=== PATIENT | female | born 1950 | race Caucasian/White ===

== ENCOUNTER → 2017-03-29 07:50 | Outpatient (CLI) | payer OTHER, SELFPAY ==
--- NOTE | 2017-03-29 07:53 | HPBI_ITS ---
MAMMOGRAPHY - BILATERAL SCREENING REASON FOR EXAM: Female, 66 years old. Routine annual screening examination. PERTINENT HISTORY: Non-contributory. TECHNIQUE: Digital bilateral breast aiden (3D mammographic acquisition) in the CC and MLO projections. 2-D mediolateral oblique (MLO) and craniocaudad (CC) views of both breasts were obtained. CAD: Full Field Digital Mammography with Computer Added Detection was performed. COMPARISON: Comparison is made with prior outside examination dated June 18, 2016. FINDINGS: Breast Composition: The breasts are almost entirely fatty. There are no dominant masses or suspicious calcifications. A battery pack from a pacemaker is seen in the left axillary region. No other significant abnormalities are identified. There has been no significant change since the prior study. HPBI/SCREENING MAMM (CAD), BILAT IMPRESSION: Stable bilateral screening mammogram. Yearly follow-up mammogram recommended. (A) ASSESSMENT CATEGORY: BIRADS Category 2: Benign. A letter regarding these results will be sent to the patient by the facility within 30 days. Approximately 10% of breast cancers are not detected by mammography. A normal mammogram should not delay biopsy of a clinically suspicious abnormality. [id number] Electronically Signed: Jose David Thomas MD at 10:02 EST Tel [phone], Service support ,
== END ==
PROVIDERS: Family Provider Family Medicine; PCP Family Medicine; Visit Provider Obstetrics & Gynecology
DX: Z12.31 Encounter for screening mammogram for malignant neoplasm of breast (principal)
CPT/HCPCS: 77063; 77067

== ENCOUNTER → 2017-04-01 07:38 | Outpatient (CLI) | payer OTHER, SELFPAY ==
[2017-04-01 10:05] LABS: Hematocrit 41.8 % (37-47); Hemoglobin 14.7 g/dl (12.0-15.0); Mean Corp Hgb Conc 35.2 g/gl (32-36); Mean Corpuscular Hgb 31.1 pg (27.0-32.0); Mean Corpuscular Volume 88.6 fL (81-99); Mean Platelet Vol. 9.8 fl (6.2-12.0); Platelet Count 231 K/mm3 (150-450); RBC Distribution Width CV 12.6 % (11.6-14.6); RBC Distribution Width SD 39.9 fl (35.1-43.9); Red Blood Count 4.72 M/mm3 (4.2-5.4); White Blood Count 4.8 K/mm3 (4.4-11.0)
[2017-04-01 10:10] LABS: Scan Indicated on CBC? Y/N NO
[2017-04-01 10:29] LABS: Vitamin D,25 Hydroxy 25.6 ng/mL (19.95-100.01)
[2017-04-01 10:46] LABS: ALB/GLOB Ratio 0.9 RATIO (0.9-2.4); AST(SGOT) 37 U/L (15-37); Alanine Aminotransfer ALT/SGPT 36 U/L (13-56); Albumin, Serum 3.4 g/dL (3.2-5.0); Alkaline Phosphatase 107 U/L (45-117); Anion Gap 7 (5-15); BUN 23 mg/dL (7-18); BUN/Creat Ratio 24.8 RATIO (10-20); Calcium,Total 8.9 mg/dL (8.5-10.1); Chloride 103 mmol/L (98-107); Cholesterol 145 mg/dL (200); Creatinine, Serum 0.93 mg/dL (0.55-1.02); EST Glomerular Filtration Rate 65 mL/min (>60); Est Glom Filt Rate - Afr Amer 78 mL/min (>60); Globulin 3.7 g/dL (2.2-4.2); Glucose 86 mg/dL (74-106); High Density Lipoprotein 66 mg/dL; Potassium 3.8 mmol/L (3.5-5.1); Protein, Total 7.1 g/dL (6.4-8.2); Sodium Level 140 mmol/L (136-145); T4 Free Direct 1.45 ng/dL (0.76-1.46); Thyroid Stim Hormone (TSH) 1.47 uIU/mL (0.358-3.74); Triglycerides 65 mg/dL; Very Low Density Lipoprotein 13 mg/dL (5-40)
== END ==
PROVIDERS: Family Provider Family Medicine; PCP Family Medicine; Visit Provider Internal Medicine Cardiovascular Disease
DX: Z00.00 Encounter for general adult medical examination without abnormal findings (principal); I10 Essential (primary) hypertension; E03.9 Hypothyroidism, unspecified; I44.1 Atrioventricular block, second degree; I44.4 Left anterior fascicular block; I45.10 Unspecified right bundle-branch block; I49.3 Ventricular premature depolarization; R55 Syncope and collapse
CPT/HCPCS: 36415; 80053; 80061; 82306; 84439; 84443; 85027

== ENCOUNTER → 2017-04-03 15:34 | Outpatient (CLI) | payer OTHER, SELFPAY ==
[2017-04-09 15:55] LABS: HPV APTIMA, High Risk Negative (Negative)
== END ==
PROVIDERS: Family Provider Family Medicine; PCP Family Medicine; Visit Provider Obstetrics & Gynecology
DX: Z12.4 Encounter for screening for malignant neoplasm of cervix (principal)
CPT/HCPCS: 88175; G0145

== ENCOUNTER → 2017-05-02 08:00 | Outpatient (CLI) | payer OTHER, SELFPAY ==
[2017-05-02 08:05] LABS: Mucous, Urine 0 SEEN /hpf (<or=2+); Red Blood Cells-Urine 0 SEEN /hpf (0-5)
[2017-05-02 09:40] LABS: Color, Urine Yellow (Yellow); Glucose, Dipstick Normal (Normal); Ketone-Dipstick Negative (Negative); Leukocyte Esterase-Dipstick 500 /ul (Negative); Nitrite-Dipstick Negative (Negative); Occult Blood-Urine Negative /ul (Negative); Protein-Dipstick Negative (Negative); Specific Gravity, Urine 1.005 (1.002-1.030); Urine Bilirubin Dipstick Negative (Negative); Urine Clarity Sl. Cloudy (Clear); Urine Urobilinogen Normal (Normal)
[2017-05-02 09:51] LABS: Bacteria RARE /hpf (None Seen); Squamous Epithelial Cells - UA 0-5 SEEN /hpf (5-10); White Blood Cells 0-5 SEEN /hpf (0-5)
== END ==
PROVIDERS: Family Provider Family Medicine; PCP Family Medicine; Visit Provider Family Medicine
DX: N39.0 Urinary tract infection, site not specified (principal)
CPT/HCPCS: 81001; 87086; 87088

== ENCOUNTER → 2018-04-03 07:36 | Outpatient (CLI) | payer MEDICARE, OTHER, SELFPAY ==
[2018-04-03 10:25] LABS: Hematocrit 43.7 % (37-47); Hemoglobin 15.1 g/dl (12.0-15.0); Mean Corp Hgb Conc 34.6 g/gl (32-36); Mean Corpuscular Hgb 30.8 pg (27.0-32.0); Mean Corpuscular Volume 89.2 fL (81-99); Mean Platelet Vol. 9.8 fl (6.2-12.0); Platelet Count 250 K/mm3 (150-450); RBC Distribution Width CV 12.5 % (11.6-14.6); RBC Distribution Width SD 40.5 fl (35.1-43.9); White Blood Count 5.4 K/mm3 (4.4-11.0)
[2018-04-03 10:26] LABS: Scan Indicated on CBC? Y/N NO
[2018-04-03 10:48] LABS: ALB/GLOB Ratio 0.9 RATIO (0.9-2.4); AST(SGOT) 28 U/L (15-37); Alanine Aminotransfer ALT/SGPT 32 U/L (13-56); Albumin, Serum 3.6 g/dL (3.2-5.0); Alkaline Phosphatase 132 U/L (45-117); Anion Gap 8 (5-15); BUN 25 mg/dL (7-18); Chloride 104 mmol/L (98-107); Cholesterol 158 mg/dL (200); EST Glomerular Filtration Rate 59 mL/min (>60); Est Glom Filt Rate - Afr Amer 71 mL/min (>60); Globulin 3.8 g/dL (2.2-4.2); Glucose 85 mg/dL (74-106); High Density Lipoprotein 61 mg/dL; Potassium 4.1 mmol/L (3.5-5.1); Protein, Total 7.4 g/dL (6.4-8.2); Sodium Level 142 mmol/L (136-145); T4 Free Direct 1.37 ng/dL (0.76-1.46); Thyroid Stim Hormone (TSH) 0.94 uIU/mL (0.358-3.74); Triglycerides 90 mg/dL; Very Low Density Lipoprotein 18 mg/dL (5-40)
== END ==
PROVIDERS: Family Provider Family Medicine; PCP Family Medicine; Referring Provider Family Medicine; Visit Provider Family Medicine
DX: I10 Essential (primary) hypertension (principal); E03.9 Hypothyroidism, unspecified; E55.9 Vitamin D deficiency, unspecified
CPT/HCPCS: 36415; 80053; 80061; 84439; 84443; 85027

== ENCOUNTER → 2018-06-18 09:50 | Outpatient (CLI) | payer MEDICARE, OTHER, SELFPAY ==
[2018-06-18 09:17] VITALS: BMI 29.9
--- NOTE | 2018-06-18 09:54 | BI_ITS ---
MAMMOGRAPHY - BILATERAL SCREENING REASON FOR EXAM: Female, 68 years old. Routine annual screening examination. PERTINENT HISTORY: Non-contributory. Remote left excisional breast biopsy. TECHNIQUE: Digital bilateral breast aiden (3D mammographic acquisition) in the CC and MLO projections. 2-D mediolateral oblique (MLO) and craniocaudad (CC) views of both breasts were obtained. CAD: Full Field Digital Mammography with Computer Added Detection was performed. COMPARISON: None. FINDINGS: Breast Composition: The breasts are almost entirely fatty. There are no dominant masses or suspicious calcifications. Once again, a battery pack from a pacemaker is seen in the left axillary region. No other significant abnormalities are identified. There has been no significant change since the prior study. BI/SCREENING MAMM (CAD), BILAT IMPRESSION: Stable bilateral screening mammogram. Yearly follow-up mammogram recommended. (A) ASSESSMENT CATEGORY: BIRADS Category 1: Negative. A letter regarding these results will be sent to the patient by the facility within 30 days. Approximately 10% of breast cancers are not detected by mammography. A normal mammogram should not delay biopsy of a clinically suspicious abnormality. [id number] Electronically Signed: Jose David Thomas, at 13:36 EDT , Service support ,
--- NOTE | 2018-06-18 09:59 | BD_ITS ---
STUDY: DUAL ENERGY X-RAY ABSORPTIOMETRY / DXA REASON FOR EXAM: Female, 68 years old. Early menopause. Loss of height. TECHNIQUE: Bone Mineral Density (BMD) measurements of lumbar spine and bilateral hips were obtained. COMPARISON: None. FINDINGS: Lumbar Spine (L1-L4): g/cm2 (1.312) / T-score (1.2) / Z-score (2.8) Findings are suggestive of normal bone density with a low fracture risk. Left Femur Total: g/cm2 (1.049) / T-score (0.3) / Z-score (1.6) Left Femoral Neck: g/cm2 (1.081) / T-score (0.3) / Z-score (1.8) Right Femur Total: g/cm2 (1.061) / T-score (0.4) / Z-score (1.7) Right Femoral Neck: g/cm2 (1.037) / T-score (0.0) / Z-score (1.5) BD/Dexa Bone Density Study IMPRESSION: The patient is considered normal as outlined below according to World Ruiz Organization (WHO) criteria with a low fracture risk. Reference Information: The T-score is the number of standard deviations above or below the standard which is normal for young adults at their peak bone mineral density. The World Health Organization (WHO) interprets the T-scores as follows: Above -1 Normal bone density Between -1 and -2.5 Osteopenia Equal to / or below -2.5 Osteoporosis As a practical clinical guideline, osteopenia may be graded as follows: Mild -1 through -1.5 Moderate -1.6 through -2.0 Severe -2.1 through -2.4 The Z-score is the number of standard deviations above or below age-matched controls. A Z-score of less than -1.5 would be considered abnormal. References: 1. NIH Osteoporosis and Related Bone Diseases http://www.osteo.org 2. International Society for Clinical Densitometry http://www.iscd.org 3. National Osteoporosis Foundation http://www.nof.org Electronically Signed: Jose David Thomas, at 15:30 EDT , Service support ,
== END ==
PROVIDERS: Family Provider Family Medicine; PCP Family Medicine; Referring Provider Family Medicine; Visit Provider Family Medicine
DX: Z12.31 Encounter for screening mammogram for malignant neoplasm of breast (principal); Z78.0 Asymptomatic menopausal state
CPT/HCPCS: 77063; 77067; 77080

== ENCOUNTER → 2018-06-23 15:40 | Outpatient (CLI) | payer MEDICARE, OTHER, SELFPAY ==
[2018-06-18 09:17] VITALS: BMI 29.9
== END ==
PROVIDERS: Family Provider Family Medicine; PCP Family Medicine; Referring Provider Nurse Practitioner Family; Visit Provider Nurse Practitioner Family
DX: R35.0 Frequency of micturition (principal)
CPT/HCPCS: 87086; 87088; 87186

== ENCOUNTER → 2019-09-04 10:22 | Outpatient (CLI) | payer MEDICARE, OTHER, SELFPAY ==
[2019-04-16 08:46] VITALS: BMI 30.2
[2019-09-04 12:46] LABS: Vitamin D,25 Hydroxy 80.4 ng/mL
[2019-09-04 13:00] LABS: Anion Gap 4 (5-15); BUN 25 mg/dL (7-18); BUN/Creat Ratio 25.8 RATIO (10-20); Calcium,Total 9.2 mg/dL (8.5-10.1); Chloride 106 mmol/L (98-107); Cholesterol 165 mg/dL (200); Creatinine, Serum 0.97 mg/dL (0.55-1.02); EST Glomerular Filtration Rate 61 mL/min (>60); Est Glom Filt Rate - Afr Amer 74 mL/min (>60); Glucose 92 mg/dL (74-106); High Density Lipoprotein 71 mg/dL; Potassium 3.9 mmol/L (3.5-5.1); Sodium Level 141 mmol/L (136-145); T4 Free Direct 1.35 ng/dL (0.76-1.46); Thyroid Stim Hormone (TSH) 0.94 uIU/mL (0.358-3.74); Triglycerides 83 mg/dL; Very Low Density Lipoprotein 17 mg/dL (5-40)
== END ==
PROVIDERS: PCP Family Medicine; Referring Provider Family Medicine; Visit Provider Family Medicine
DX: I10 Essential (primary) hypertension (principal)
CPT/HCPCS: 36415; 80048; 80061; 82306; 84439; 84443

== ENCOUNTER → 2019-12-31 07:22 | Outpatient (CLI) | payer MEDICARE, OTHER, SELFPAY ==
[2018-06-18 09:17] VITALS: BMI 29.9
[2019-04-16 08:46] VITALS: BMI 30.2
--- NOTE | 2019-12-31 07:23 | BI_ITS ---
MAMMOGRAPHY - BILATERAL SCREENING REASON FOR EXAM: Female, 69 years old. Routine annual screening examination. PERTINENT HISTORY: Non-contributory. Remote left excisional breast biopsy. TECHNIQUE: Digital bilateral breast rafa (3D mammographic acquisition) in the CC and MLO projections. 2-D mediolateral oblique (MLO) and craniocaudad (CC) views of both breasts were obtained. CAD: Full Field Digital Mammography with Computer Added Detection was performed. COMPARISON: Comparison is made with prior study dated 06/18/2018 and 03/29/2017. FINDINGS: Breast Composition: The breasts are almost entirely fatty. There are no dominant masses or suspicious calcifications. A battery pack from a left-sided pacemaker device is seen in the left axillary region. No other significant abnormalities are identified. There has been no significant change since the prior study. BI/SCREEN MAMM (CAD) W/RAFA BILAT IMPRESSION: Stable bilateral screening mammogram. Yearly follow-up mammogram recommended. (A) ASSESSMENT CATEGORY: BIRADS Category 2: Benign. A letter regarding these results will be sent to the patient by the facility within 30 days. Approximately 10% of breast cancers are not detected by mammography. A normal mammogram should not delay biopsy of a clinically suspicious abnormality. [id number] Electronically Signed: Jose David Thomas, at 10:00 EST , Service support ,
== END ==
PROVIDERS: Family Provider Family Medicine; PCP Family Medicine; Referring Provider Obstetrics & Gynecology; Visit Provider Obstetrics & Gynecology
DX: Z12.31 Encounter for screening mammogram for malignant neoplasm of breast (principal)
CPT/HCPCS: 77063; 77067

== ENCOUNTER 2020-04-06 14:10 | Outpatient (RCR) | payer MEDICARE, OTHER, SELFPAY ==
[2019-12-31 08:13] VITALS: BMI 29.5
== END 2020-04-06 23:59 ==
LOC: IMMUN 14:10
PROVIDERS: PCP Family Medicine; Referring Provider Family Medicine; Visit Provider Family Medicine
DX: Z23 Encounter for immunization (principal)
CPT/HCPCS: 0011A; 0012A

== ENCOUNTER → 2020-09-15 08:07 | Outpatient (CLI) | payer MEDICARE, OTHER, SELFPAY ==
[2020-04-19 08:44] VITALS: BMI 28.9
[2020-09-15 10:28] LABS: Vitamin D,25 Hydroxy 67.5 ng/mL
[2020-09-15 10:39] LABS: ALB/GLOB Ratio 1.1 RATIO (0.9-2.4); AST(SGOT) 29 U/L (15-37); Alanine Aminotransfer ALT/SGPT 33 U/L (13-56); Albumin, Serum 3.7 g/dL (3.2-5.0); Alkaline Phosphatase 109 U/L (45-117); Anion Gap 7 (5-15); BUN 26 mg/dL (7-18); BUN/Creat Ratio 27.1 RATIO (10-20); Calcium,Total 9.1 mg/dL (8.5-10.1); Chloride 102 mmol/L (98-107); Cholesterol 171 mg/dL (200); Creatinine, Serum 0.96 mg/dL (0.55-1.02); EST Glomerular Filtration Rate 61 mL/min (>60); Est Glom Filt Rate - Afr Amer 74 mL/min (>60); Globulin 3.4 g/dL (2.2-4.2); Glucose 93 mg/dL (74-106); High Density Lipoprotein 66 mg/dL; Potassium 3.6 mmol/L (3.5-5.1); Protein, Total 7.1 g/dL (6.4-8.2); Sodium Level 140 mmol/L (136-145); Thyroid Stim Hormone (TSH) 1.21 uIU/mL (0.358-3.74); Triglycerides 90 mg/dL; Very Low Density Lipoprotein 18 mg/dL (5-40)
== END ==
PROVIDERS: PCP Family Medicine; Referring Provider Family Medicine; Visit Provider Family Medicine
DX: I10 Essential (primary) hypertension (principal); E55.9 Vitamin D deficiency, unspecified; E03.9 Hypothyroidism, unspecified
CPT/HCPCS: 36415; 80053; 80061; 82306; 84443

== ENCOUNTER → 2020-10-05 08:05 | Outpatient (CLI) | payer MEDICARE, OTHER, SELFPAY ==
[2020-04-19 08:44] VITALS: BMI 28.9
--- NOTE | 2020-10-05 08:11 | BD_ITS ---
STUDY: DUAL ENERGY X-RAY ABSORPTIOMETRY / DXA REASON FOR EXAM: Female, 70 years old. Postmenopausal TECHNIQUE: Bone Mineral Density (BMD) measurements of lumbar spine and bilateral hips were obtained. COMPARISON: Comparison is made with prior study dated 06/18/2018. FINDINGS: Lumbar Spine (L1-L4): g/cm2 (1.174) / T-score (1.2) / Z-score (3.1) Findings are suggestive of normal bone density with a low fracture risk. Left Femur Total: g/cm2 (0.982) / T-score (0.3) / Z-score (1.7) Left Femoral Neck: g/cm2 (0.899) / T-score (0.4) / Z-score (2.1) Right Femur Total: g/cm2 (1.016) / T-score (0.6) / Z-score (2.0) Right Femoral Neck: g/cm2 (0.868) / T-score (0.2) / Z-score (1.9) The T-Scores on the most recent prior examination were: Lumbar Spine (L1-L4): There has been worsening of bone density since the previous examination. Left Femur Total: which represents an improvement of 0.1%. Right Femur Total: which represents an improvement of 2.3%. BD/Dexa Bone Density Study IMPRESSION: The patient is considered normal as outlined below according to World Ruiz Organization (WHO) criteria with a low fracture risk. There has been improvement of bone density since the previous examination. Reference Information: The T-score is the number of standard deviations above or below the standard which is normal for young adults at their peak bone mineral density. The World Health Organization (WHO) interprets the T-scores as follows: Above -1 Normal bone density Between -1 and -2.5 Osteopenia Equal to / or below -2.5 Osteoporosis As a practical clinical guideline, osteopenia may be graded as follows: Mild -1 through -1.5 Moderate -1.6 through -2.0 Severe -2.1 through -2.4 The Z-score is the number of standard deviations above or below age-matched controls. A Z-score of less than -1.5 would be considered abnormal. References: 1. NIH Osteoporosis and Related Bone Diseases www osteo.org 2. International Society for Clinical Densitometry www iscd.org 3. National Osteoporosis Foundation www nof.org Electronically Signed: Jose David Thomas MD at 8:56 EDT , Service support ,
== END ==
PROVIDERS: PCP Family Medicine; Referring Provider Obstetrics & Gynecology; Visit Provider Obstetrics & Gynecology
DX: Z78.0 Asymptomatic menopausal state (principal)
CPT/HCPCS: 77080

== ENCOUNTER → 2020-11-14 | Outpatient (CLI) | payer MEDICARE, OTHER, SELFPAY | END | disposition home or self-care (01) | LOC: LABSPEC 12:40 | PROVIDERS: PCP Family Medicine; Referring Provider Family Medicine; Visit Provider Family Medicine | DX: R30.0 Dysuria (principal) | CPT/HCPCS: 87077; 87086; 87088; 87186 ==

== ENCOUNTER → 2021-01-02 | Outpatient (CLI) | payer MEDICARE, OTHER, SELFPAY ==
[2021-01-09 14:20] LABS: HPV Reflexed? NOT INDICATED
== END | disposition home or self-care (01) ==
LOC: LABSPEC 12:51
PROVIDERS: PCP Family Medicine; Referring Provider Nurse Practitioner Women's Health; Visit Provider Nurse Practitioner Women's Health
DX: Z12.4 Encounter for screening for malignant neoplasm of cervix (principal); R30.9 Painful micturition, unspecified
CPT/HCPCS: 87086; 87088; 87186; 88175; G0145

== ENCOUNTER → 2021-01-20 07:43 | Outpatient (CLI) | payer MEDICARE, OTHER, SELFPAY ==
[2020-04-19 08:44] VITALS: BMI 28.9
--- NOTE | 2021-01-20 07:45 | BI_ITS ---
MAMMOGRAPHY - BILATERAL SCREENING REASON FOR EXAM: Female, 70 years old. Routine annual screening examination. PERTINENT HISTORY: Non-contributory. TECHNIQUE: Digital bilateral breast rafa (3D mammographic acquisition) in the CC and MLO projections. 2-D mediolateral oblique (MLO) and craniocaudad (CC) views of both breasts were obtained. CAD: Full Field Digital Mammography with Computer Added Detection was performed. COMPARISON: Comparison is made with prior study dated 12/31/2019 and 06/18/2018. FINDINGS: Breast Composition: The breasts are almost entirely fatty. There are no dominant masses or suspicious calcifications. Once again, a battery pack from a pacemaker is seen in the left axillary region. No other significant abnormalities are identified. There has been no significant change since the prior study. BI/SCRN MAMM (CAD)W/RAFA BILAT IMPRESSION: Stable bilateral screening mammogram. Yearly follow-up mammogram recommended. (A) ASSESSMENT CATEGORY: BIRADS Category 2: Benign. A letter regarding these results will be sent to the patient by the facility within 30 days. Approximately 10% of breast cancers are not detected by mammography. A normal mammogram should not delay biopsy of a clinically suspicious abnormality. [id number] Electronically Signed: Jose David Thomas MD at 9:16 EST , Service support ,
== END ==
PROVIDERS: PCP Family Medicine; Referring Provider Nurse Practitioner Women's Health; Visit Provider Nurse Practitioner Women's Health
DX: Z12.31 Encounter for screening mammogram for malignant neoplasm of breast (principal)
CPT/HCPCS: 77063; 77067

== ENCOUNTER 2021-03-22 09:33 | Outpatient (CLI) | payer MEDICARE, OTHER, SELFPAY ==
[2021-03-22 13:59] LABS: Anion Gap 7 (5-15); BUN 24 mg/dL (7-18); Calcium,Total 8.9 mg/dL (8.5-10.1); Chloride 105 mmol/L (98-107); Cholesterol 159 mg/dL (200); Creatinine, Serum 0.92 mg/dL (0.55-1.02); EST Glomerular Filtration Rate 64 mL/min (>60); Est Glom Filt Rate - Afr Amer 78 mL/min (>60); Glucose 82 mg/dL (74-106); High Density Lipoprotein 64 mg/dL; Potassium 3.7 mmol/L (3.5-5.1); Sodium Level 142 mmol/L (136-145); Triglycerides 94 mg/dL; Very Low Density Lipoprotein 19 mg/dL (5-40)
== END 2021-03-22 23:59 | disposition home or self-care (01) ==
LOC: MFPLAB 09:38
PROVIDERS: PCP Family Medicine; Referring Provider Family Medicine; Visit Provider Family Medicine
DX: I10 Essential (primary) hypertension (principal); E55.9 Vitamin D deficiency, unspecified
CPT/HCPCS: 36415; 80048; 80061; 82306

== ENCOUNTER 2021-05-23 07:33 | Outpatient (CLI) | payer MEDICARE, OTHER, SELFPAY ==
--- NOTE | 2021-05-23 07:38 | ECHOD_ITS ---
Reason For Study: 2nd Degree AV Block Mobitz Type II Procedure This was a 2D Doppler, Color Flow transthoracic echocardiogram. Exam performed in department. Left Ventricle Normal LV size. Left ventricular systolic function is normal. The estimated ejection fraction is 55 %. Stage 1 diastolic dysfunction. No regional wall motion abnormalities noted. Right Ventricle Normal RV size. ICD or pacer leads identified within the right ventricle. Normal systolic function. Atria Normal left atrium. Normal right atrium. Mitral Valve Normal mitral valve. Mild (1+) eccentric mitral valve insufficiency. Tricuspid Valve Normal tricuspid valve. Mild tricuspid valve insufficiency. Pulmonary artery systolic pressure is 28 mmHg. Aortic Valve Normal aortic valve. Trisinus/trileaflet aortic valve. Pulmonic Valve Normal pulmonic valve. Great Vessels Normal aortic root. The pulmonary artery is normal size. Normal inferior vena cava. Pericardium/Pleural No pericardial effusion. MMode/2D Measurements & Calculations LVIDd: 5.3 cm IVSd: 0.64 cm Ao root diam: 3.1 cm LVIDs: 3.4 cm LVPWd: 0.81 cm LA dimension: 3.4 cm RVDd: 3.9 cm FS: 34.8 % LAV(MOD-bp): 46.7 ml LA A4 area: 17.4 cm2 RA A4 area: 15.7 cm2 LAV(MOD-bp) Indexed: 25.9 ml/m2 LAV(MOD-sp2): 44.9 ml LAV(MOD-sp4): 47.0 ml Time Measurements MV dec time: 0.25 sec Doppler Measurements & Calculations MV E max lyle: 46.4 cm/sec Lat Peak E' Lyle: 6.0 cm/sec Med Peak E' Lyle: 5.9 cm/sec MV A max lyle: 84.2 cm/sec E/E' lat: 7.7 E/E' med: 7.9 MV E/A: 0.55 MV V2 max: 106.0 cm/sec MV P1/2t max lyle: 71.5 cm/sec Ao V2 max: 132.0 cm/sec MV max P.5 mmHg MV P1/2t: 114.3 msec Ao max P.0 mmHg MV V2 mean: 53.9 cm/sec MV dec slope: 183.3 cm/sec2 MV mean P.4 mmHg MVA(P1/2t): 1.9 cm2 MV V2 VTI: 33.3 cm LV V1 max: 83.4 cm/sec PA V2 max: 83.8 cm/sec TR max lyle: 242.7 cm/sec LV V1 max P.8 mmHg TR max P.6 mmHg ECHO/Echo Complete Interpretation Summary Normal LV size. Left ventricular systolic function is normal. The estimated ejection fraction is 55 %. Mild (1+) eccentric mitral valve insufficiency. Mild tricuspid valve insufficiency. Stage 1 diastolic dysfunction. Ordering Physician: Jeri Rasheed Referring Physician: Deacon Smith Performed By: Elmer Johnson RCS
== END 2021-05-23 23:59 | disposition home or self-care (01) ==
LOC: CVS 07:37
PROVIDERS: PCP Family Medicine; Referring Provider Physician Assistant Medical; Visit Provider Physician Assistant Medical
DX: I44.1 Atrioventricular block, second degree (principal)
CPT/HCPCS: 93306

== ENCOUNTER → 2021-06-16 | Outpatient (CLI) | payer MEDICARE, OTHER, SELFPAY | END | disposition home or self-care (01) | PROVIDERS: PCP Family Medicine; Referring Provider Nurse Practitioner Women's Health; Visit Provider Nurse Practitioner Women's Health | DX: N39.0 Urinary tract infection, site not specified (principal) | CPT/HCPCS: 87086; 87088 ==

== ENCOUNTER → 2022-01-22 | Outpatient (CLI) | payer MEDICARE, OTHER, SELFPAY ==
--- NOTE | 2022-01-22 07:36 | BI_ITS ---
MAMMOGRAPHY - BILATERAL SCREENING REASON FOR EXAM: Female, 71 years old. Routine annual screening examination. PERTINENT HISTORY: Non-contributory. Remote left excisional breast biopsy. TECHNIQUE: Digital bilateral breast rafa (3D mammographic acquisition) in the CC and MLO projections. 2-D mediolateral oblique (MLO) and craniocaudad (CC) views of both breasts were obtained. CAD: Full Field Digital Mammography with Computer Added Detection was performed. COMPARISON: Comparison is made with prior study dated 01/20/2021 and 12/31/2019. FINDINGS: Breast Composition: The breasts are almost entirely fatty. There are no dominant masses or suspicious calcifications. A battery pack from a pacemaker is seen in the left axillary region No other significant abnormalities are identified. There has been no significant change since the prior study. BI/SCRN MAMM (CAD)W/RAFA BILAT IMPRESSION: Stable bilateral screening mammogram. Yearly follow-up mammogram recommended. (A) ASSESSMENT CATEGORY: BIRADS Category 2: Benign. A letter regarding these results will be sent to the patient by the facility within 30 days. Approximately 10% of breast cancers are not detected by mammography. A normal mammogram should not delay biopsy of a clinically suspicious abnormality. [id number] Electronically Signed: Jose David Thomas MD at 8:27 EST ,
== END | disposition home or self-care (01) ==
LOC: OPBI 07:34
PROVIDERS: PCP Family Medicine; Visit Provider Nurse Practitioner Women's Health
DX: Z12.31 Encounter for screening mammogram for malignant neoplasm of breast (principal); Z95.0 Presence of cardiac pacemaker; Z92.89 Personal history of other medical treatment
CPT/HCPCS: 77063; 77067

== ENCOUNTER → 2022-03-02 | Outpatient (CLI) | payer MEDICARE, OTHER, SELFPAY ==
[2022-03-02 10:48] LABS: Vitamin D,25 Hydroxy 65.6 ng/mL
[2022-03-02 10:53] LABS: AST(SGOT) 31 U/L (15-37); Alanine Aminotransfer ALT/SGPT 28 U/L (13-56); Albumin, Serum 3.4 g/dL (3.2-5.0); Alkaline Phosphatase 102 U/L (45-117); Anion Gap 9 (5-15); BUN 28 mg/dL (7-18); BUN/Creat Ratio 25.5 RATIO (10-20); Calcium,Total 8.9 mg/dL (8.5-10.1); Chloride 101 mmol/L (98-107); Cholesterol 149 mg/dL (200); EST Glomerular Filtration Rate 52 mL/min (>60); Est Glom Filt Rate - Afr Amer 63 mL/min (>60); Globulin 3.4 g/dL (2.2-4.2); Glucose 85 mg/dL (74-106); High Density Lipoprotein 66 mg/dL; Potassium 3.8 mmol/L (3.5-5.1); Protein, Total 6.8 g/dL (6.4-8.2); Sodium Level 139 mmol/L (136-145); Thyroid Stim Hormone (TSH) 0.27 uIU/mL (0.358-3.74); Triglycerides 66 mg/dL; Very Low Density Lipoprotein 13 mg/dL (5-40)
[2022-03-08 10:46] LABS: T4 Free Direct 1.52 ng/dL (0.76-1.46)
== END | disposition home or self-care (01) ==
PROVIDERS: PCP Family Medicine; Referring Provider Family Medicine; Visit Provider Family Medicine
DX: I10 Essential (primary) hypertension (principal); E03.9 Hypothyroidism, unspecified; E55.9 Vitamin D deficiency, unspecified; Z13.29 Encounter for screening for other suspected endocrine disorder
CPT/HCPCS: 36415; 80053; 80061; 82306; 84439; 84443

== ENCOUNTER → 2022-04-26 | Outpatient (CLI) | payer MEDICARE, OTHER, SELFPAY ==
[2022-04-26 10:22] LABS: Anion Gap 7 (5-15); BUN 27 mg/dL (7-18); BUN/Creat Ratio 25.5 RATIO (10-20); Calcium,Total 9.2 mg/dL (8.5-10.1); Chloride 105 mmol/L (98-107); Creatinine, Serum 1.06 mg/dL (0.55-1.02); EST Glomerular Filtration Rate 55 mL/min (>60); Est Glom Filt Rate - Afr Amer 66 mL/min (>60); Glucose 92 mg/dL (74-106); Sodium Level 140 mmol/L (136-145); Thyroid Stim Hormone (TSH) 1.35 uIU/mL (0.358-3.74)
== END | disposition home or self-care (01) ==
LOC: MTLAB 07:57
PROVIDERS: PCP Family Medicine; Referring Provider Family Medicine; Visit Provider Family Medicine
DX: I10 Essential (primary) hypertension (principal); E03.9 Hypothyroidism, unspecified
CPT/HCPCS: 36415; 80048; 84439; 84443

== ENCOUNTER → 2022-09-10 | Outpatient (CLI) | payer MEDICARE, OTHER, SELFPAY ==
[2022-09-10 10:39] LABS: Vitamin D,25 Hydroxy 69.9 ng/mL
[2022-09-10 10:40] LABS: AST(SGOT) 28 U/L (15-37); Alanine Aminotransfer ALT/SGPT 27 U/L (13-56); Albumin, Serum 3.5 g/dL (3.2-5.0); Alkaline Phosphatase 102 U/L (45-117); Anion Gap 3 (5-15); BUN 30 mg/dL (7-18); Calcium,Total 9.2 mg/dL (8.5-10.1); Chloride 107 mmol/L (98-107); Cholesterol 186 mg/dL (200); Creatinine, Serum 1.07 mg/dL (0.55-1.02); EST Glomerular Filtration Rate 54 mL/min (>60); Est Glom Filt Rate - Afr Amer 65 mL/min (>60); Globulin 3.6 g/dL (2.2-4.2); Glucose 92 mg/dL (74-106); High Density Lipoprotein 75 mg/dL; Potassium 4.2 mmol/L (3.5-5.1); Protein, Total 7.1 g/dL (6.4-8.2); Sodium Level 139 mmol/L (136-145); T4 Free Direct 1.31 ng/dL (0.76-1.46); Thyroid Stim Hormone (TSH) 0.71 uIU/mL (0.358-3.74); Triglycerides 103 mg/dL; Very Low Density Lipoprotein 21 mg/dL (5-40)
[2022-09-10 10:41] LABS: Vitamin B12 600 pg/mL (211-911)
== END | disposition home or self-care (01) ==
PROVIDERS: Internal Medicine Endocrinology, Diabetes & Metabolism; PCP Family Medicine; Referring Provider Family Medicine; Visit Provider Family Medicine
DX: R20.2 Paresthesia of skin (principal); I10 Essential (primary) hypertension; E55.9 Vitamin D deficiency, unspecified; E03.9 Hypothyroidism, unspecified
CPT/HCPCS: 36415; 80053; 80061; 82306; 82607; 84439; 84443

== ENCOUNTER → 2023-01-23 | Outpatient (CLI) | payer MEDICARE, OTHER, SELFPAY ==
--- NOTE | 2023-01-23 09:41 | BI_ITS ---
MAMMOGRAPHY - BILATERAL SCREENING REASON FOR EXAM: Female, 72 years old. Routine annual screening examination. PERTINENT HISTORY: Non-contributory. Remote left excisional breast biopsy. TECHNIQUE: Digital bilateral breast rafa (3D mammographic acquisition) in the CC and MLO projections. 2-D mediolateral oblique (MLO) and craniocaudad (CC) views of both breasts were obtained. CAD: Full Field Digital Mammography with Computer Added Detection was performed. COMPARISON: Comparison is made with prior study dated January 22, 2022 and January 20, 2021. FINDINGS: Breast Composition: The breasts are almost entirely fatty. There are no dominant masses or suspicious calcifications. The battery pack of the pacemaker is seen in the left axilla. No other significant abnormalities are identified. There has been no significant change since the prior study. BI/SCRN MAMM (CAD)W/RAFA BILAT IMPRESSION: Stable bilateral screening mammogram. Yearly follow-up mammogram recommended. (A) ASSESSMENT CATEGORY: BIRADS Category 2: Benign. A letter regarding these results will be sent to the patient by the facility within 30 days. Approximately 10% of breast cancers are not detected by mammography. A normal mammogram should not delay biopsy of a clinically suspicious abnormality. [id number] Electronically Signed: Jose David Thomas MD at 11:48 EST ,
== END | disposition home or self-care (01) ==
LOC: OPBI 09:39
PROVIDERS: PCP Family Medicine; Referring Provider Nurse Practitioner Women's Health; Visit Provider Nurse Practitioner Women's Health
DX: Z12.31 Encounter for screening mammogram for malignant neoplasm of breast (principal)
CPT/HCPCS: 77063; 77067

== ENCOUNTER → 2023-03-15 | Outpatient (CLI) | payer MEDICARE, OTHER, SELFPAY ==
--- NOTE | 2023-03-15 10:04 | RAD_ITS ---
STUDY: X-RAY - RIGHT FOOT CLINICAL: Female, 72 years old. Right foot injury TECHNIQUE: 3 view(s) of the foot. COMPARISON: None. FINDINGS: There is an enthesophyte involving the posterior superior calcaneus at the site of insertion of the Achilles tendon. Normal visualized subtalar, talonavicular, calcaneocuboid, tarsal and tarsometatarsal articulations. Nondisplaced oblique fracture of the mid fifth metatarsal. Well corticated bony fragment is seen at the base of the fifth metatarsal. This may represent either ununited fracture versus accessory ossicle. Normal metatarsophalangeal joint of the great toe. Normal tibial and fibular sesamoid bones. Normal interphalangeal joint of the great toe. Normal phalanges of the great toe. Normal second through fifth metatarsophalangeal joints. Normal interphalangeal joints and phalanges of the lesser toes. Soft tissue swelling. RAD/Foot min 3 Views IMPRESSION: Nondisplaced oblique fracture through the mid portion of the fifth metatarsal. Overlying soft tissue swelling. Electronically Signed: Jose David Thomas MD at 14:34 EST ,
--- OUTSIDE RECORDS SUMMARY | 2023-03-15 12:54 | XMS RPT_ITS | CCD ---
Author Name Unknown Address [id number] [place] [address] Organization [facility] Care Team Providers Care Agricultural Research Director Name Role Phone CARMELO Angelo, Victorina Sharpe Unavailable Unavailable CARMELO Angelo, Victorina Sharpe Unavailable Unavailable CARMELO Angelo, Victorina Sharpe Unavailable Unavailable CARMELO Angelo, Victorina Sharpe Unavailable Unavailable CARMELO Angelo, Victorina Sharpe Unavailable Unavailable CARMELO Angelo, Victorina Sharpe Unavailable Unavailable Robe Smith MD Primary Care Provider Robe Smith MD Primary Care Provider Robe Smith MD Primary Care Provider Robe Smith MD Primary Care Provider Robe Smith MD Primary Care Provider RUSTY SILVA Referring Unavailable ROBE SMITH Primary Care Unavailabl e RUSTY SILVA Attending Unavailable ROBE SMITH Primary Care Unavailabl e ARELY PLATA Attending Unavaila ROBE Ordaz Primary Care Unavailabl e ARELY PLATA Attending Unavaila RBOE Ordaz Primary Care Unavailabl e RUSTY SILVA Attending Unavailable ROBE SMITH Primary Care Unavailshanon e CATIA PEREZ Attending Unavailable ROBE SMITH Primary Care Unavailabl e ARELY PLATA Referring Unavaila ROBE Ordaz Primary Care Unavailabl e ARELY PLATA Attending Unavaila ROBE Ordaz Primary Care Unavailshanon e CATIA PEREZ Attending Unavailable ROBE SMITH Primary Care Unavailabl e Allergies Allergy Classification Reported Allergen(s) Allergy Type Date of Onset Reaction(s) Facility (6 sources) Sulfonamides (Antibiotic) drug allergy 7 [facility] Work Phone: (13 sources) Sulfonamides (Antibiotic); Translations: [SULFA (SULFONAMIDE ANTIBIOTICS)] Drug Allergy 5 Other: See Comments [facility] Medications Current Medications Medication Drug Class(es) Dates Sig (Normalized) Sig (Original) benoxinate hydrochloride 4 mg/ml / fluorescein sodium 2.5 mg/ml ophthalmic solution (2 sources) Diagnostic Dye Start: 04-25-2022 End: 04-25-2022 fluorescein-benoxi ashanti 0.25-0.4 % 1 Drop (FLURESS) Completed/Discontinued Medications Medication Drug Class(es) Dates Sig (Normalized) Sig (Original) aspirin 81 mg delayed release oral tablet (6 sources) Platelet Aggregation Inhibitor, Nonsteroidal Anti-inflammatory Drug Start: 02-22-2016 take 1 tablet by mouth once daily ASPIRIN EC 81 MG TBEC One tablet by mouth daily ASPIRIN [id number] Simi Truong RN calcium carbonate 1500 mg / cholecalciferol 200 unt oral tablet (12 sources) Vitamin D Start: 09-22-2014 take 1 tablet by mouth twice daily calcium carbonate 600 mg-cholecalcifero l 200 units (CALCIUM 600 + D,3,) 600 mg(1,500mg) -200 unit tab Take 1 tablet by mouth twice daily. 100 tablet 5 09/22/2014 Active Problems Active Problems Problem Classification Problem Date Documented Date Episodic/Chronic Cardiac dysrhythmias (6 sources) Ventricular premature depolarization; Translations: [Ventricular premature depolarization] Onset: 02-22-2016 02-22-2016 Chronic Cataract (7 sources) Nuclear senile cataract; Translations: [Age-related nuclear cataract, bilateral] Chronic Conduction disorders (20 sources) Presence of cardiac pacemaker; Translations: [Mobitz type II atrioventricular block] Onset: 02-01-2016 03-29-2016 Chronic Essential hypertension (12 sources) Benign essential hypertension; Translations: [Essential (primary) hypertension] Onset: 08-29-2007 12-30-2008 Chronic Retinal detachments; defects; vascular occlusion; and retinopathy (20 sources) Nonexudative age-related macular degeneration; Translations: [Nonexudative age-related macular degeneration, bilateral, advanced atrophic with subfoveal involvement] Onset: 11-10-2018 Chronic Thyroid disorders (18 sources) Hypothyroidism; Translations: [Hypothyroidism, unspecified] Onset: 02-08-2005 02-16-2016 Chronic Past or Other Problems Problem Classification Problem Date Documented Da te Episodic/Chronic Other female genital disorders (12 sources) Disorder of female genital system; Translations: [Unspecified condition associated with female genital organs and menstrual cycle] Onset: 05-31-2011 05-31-2011 Episodic Other screening for suspected conditions (not mental disorders or infectious disease) (12 sources) Abnormal findings on diagnostic imaging of heart and coronary circulation; Translations: [Electrocardiogram abnormal] Onset: 02-01-2016 02-22-2016 Episodic Residual codes; unclassified (12 sources) Abnormal cytology findings; Translations: [ASCUS favor benign] Onset: 03-24-2012 02-06-2021 Episodic Residual codes; unclassified (12 sources) Amnesia; Translations: [Other amnesia] Onset: 11-14-2018 11-14-2018 Episodic Syncope (6 sources) Syncope and collapse; Translations: [Syncope and collapse] Onset: 02-01-2016 02-01-2016 Episodic Results Test Name Value Interpretation Reference Range Facil ity Vital Signs Date Time Vital Sign Value Performing Clinician Gideon diop 04-25-2022 08:56-0400 Body temperature 97.5 [degF] Arely Murry MD Work Phone: [facility] 04-25-2022 08:56-0400 Diastolic blood pressure 81 mm[Hg] Arely Murry MD Work Phone: [facility] 04-25-2022 08:56-0400 Heart rate 69 /min Arely Murry MD Work Phone: [facility] 04-25-2022 08:56-0400 Respiratory rate 10 /min Arely Murry MD Work Phone: [facility] 04-25-2022 08:56-0400 Systolic blood pressure 140 mm[Hg] Arely Murry MD Work Phone: [facility] 01-10-2022 10:55-0500 Body temperature 97.2 [degF] Arely Murry MD Work Phone: [facility] 01-10-2022 10:55-0500 Diastolic blood pressure 85 mm[Hg] Arely Murry MD Work Phone: [facility] 01-10-2022 10:55-0500 Heart rate 62 /min Arely Murry MD Work Phone: [facility] 01-10-2022 10:55-0500 Respiratory rate 13 /min Arely Murry MD Work Phone: [facility] 01-10-2022 10:55-0500 Systolic blood pressure 159 mm[Hg] Arely Murry MD Work Phone: [facility] 07-14-2021 09:58-0400 Body temperature 97.5 [degF] Arely Murry MD Work Phone: [facility] 07-14-2021 09:58-0400 Diastolic blood pressure 104 mm[Hg] Arely Murry MD Work Phone: [facility] 07-14-2021 09:58-0400 Heart rate 89 /min Arely Murry MD Work Phone: [facility] 07-14-2021 09:58-0400 Respiratory rate 12 /min Arely Murry MD Work Phone: [facility] 07-14-2021 09:58-0400 Systolic blood pressure 123 mm[Hg] Arely Murry MD Work Phone: [facility] 05-17-2021 11:38-0400 Body temperature 97.9 [degF] Arely Murry MD Work Phone: [facility] 05-17-2021 11:38-0400 Diastolic blood pressure 78 mm[Hg] Arely Murry MD Work Phone: [facility] 05-17-2021 11:38-0400 Heart rate 67 /min Arely Murry MD Work Phone: [facility] 05-17-2021 11:38-0400 Respiratory rate 16 /min Arely Murry MD Work Phone: [facility] 05-17-2021 11:38-0400 Systolic blood pressure 132 mm[Hg] Arely Murry MD Work Phone: [facility] 03-15-2016 15:14-0500 BMI (Body Mass Index) 29.59 kg/m2 [facility] Work Phone: 03-15-2016 15:14-0500 BP Diastolic 60 mm[Hg] [facility] Work Phone: 03-15-2016 15:14-0500 BP Systolic 100 mm[Hg] [facility] Work Phone: 03-15-2016 15:14-0500 BSA (Body Surface Area) 1.82 m2 [facility] Work Phone: 03-15-2016 15:14-0500 Pulse (Heart Rate) 72 /min [facility] Work Phone: 03-15-2016 15:14-0500 Respiratory Rate 20 /min [facility] Work Phone: 03-15-2016 15:14-0500 Weight 76.98 kg CARMELO [facility] Work Phone: 02-16-2016 11:08-0500 Body Temperature 97.59 [degF] [facility] Work Phone: 02-16-2016 11:08-0500 Body Temperature 97.6 [degF] [facility] Work Phone: 02-16-2016 11:08-0500 Height 161.29 cm [facility]: 02-16-2016 11:08-0500 Pulse Oximetry 98 % [facility]: 02-16-2016 11:08-0500 Weight 74.91 kg CARMELO Port[facility] Work Phone: 02-15-2016 16:04-0500 Height 161.29 cm [facility]: Encounters Encounter Date Encounter Type Care Provider Facility Start: 03-04-2023 End: 03-04-2023 ambulatory RUSTY SILVA Facility:[facility] Start: 01-14-2023 End: 01-14-2023 ambulatory CATIA PEREZ Facility:[facility] Start: 11-14-2022 End: 11-15-2022 ambulatory ARELY PLATA Facility:[facility] Start: 11-14-2022 End: 11-14-2022 Patient encounter procedure Arely Plata MD Work Phone: Ophthalmology Procedures Date Procedure Procedure Detail Performing Clinician Start: 11-14-2022 End: 11-14-2022 Computerized ophthalmic imaging retina Manuela Marrero Research Coordinator Start: 11-14-2022 OCT ANGIOGRAPHY OU ( BOTH EYES) Arely Plata MD Work Phone: Start: 11-14-2022 Intravitreal njx pharmacologic agt tylerx Arely Plata MD Work Phone: Start: 04-25-2022 Intravitreal njx pharmacologic agt spx Arely Plata MD Work Phone: Start: 03-16-2022 Intravitreal njx pharmacologic agt spx Arely Plata MD Work Phone: Start: 01-10-2022 Intravitreal njx pharmacologic agt spx Arely Plata MD Work Phone: Start: 11-15-2021 Intravitreal njx pharmacologic agt spx Arely Plata MD Work Phone: Start: 11-15-2021 End: 11-15-2021 Computerized ophthalmic imaging retina Rusty Silva MD Work Phone: Start: 11-15-2021 OCT ANGIOGRAPHY OU ( BOTH EYES) Rusty Silva MD Work Phone: Start: 09-20-2021 Intravitreal njx pharmacologic agt spx Rusty Silva MD Work Phone: Start: 07-14-2021 Intravitreal njx pharmacologic agt spx Arely Plata MD Work Phone: Start: 05-17-2021 Intravitreal njx pharmacologic agt spx Arely Plata MD Work Phone: Start: 05-17-2021 OCT ANGIOGRAPHY OU ( BOTH EYES) Arely Plata MD Work Phone: Start: 05-17-2021 End: 05-17-2021 Computerized ophthalmic imaging retina Arely Plata MD Work Phone: Start: 11-15-2016 End: 11-15-2016 Program eval implantable in persn dual ld pacer Jeri Rasheed PA-C Work Phone: Start: 08-02-2016 End: 08-02-2016 Program eval implantable in persn dual ld pacer Billy Denton MD Start: 08-02-2016 End: 08-02-2016 Program eval implantable in persn dual ld pacer Billy Denton MD Start: 06-18-2016 Mammography Arely Murry MD Work Phone: Start: 04-26-2016 End: 04-26-2016 Program eval implantable in persn dual ld pacer Billy Denton MD Start: 04-26-2016 End: 04-26-2016 Program eval implantable in persn dual ld pacer Billy Denton MD Start: 03-29-2016 End: 03-29-2016 Nurse, Teaching, Wound Check (no charge) Billy Denton MD Start: 03-29-2016 End: 03-29-2016 Nurse, Teaching, Wound Check (no charge) Billy Denton MD Start: 03-15-2016 End: 03-15-2016 Nurse, Teaching, Wound Check (no charge) Billy Denton MD Start: 03-15-2016 End: 03-15-2016 Nurse, Teaching, Wound Check (no charge) Billy Denton MD Start: 02-22-2016 End: 02-22-2016 *SHANE Denton MD Start: 02-22-2016 End: 02-22-2016 CBC W Auto Differential panel - Blood Billy Denton MD Start: 02-22-2016 End: 02-23-2016 Chest x-ray Billy Denton MD Start: 02-22-2016 End: 02-22-2016 INR in Platelet poor plasma by Coagulation assay Billy Denton MD Start: 02-22-2016 End: 03-02-2016 Left Heart Cath Billy Denton MD Start: 02-22-2016 End: 02-22-2016 Nurse, Teaching, Wound Check (no charge) Billy Denton MD Start: 02-22-2016 End: 02-22-2016 *SHANE Denton MD Start: 02-22-2016 End: 02-22-2016 CBC W Auto Differential panel - Blood Billy Denton MD Start: 02-22-2016 End: 02-23-2016 Chest x-ray Billy Denton MD Start: 02-22-2016 End: 02-22-2016 INR in Platelet poor plasma by Coagulation assay Billy Denton MD Start: 02-22-2016 End: 03-02-2016 Left Heart Cath Billy Denton MD Start: 02-22-2016 End: 02-22-2016 Nurse, Teaching, Wound Check (no charge) Billy Denton MD Start: 02-16-2016 End: 02-17-2016 Thyrotropin [Units/volume] in Serum or Plasma Carla Bonilla CONFIDENTIAL INVESTIGATOR Work Phone: Start: 02-16-2016 End: 02-17-2016 Thyroxine (T4) free [Mass/volume] in Serum or Plasma Carla Bonilla CONFIDENTIAL INVESTIGATOR Work Phone: Start: 02-16-2016 End: 02-17-2016 Triiodothyronine (T3) Free [Mass/volume] in Serum or Plasma Carla Bonilla CONFIDENTIAL INVESTIGATOR Work Phone: Start: 02-16-2016 End: 02-17-2016 Thyrotropin [Units/volume] in Serum or Plasma Carla Bonilla CONFIDENTIAL INVESTIGATOR Work Phone: Start: 02-16-2016 End: 02-17-2016 Thyroxine (T4) free [Mass/volume] in Serum or Plasma Carla Rodríguezvijay CONFIDENTIAL INVESTIGATOR Work Phone: Start: 02-16-2016 End: 02-17-2016 Triiodothyronine (T3) Free [Mass/volume] in Serum or Plasma Carla Rodríguezvijay CONFIDENTIAL INVESTIGATOR Work Phone: Start: 02-15-2016 End: 02-15-2016 PEDIATRIC CNS Billy Denton MD Start: 02-15-2016 End: 02-22-2016 Echocardiography Billy Denton MD Start: 02-15-2016 End: 02-15-2016 Follow up Appt 3 weeks Billy Denton MD Start: 02-15-2016 End: 02-15-2016 Follow Up Appt Uma Denton MD Start: 02-15-2016 End: 02-22-2016 Nuclear stress test -exercise Billy Denton MD Start: 02-15-2016 End: 02-15-2016 PEDIATRIC CNS Billy Denton MD Start: 02-15-2016 End: 02-22-2016 Echocardiography Billy Denton MD Start: 02-15-2016 End: 02-15-2016 Follow up Appt 3 weeks Billy Denton MD Start: 02-15-2016 End: 02-15-2016 Follow Up Appt Other Billy Denton MD Start: 02-15-2016 End: 02-22-2016 Nuclear stress test -exercise Billy Denton MD Start: 01-26-2016 Adult depression scr eening assessment Arely Murry MD Work Phone: Start: 08-17-2014 Lipid 1996 panel - S robert or Plasma Arely Murry MD Work Phone: Start: 03-22-2014 Colonoscopy Arely Murry MD Work Phone: Plan of Treatment Date Care Activity Detail Author Start: 03-22-2024 Colonoscopy COLONOSCOPY [facility] Start: 03-22-2024 COLORECTAL CANCER SCREENING COLORECTAL CANCER SCREENING [facility] Start: 11-14-2022 End: 01-14-2023 CLINICAL TRIAL DRAW [facility] Work Phone: Immunizations Immunization Date Immunization Notes Care Provider Fa anurag 11-04-2015 influenza, injectabl e, quadrivalent, contains preservative Arely Murry MD Work Phone: [facility] Work Phone: 11-09-2014 influenza virus vaccine, unspecified formulation Arely Murry MD Work Phone: [facility] 06-30-2012 zoster vaccine, live Darinan dra Maria Del Rosario Murry MD Work Phone: [facility] 12-15-2010 influenza virus vaccine, unspecified formulation Arely Murry MD Work Phone: [facility] Work Phone: 12-06-2009 influenza virus vaccine, unspecified formulation Arely Murry MD Work Phone: [facility] Work Phone: 11-24-2008 influenza virus vaccine, unspecified formulation Arely Murry MD Work Phone: [facility] Work Phone: 12-08-2007 tetanus toxoid, reduced diphtheria toxoid, and acellular pertussis vaccine, adsorbed Arely Murry MD Work Phone: [facility] 12-10-2005 influenza virus vaccine, unspecified formulation Arely Murry MD Work Phone: [facility] 12-12-2004 influenza virus vaccine, unspecified formulation Arely Murry MD Work Phone: [facility] Work Phone: Payers Date Payer Category Payer Medicare MEDICARE MEDICAR E A AND B [id number] 2017-Present [phone] [address] [address] [place] [address] Medicare [id number] 2017 Medicare MEDICARE MEDICAR E A AND B [id number] 2017-Present [phone] [place] [address] Medicare [id number] 2017 Medicare [id number] 2017 Medicare [id number] 2017 Private Health Insurance [employer] A ETNA MEDICARE SUPPLEMENT [id number] 2017-Present [phone] [address] [address] [place] [address] Indemnity [id number] 2017 Private Health Insurance [employer] A ETNA MEDICARE SUPPLEMENT [id number] 2017-Present [phone] [address] [address] [place] [address] Indemnity [id number] Social History Date Type Detail Facility Tobacco smoking stat [facility] Never smoked tobacco [facility] Work Phone: Start: 05-17-2021 End: 11-15-2021 Alcohol intake Current drinker of alcohol (finding) [facility] Start: 03-17-2014 History SDOH Alcohol Comment Very Rarely [facility] Start: 1950 Sex Assigned At Female C [facility] Start: 05-07-2021 End: 01-10-2022 Exposure to SARS-CoV-2 (event) Not sure [facility] Start: 07-14-2021 End: 06-26-2022 History of Social function [facility] Start: 07-14-2021 End: 06-26-2022 Tobacco use panel [facility] National Score (1-100), lower number is lower risk 56 [facility] Start: 02-01-2021 Gender identity Identifies as female gender (finding) [facility] Clinical Notes 12-30-2008 to 03-04-2023 Manuela Marrero, Research Coordinator - 11/14/2022 3:28 PM Arely Gandhi V, MD - 11/14/2022 2:37 PM Rod Trujillo MD - 11/14/2022 11:23 AM EDTPatient Instructions Note Date & Type Note Facility 03-04-2023 Note HNO ID: [id number] Author: MANUELA MARRERO Research Coordinator Service: ? 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 All procedures completed per protocol. Next Visit is scheduled for 04/29/2023 at 9:[address] Perez Note: subject transported by [employer] and will need transportation next visit as well. Manuela Marrero- Research [facility] 03-04-2023 Note HNO ID: [id number] Author: RUSTY SILVA MD Service: ? Author Type: Physician Type: Progress Notes Filed: 03/04/2023 10:52 Note Text: Non-exudative, atrophic, Age related macular degeneration, Both eyes - RIGHT: - discussed treatment for GA and does not want to proceed at this time - Plan: observerajani/LAVERNDs - LEFT: - s/p study treatment 01/14/23 on q8week interval and feels things are stable - Plan: Phu study - treat per protocol Cataracts Both eyes - not visually significant - Observe I have confirmed and edited as necessary the relevant ophthalmic history, HPI, ROS, and the neuro exam findings as obtained by others. I have seen and examined this patient. I have discussed the case and the management of this patient's care with the Resident/Fellow, if applicable. I also have reviewed and agree with the assessment and plan as stated above and agree with all of its relevant components. [facility] 01-15-2023 Note HNO ID: [id number] Author: Manuela Marrero, Research Coordinator Service: ? Author Type: Research Type: Progress Notes Filed: 01/15/2023 12:57 PM Note Text: STUDY: [facility] IRB#: [id number] Subject #: [id number] SE: OS VISIT: Labs: none IMAGING: none Height: 5'4 Weight: 166 lbs Eye Color: Brown ConMeds: none Adverse Events: none Patient is randomized into the every other month treatment group. All procedures completed per protocol. Next Visit is scheduled for 03/04/2023 at 9:[address] Silva Note: subject transported by [employer] and may need transportation next visit as well. Manuela Marrero- Research 01/15/2023 [facility] 01-14-2023 Note HNO ID: [id number] Author: Catia Perez MD Service: ? Author Type: Physician Type: Progress Notes Filed: 01/14/2023 10:15 AM Note Text: Non-exudative, atrophic, Age related macular degeneration, Both eyes - RIGHT: - Plan: observe, amsler/AREDs - LEFT: - Plan: observe, amsler/AREDS - Phu trial - treat per protocol Cataracts Both Eyes - not visually significant - Observe I have confirmed and edited as necessary the relevant ophthalmic history, ROS, and the neuro exam findings as obtained by others. I have discussed the case and the management of this patient's care with the Resident/Fellow, if applicable. I also have reviewed and agree with the assessment and plan as stated above and agree with all of its relevant components. Catia Perez MD [facility] 11-14-2022 Note HNO ID: [id number] Author: Manuela Marrero, Research Coordinator Service: ? Author Type: Research Type: Progress Notes Filed: 11/14/2022 3:34 PM Note Text: STUDY: [facility] IRB#: [id number] Subject #: [id number] SE: OS VISIT: 24 Labs: safety,ADA IMAGING: FAF,OCT,OCT-A,FA,FP Height: 5'4 Weight: 166 lbs Eye Color: Brown ConMeds: none Adverse Events: none Patient is randomized into the every other month treatment group. All procedures completed per protocol. Next Visit is scheduled for 01/01/23 at 9:[address] Silva Note: subject transported by [employer] and may need transportation next visit as well. Manuela Marrero- Research 11/14/2022 [facility] 11-14-2022 Note HNO ID: [id number] Author: Arely Plata V, MD Service: ? Author Type: Physician Type: Progress Notes Filed: 11/14/2022 2:47 PM Note Text: Non-exudative, atrophic, Age related macular degeneration, Both eyes - RIGHT: - OCT dry with atrophy - Plan: observe, amsler/AREDs - LEFT: - OCT dry with atrophy - Plan: observe, amsler/AREDS - Phu trial - treat per protocol Dicussed about occlusive vasculitis patient expressed understanding and would like to continue in the study; 11/14/2022 Cataracts Both Eyes - not visually significant - Observe I have confirmed and edited as necessary the relevant ophthalmic history, ROS, and the neuro exam findings as obtained by others. I have seen and examined Marylou Pierce. I have discussed the case and the management of this patient's care with the Resident/Fellow, if applicable. I also have reviewed and agree with the assessment and plan as stated above and agree with all of its relevant components. Arely Plata MD [facility] 11-14-2022 History of Present illness Narrative STUDY: [facility] IRB#: [id number] Subject #: [id number] SE: OS VISIT: 24 Labs: safety,ADA IMAGING: FAF,OCT,OCT-A,FA,FP Height: 5'4 Weight: 166 lbs Eye Color: Brown ConMeds: none Adverse Events: none Patient is randomized into the every other month treatment group. All procedures completed per protocol. Next Visit is scheduled for 01/01/23 at 9:[address] Silva Note: subject transported by [employer] and may need transportation next visit as well. Manuela Marrero- Research 11/14/2022 Non-exudative, atrophic, Age related macular degeneration, Both eyes - RIGHT: - OCT dry with atrophy - Plan: observe, amsler/AREDs - LEFT: - OCT dry with atrophy - Plan: observe, amsler/AREDS - Gale trial - treat per protocol Dicussed about occlusive vasculitis patient expressed understanding and would like to continue in the study; 11/14/2022 Cataracts Both Eyes - not visually significant - Observe I have confirmed and edited as necessary the relevant ophthalmic history, ROS, and the neuro exam findings as obtained by others. I have seen and examined Marylou Pierce. I have discussed the case and the management of this patient's care with the Resident/Fellow, if applicable. I also have reviewed and agree with the assessment and plan as stated above and agree with all of its relevant components. Arely Plata MD Complete Physical Exam As reported by the subject, have there been any changes in the subject s physical exam since the previous visit? no GENERAL APPEARANCE normal HEAD, NECK and THYROID normal EYES, EARS, NOSE, THROAT, MOUTH and TONGUE normal CHEST ( excluding breasts ) normal RESPIRATORY normal CARDIOVASCULAR normal LYMPH NODES normal ABDOMEN normal SKIN, NAILS and HAIR normal MUSCULOSKELETAL normal NEUROLOGICAL normal OTHER INCLUDING EXTREMITIES normal HR: 62 RR: 12 BP: 126/81 Rod Bernal MD Medical Retina Fellow documented in this encounter [facility] 11-14-2022 Instructions Arely Plata V, MD - 11/14/2022 2:47 PM EDT Post-Injection Patient Information You had an injection into the eye today. Tearing and some redness are common after an eye injection. If the eye feels irritated, try to keep it closed; some patients find that a mild pain medicine such as acetaminophen helps. If tearing or pain persists, please call. The redness may take some days to a week to resolve. I recommend the use of Artificial Tears after today's injection. Systane Refresh Optive Blink and Soothe XP These can be found over the counter at any pharmacy. Please use as needed for irritation up to every two to four hours for two days. If you notice increasing pain, redness or blurred vision, please call the office of Dr. Plata at [phone] or for after hours (nights, weekends and holidays) call [phone]. Loss of central or peripheral vision should prompt a call to us. Please call if you have any questions or concerns. documented in this encounter [facility] 11-14-2022 Note HNO ID: [id number] Author: Rod Bernal MD Service: ? Author Type: Fellow Type: Progress Notes Filed: 11/14/2022 2:47 PM Note Text: Complete Physical Exam As reported by the subject, have there been any changes in the subject?s physical exam since the previous visit? no GENERAL APPEARANCE normal HEAD, NECK and THYROID normal EYES, EARS, NOSE, THROAT, MOUTH and TONGUE normal CHEST ( excluding breasts ) normal RESPIRATORY normal CARDIOVASCULAR normal LYMPH NODES normal ABDOMEN normal SKIN, NAILS and HAIR normal MUSCULOSKELETAL normal NEUROLOGICAL normal OTHER INCLUDING EXTREMITIES normal HR: 62 RR: 12 BP: 126/81 Rod Bernal MD Medical Retina Fellow [facility] 09-19-2022 Note HNO ID: [id number] Author: Manuela Marrero, Research Coordinator Service: ? Author Type: Research Type: Progress Notes Filed: 09/19/2022 2:15 PM Note Text: STUDY: [facility] IRB#: [id number] Subject #: [id number] SE: OS VISIT: Labs: none IMAGING: none Height: 5'4 Weight: 166 lbs Eye Color: Brown ConMeds: none Adverse Events: none Patient is randomized into the every other month treatment group. All procedures completed per protocol. Next Visit is scheduled for 11/14/22 at 9:[address] Maria Del Rosario Marrero- Research 09/19/2022 [facility] 09-17-2022 Note HNO ID: [id number] Author: Catia Perez MD Service: ? Author Type: Physician Type: Progress Notes Filed: 09/17/2022 10:27 AM Note Text: Non-exudative, atrophic, Age related macular degeneration, Both eyes - RIGHT: - OCT dry with atrophy - Plan: observe, amsler/AREDs - LEFT: - OCT dry with atrophy - Plan: observe, amsler/AREDS - Gale trial - treat per protocol Cataracts Both Eyes - not visually significant - Observe I have confirmed and edited as necessary the relevant ophthalmic history, ROS, and the neuro exam findings as obtained by others. I have discussed the case and the management of this patient's care with the Resident/Fellow, if applicable. I also have reviewed and agree with the assessment and plan as stated above and agree with all of its relevant components. Catia Perez MD [facility] 09-17-2022 History of Present illness Narrative Non-exudative, atrophic, Age related macular degeneration, Both eyes - RIGHT: - OCT dry with atrophy - Plan: observe, amsler/AREDs - LEFT: - OCT dry with atrophy - Plan: observe, amsler/AREDS - Gale trial - treat per protocol Cataracts Both Eyes - not visually significant - Observe I have confirmed and edited as necessary the relevant ophthalmic history, ROS, and the neuro exam findings as obtained by others. I have discussed the case and the management of this patient's care with the Resident/Fellow, if applicable. I also have reviewed and agree with the assessment and plan as stated above and agree with all of its relevant components. Catia Perez MD documented in this encounter [facility] 06-27-2022 Note HNO ID: [id number] Author: Manuela Marrero, Research Coordinator Service: ? Author Type: Research Type: Progress Notes Filed: 06/27/2022 11:00 AM Note Text: STUDY: [facility] IRB#: [id number] Subject #: [id number] SE: OS VISIT: Month 20 Labs: ADA IMAGING: OCT-H,OCTA,FAF(PRISCILLA) Height: 5'4 Weight: 166 lbs Eye Color: Brown ConMeds: none Adverse Events: none Labs and imaging were performed today (Unscheduled) due to missing both during subject's last visit (visit 11) Patient is randomized into the every other month treatment group. All procedures completed per protocol. Next Visit is scheduled for at 9:[address] Rusty Silva MD Manuela Marrero- Research [id number] [facility] 06-26-2022 Note HNO ID: [id number] Author: Rusty Silva MD Service: ? Author Type: Physician Type: Progress Notes Filed: 06/26/2022 1:11 PM Note Text: Non-exudative, atrophic, Age related macular degeneration, Both eyes - RIGHT: - OCT dry with atrophy - Plan: observe, amsler/AREDs - LEFT: - OCT dry with atrophy - Plan: observe, amsler/AREDS - Gale trial - treat per protocol Cataracts Both Eyes - not visually significant - Observe I have confirmed and edited as necessary the relevant ophthalmic history, ROS, and the neuro exam findings as obtained by others. I have seen and examined this patient. I have discussed the case and the management of this patient's care with the Resident/Fellow, if applicable. I also have reviewed and agree with the assessment and plan as stated above and agree with all of its relevant components. Rusty Silva MD [facility] 04-25-2022 Note HNO ID: [id number] Author: Arely Plata V, MD Service: ? Author Type: Physician Type: Progress Notes Filed: 04/25/2022 10:34 AM Note Text: Problems addressed today: Non-exudative, atrophic, Age related macular degeneration, Both eyes - RIGHT: - OCT dry with atrophy - Plan: observe, amsler/AREDs - LEFT: - OCT dry with atrophy - Plan: observe, amsler/AREDS - Gale trial - treat per protocol Cataracts Both Eyes - not visually significant - Observe I have confirmed and edited as necessary the relevant ophthalmic history, ROS, and the neuro exam findings as obtained by others. I have seen and examined Marylou Pierce. I have discussed the case and the management of this patient's care with the Resident/Fellow, if applicable. I also have reviewed and agree with the assessment and plan as stated above and agree with all of its relevant components. Arely Plata MD [facility] 04-25-2022 Note HNO ID: [id number] Author: Sigrid Dubose [facility] Service: ? Author Type: ? Type: Progress Notes Filed: 04/25/2022 10:34 AM Note Text: STUDY: [facility] IRB#: [id number] Subject #: [id number] SE: OS VISIT: Labs: none IMAGING: none Height: 5'4 Weight: 166 lbs Eye Color: Brown ConMeds: Hydrochorothiazide 12.5 mg discontinued 04/10/2022 Lisinopril 20mg began 04/10/2022 Adverse Events: none Patient is randomized into the every other month treatment group. All procedures completed per protocol. Next Visit is scheduled for 26 APR 2022 at 10:00 am with MD Sigrid Carbajal- Research 25 APR 2022 [facility] 04-25-2022 Instructions Arely Plata V, MD - 04/25/2022 10:34 AM EDT Post-Injection Patient Information You had an injection into the eye today. Tearing and some redness are common after an eye injection. If the eye feels irritated, try to keep it closed; some patients find that a mild pain medicine such as acetaminophen helps. If tearing or pain persists, please call. The redness may take some days to a week to resolve. I recommend the use of Artificial Tears after today's injection. Systane Refresh Optive Blink and Soothe XP These can be found over the counter at any pharmacy. Please use as needed for irritation up to every two to four hours for two days. If you notice increasing pain, redness or blurred vision, please call the office of Dr. Plata at [phone] or for after hours (nights, weekends and holidays) call [phone]. Loss of central or peripheral vision should prompt a call to us. Please call if you have any questions or concerns. documented in this encounter [facility] 04-25-2022 History of Present illness Narrative Problems addressed today: Non-exudative, atrophic, Age related macular degeneration, Both eyes - RIGHT: - OCT dry with atrophy - Plan: observe, amsler/AREDs - LEFT: - OCT dry with atrophy - Plan: observe, amsler/AREDS - Phu trial - treat per protocol Cataracts Both Eyes - not visually significant - Observe I have confirmed and edited as necessary the relevant ophthalmic history, ROS, and the neuro exam findings as obtained by others. I have seen and examined Marylou Pierce. I have discussed the case and the management of this patient's care with the Resident/Fellow, if applicable. I also have reviewed and agree with the assessment and plan as stated above and agree with all of its relevant components. Arely Plata MD STUDY: [facility] IRB#: [id number] Subject #: [id number] SE: OS VISIT: 18 Labs: none IMAGING: none Height: 5'4 Weight: 166 lbs Eye Color: Brown ConMeds: Hydrochorothiazide 12.5 mg discontinued 04/10/2022 Lisinopril 20mg began 04/10/2022 Adverse Events: none Patient is randomized into the every other month treatment group. All procedures completed per protocol. Next Visit is scheduled for 26 APR 2022 at 10:00 am with MD Sigrid Carbajal- Research 25 APR 2022 documented in this encounter [facility] 03-19-2022 Note HNO ID: [id number] Author: Manuela Marrero, Research Coordinator Service: ? Author Type: Research Type: Progress Notes Filed: 03/19/2022 9:54 AM Note Text: STUDY: [facility] [place] [facility] IRB#: [id number] Subject #: [id number] SE: OS VISIT: 16 Labs: none IMAGING: none Height: 5'4 Weight: 166 lbs Eye Color: Brown ConMeds: none Adverse Events: none Patient is randomized into the every other month treatment group. All procedures completed per protocol. Next Visit is scheduled for 04/25/22 at 9:00am with Dr. Plata [facility] 03-16-2022 Note HNO ID: [id number] Author: Arely Plata V, MD Service: ? Author Type: Physician Type: Progress Notes Filed: 03/16/2022 1:38 PM Note Text: Problems addressed today: Non-exudative, atrophic, Age related macular degeneration, Both eyes - RIGHT: - OCT dry with atrophy - Plan: observe, amsler/AREDs - LEFT: - OCT dry with atrophy - Plan: observe, amsler/AREDS - Phu trial - treat per protocol Cataracts Both Eyes - not visually significant - Observe I have confirmed and edited as necessary the relevant ophthalmic history, ROS, and the neuro exam findings as obtained by others. I have seen and examined Marylou José Pierce. I have discussed the case and the management of this patient's care with the Resident/Fellow, if applicable. I also have reviewed and agree with the assessment and plan as stated above and agree with all of its relevant components. Arely Plata MD [facility] 03-16-2022 Instructions Arely Plata V, MD - 03/16/2022 1:37 PM EST Post-Injection Patient Information You had an injection into the eye today. Tearing and some redness are common after an eye injection. If the eye feels irritated, try to keep it closed; some patients find that a mild pain medicine such as acetaminophen helps. If tearing or pain persists, please call. The redness may take some days to a week to resolve. I recommend the use of Artificial Tears after today's injection. Systane Refresh Optive Blink and Soothe XP These can be found over the counter at any pharmacy. Please use as needed for irritation up to every two to four hours for two days. If you notice increasing pain, redness or blurred vision, please call the office of Dr. Plata at [phone] or for after hours (nights, weekends and holidays) call [phone]. Loss of central or peripheral vision should prompt a call to us. Please call if you have any questions or concerns. documented in this encounter [facility] 03-16-2022 History of Present illness Narrative Problems addressed today: Non-exudative, atrophic, Age related macular degeneration, Both eyes - RIGHT: - OCT dry with atrophy - Plan: observe, amsler/AREDs - LEFT: - OCT dry with atrophy - Plan: observe, amsler/AREDS - Gale trial - treat per protocol Cataracts Both Eyes - not visually significant - Observe I have confirmed and edited as necessary the relevant ophthalmic history, ROS, and the neuro exam findings as obtained by others. I have seen and examined Marylou José Pierce. I have discussed the case and the management of this patient's care with the Resident/Fellow, if applicable. I also have reviewed and agree with the assessment and plan as stated above and agree with all of its relevant components. Arely Plata MD documented in this encounter [facility] 01-11-2022 History of Present illness Narrative Adverse Events/Con meds Medical History Eye #: [id number] Initials: RJS Medical History N/A Start Date End Date Cardiac Arrythmia N/A / Hypertension N/A 18-Jul-07 Internal Hemmorhoids N/A Un/Unk/Unkn Acquired Hypothyroidism N/A AMD OU //2016 Cataracts OU 28-Aug-18 Dry Eye Syndrome OU 12-Aug-19 Geographic Atrophy OU un/unk/ Surgical History Eye Date Pacemaker N/A 03/21/2016 Tubal Ligation N/A Lumpectomy (Benign) - Left N/A Dilation and Curtettage N/A Medication Route Dose Indication (Disease) Start Date End Date Ongoing Calcium PO 600 mg BID Supplement Unknown 11/08/2018 Patient re-started calcium (above) 04/12/2019 Yes Premarin Cream Topical PRN HRT 03/21/2015 Yes HCTZ PO 12.5 mg QD HTN 08/29/2007 Yes Levothyroxine PO 88 mcg QD Hypo-thyroidism Yes Multi-Vitamin PO QD Supplement 12/15/2009 Yes [place] -3 PO QD Supplement 04/12/2019 No Thera-tears OU PRN Dry Eyes 22-Sep-18 Yes Preservision AREDS PO BID AMD Yes Vitamin D 2000 unit PO Daily Supplement 01/05/2019 03/02/2019 Patient re-started Vitamin D (above) PO Daily Supplement 04/12/2019 09/08/2019 Patient re-started Vitamin D (above) PO Daily Supplement 12/12/2019 Yes COVID Vaccination (Moderna) Injection First Dose Prevention 04/06/2020 No COVID Vaccination (Moderna) Injection Second Dose Prevention 05/04/2020 No Flu Vaccination Injection One Prevention 11/11/2020 11/11/2020 No Adverse Event Date Eye Serious Start Date End Date Outcome Severity Treatment Relationship Manuela Marrero-Research 01/11/2022 documented in this encounter [facility] 01-10-2022 Instructions Arely Plata V, MD - 01/10/2022 11:17 AM EST Post-Injection Patient Information You had an injection into the eye today. Tearing and some redness are common after an eye injection. If the eye feels irritated, try to keep it closed; some patients find that a mild pain medicine such as acetaminophen helps. If tearing or pain persists, please call. The redness may take some days to a week to resolve. I recommend the use of Artificial Tears after today's injection. Systane Refresh Optive Blink and Soothe XP These can be found over the counter at any pharmacy. Please use as needed for irritation up to every two to four hours for two days. If you notice increasing pain, redness or blurred vision, please call the office of Dr. Plata at [phone] or for after hours (nights, weekends and holidays) call [phone]. Loss of central or peripheral vision should prompt a call to us. Please call if you have any questions or concerns. documented in this encounter [facility] 01-10-2022 History of Present illness Narrative Problems addressed today: Non-exudative, atrophic, Age related macular degeneration, Both eyes - RIGHT: - OCT dry with atrophy - Plan: observe, rajani/AREDs - LEFT: - OCT dry with atrophy - Plan: observe, rajani/AREDS - Gale trial - treat per protocol Cataracts Both Eyes - not visually significant - Observe I have confirmed and edited as necessary the relevant ophthalmic history, ROS, and the neuro exam findings as obtained by others. I have seen and examined Marylou José Pierce. I have discussed the case and the management of this patient's care with the Resident/Fellow, if applicable. I also have reviewed and agree with the assessment and plan as stated above and agree with all of its relevant components. Arely Plata MD documented in this encounter [facility] 11-15-2021 Instructions Arely Plata V, MD - 11/15/2021 3:24 PM EDT Post-Injection Patient Information You had an injection into the eye today. Tearing and some redness are common after an eye injection. If the eye feels irritated, try to keep it closed; some patients find that a mild pain medicine such as acetaminophen helps. If tearing or pain persists, please call. The redness may take some days to a week to resolve. I recommend the use of Artificial Tears after today's injection. Systane Refresh Optive Blink and Soothe XP These can be found over the counter at any pharmacy. Please use as needed for irritation up to every two to four hours for two days. If you notice increasing pain, redness or blurred vision, please call the office of Dr. Plata at [phone] or for after hours (nights, weekends and holidays) call [phone]. Loss of central or peripheral vision should prompt a call to us. Please call if you have any questions or concerns. documented in this encounter [facility] 11-15-2021 History of Present illness Narrative Problems addressed today: Non-exudative, atrophic, Age related macular degeneration, Both eyes - RIGHT: - OCT dry with atrophy - Plan: observe, amsler/AREDs - LEFT: - OCT dry with atrophy - Plan: observe, amsler/AREDS - Gale trial - treat per protocol Cataracts Both Eyes - not visually significant - Observe I have confirmed and edited as necessary the relevant ophthalmic history, ROS, and the neuro exam findings as obtained by others. I have seen and examined Marylou Pierce. I have discussed the case and the management of this patient's care with the Resident/Fellow, if applicable. I also have reviewed and agree with the assessment and plan as stated above and agree with all of its relevant components. Arely Plata MD documented in this encounter [facility] 09-20-2021 History of Present illness Narrative Problems addressed today: Non-exudative, atrophic, Age related macular degeneration, Both eyes - RIGHT: - OCT dry with atrophy - Plan: observe, amsler/AREDs - LEFT: - OCT dry with atrophy - Plan: observe, amsler/AREDS - Gale trial - treat per protocol Cataracts Both Eyes - not visually significant - Observe I have confirmed and edited as necessary the relevant ophthalmic history, ROS, and the neuro exam findings as obtained by others. I have seen and examined this patient. I have discussed the case and the management of this patient's care with the Resident/Fellow, if applicable. I also have reviewed and agree with the assessment and plan as stated above and agree with all of its relevant components. Rusty Silva MD documented in this encounter [facility] 07-14-2021 Instructions Arely Plata V, MD - 07/14/2021 11:40 AM EDT Post-Injection Patient Information You had an injection into the eye today. Tearing and some redness are common after an eye injection. If the eye feels irritated, try to keep it closed; some patients find that a mild pain medicine such as acetaminophen helps. If tearing or pain persists, please call. The redness may take some days to a week to resolve. I recommend the use of Artificial Tears after today's injection. Systane Refresh Optive Blink and Soothe XP These can be found over the counter at any pharmacy. Please use as needed for irritation up to every two to four hours for two days. If you notice increasing pain, redness or blurred vision, please call the office of Dr. Plata at [phone] or for after hours (nights, weekends and holidays) call [phone]. Loss of central or peripheral vision should prompt a call to us. Please call if you have any questions or concerns. documented in this encounter [facility] 07-14-2021 History of Present illness Narrative Problems addressed today: Non-exudative, atrophic, Age related macular degeneration, Both eyes - RIGHT: - OCT dry with atrophy - Plan: observe, amsler/AREDs - LEFT: - OCT dry with atrophy - Plan: observe, amsler/AREDS - Gale trial - treat per protocol Cataracts Both Eyes - not visually significant - Observe I have confirmed and edited as necessary the relevant ophthalmic history, ROS, and the neuro exam findings as obtained by others. I have seen and examined Marylou Pierce. I have discussed the case and the management of this patient's care with the Resident/Fellow, if applicable. I also have reviewed and agree with the assessment and plan as stated above and agree with all of its relevant components. Arely Plata MD documented in this encounter [facility] 05-17-2021 Instructions Arely Plata V, MD - 05/17/2021 1:17 PM EDT Post-Injection Patient Information You had an injection into the eye today. Tearing and some redness are common after an eye injection. If the eye feels irritated, try to keep it closed; some patients find that a mild pain medicine such as acetaminophen helps. If tearing or pain persists, please call. The redness may take some days to a week to resolve. I recommend the use of Artificial Tears after today's injection. Systane Refresh Optive Blink and Soothe XP These can be found over the counter at any pharmacy. Please use as needed for irritation up to every two to four hours for two days. If you notice increasing pain, redness or blurred vision, please call the office of Dr. Plata at [phone] or for after hours (nights, weekends and holidays) call [phone]. Loss of central or peripheral vision should prompt a call to us. Please call if you have any questions or concerns. documented in this encounter [facility] 05-17-2021 History of Present illness Narrative Problems addressed today: Non-exudative, atrophic, Age related macular degeneration, Both eyes - RIGHT: - OCT dry with atrophy - Plan: observe, rajani/Malina - LEFT: - OCT dry with atrophy - Plan: observerajani/AREDS - Gale trial - treat per protocol Cataracts Both Eyes - not visually significant - Observe I have confirmed and edited as necessary the relevant ophthalmic history, ROS, and the neuro exam findings as obtained by others. I have seen and examined Marylou Pierce. I have discussed the case and the management of this patient's care with the Resident/Fellow, if applicable. I also have reviewed and agree with the assessment and plan as stated above and agree with all of its relevant components. Arely Plata MD STUDY: [facility] IRB#: [id number] Subject #: [id number] SE: OS VISIT: Month 6 Labs: Anti-pegcetacoplan peptide Ab and Anti-PRG Ab assays IMAGING: SD-OCT, FAF, PRISCILLA, OCT-A Height: 5'4 Weight: 166 lbs Eye Color: Brown Patient is randomized into the every other month treatment group. All procedures completed per protocol. Next Visit is scheduled for 07/26/2021 @ 10:00 am with MD Janette Hernandezela Milad Ktamalia [facility] 05/17/2021 Medical History Eye #: [id number] Initials: RJS Medical History N/A Start Date End Date Cardiac Arrythmia N/A Hypertension N/A 18-Jul-07 Internal Hemmorhoids N/A Acquired Hypothyroidism N/A AMD OU Cataracts OU 28-Aug-18 Dry Eye Syndrome OU 22-Sep-18 Surgical History Eye Date Pacemaker N/A 03/21/2016 Tubal Ligation N/A Lumpectomy (Benign) - Left N/A Dilation and Curtettage N/A Medication Route Dose Indication (Disease) Start Date End Date Ongoing Calcium PO 600 mg BID Supplement Unknown 11/08/2018 Patient re-started calcium (above) 04/12/2019 Yes Premarin Cream Topical PRN HRT 03/21/2015 Yes HCTZ PO 12.5 mg QD HTN 08/29/2007 Yes Levothyroxine PO 88 mcg QD Hypo-thyroidism Yes Multi-Vitamin PO QD Supplement 12/15/2009 Yes [place] -3 PO QD Supplement 04/12/2019 No Thera-tears OU PRN Dry Eyes 22-Sep-18 Yes Preservision AREDS PO BID AMD Yes Vitamin D 2000 unit PO Daily Supplement 01/05/2019 03/02/2019 Patient re-started Vitamin D (above) PO Daily Supplement 04/12/2019 09/08/2019 Patient re-started Vitamin D (above) PO Daily Supplement 12/12/2019 Yes COVID Vaccination (Moderna) Injection First Dose Prevention 04/06/2020 No COVID Vaccination (Moderna) Injection Second Dose Prevention 05/04/2020 No Flu Vaccination Injection One Prevention 11/11/2020 11/11/2020 No Adverse Event Date Eye Serious Start Date End Date Outcome Severity Treatment Relationship documented in this encounter [facility] documented as of this encounter (statuses as of 05/17/2021) [facility] History of Past illness Narrative* Problem Noted Date Resolved Date Routine general medical exam ination at a health care facility 12/30/2008 05/31/2011 Overview: 12/30/2008, from Dr. Cohen Gynecological examination 12/30/20082011 Overview: [facility], [facility] documented as of this encounter (statuses as of 07/14/2021) [facility] History of Past illness Narrative* Problem Noted Date Resolved Date Routine general medical exam ination at a health care facility 12/30/2008 05/31/2011 Overview: 12/30/2008, from Dr. Cohen Gynecological examination 12/30/20082011 Overview: [facility], [facility] [place] documented as of this encounter (statuses as of 09/20/2021) [facility]11-19-2009 History of Past illness Narrative* Problem Noted Date Resolved Date Routine general medical exam ination at a health care facility 12/30/2008 05/31/2011 Overview: 12/30/2008, from Dr. Cohen Gynecological examination 12/30/20082011 Overview: [facility], [facility] [place] documented as of this encounter (statuses as of 11/15/2021) [facility]11-19-2009 History of Past illness Narrative* Problem Noted Date Resolved Date Routine general medical exam ination at a health care facility 12/30/2008 05/31/2011 Overview: 12/30/2008, from Dr. Cohen Gynecological examination 12/30/20082011 Overview: [facility], [facility] [place] documented as of this encounter (statuses as of 01/10/2022) [facility]11-19-2009 History of Past illness Narrative* Problem Noted Date Resolved Date Routine general medical exam ination at a health care facility 12/30/2008 05/31/2011 Overview: 12/30/2008, from Dr. Cohen Gynecological examination 12/30/20082011 Overview: [facility], [facility] [place] documented as of this encounter (statuses as of 01/11/2022) [facility]11-19-2009 History of Past illness Narrative* Problem Noted Date Resolved Date Routine general medical exam ination at a health care facility 12/30/2008 05/31/2011 Overview: 12/30/2008, from Dr. Cohen Gynecological examination 12/30/20082011 Overview: [facility], [facility] [place] documented as of this encounter (statuses as of 03/16/2022) [facility]-19-2009 History of Past illness Narrative* Problem Noted Date Resolved Date Routine general medical exam ination at a health care facility 12/30/2008 05/31/2011 Overview: 12/30/2008, from Dr. Cohen Gynecological examination 12/30/20082011 Overview: [facility], [facility] [place] documented as of this encounter (statuses as of 03/19/2022) [facility]-19-2009 History of Past illness Narrative* Problem Noted Date Resolved Date Routine general medical exam ination at a health care facility 12/30/2008 05/31/2011 Overview: 12/30/2008, from Dr. Cohen Gynecological examination 12/30/20082011 Overview: [facility], [facility] [place] documented as of this encounter (statuses as of 04/25/2022) [facility]11-19-2009 History of Past illness Narrative* Problem Noted Date Diagnosed Date Resolved Date Routine general medical exam ination at a health care facility 12/30/2008 05/31/2011 Overview: 12/30/2008, from Dr. Cohen Gynecological examination 12/30/2008 Overview: [facility], [facility] [place] documented as of this encounter (statuses as of 09/17/2022) [facility]-19-2009 History of Past illness Narrative* Problem Noted Date Diagnosed Date Resolved Date Routine general medical exam ination at a health care facility 12/30/2008 05/31/2011 Overview: 12/30/2008, from Dr. Cohen Gynecological examination 12/30/2008 Overview: [facility], [facility] [place] documented as of this encounter (statuses as of 11/16/2022) [facility]-19-2009 History of Past illness Narrative* Problem Noted Date Diagnosed Date Resolved Date Routine general medical exam ination at a health care facility 12/30/2008 05/31/2011 Overview: 12/30/2008, from Dr. Cohen Gynecological examination 12/30/2008 Overview: [facility], [facility] [place] documented as of this encounter (statuses as of 11/19/2022) [facility] Diagnosis Advanced nonexudative age-related macular degeneration of both eyes with subfoveal involvement- Primary documented in this encounter [facility] Diagnosis Advanced nonexudative age-related macular degeneration of both eyes with subfoveal involvement- Primary Nuclear senile cataract of both eyes documented in this encounter [facility] Diagnosis Advanced nonexudative age-related macular degeneration of both eyes with subfoveal involvement- Primary Nuclear senile cataract of both eyes [facility]* Diagnosis Advanced nonexudative age-related macular degeneration of both eyes with subfoveal involvement- Primary Nuclear senile cataract of both eyes [facility]* Diagnosis Advanced nonexudative age-related macular degeneration of both eyes with subfoveal involvement- Primary [facility] Diagnosis Advanced nonexudative age-related macular degeneration of both eyes with subfoveal involvement [facility]* Diagnosis Advanced nonexudative age-related macular degeneration of both eyes with subfoveal involvement- Primary Nuclear senile cataract of both eyes documented [facility] this encounter [facility] Diagnosis Advanced nonexudative age-related macular degeneration of both eyes with subfoveal involvement- Primary Nuclear senile cataract of both eyes [facility] Diagnosis Advanced nonexudative age-related macular degeneration of both eyes with subfoveal involvement- Primary documented in this encounter [facility] Advance Directives No Advanced Directives Records FoundDocuments on File Type Date Recorded Patient Cardiac Monitor Technician Expl anation Advance Directive(s) 10/05/2014 11:48 AM Medications Administered Section Active Administered Medications - up to 3 most recent administrations Medication Order MAR Action Action Date Dose Rate Site fluorescein-benoxinate 0.25-0.4 % 1 Drop (FLURESS) 1 Drop, BOTH EYES, DIRECTED, Starting on Sat04/25/22 at 1030, Until Sat04/25/22 at 2229, Administer for applanation tonometry. In the event of a Fluress shortage, administer 1 drop of Hali-Fluor into both eyes as directed for applanation tonometry., [facility] MED ORDERS Given 04/25/2022 10:30 AM EDT 1 Drop PHENYLephrine 2.5 % 1 Drop (AK-DILATE) 1 Drop, BOTH EYES, DIRECTED, Starting on Sat04/25/22 at 1030, Until Sat04/25/22 at 2229, Administer for dilation PROTECT FROM LIGHT, [facility] MED ORDERS Given 04/25/2022 10:30 AM EDT 1 Drop proparacaine 0.5 % 1 Drop (ALCAINE) 1 Drop, BOTH EYES, DIRECTED, Starting on Sat04/25/22 at 1030, Until Sat04/25/22 at 2229, Administer for pneumo tonometry, tonopen tonometry, or pachymetry. In the event of a proparacaine shortage, administer 1 drop of tetracaine 0.5% ophthalmic drops into both eyes as directed for pneumo tonometry, tonopen tonometry, or pachymetry, [facility] MED ORDERS Given 04/25/2022 10:30 AM EDT 1 Drop tropicamide 1 % 1 Drop (MYDRIACYL) 1 Drop, BOTH EYES, DIRECTED, Starting on Sat04/25/22 at 1030, Until Sat04/25/22 at 2229, Administer for dilation, [facility] MED ORDERS Given 04/25/2022 10:30 AM EDT 1 Drop Summary Purpose Family History No Family History Records Found Additional Source Comments Source Comments (unrecognize d section and content) In the event this informatio n is protected by the Federal Confidentiality of Alcohol and Drug Abuse Patient Records regulations: The Federal rules restrict any use of the information to criminally investigate or prosecute any alcohol or drug abuse patient.[facility] the event this information is protected by the Federal Confidentiality of Alcohol and Drug Abuse Patient Records regulations: The Federal rules restrict any use of the information to criminally investigate or prosecute any alcohol or drug abuse patient.[facility] the event this information is protected by the Federal Confidentiality of Alcohol and Drug Abuse Patient Records regulations: The Federal rules restrict any use of the information to criminally investigate or prosecute any alcohol or drug abuse patient.[facility] the event this information is protected by the Federal Confidentiality of Alcohol and Drug Abuse Patient Records regulations: The Federal rules restrict any use of the information to criminally investigate or prosecute any alcohol or drug abuse patient.[facility] the event this information is protected by the Federal Confidentiality of Alcohol and Drug Abuse Patient Records regulations: The Federal rules restrict any use of the information to criminally investigate or prosecute any alcohol or drug abuse patient.[facility] the event this information is protected by the Federal Confidentiality of Alcohol and Drug Abuse Patient Records regulations: The Federal rules restrict any use of the information to criminally investigate or prosecute any alcohol or drug abuse patient.[facility] the event this information is protected by the Federal Confidentiality of Alcohol and Drug Abuse Patient Records regulations: The Federal rules restrict any use of the information to criminally investigate or prosecute any alcohol or drug abuse patient.[facility] the event this information is protected by the Federal Confidentiality of Alcohol and Drug Abuse Patient Records regulations: The Federal rules restrict any use of the information to criminally investigate or prosecute any alcohol or drug abuse patient.[facility] the event this information is protected by the Federal Confidentiality of Alcohol and Drug Abuse Patient Records regulations: The Federal rules restrict any use of the information to criminally investigate or prosecute any alcohol or drug abuse patient.[facility] the event this information is protected by the Federal Confidentiality of Alcohol and Drug Abuse Patient Records regulations: The Federal rules restrict any use of the information to criminally investigate or prosecute any alcohol or drug abuse patient.[facility] the event this information is protected by the Federal Confidentiality of Alcohol and Drug Abuse Patient Records regulations: The Federal rules restrict any use of the information to criminally investigate or prosecute any alcohol or drug abuse patient.[facility] the event this information is protected by the Federal Confidentiality of Alcohol and Drug Abuse Patient Records regulations: The Federal rules restrict any use of the information to criminally investigate or prosecute any alcohol or drug abuse patient.[facility] Reason for Visit (unrecogniz ed section and content) Reason Comments Research GALE study week ade h 8 Reason Comments Research F/U Patient returns for GALE Month 10 Reason Comments Research F/U Gale month 12, month 8 Reason Comments Research F/U Reason Comments Follow Up For study Reason Comments Research Gale study- Month 18 , visit 11 Care Teams (unrecognized sec tion and content) Agricultural Research Director Relationship Specialty Start Date End Date Robe Smith MD [address] [place] [id number] PCP - General Family Practice 05/07/18 Agricultural Research Director Relationship Specialty Start Date End Date Robe Smith MD [address] [place] [address] PCP - General Family Practice 05/07/18 Agricultural Research Director Relationship Specialty Start Date End Date Robe Smith MD [address] [place] [address] PCP - General Family Medicine 05/07/18 Agricultural Research Director Relationship Specialty Start Date End Date Robe Smith MD [address] [place] [address] PCP - General Family Medicine 05/07/18 Agricultural Research Director Relationship Specialty Start Date End Date Robe Smith MD [address] [place] [address] PCP - General Family Medicine 05/07/18 Agricultural Research Director Relationship Specialty Start Date End Date Robe Smith MD [address] [place] [address] PCP - General Family Medicine 05/07/18 Agricultural Research Director Relationship Specialty Start Date End Date Robe Smith MD [address] [place] [address] PCP - General Family Medicine 05/07/18 Agricultural Research Director Relationship Specialty Start Date End Date Robe Smith MD [address] [place] [address] PCP - General Family Medicine 05/07/18 Agricultural Research Director Relationship Specialty Start Date End Date Robe Smith MD [address] [place] [address] PCP - General Family Medicine 05/07/18 Agricultural Research Director Relationship Specialty Start Date End Date Robe Smith MD [address] [place] [id number] PCP - General Family Medicine 05/07/18 INFORMATION SOURCE (unrecogn ized section and content) FOR RECORDS PERTAINING TO PATIENTS WHO ARE OR HAVE BEEN ENROLLED IN A CHEMICAL DEPENDENCY/SUBSTANCEABUSE PROGRAM, SOME INFORMATION MAY BE OMITTED. This clinical summary was aggregated from multiple sources. Caution should be exercised in using it in the provision of clinical care. This summary normalizes information from multiple sources, and as a consequence, information in this document may materially change the coding, format and clinical context of patient data. In addition, data may be omitted in some cases. CLINICAL DECISIONS SHOULD BE BASED ON THE PRIMARY CLINICAL RECORDS. [facility]. provides no warranty or guarantee of the accuracy or completeness of information in this document.
== END | disposition home or self-care (01) ==
LOC: MTRAD 10:02
PROVIDERS: PCP Family Medicine; Referring Provider Family Medicine; Visit Provider Family Medicine
DX: S99.921A Unspecified injury of right foot, initial encounter (principal); X58.XXXA Exposure to other specified factors, initial encounter
CPT/HCPCS: 73630

== ENCOUNTER → 2023-04-25 | Outpatient (CLI) | payer MEDICARE, OTHER, SELFPAY ==
--- OUTSIDE RECORDS SUMMARY | 2023-04-25 09:10 | XMS RPT_ITS | CCD ---
Author Name Unknown Address [address] [place] [address] Organization [facility] Care Team Providers Care Micromatic Hone Operator Name Role Phone CARMELO Angelo, Victorina Sharpe [...] Unavaila ROBE Ordaz Primary Care Unavailabl e RUSTY SILVA [...] (6 sources) Sulfonamides (Antibiotic) drug allergy 7 [facility] [employer] Work Phone: (13 sources) Sulfonamides (Antibiotic); Translations: [SULFA (SULFONAMIDE ANTIBIOTICS)] Drug Allergy 5 Other: See Comments [facility] Medications Current Medications Medication Drug Class(es) Dates [...] TBEC One tablet by mouth daily ASPIRIN [id number] Simi Truong RN calcium carbonate 1500 mg [...] 97.5 [degF] Arely Murry MD Work Phone: [facility] 04-25-2022 08:56-0400 Diastolic blood pressure 81 mm[Hg] Arely Murry MD Work Phone: [facility] 04-25-2022 08:56-0400 Heart rate 69 /min Arley Murry MD Work Phone: [facility] 04-25-2022 08:56-0400 Respiratory rate 10 /min Arely Murry MD Work Phone: [facility] 04-25-2022 08:56-0400 Systolic blood pressure 140 mm[Hg] Arely Murry MD Work Phone: [facility] 01-10-2022 10:55-0500 Body temperature 97.2 [degF] Arely Murry MD Work Phone: [facility] 01-10-2022 10:55-0500 Diastolic blood pressure 85 mm[Hg] Arely Murry MD Work Phone: [facility] 01-10-2022 10:55-0500 Heart rate 62 /min Arely Murry MD Work Phone: [facility] 01-10-2022 10:55-0500 Respiratory rate 13 /min Arely Murry MD Work Phone: [facility] 01-10-2022 10:55-0500 Systolic blood pressure 159 mm[Hg] Arely Murry MD Work Phone: [facility] 07-14-2021 09:58-0400 Body temperature 97.5 [degF] Arely Murry MD Work Phone: [facility] 07-14-2021 09:58-0400 Diastolic blood pressure 104 mm[Hg] Arely Murry MD Work Phone: [facility] 07-14-2021 09:58-0400 Heart rate 89 /min Arely Murry MD Work Phone: [facility] 07-14-2021 09:58-0400 Respiratory rate 12 /min Arely Murry MD Work Phone: [facility] 07-14-2021 09:58-0400 Systolic blood pressure 123 mm[Hg] Arely Murry MD Work Phone: [facility] 05-17-2021 11:38-0400 Body temperature 97.9 [degF] Arely Murry MD Work Phone: [facility] 05-17-2021 11:38-0400 Diastolic blood pressure 78 mm[Hg] Arely Murry MD Work Phone: [facility] 05-17-2021 11:38-0400 Heart rate 67 /min Arely Murry MD Work Phone: [facility] 05-17-2021 11:38-0400 Respiratory rate 16 /min Arely Murry MD Work Phone: [facility] 05-17-2021 11:38-0400 Systolic blood pressure 132 mm[Hg] Arely Murry MD Work Phone: [facility] 03-15-2016 15:14-0500 BMI (Body Mass Index) 29.59 [...] Phone: 02-16-2016 11:08-0500 Height 161.29 cm [facility]: 02-16-2016 11:08-0500 Pulse Oximetry 98 % [facility] Work Phone: 02-16-2016 11:08-0500 Weight 74.91 kg CARMELO Portillo [facility] Work Phone: 02-15-2016 16:04-0500 Height 161.29 cm [facility] Work Phone: Encounters Encounter Date Encounter Type Care Provider Facility Start: 03-04-2023 End: 03-04-2023 ambulatory RUSTY SILVA Facility:[facility] Start: 01-14-2023 End: 01-14-2023 ambulatory CATIA PEREZ Facility:[facility] Start: 11-14-2022 End: 11-15-2022 ambulatory ARELY PLATA Facility:[facility] Start: 11-14-2022 End: 11-14-2022 Patient encounter procedure [...] Nurse, Teaching, Wound Check (no charge) Billy eDnton MD Start: 02-22-2016 End: 02-22-2016 *SHANE Denton [...] [Units/volume] in Serum or Plasma Carla Bonilla [employer] Work Phone: Start: 02-16-2016 End: 02-17-2016 Thyroxine (T4) free [Mass/volume] in Serum or Plasma Carla Bonilla [employer] Work Phone: Start: 02-16-2016 End: 02-17-2016 Triiodothyronine (T3) Free [Mass/volume] in Serum or Plasma Carla Bonilla [employer] Work Phone: Start: 02-16-2016 End: 02-17-2016 Thyrotropin [Units/volume] in Serum or Plasma Carla Bonilla [employer] Work Phone: Start: 02-16-2016 End: 02-17-2016 Thyroxine (T4) free [Mass/volume] in Serum or Plasma Carla Rodríguezvijay [employer] Work Phone: Start: 02-16-2016 End: 02-17-2016 Triiodothyronine (T3) Free [Mass/volume] in Serum or Plasma Carla Rodríguezvijay [employer] Work Phone: Start: 02-15-2016 End: 02-15-2016 PUPPET MASTER Billy Denton MD Start: 02-15-2016 End: 02-22-2016 Echocardiography Billy Denton MD Start: 02-15-2016 End: 02-15-2016 Follow up Appt 3 weeks Billy Denton MD Start: 02-15-2016 End: 02-15-2016 Follow Up Appt Uma Denton MD Start: 02-15-2016 End: 02-22-2016 Nuclear stress test -exercise Billy Denton MD Start: 02-15-2016 End: 02-15-2016 PUPPET MASTER Billy Denton MD Start: 02-15-2016 End: 02-22-2016 [...] Activity Detail Author Start: 03-22-2024 Colonoscopy COLONOSCOPY [facility] Start: 03-22-2024 COLORECTAL CANCER SCREENING COLORECTAL CANCER SCREENING [facility] Start: 11-14-2022 End: 01-14-2023 CLINICAL TRIAL DRAW [facility] Work Phone: Immunizations Immunization Date Immunization Notes Care Provider Fa anurag 11-04-2015 influenza, injectabl e, quadrivalent, contains preservative Arely Murry MD Work Phone: [facility] Work Phone: 11-09-2014 influenza virus vaccine, unspecified formulation Arely Murry MD Work Phone: [facility] 06-30-2012 zoster vaccine, live Darinan dra Maria Del Rosario Murry MD Work Phone: [facility] 12-15-2010 influenza virus vaccine, unspecified formulation Arely Murry MD Work Phone: [facility] Work Phone: 12-06-2009 influenza virus vaccine, unspecified formulation Arely Murry MD Work Phone: [facility] Work Phone: 11-24-2008 influenza virus vaccine, unspecified formulation Arely Murry MD Work Phone: [facility] Work Phone: 12-08-2007 tetanus toxoid, reduced diphtheria toxoid, and acellular pertussis vaccine, adsorbed Arely Murry MD Work Phone: [facility] 12-10-2005 influenza virus vaccine, unspecified formulation Arely Murry MD Work Phone: [facility] 12-12-2004 influenza virus vaccine, unspecified formulation Arely Murry MD Work Phone: [facility] Work Phone: Payers Date Payer Category Payer Medicare MEDICARE MEDICAR E A AND B [id number] 2017-Present [phone] [address] [address] [place] [address] Medicare [id number] 2017 Medicare MEDICARE MEDICAR E A AND B [id number] 2017-Present [phone] [place] [address] Medicare [id number] 2017 Medicare [id number] 2017 Medicare [id number] 2017 Private Health Insurance [employer] A ETNA MEDICARE SUPPLEMENT [id number] 2017-Present [phone] [address] [address] [place] [address] Indemnity [id number] 2017 Private Health Insurance [employer]ET[employer] A ETNA MEDICARE SUPPLEMENT [id number] 2017-Present [phone] [address] [address] [place] [address] Indemnity [id number] Social History Date Type Detail Facility Tobacco smoking stat [facility] Never smoked tobacco [facility] Work Phone: Start: 05-17-2021 End: 11-15-2021 Alcohol intake Current drinker of alcohol (finding) [facility] Start: 03-17-2014 History SDOH Alcohol Comment Very Rarely [facility] Start: 1950 Sex Assigned At Female [facility] Start: 05-07-2021 End: 01-10-2022 Exposure to SARS-CoV-2 (event) Not sure [facility] Start: 07-14-2021 End: 06-26-2022 History of Social function [facility] Start: 07-14-2021 End: 06-26-2022 Tobacco use panel [facility] National Score (1-100), lower number is lower risk 56 [facility] Start: 02-01-2021 Gender identity Identifies as female gender (finding) [facility] Clinical Notes 12-30-2008 to 03-04-2023 Manuela Marrero, Research Coordinator - 11/14/2022 3:28 PM Arely Gandhi V, MD - 11/14/2022 2:37 PM Rod Trujillo MD - 11/14/2022 11:23 AM EDTPatient Instructions Note Date & Type Note Facility 03-04-2023 Note HNO ID: [id number] Author: MANUELA MARRERO Research Coordinator Service: ? 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 All procedures completed per protocol. Next Visit is scheduled for 04/29/2023 at 9:[address] Perez Note: subject transported by Michaela and will need transportation next visit as well. Manuela Marrero- Research [facility] 03-04-2023 Note HNO ID: [id number] Author: RUSTY SILVA MD Service: ? Author [...] agree with all of its relevant components. [facility] 01-15-2023 Note HNO ID: [id number] Author: Manuela Marrero, Research Coordinator Service: ? [...] with Dr. Silva Note: subject transported by [facility] and may need transportation next visit as well. Manuela Marrero- Research 01/15/2023 [facility] 01-14-2023 Note HNO ID: [id number] Author: Catia Perez MD Service: ? Author [...] of its relevant components. Catia Perez MD [facility] 11-14-2022 Note HNO ID: [id number] Author: Manuela Marrero, Research Coordinator Service: ? [...] with Dr. Silva Note: subject transported by [facility] and may need transportation next visit as well. Manuela Marrero- Research 11/14/2022 [facility] 11-14-2022 Note HNO ID: [id number] Author: Arely Plata V, MD Service: ? [...] of its relevant components. Arely Plata MD [facility] 11-14-2022 History of Present illness Narrative STUDY: [facility] [place] [facility] IRB#: [id number] Subject #: [id number] SE: [...] Medical Retina Fellow documented in this encounter [facility] 11-14-2022 Instructions Arely Plata V, MD - [...] call the office of Dr. Plata at [phone] or for after hours (nights, weekends and holidays) call [phone]. Loss of central or peripheral vision should prompt a call to us. Please call if you have any questions or concerns. documented in this encounter [facility] 11-14-2022 Note HNO ID: [id number] Author: Rod Bernal MD Service: ? Author [...] 126/81 Rod Bernal MD Medical Retina Fellow [facility] 09-19-2022 Note HNO ID: [id number] Author: Manuela Marrero, Research Coordinator Service: ? [...] Dr. Maria Del Rosario Marrero- Research 09/19/2022 [facility] 09-17-2022 Note HNO ID: [id number] Author: Catia Perez MD Service: ? Author [...] of its relevant components. Catia Perez MD [facility] 09-17-2022 History of Present illness Narrative [...] Catia Perez MD documented in this encounter [facility] 06-27-2022 Note HNO ID: [id number] Author: Manuela Marrero, Research Coordinator Service: ? Author Type: Research Type: Progress Notes Filed: 06/27/2022 11:00 AM Note Text: STUDY: [facility] [place] [facility] IRB#: [id number] Subject #: [id number] SE: [...] Dr. Rusty Silva MD Manuela Marrero- Research [id number] [facility] 06-26-2022 Note HNO ID: [id number] Author: Rusty Silva MD Service: ? Author [...] of its relevant components. Rusty Silva MD [facility] 04-25-2022 Note HNO ID: [id number] Author: Arely Plata V, MD Service: ? [...] of its relevant components. Arely Plata MD [facility] 04-25-2022 Note HNO ID: [id number] Author: Sigrid Dubose [facility] Service: ? Author Type: ? Type: Progress [...] MD Sigrid Carbajal- Research 25 APR 2022 [facility] 04-25-2022 Instructions Arely Plata V, MD [...] call the office of Dr. Plata at [phone] or for after hours (nights, weekends and holidays) call [phone]. Loss of central or peripheral vision should prompt a call to us. Please call if you have any questions or concerns. documented in this encounter [facility] 04-25-2022 History of Present illness Narrative Problems [...] 25 APR 2022 documented in this encounter [facility] 03-19-2022 Note HNO ID: [id number] Author: Manuela Marrero, Research Coordinator Service: ? [...] for 04/25/22 at 9:00am with Dr. Plata [facility] 03-16-2022 Note HNO ID: [id number] Author: Arely Plata V, MD Service: ? [...] of its relevant components. Arely Plata MD [facility] 03-16-2022 Instructions Arely Plata V, MD [...] call the office of Dr. Plata at [phone] or for after hours (nights, weekends and holidays) call [phone]. Loss of central or peripheral vision should prompt a call to us. Please call if you have any questions or concerns. documented in this encounter [facility] 03-16-2022 History of Present illness Narrative Problems [...] Arely Plata MD documented in this encounter [facility] 01-11-2022 History of Present illness Narrative Adverse [...] Yes Multi-Vitamin PO QD Supplement 12/15/2009 Yes Gibson -3 PO QD Supplement 04/12/2019 No Thera-tears [...] Manuela Marrero-Research 01/11/2022 documented in this encounter [facility] 01-10-2022 Instructions Arely Plata V, MD - [...] vision, please call the office of Dr. Plaat at [phone] or for after hours (nights, weekends and holidays) call [phone]. Loss of central or peripheral vision should prompt a call to us. Please call if you have any questions or concerns. documented in this encounter [facility] 01-10-2022 History of Present illness Narrative Problems [...] Arely Plata MD documented in this encounter [facility] 11-15-2021 Instructions Arely Plata V, MD - [...] call the office of Dr. Plata at [phone] or for after hours (nights, weekends and holidays) call [phone]. Loss of central or peripheral vision should prompt a call to us. Please call if you have any questions or concerns. documented in this encounter [facility] 11-15-2021 History of Present illness Narrative Problems [...] Arely Plata MD documented in this encounter [facility] 09-20-2021 History of Present illness Narrative Problems [...] Rusty Silva MD documented in this encounter [facility] 07-14-2021 Instructions Arely Plata V, MD - [...] call the office of Dr. Plata at [phone] or for after hours (nights, weekends and holidays) call [phone]. Loss of central or peripheral vision should prompt a call to us. Please call if you have any questions or concerns. documented in this encounter [facility] 07-14-2021 History of Present illness Narrative Problems [...] Arely Plata MD documented in this encounter [facility] 05-17-2021 Instructions Arely Plata V, MD - [...] call the office of Dr. Plata at [phone] or for after hours (nights, weekends and holidays) call [phone]. Loss of central or peripheral vision should prompt a call to us. Please call if you have any questions or concerns. documented in this encounter [facility] 05-17-2021 History of Present illness Narrative Problems [...] its relevant components. Arely Plata MD STUDY: [facility] IRB#: [id number] Subject #: [id number] SE: OS VISIT: Month 6 Labs: Anti-pegcetacoplan peptide Ab and Anti-PRG Ab assays IMAGING: SD-OCT, FAF, PRISCILLA, OCT-A Height: 5'4 Weight: 166 lbs Eye Color: Brown Patient is randomized into the every other month treatment group. All procedures completed per protocol. Next Visit is scheduled for 07/26/2021 @ 10:00 am with MD Janette Hernandezela Milad Ktamalia [facility] 05/17/2021 Medical History Eye #: [id number] Initials: [...] Yes Multi-Vitamin PO QD Supplement 12/15/2009 Yes Gibson -3 PO QD Supplement 04/12/2019 No Thera-tears [...] Severity Treatment Relationship documented in this encounter [facility] documented as of this encounter (statuses as of 05/17/2021) [facility] History of Past illness Narrative* Problem Noted Date Resolved Date Routine general medical exam ination at a health care facility 12/30/2008 05/31/2011 Overview: 12/30/2008, from Dr. Cohen Gynecological examination 12/30/20082011 Overview: [facility], [facility] [place] documented as of this encounter (statuses as of 07/14/2021) [facility] History of Past illness Narrative* Problem Noted Date Resolved Date Routine general medical exam ination at a health care facility 12/30/2008 05/31/2011 Overview: 12/30/2008, from Dr. Cohen Gynecological examination 12/30/20082011 Overview: [facility], [facility] documented as of this encounter (statuses as of 09/20/2021) [facility] History of Past illness Narrative* Problem Noted Date Resolved Date Routine general medical exam ination at a health care facility 12/30/2008 05/31/2011 Overview: 12/30/2008, from Dr. Cohen Gynecological examination 12/30/20082011 Overview: [facility], [facility] documented as of this encounter (statuses as of 11/15/2021) [facility] History of Past illness Narrative* Problem Noted Date Resolved Date Routine general medical exam ination at a health care facility 12/30/2008 05/31/2011 Overview: 12/30/2008, from Dr. Cohen Gynecological examination 12/30/20082011 Overview: [facility], [facility] [place] documented as of this encounter (statuses as of 01/10/2022) [facility] History of Past illness Narrative* Problem Noted Date Resolved Date Routine general medical exam ination at a health care facility 12/30/2008 05/31/2011 Overview: 12/30/2008, from Dr. Cohen Gynecological examination 12/30/20082011 Overview: [facility], [facility] documented as of this encounter (statuses as of 01/11/2022) [facility] History of Past illness Narrative* Problem Noted Date Resolved Date Routine general medical exam ination at a health care facility 12/30/2008 05/31/2011 Overview: 12/30/2008, from Dr. Cohen Gynecological examination 12/30/20082011 Overview: [facility], [facility] [place] documented as of this encounter (statuses as of 03/16/2022) [facility] History of Past illness Narrative* Problem Noted Date Resolved Date Routine general medical exam ination at a health care facility 12/30/2008 05/31/2011 Overview: 12/30/2008, from Dr. Cohen Gynecological examination 12/30/20082011 Overview: [facility], [facility] [place] documented as of this encounter (statuses as of 03/19/2022) [facility] History of Past illness Narrative* Problem Noted Date Resolved Date Routine general medical exam ination at a health care facility 12/30/2008 05/31/2011 Overview: 12/30/2008, from Dr. Cohen Gynecological examination 12/30/20082011 Overview: [facility], [facility] [place] documented as of this encounter (statuses as of 04/25/2022) [facility] History of Past illness Narrative* Problem Noted Date Diagnosed Date Resolved Date Routine general medical exam ination at a health care facility 12/30/2008 05/31/2011 Overview: 12/30/2008, from Dr. Cohen Gynecological examination 12/30/2008 Overview: [facility], [facility] documented as of this encounter (statuses as of 09/17/2022) [facility] History of Past illness Narrative* Problem Noted Date Diagnosed Date Resolved Date Routine general medical exam ination at a health care facility 12/30/2008 05/31/2011 Overview: 12/30/2008, from Dr. Cohen Gynecological examination 12/30/2008 Overview: [facility], [facility] documented as of this encounter (statuses as of 11/16/2022) [facility] History of Past illness Narrative* Problem Noted Date Diagnosed Date Resolved Date Routine general medical exam ination at a health care facility 12/30/2008 05/31/2011 Overview: 12/30/2008, from Dr. Cohen Gynecological examination 12/30/2008 Overview: [facility] [place] documented as of this encounter (statuses as of 11/19/2022) [facility] Diagnosis Advanced nonexudative age-related macular degeneration of both eyes with subfoveal involvement- Primary documented in this encounter [facility]* Diagnosis Advanced nonexudative age-related macular degeneration of both eyes with subfoveal involvement- Primary Nuclear senile cataract of both eyes documented [facility] this [facility]* Diagnosis Advanced nonexudative age-related macular degeneration of both eyes with subfoveal involvement- Primary Nuclear senile cataract of both eyes [facility] Diagnosis Advanced nonexudative age-related macular degeneration of both eyes with subfoveal involvement- Primary Nuclear senile cataract of both eyes [facility] Diagnosis Advanced nonexudative age-related macular degeneration of both eyes with subfoveal involvement- Primary [facility] Diagnosis Advanced nonexudative age-related macular degeneration of both eyes with subfoveal involvement [facility] Diagnosis Advanced nonexudative age-related macular degeneration of both eyes with subfoveal involvement- Primary Nuclear senile cataract of both eyes [facility] encounter [facility]* Diagnosis Advanced nonexudative age-related macular degeneration of both eyes with subfoveal involvement- Primary Nuclear senile cataract of both eyes [facility] Diagnosis Advanced nonexudative age-related macular degeneration of both eyes with subfoveal involvement- Primary documented in this encounter [facility] Advance Directives No Advanced Directives Records FoundDocuments on File Type Date Recorded Patient Tile Erector Expl anation Advance Directive(s) 10/05/2014 11:48 AM [...] a Fluress shortage, administer 1 drop of Holcomb-Fluor into both eyes as directed for applanation [...] or prosecute any alcohol or drug abuse patient.[facility] the event this information is protected by the Federal Confidentiality of Alcohol and Drug Abuse Patient Records regulations: The Federal rules restrict any use of the information to criminally investigate or prosecute any alcohol or drug abuse patient.[facility] the event this information is protected by the Federal Confidentiality of Alcohol and Drug Abuse Patient Records regulations: The Federal rules restrict any use of the information to criminally investigate or prosecute any alcohol or drug abuse patient.[facility] the event this information is protected by the Federal Confidentiality of Alcohol and Drug Abuse Patient Records regulations: The Federal rules restrict any use of the information to criminally investigate or prosecute any alcohol or drug abuse patient.[facility] the event this information is protected by the Federal Confidentiality of Alcohol and Drug Abuse Patient Records regulations: The Federal rules restrict any use of the information to criminally investigate or prosecute any alcohol or drug abuse patient.[facility] the event this information is protected by the Federal Confidentiality of Alcohol and Drug Abuse Patient Records regulations: The Federal rules restrict any use of the information to criminally investigate or prosecute any alcohol or drug abuse patient.[facility] the event this information is protected by the Federal Confidentiality of Alcohol and Drug Abuse Patient Records regulations: The Federal rules restrict any use of the information to criminally investigate or prosecute any alcohol or drug abuse patient.[facility] the event this information is protected by the Federal Confidentiality of Alcohol and Drug Abuse Patient Records regulations: The Federal rules restrict any use of the information to criminally investigate or prosecute any alcohol or drug abuse patient.[facility] the event this information is protected by [...] or prosecute any alcohol or drug abuse patient.[facility] the event this information is protected by the Federal Confidentiality of Alcohol and Drug Abuse Patient Records regulations: The Federal rules restrict any use of the information to criminally investigate or prosecute any alcohol or drug abuse patient.[facility] the event this information is protected by the Federal Confidentiality of Alcohol and Drug Abuse Patient Records regulations: The Federal rules restrict any use of the information to criminally investigate or prosecute any alcohol or drug abuse patient.[facility] Reason for Visit (unrecogniz ed section and content) Reason Comments Research GALE study week ade h 8 Reason Comments Research F/U Patient returns for GALE Month 10 Reason Comments Research F/U Gale month 12, month 8 Reason Comments Research F/U Reason Comments Follow Up For study Reason Comments Research Gale study- Month 18 , visit 11 Care Teams (unrecognized sec tion and content) Micromatic Hone Operator Relationship Specialty Start Date End Date Robe Smith MD [address] [place] [id number] PCP - General Family Practice 05/07/18 Micromatic Hone Operator Relationship Specialty Start Date End Date Robe Smith MD [address] [place] [address] PCP - General Family Practice 05/07/18 Micromatic Hone Operator Relationship Specialty Start Date End Date Robe Smith MD [address] [place] [address] PCP - General Family Medicine 05/07/18 Micromatic Hone Operator Relationship Specialty Start Date End Date Robe Smith MD [address] [place] [address] PCP - General Family Medicine 05/07/18 Micromatic Hone Operator Relationship Specialty Start Date End Date Robe Smith MD [address] 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 [address] PCP - General Family Medicine 05/07/18 Micromatic Hone Operator Relationship Specialty Start Date End Date Robe Smith MD [address] [place] [address] PCP - General Family Medicine 05/07/18 Micromatic Hone Operator Relationship Specialty Start Date End Date Robe Smith MD [address] [place] [address] PCP - General Family Medicine 05/07/18 Micromatic Hone Operator Relationship Specialty Start Date End Date Robe Smith MD [address] [place] [address] PCP - General Family Medicine 05/07/18 Micromatic Hone Operator Relationship Specialty Start Date End Date Robe Smith MD [address] [place] [id number] PCP - General Family Medicine 05/07/18 INFORMATION [...] BE BASED ON THE PRIMARY CLINICAL RECORDS. [employer] [facility]. provides no warranty or guarantee of the accuracy or completeness of information in this document.
[2023-04-25 11:24] LABS: Anion Gap 4 (5-15); BUN 24 mg/dL (7-18); BUN/Creat Ratio 23.1 RATIO (10-20); Calcium,Total 9.2 mg/dL (8.5-10.1); Chloride 107 mmol/L (98-107); Creatinine, Serum 1.04 mg/dL (0.55-1.02); EST Glomerular Filtration Rate 56 mL/min (>60); Est Glom Filt Rate - Afr Amer 67 mL/min (>60); Glucose 91 mg/dL (74-106); Potassium 4.1 mmol/L (3.5-5.1); Sodium Level 141 mmol/L (136-145)
== END | disposition home or self-care (01) ==
LOC: MTLAB 08:42
PROVIDERS: PCP Family Medicine; Referring Provider Family Medicine; Visit Provider Family Medicine
DX: E03.9 Hypothyroidism, unspecified (principal); I10 Essential (primary) hypertension
CPT/HCPCS: 36415; 80048; 84443

== ENCOUNTER → 2023-05-27 | Outpatient (CLI) | payer MEDICARE, OTHER, SELFPAY ==
[2023-05-27 10:03] LABS: Vitamin B12 771 pg/mL (211-911); Vitamin D,25 Hydroxy 64.4 ng/mL
[2023-05-27 10:30] LABS: T4 Free Direct 1.36 ng/dL (0.76-1.46); Thyroid Stim Hormone (TSH) 0.45 uIU/mL (0.358-3.74)
== END | disposition home or self-care (01) ==
LOC: LAB 08:29
PROVIDERS: Nurse Practitioner Family; PCP Family Medicine; Referring Provider Internal Medicine Endocrinology, Diabetes & Metabolism; Visit Provider Internal Medicine Endocrinology, Diabetes & Metabolism
DX: E06.3 Autoimmune thyroiditis (principal); E03.8 Other specified hypothyroidism
CPT/HCPCS: 36415; 82306; 82607; 84439; 84443

== ENCOUNTER → 2023-08-06 | Outpatient (CLI) | payer MEDICARE, OTHER, SELFPAY ==
--- NOTE | 2023-08-06 15:25 | BD_ITS ---
STUDY: DUAL ENERGY X-RAY ABSORPTIOMETRY / DXA REASON FOR EXAM: Female, 73 years old. Postmenopausal TECHNIQUE: Bone Mineral Density (BMD) measurements of lumbar spine and bilateral hips were obtained. COMPARISON: Comparison is made with prior study dated October 05, 2020. FINDINGS: Lumbar Spine (L1-L4): g/cm2 (1.164) / T-score (1.1) / Z-score (3.2) Findings are suggestive of normal bone density with a low fracture risk. Left Femur Total: g/cm2 (1.006) / T-score (0.5) / Z-score (2.1) Left Femoral Neck: g/cm2 (0.862) / T-score (0.1) / Z-score (2.0) Right Femur Total: g/cm2 (1.000) / T-score (0.5) / Z-score (2.0) Right Femoral Neck: g/cm2 (0.894) / T-score (0.4) / Z-score (2.3) The T-Scores on the most recent prior examination were: Lumbar Spine (L1-L4): There has been worsening of bone density since the previous examination. Left Femur Total: which represents an improvement of 2.4%. Right Femur Total: which represents a worsening of 1.5%. BD/Dexa Bone Density Study IMPRESSION: The patient is considered normal as outlined below according to World Ruiz Organization (WHO) criteria with a low fracture risk. There has been worsening of bone density since the previous examination. Reference Information: The T-score is the number of standard deviations above or below the standard which is normal for young adults at their peak bone mineral density. The World Health Organization (WHO) interprets the T-scores as follows: Above -1 Normal bone density Between -1 and -2.5 Osteopenia Equal to / or below -2.5 Osteoporosis As a practical clinical guideline, osteopenia may be graded as follows: Mild -1 through -1.5 Moderate -1.6 through -2.0 Severe -2.1 through -2.4 The Z-score is the number of standard deviations above or below age-matched controls. A Z-score of less than -1.5 would be considered abnormal. References: 1. NIH Osteoporosis and Related Bone Diseases www osteo.org 2. International Society for Clinical Densitometry www iscd.org 3. National Osteoporosis Foundation www nof.org Electronically Signed: Jose David Thomas MD at 8:02 EDT ,
== END | disposition home or self-care (01) ==
LOC: OPBD 15:21
PROVIDERS: PCP Family Medicine; Referring Provider Nurse Practitioner Women's Health; Visit Provider Nurse Practitioner Women's Health
DX: Z78.0 Asymptomatic menopausal state (principal)
CPT/HCPCS: 77080

== ENCOUNTER → 2023-09-20 | Outpatient (CLI) | payer MEDICARE, OTHER, SELFPAY ==
[2023-09-20 10:20] LABS: Bacteria 0 SEEN /hpf (None Seen); Mucous, Urine 0 SEEN /hpf (<or=2+); Red Blood Cells-Urine 0 SEEN /hpf (0-5)
[2023-09-20 10:37] LABS: Color, Urine Straw (Yellow); Glucose, Dipstick Normal (Normal); Ketone-Dipstick Negative (Negative); Leukocyte Esterase-Dipstick 500 /ul (Negative); Nitrite-Dipstick Negative (Negative); Occult Blood-Urine 250 /ul (Negative); Protein-Dipstick 15 mg/dl (Negative); Specific Gravity, Urine 1.005 (1.002-1.030); Urine Bilirubin Dipstick Negative (Negative); Urine Clarity Clear (Clear); Urine Urobilinogen Normal (Normal)
[2023-09-20 10:46] LABS: Squamous Epithelial Cells - UA 0-5 SEEN /hpf (5-10); White Blood Cells 25-50 SEEN /hpf (0-5)
== END | disposition home or self-care (01) ==
LOC: LABSPEC 10:11
PROVIDERS: PCP Family Medicine; Referring Provider Physician Assistant Surgical; Visit Provider Physician Assistant Surgical
DX: R30.0 Dysuria (principal)
CPT/HCPCS: 81001; 87086; 87088

== ENCOUNTER → 2023-10-31 | Outpatient (CLI) | payer MEDICARE, OTHER, SELFPAY ==
[2023-10-31 10:39] LABS: ALB/GLOB Ratio 0.9 RATIO (0.9-2.4); AST(SGOT) 76 U/L (15-37); Alanine Aminotransfer ALT/SGPT 93 U/L (13-56); Albumin, Serum 3.3 g/dL (3.2-5.0); Alkaline Phosphatase 140 U/L (45-117); Anion Gap 6 (5-15); BUN 22 mg/dL (7-18); Calcium,Total 9.6 mg/dL (8.5-10.1); Chloride 104 mmol/L (98-107); Cholesterol 151 mg/dL (200); EST Glomerular Filtration Rate 58 mL/min (>60); Est Glom Filt Rate - Afr Amer 70 mL/min (>60); Globulin 3.6 g/dL (2.2-4.2); Glucose 89 mg/dL (74-106); High Density Lipoprotein 65 mg/dL; Potassium 4.2 mmol/L (3.5-5.1); Protein, Total 6.9 g/dL (6.4-8.2); Sodium Level 139 mmol/L (136-145); Triglycerides 117 mg/dL; Very Low Density Lipoprotein 23 mg/dL (5-40)
== END | disposition home or self-care (01) ==
PROVIDERS: PCP Family Medicine; Referring Provider Family Medicine; Visit Provider Family Medicine
DX: E03.9 Hypothyroidism, unspecified (principal)
CPT/HCPCS: 36415; 80053; 80061; 84439; 84443

== ENCOUNTER → 2023-12-04 | Outpatient (CLI) | payer MEDICARE, OTHER, SELFPAY ==
[2023-12-04 12:47] LABS: AST(SGOT) 36 U/L (15-37); Alanine Aminotransfer ALT/SGPT 37 U/L (13-56); Albumin, Serum 3.5 g/dL (3.2-5.0); Alkaline Phosphatase 110 U/L (45-117); Anion Gap 4 (5-15); BUN 26 mg/dL (7-18); BUN/Creat Ratio 29.2 RATIO (10-20); Calcium,Total 9.4 mg/dL (8.5-10.1); Chloride 107 mmol/L (98-107); Creatinine, Serum 0.89 mg/dL (0.55-1.02); EST Glomerular Filtration Rate 67 mL/min (>60); Est Glom Filt Rate - Afr Amer 80 mL/min (>60); Globulin 3.6 g/dL (2.2-4.2); Glucose 93 mg/dL (74-106); Potassium 4.1 mmol/L (3.5-5.1); Protein, Total 7.1 g/dL (6.4-8.2); Sodium Level 140 mmol/L (136-145)
== END | disposition home or self-care (01) ==
LOC: MTLAB 10:35
PROVIDERS: PCP Family Medicine; Referring Provider Family Medicine; Visit Provider Family Medicine
DX: R79.89 Other specified abnormal findings of blood chemistry (principal)
CPT/HCPCS: 36415; 80053

== ENCOUNTER → 2024-01-27 | Outpatient (CLI) | payer MEDICARE, OTHER, SELFPAY ==
--- NOTE | 2024-01-27 12:16 | BI_ITS ---
MAMMOGRAPHY - BILATERAL SCREENING REASON FOR EXAM: Female, 73 years old. Routine annual screening examination. PERTINENT HISTORY: Non-contributory. TECHNIQUE: Digital bilateral breast rafa (3D mammographic acquisition) in the CC and MLO projections. 2-D mediolateral oblique (MLO) and craniocaudad (CC) views of both breasts were obtained. CAD: Full Field Digital Mammography with Computer Added Detection was performed. COMPARISON: Comparison is made with prior study dated January 23, 2023 and January 22, 2022. FINDINGS: Breast Composition: The breasts are almost entirely fatty. There are no dominant masses or suspicious calcifications. A battery pack from a pacemaker device is once again seen in the left axilla. No other significant abnormalities are identified. There has been no significant change since the prior study. BI/SCRN MAMM (CAD)W/RAFA BILAT IMPRESSION: Stable bilateral screening mammogram. Yearly follow-up mammogram recommended. (A) ASSESSMENT CATEGORY: BIRADS Category 2: Benign. A letter regarding these results will be sent to the patient by the facility within 30 days. Approximately 10% of breast cancers are not detected by mammography. A normal mammogram should not delay biopsy of a clinically suspicious abnormality. [id number] Electronically Signed: Jose David Thomas MD at 12:59 EST ,
== END | disposition home or self-care (01) ==
LOC: OPBI 12:16
PROVIDERS: PCP Family Medicine; Referring Provider Nurse Practitioner Women's Health; Visit Provider Nurse Practitioner Women's Health
DX: Z12.31 Encounter for screening mammogram for malignant neoplasm of breast (principal)
CPT/HCPCS: 77063; 77067

== ENCOUNTER → 2024-02-03 | Outpatient (CLI) | payer MEDICARE, OTHER, SELFPAY ==
--- NOTE | 2024-02-03 14:45 | RAD_ITS ---
STUDY: X-RAY CHEST REASON FOR EXAM: Female, 73 years old. For PPM generator change 02/10/24 TECHNIQUE: PA and lateral views of the chest. COMPARISON: 03/22/2016 FINDINGS: Left subclavian pacemaker which is unchanged. The lungs are clear and expanded. There is no demonstrated pleural abnormality. Normal size heart. Normal mediastinum and susy. Normal visualized pulmonary arteries. Normal visualized aortic arch and descending thoracic aorta. Normal visualized thoracic spine. Normal visualized ribs, clavicles, and shoulders. There is no demonstrated abnormality of the visualized soft tissue structures of the upper abdomen. RAD/Chest PA and Lateral IMPRESSION: No active disease. Electronically Signed: Moises Burger MD at 12:22 EST ,
[2024-02-03 14:59] LABS: Mucous, Urine 0 SEEN /hpf (<or=2+); Red Blood Cells-Urine 0 SEEN /hpf (0-5)
[2024-02-03 15:32] LABS: Hematocrit 40.3 % (37-47); Hemoglobin 13.5 g/dL (12.0-15.0); Mean Corp Hgb Conc 33.5 g/dL (32-36); Mean Corpuscular Hgb 30.7 pg (27.0-32.0); Mean Corpuscular Volume 91.6 fL (81-99); Mean Platelet Vol. 9.2 fl (6.2-12.0); Platelet Count 222 K/mm3 (150-450); RBC Distribution Width CV 12.4 % (11.6-14.6); RBC Distribution Width SD 41.1 fl (35.1-43.9); White Blood Count 5.9 K/mm3 (4.4-11.0)
[2024-02-03 15:40] LABS: Color, Urine Yellow (Yellow); Glucose, Dipstick Normal (Normal); Ketone-Dipstick Negative (Negative); Leukocyte Esterase-Dipstick 500 /ul (Negative); Nitrite-Dipstick Negative (Negative); Occult Blood-Urine Negative /ul (Negative); Protein-Dipstick Negative (Negative); Urine Bilirubin Dipstick Negative (Negative); Urine Clarity Clear (Clear); Urine Urobilinogen Normal (Normal)
[2024-02-03 15:46] LABS: Squamous Epithelial Cells - UA 0-5 SEEN /hpf (5-10); White Blood Cells 0-5 SEEN /hpf (0-5)
[2024-02-03 15:47] LABS: Bacteria RARE /hpf (None Seen)
[2024-02-03 16:06] LABS: Anion Gap 5 (5-15); BUN 29 mg/dL (7-18); BUN/Creat Ratio 29.3 RATIO (10-20); Chloride 105 mmol/L (98-107); Creatinine, Serum 0.99 mg/dL (0.55-1.02); EST Glomerular Filtration Rate 59 mL/min (>60); Est Glom Filt Rate - Afr Amer 71 mL/min (>60); Glucose 84 mg/dL (74-106); Potassium 4.1 mmol/L (3.5-5.1); Sodium Level 138 mmol/L (136-145)
== END | disposition home or self-care (01) ==
LOC: RAD 14:42
PROVIDERS: PCP Family Medicine; Referring Provider Internal Medicine Cardiovascular Disease; Visit Provider Internal Medicine Cardiovascular Disease
DX: I44.1 Atrioventricular block, second degree (principal); I45.2 Bifascicular block; Z95.0 Presence of cardiac pacemaker
CPT/HCPCS: 36415; 71046; 80048; 81001; 85027

== ENCOUNTER → 2024-02-06 | Outpatient (CLI) | payer MEDICARE, OTHER, SELFPAY ==
--- NOTE | 2024-02-06 10:53 | US_ITS ---
STUDY: ULTRASOUND BREAST - LEFT REASON FOR EXAM: Female, 73 years old. Palpable mass TECHNIQUE: Axial and longitudinal images of the LEFT breast were performed with a high resolution ultrasound transducer. # OF IMAGES: 31 COMPARISON: Screening mammogram 01/27/2024 FINDINGS: LEFT Breast: Heterogeneous background echotexture. Multiple longitudinal and transverse ultrasound images of the lateral left breast do not demonstrate a discrete solid or cystic mass most consistent with normal breast parenchyma.: US/Breast Limited Unilateral IMPRESSION: Normal mammogram and left breast ultrasound. However, biopsy of any palpable abnormality should be performed if clinically indicated. ASSESSMENT CATEGORY: BIRADS Category 1: Negative. A letter regarding these results will be sent to the patient by the facility within 30 days. Electronically Signed: Moises Burger MD at 17:43 EST ,
== END | disposition home or self-care (01) ==
LOC: OPUS 10:53
PROVIDERS: PCP Family Medicine; Referring Provider Nurse Practitioner Women's Health; Visit Provider Nurse Practitioner Women's Health
DX: N64.4 Mastodynia (principal); N63.0 Unspecified lump in unspecified breast
CPT/HCPCS: 76642

== ENCOUNTER 2024-02-10 10:53 | Day surgery (SDC) | payer MEDICARE, OTHER, SELFPAY ==
[2024-02-10 11:10] VITALS: BMI 29.2
--- NOTE | 2024-02-10 12:50 | CL.IE_ITS ---
Patient: MARYLOU PENG Study Date: 02/10/2024 Performing: Billy Denton MD : 1950 Age: 73 Gender: female PROCEDURES PERFORMED [id number])BATTERY REMOVAL+REPLACEMENT PACER-DUAL LEAD INDICATIONS Atrioventricular (AV) block PROCEDURE DETAILS The patient was brought to the Catheterization Lab in the postabsorptive nonsedated state. Informed consent was obtained prior to the procedure. Local anesthetic was given subcutaneously to the left upper chest area with Lidocaine 2%. Incision was made to the left upper chest. PPM generator was removed. PPM generator was attached to the lead(s) and inserted into the pocket. Device pocket was irrigated with antibiotic. Subcutaneous closure was completed with 3-0 Vicryl. Skin closure was completed with 4-0 Vicryl. Steri-strips applied to left subclavicular incision. The patient tolerated the procedure well. 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 Ancef 2 Gm IV @ 02/10/2024 11:47:10 Signed By Billy Denton MD On 02/10/2024 12:50:14 Billy Denton MD
== END 2024-02-10 14:03 | disposition home or self-care (01) ==
PROVIDERS: PCP Family Medicine; Referring Provider Internal Medicine Cardiovascular Disease; Visit Provider Internal Medicine Cardiovascular Disease
DX: Z45.010 Encounter for checking and testing of cardiac pacemaker pulse generator [battery] (principal); N18.30 Chronic kidney disease, stage 3 unspecified; T82.111A Breakdown (mechanical) of cardiac pulse generator (battery), initial encounter; I44.1 Atrioventricular block, second degree; Z79.899 Other long term (current) drug therapy; Z79.890 Hormone replacement therapy; E03.9 Hypothyroidism, unspecified; Y71.8 Miscellaneous cardiovascular devices associated with adverse incidents, not elsewhere classified
CPT/HCPCS: 33228; 99152; 99153

== ENCOUNTER 2024-04-22 07:28 | Day surgery (SDC) | payer MEDICARE, OTHER, SELFPAY ==
--- NOTE | 2024-04-21 16:11 | PAT.ANE_ITS ---
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 When Was Last Pacemaker Check QUESTION #4 FULL TEXT: You/Your Family Experience fever (hyperthermia) with Anesthesia Last Oral Intake Last Oral intake: Last Oral Intake NPO since Meds taken in AM with sips of water? Meds patient instructed to take am of surgery PONV PONV - poker supervisor: PONV - poker supervisor Female Yes 04/21/24 13:29 HX of Motion Sickness Yes 04/21/24 13:29 HX of N/V After Surgery No 04/21/24 13:29 Non-Smoker Yes 04/21/24 13:29 Duration of Surgery greater No 04/21/24 13:29 than 60 minutes Number of Risk Factors 3 04/21/24 13:29 PONV Score Moderate Risk 04/21/24 13:29 Height & Weight Height & Weight: Anesthesia: Height & Weight Height 5 ft 3 in 02/19/24 13:50 Respiratory Assessment Respiratory Assessment - poker supervisor: Respiratory Tract Infection Hx - poker supervisor Hx Respiratory Tract Infection No 04/21/24 13:29 STOP Sleep Apnea STOP Sleep Apnea - poker supervisor: STOP Sleep Apnea - poker supervisor Hx Hypertension Yes: PER PT, CONTROLLED 04/21/24 13:29 Hx Sleep Apnea No 04/21/24 13:29 CPAP BIPAP Do you snore loudly (louder No 04/21/24 13:29 than talking or can be heard Do you often feel tired/ No 04/21/24 13:29 fatigued/ sleepy during daytime? Has anyone observed you stop No 04/21/24 13:29 breathing during sleep? STOP Results Negative 04/21/24 13:29 QUESTION #5 FULL TEXT : Do you snore loudly (louder than talking or can be heard through closed doors)? 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 Specify any problems Hx of Preganancy in last 3 No 04/21/24 13:29 Months Nurse Filling Out Transfusion MGRIBRODIEITH 04/21/24 13:29 & Questions: Date: 04/21/24 04/21/24 13:29 Time: 13:30 04/21/24 13:29 Patient unable to answer at this time (ie. 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 Vaginal atrophy Macular degeneration Second degree AV block, Mobitz type II Right bundle branch block Left anterior fascicular block Mobitz type 2 second degree atrioventricular block Abnormal electrocardiogram Abnormal findings on diagnostic imaging of heart and coronary circulation Ventricular premature depolarization Thyroid disorder Home Medications ?Medication ?Instructions ?Recorded ?Last Taken ?Type multivitamin 1 tab PO QDAY 04/11/17 Unkno wn History calcium 600 mg (as 1 cap PO DAILY 04/16/18 Unkn own History carbonate)-vitamin D3 5 mcg (200 unit) capsule (Calcium 600 + D(3)) vit C 250 mg-vit E 90 mg-zinc 40 1 tab PO BID 04/16/18 Unknown History mg-copper 1 ec-qalkma-hzmopf capsule (PreserVision AREDS-2) lisinopril 20 mg tablet 20 mg PO DAILY 04/05/22 Unkn own History Lactobacillus acidophilus and 1 cap PO DAILY 06/04/23 Unknown History rhamnosus 10 billion cell capsule (Digestive Health Probiotic) cholecalciferol (vitamin D3) 10 10 mcg PO DAILY Unknown History mcg (400 unit) tablet levothyroxine 88 mcg tablet 88 mcg PO .Mon-Sat #90 tab s 06/04/23 Unknown Rx estradiol 0.01% (0.1 mg/gram) See Rx Instructions vagi nal DAILY 06/11/23 Unknown History vaginal cream clobetasol 0.05 % topical ointment 1 applic topical .C OMPLEX #15 grams 04/15/24 Unknown Rx Allergy/AdvReac Type Severity Reaction Status Date / Time Sulfa (Sulfonamide Allergy Unknown Verified 04/21/24 13:22 Antibiotics) nitrofurantoin AdvReac OTHER Verified 04/21/24 13:25 Family History Mother Cancer lung-smoker Father Diabetes Cancer bladder Other Alcoholism Arthritis Depression Hypertension Mental disorder Osteoporosis and oculocutaneous hypopigmentation syndrome Psychiatric care Respiratory disease Surgical History (Updated 04/21/24 @ 13:28 by Annette Fisher) History of colonoscopy History of left heart catheterization (03/02/16) Presence of cardiac pacemaker (03/21/16) History of tonsillectomy H/O dilation and curettage H/O lumpectomy Social History current occupational status: retired Smoking Status: Never smoker alcohol intake: never substance use type: does not use caffeine: Yes what type of physical activity do you participate in: walking frequency: daily seatbelt use: always do you feel safe at home: Yes additional social history: Micheal- Retired Audit: Pertinent Findings Pertinent Findings Echo (EF%) pertinent findings: Good EF Heart catheterization pertinent findings: No CAD Consult pertinent findings: High degree AV block Additional pertinent findings: Pacemaker - colonoscopy, pacer is working well, should not be impacted by procedure. Current Visit Impressions Current Visit Impressions: Echocardiogram 05/23/2021: Interpretation Summary Normal LV size. Left ventricular systolic function is normal. The estimated ejection fraction is 55 %. Mild (1+) eccentric mitral valve insufficiency. Mild tricuspid valve insufficiency. Stage 1 diastolic dysfunction. Stress Test 02/22/16 CONCLUSION: 1. Exercise myocardial perfusion stress test with marked shortness of breath noted at a low workload. 2. Frequent mature ventricular complexes are noted. 3. Underlying right bundle branch block is present. Cardiac Catheterization 03/02/2016: CONCLUSION: 1.? Angiographically normal left main coronary artery. 2.? Left anterior descending artery with no significant stenosis. 3.? Left circumflex artery, which is dominant with no high-grade stenosis. 4.? Nondominant small right coronary artery with no high-grade stenosis. 5.? Preserved ejection fraction. Labs: Recommendation Anesthesia Recommendation Anesthesia recommendation: OPTIMIZED for anesthesia
[2024-04-22] VITALS (8 sets, daily range): BP systolic 93–126; BP diastolic 59–79; PULSE 16–69; RESP 12–16; TEMP 36.1–36.7; O2SAT 98–100; BMI 28.5
--- NOTE | 2024-04-22 07:38 | H&P.OPEN ---
HPI - General General Date of Service: 04/22/24 HPI Narrative MARYLOU PENG, is a 73 F who presents for screening colonoscopy. Patient denies any changes since last office visit. Office visit 01/15/2024 [facility] HPI: 73-year-old female presents for colonoscopy. Patient had colonoscopy 10 years ago negative per patient. Patient denies any chronic abdominal pain/nausea/vomiting/reflux. Has bowel movements every other day denies any blood. 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 Vaginal atrophy Macular degeneration Second degree AV block, Mobitz type II Right bundle branch block Left anterior fascicular block Mobitz type 2 second degree atrioventricular block Abnormal electrocardiogram Abnormal findings on diagnostic imaging of heart and coronary circulation Ventricular premature depolarization Thyroid disorder Home Medications ?Medication ?Instructions ?Recorded ?Last Taken ?Type multivitamin 1 tab PO QDAY 04/11/17 04/21/24 History calcium 600 mg (as 1 cap PO DAILY 04/16/18 04/21/24 History carbonate)-vitamin D3 5 mcg (200 unit) capsule (Calcium 600 + D(3)) vit C 250 mg-vit E 90 mg-zinc 40 1 tab PO BID 04/16/18 04/21/24 History mg-copper 1 [id number] capsule (PreserVision AREDS-2) lisinopril 20 mg tablet 20 mg PO DAILY 04/05/22 04/21/24 History Lactobacillus acidophilus and 1 cap PO DAILY 06/04/23 04/21/24 History rhamnosus 10 billion cell capsule (Digestive Health Probiotic) cholecalciferol (vitamin D3) 10 10 mcg PO DAILY 06/04/23 04/21/24 History mcg (400 unit) tablet levothyroxine 88 mcg tablet 88 mcg PO .Mon-Sat #90 tabs 06/04/23 04/21/24 Rx estradiol 0.01% (0.1 mg/gram) See Rx Instructions vaginal DAILY 06/11/23 Unknown History vaginal cream clobetasol 0.05 % topical ointment 1 applic topical .COMPLEX #15 grams 04/15/24 Unknown Rx Allergy/AdvReac Type Severity Reaction Status Date / Time Sulfa (Sulfonamide Allergy Unknown Verified 04/22/24 08:07 Antibiotics) nitrofurantoin AdvReac OTHER Verified 04/22/24 08:07 Family History Mother Cancer lung-smoker Father Diabetes Cancer bladder Other Alcoholism Arthritis Depression Hypertension Mental disorder Osteoporosis and oculocutaneous hypopigmentation syndrome Psychiatric care Respiratory disease Surgical History History of colonoscopy History of left heart catheterization (03/02/16) Presence of cardiac pacemaker (03/21/16) History of tonsillectomy H/O dilation and curettage H/O lumpectomy Social History current occupational status: retired Smoking Status: Never smoker alcohol intake: never substance use type: does not use caffeine: Yes what type of physical activity do you participate in: walking frequency: daily seatbelt use: always do you feel safe at home: Yes additional social history: Micheal- Retired Past Medical/Surgical History Planned Operation Planned Operative Procedure(s): COLONOSCOPY Previous Hospitalizations/Surgeries HX Hospitalizations: No HX of Surgeries: lumpectomy , colonoscopies Any Problems With Anesthesia: No You/Your Family Experience Fever (Hyperthermia) With Anes: No Cholinesterase deficiency: No Cardiovascular Hx Chest Pain within Last 2 months: No Hx of Irregular Heartbeat and/or Afib: No Hx Heart Attack: No Hx Congestive Heart Failure: No Hx Rheumatic Fever: No Hx Hypertension: Yes (PER PT, CONTROLLED) Hx Internal Defibrillator: No Hx Pacemaker: No (scheduled for one) Hx Cardiac Catheterization: Yes Hx Cardiac Surgery/Stents/Etc.: No Hx Stress Test: Yes Respiratory Chronic Cough: No Hx Chronic Obstructive Pulmonary Disease (COPD): No Hx Asthma: No Hx Emphysema: No Hx Sleep Apnea: No Hx Respiratory Tract Infection/Cold (presently): No Do You Snore Loudly (louder than talking or can be heard): No Do You Often Feel Tired/ Fatigued/ Sleepy Dring Daytime?: No Has Anyone Observed You Stop Breathing During Sleep?: No Result (for STOP score): Negative Hx Smoking: No Smoking Status: Never smoker Gastrointestinal Hx Gastrointestinal Bleed: No Hx Ulcer: No Hx Unplanned Weight Loss of 20#: No HX Unplanned Weight Gain of 20#: No Neurological Hx Seizures: No HX Syncope/Blackout Spells/Unconsciousness: Yes Hx Multiple Sclerosis: No Hx Parkinson's Disease: No Does patient have nerve stimulator: No Blood Disorder Hx Deep Vein Thrombosis: No Hx High Cholesterol: No Hx Hepatitis: No Hx Cirrhosis: No Hx Anemia: No Genitourinary Hx Renal Disease: No Hx Dialysis: No Musculoskeletal Hx Arthritis: No Endocrine Hx Diabetes: No Psycho/Social Hx Substance Use: No Hx Alcohol Use: Yes (rare) Hx Anxiety: No Hx Depression: No Hx Dementia: No Miscellaneous Hx Cancer: No Allergies Sulfa (Sulfonamide Antibiotics) Allergy (Verified 04/22/24 08:07) Unknown nitrofurantoin Adverse Reaction (Verified 04/22/24 08:07) OTHER COULDN'T STAND, FELT AWFUL Discharge Is Pt Admitted From a Usp, or a Detention: No Who Could Help: After D/C, Where Do you Plan to Go: Return Home From the PAT History Number of Risk Factors: 1 Physical Exam Const alert, oriented x3 and no apparent distress HEENT normocephalic and head/scalp atraumatic Resp normal respiratory effort Cardio regular rate GI soft to palpation and non-tender; Negative for non-distended Palpation: Negative for guarding Extremity no clubbing, cyanosis or edema Skin no rashes or lesions noted Neuro CN's II-XII intact bilaterally Psych mental status grossly normal Assessment & Plan Assessment/Plan (1) Encounter for screening for malignant neoplasm of colon: Surgery Risks - Colonoscopy I discussed with the patient the risks of the procedure: Yes Risks Include but are not Limited To: Risks include but are not limited to: Bleeding, perforation requiring further surgery, inability to complete colonoscopy requiring barium enema.
--- NOTE | 2024-04-22 08:38 | PCM.PRE.AN2 ---
ASA Classification* ASA Classification ASA Classification: 3 Assessment & Plan Anesthesia* Anesthesia Assessment Anesthesia Assessment: Discussed sedation and/or anesthesia options, risks, benefits, and alternatives with patient/parents/legal guardian/POA. Questions invited. The patient/parents/legal guardian/POA seems to understand and agrees to proceed with anesthesia plan. Reviewed the physical assessment, medical history, allergy history and patient home medications list prior to surgery/procedure/anesthetic and documented any changes. Performed airway and anesthesia risk assessments. Anesthesia Type Anesthesia Type: General Anesthesia Focused Assessment* Temperature: 96.9 F Pulse Rate: 65 Blood Pressure: 126/63 Respiratory Rate: 12 Pulse Ox: 100 Airway Assessment Mouth opens: >3 cm Mallampati Score: II Focused Labs Anesthesia Preop lab: CBC WBC 5.9 K/mm3 (4.4-11.0) 02/03/24 14:58 02/03/24 RBC 4.40 M/mm3 (4.2-5.4) 02/03/24 14:58 02/03/24 Hgb 13.5 g/dL (12.0-15.0) 02/03/24 14:58 02/03/24 Hct 40.3 % (37-47) 02/03/24 14:58 02/03/24 Plt Count 222 K/mm3 (150-450) 02/03/24 14:58 02/03/24 CHEMISTRY Potassium 4.1 mmol/L (3.5-5.1) 02/03/24 14:58 02/03/24 Sodium 138 mmol/L (136-145) 02/03/24 14:58 02/03/24 BUN 29 mg/dL (7-18) H 02/03/24 14:58 02/03/24 Creatinine 0.99 mg/dL (0.55-1.02) 02/03/24 14:58 02/03/24 Glucose 84 mg/dL (74-106) 02/03/24 14:58 02/03/24 TSH 1.110 uIU/mL (0.358-3.740) 10/31/23 07:57 10/31/23 COAG PT 12.6 SECONDS (11.7-14.9) 02/22/16 12:01 02/22/16 Pre-Assessment Diagnosis/Proposed Procedure Planned Operative Procedure(s): COLONOSCOPY Anesthesia History Anesthesia History - manager functional: Anesthesia History - manager functional Hx Hospitalization No 04/22/24 07:39 Any Problems With Anesthesia No 04/22/24 07:39 Cholinesterase deficiency No 04/22/24 07:39 You/Your Family Experience No 04/22/24 07:39 fever (hyperthermia) with Relationship Recent Exposure to Contagious No 04/22/24 08:08 Disease Does patient have nerve No 04/22/24 07:39 stimulator Patient instructed to have device shut off --Does patient have Pacemaker Yes 04/22/24 08:08 or ICD? When Was Last Pacemaker Check QUESTION #4 FULL TEXT: You/Your Family Experience fever (hyperthermia) with Anesthesia Last Oral Intake Last Oral intake: Last Oral Intake NPO since 04:30 04/22/24 08:08 Meds taken in AM with sips of No 04/22/24 08:08 water? Meds patient instructed to take am of surgery PONV PONV - manager functional: PONV - manager functional Female Yes 04/21/24 13:29 HX of Motion Sickness Yes 04/21/24 13:29 HX of N/V After Surgery No 04/21/24 13:29 Non-Smoker Yes 04/21/24 13:29 Duration of Surgery greater No 04/21/24 13:29 than 60 minutes Number of Risk Factors 3 04/21/24 13:29 PONV Score Moderate Risk 04/21/24 13:29 Height & Weight Height & Weight: Anesthesia: Height & Weight Height 5 ft 3 in 04/22/24 08:08 Weight: 73 kg 04/22/24 08:08 Body Mass Index (BMI) 28.5 04/22/24 08:08 Respiratory Assessment Respiratory Assessment - manager functional: Respiratory Tract Infection Hx - manager functional Hx Respiratory Tract Infection No 04/22/24 07:39 STOP Sleep Apnea STOP Sleep Apnea - manager functional: STOP Sleep Apnea - manager functional Hx Hypertension Yes: PER PT, CONTROLLED 04/22/24 07:39 Hx Sleep Apnea No 04/22/24 07:39 CPAP BIPAP Do you snore loudly (louder No 04/22/24 07:39 than talking or can be heard Do you often feel tired/ No 04/22/24 07:39 fatigued/ sleepy during daytime? Has anyone observed you stop No 04/22/24 07:39 breathing during sleep? STOP Results Negative 04/22/24 07:39 QUESTION #5 FULL TEXT : Do you snore loudly (louder than talking or can be heard through closed doors)? 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 Specify any problems Hx of Preganancy in last 3 No 04/21/24 13:29 Months Nurse Filling Out Transfusion MGRIFFITH 04/21/24 13:29 & Questions: Date: 04/21/24 04/21/24 13:29 Time: 13:30 04/21/24 13:29 Patient unable to answer at this time (ie. 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 Vaginal atrophy Macular degeneration Second degree AV block, Mobitz type II Right bundle branch block Left anterior fascicular block Mobitz type 2 second degree atrioventricular block Abnormal electrocardiogram Abnormal findings on diagnostic imaging of heart and coronary circulation Ventricular premature depolarization Thyroid disorder Home Medications ?Medication ?Instructions ?Recorded ?Last Taken ?Type multivitamin 1 tab PO QDAY 04/11/17 04/21/24 History calcium 600 mg (as 1 cap PO DAILY 04/16/18 04/21/24 History carbonate)-vitamin D3 5 mcg (200 unit) capsule (Calcium 600 + D(3)) vit C 250 mg-vit E 90 mg-zinc 40 1 tab PO BID 04/16/18 04/21/24 History mg-copper 1 [id number] capsule (PreserVision AREDS-2) lisinopril 20 mg tablet 20 mg PO DAILY 04/05/22 04/21/24 History Lactobacillus acidophilus and 1 cap PO DAILY 06/04/23 04/21/24 History rhamnosus 10 billion cell capsule (Digestive Health Probiotic) cholecalciferol (vitamin D3) 10 10 mcg PO DAILY 06/04/23 04/21/24 History mcg (400 unit) tablet levothyroxine 88 mcg tablet 88 mcg PO .Mon-Sat #90 tabs 06/04/23 04/21/24 Rx estradiol 0.01% (0.1 mg/gram) See Rx Instructions vaginal DAILY 06/11/23 Unknown History vaginal cream clobetasol 0.05 % topical ointment 1 applic topical .COMPLEX #15 grams 04/15/24 Unknown Rx Allergy/AdvReac Type Severity Reaction Status Date / Time Sulfa (Sulfonamide Allergy Unknown Verified 04/22/24 08:07 Antibiotics) nitrofurantoin AdvReac OTHER Verified 04/22/24 08:07 Family History Mother Cancer lung-smoker Father Diabetes Cancer bladder Other Alcoholism Arthritis Depression Hypertension Mental disorder Osteoporosis and oculocutaneous hypopigmentation syndrome Psychiatric care Respiratory disease Surgical History History of colonoscopy History of left heart catheterization (03/02/16) Presence of cardiac pacemaker (03/21/16) History of tonsillectomy H/O dilation and curettage H/O lumpectomy Social History current occupational status: retired Smoking Status: Never smoker alcohol intake: never substance use type: does not use caffeine: Yes what type of physical activity do you participate in: walking frequency: daily seatbelt use: always do you feel safe at home: Yes additional social history: Micheal- Retired Review of Systems (Anesthesia) ROS Narrative System reviewed and no additional complaints, except as documented.
--- NOTE | 2024-04-22 10:29 | OP.CCLET_ITS ---
04/22/2024 Deacon Smith [address] [place] [address] Re : Colonoscopy procedure for Saranya Pierce Dear Dr. Smith This procedure was performed on Monday, April 22, 2024. My impressions and recommendations are as follows: Impressions : - The entire examined colon is normal on direct and retroflexion views. - No specimens collected. Recommendations : - Discharge patient to home. - Resume previous diet. - Continue present medications. - Await pathology results. - Repeat colonoscopy in 10 years for screening purposes. - depending on overall health at time of possible repeat My findings are described in the full procedure note, which is enclosed. If I can be of further assistance, please feel free to contact me at Doctor phone number(s): , Work: . Sincerely, MD Loretta Kennedy MD 04/22/2024 10:28:46 AM This report has been signed electronically.
--- NOTE | 2024-04-22 10:29 | OP.COLON_ITS ---
Patient Name: Saranya Pierce Procedure Date: 04/22/2024 9:10 AM Date of : 1950 Age: 73 Procedure: Colonoscopy Indications: Screening for colorectal malignant neoplasm Providers: Loretta Patel MD Referring MD: Deacon Smith Medicines: Monitored Anesthesia Care Patient Profile: This is a 73 year old female. Last Colonoscopy: 10 years ago. Complications: No immediate complications. Procedure: Pre-Anesthesia Assessment: - Prior to the procedure, a History and Physical was performed, and patient medications and allergies were reviewed. The patient's tolerance of previous anesthesia was also reviewed. The risks and benefits of the procedure and the sedation options and risks were discussed with the patient. All questions were answered, and informed consent was obtained. Prior Anticoagulants: The patient has taken no anticoagulant or antiplatelet agents. ASA Grade Assessment: Per anesthesia. After reviewing the risks and benefits, the patient was deemed in satisfactory condition to undergo the procedure. After I obtained informed consent, the scope was passed under direct vision. Throughout the procedure, the patient's blood pressure, pulse, and oxygen saturations were monitored continuously. The colonoscope was introduced through the anus and advanced to the cecum, identified by the appendiceal orifice, ileocecal valve and palpation. The colonoscopy was performed without difficulty. The patient tolerated the procedure well. The quality of the bowel preparation was good. Scope In: 10:05:26 AM Scope Withdrawal Time 0 hours 8 minutes 58 seconds Scope Out: 10:25:24 AM Total Procedure Duration Time 0 hours 19 minutes 58 seconds Findings: The entire examined colon appeared normal on direct and retroflexion views. Impression: - The entire examined colon is normal on direct and retroflexion views. - No specimens collected. Recommendation: - Discharge patient to home. - Resume previous diet. - Continue present medications. - Await pathology results. - Repeat colonoscopy in 10 years for screening purposes. - depending on overall health at time of possible repeat Procedure Code(s): --- Professional --- G0121, PT, Colorectal cancer screening; colonoscopy on individual not meeting criteria for high risk Diagnosis Code(s): --- Professional --- Z12.11, Encounter for screening for malignant neoplasm of colon CPT copyright 2021 [employer]. All rights reserved. The codes documented in this report are preliminary and upon medical accounting clerk review may be revised to meet current compliance requirements. MD Loretta Kennedy MD 04/22/2024 10:28:46 AM This report has been signed electronically. Number of Addenda: 0 Note Initiated On: 04/22/2024 9:10 AM
--- NOTE | 2024-04-22 10:38 | PCM.POST.ANE ---
Anesthesia: Postop Eval I Current Vital Signs Temperature: 98 F Pulse Rate: 16 Blood Pressure: 93/59 Respiratory Rate: 16 Pulse Ox: 99 Oxygen Delivery Method: Room Air Assessment Airway patent: Yes Spontaneous unlabored respirations: Yes Mental status: Awake and Calm nausea: No Vomiting: No Anesthesia Complication: No Fluid Hydration Crystalloid volume administer (ml): 45 Total IV fluid infused: 45 Progress Note Anesthesia document: Postop Eval 1 completed: Yes
--- NOTE | 2024-04-22 10:50 | PCM.POSTANE2 ---
Anesthesia Postop Eval I Sum Postop Eval Completion status Anesthesia document: Postop Eval 1 completed: Yes Anesthesia Postop Eval I Summary Anesthesia Postop Eval I Summary: Anesthesia Postop Eval I: Assessment Summary Airway patent Yes 04/22/24 10:39 [email or web address] Spontaneous unlabored Yes 04/22/24 10:39 [email or web address] respirations Mental status Awake,Calm 04/22/24 10:39 [email or web address] nausea No 04/22/24 10:39 [email or web address] Vomiting No 04/22/24 10:39 [email or web address] Anesthesia Postop Eval I: Fluid Summary Crystalloid volume administer 45 04/22/24 10:39 [email or web address] (ml) Colloids volume administered ( ml) Blood Product volume administered (ml) Total IV fluid infused 45 04/22/24 10:39 [email or web address] Anesthesia Postop Eval I: Summary Notes Anesthesia Complication No 04/22/24 10:39 [email or web address] Anesthesia Complication Comment: Post-operative progress note Anesthesia: Postop Eval II Evaluation Mental status: Awake Pain Level: 0 nausea: No Vomiting: No
== END 2024-04-22 11:09 | disposition home or self-care (01) ==
LOC: EN 07:28 → AC 07:30
PROVIDERS: PCP Family Medicine; Referring Provider Family Medicine; Visit Provider Surgery
PROC: 0DJD8ZZ Inspection of Lower Intestinal Tract, Via Natural or Artificial Opening Endoscopic (ICD-10-PCS; CPT 45378; principal; 2024-04-22 08:55)
DX: Z12.11 Encounter for screening for malignant neoplasm of colon (principal); N18.31 Chronic kidney disease, stage 3a; I12.9 Hypertensive chronic kidney disease with stage 1 through stage 4 chronic kidney disease, or unspecified chronic kidney disease; E06.3 Autoimmune thyroiditis; E03.9 Hypothyroidism, unspecified; Z79.890 Hormone replacement therapy; Z79.899 Other long term (current) drug therapy
CPT/HCPCS: G0121; A4216; J2405

== ENCOUNTER → 2024-04-24 | Outpatient (CLI) | payer MEDICARE, OTHER, SELFPAY ==
[2024-04-24 10:06] LABS: ALB/GLOB Ratio 1.4 RATIO (0.9-2.4); AST(SGOT) 32 U/L (<=31); Alanine Aminotransfer ALT/SGPT 25 U/L (<=34); Alkaline Phosphatase 105 U/L (35-104); Anion Gap 11 (5-15); BUN 23 mg/dL (4-19); BUN/Creat Ratio 23.6 RATIO (10-20); Calcium,Total 9.4 mg/dL (7.6-11.0); Carbon Dioxide 24.9 mmol/L (21.0-32.0); Chloride 105 mmol/L (98-108); Creatinine, Serum 0.98 mg/dL (0.70-1.20); EST Glomerular Filtration Rate 62 (>60); Globulin 2.9 g/dL (2.2-4.2); Glucose 96 mg/dL (70-99); Potassium 4.4 mmol/L (3.3-5.1); Protein, Total 6.8 g/dL (5.9-8.4); Sodium Level 141 mmol/L (133-145); Total Bilirubin 0.48 mg/dL (0.00-1.30); Vitamin D,25 Hydroxy 48.9 ng/mL (30-100)
== END | disposition home or self-care (01) ==
LOC: LAB 07:59
PROVIDERS: PCP Family Medicine; Referring Provider Family Medicine; Visit Provider Family Medicine
DX: I10 Essential (primary) hypertension (principal); E55.9 Vitamin D deficiency, unspecified; E03.9 Hypothyroidism, unspecified
CPT/HCPCS: 36415; 80053; 82306; 84443

== ENCOUNTER → 2024-09-08 | Outpatient (CLI) | payer MEDICARE, OTHER, SELFPAY | END | disposition home or self-care (01) | LOC: MTLAB 08:36 | PROVIDERS: PCP Family Medicine; Referring Provider Internal Medicine Endocrinology, Diabetes & Metabolism; Visit Provider Internal Medicine Endocrinology, Diabetes & Metabolism | DX: E06.3 Autoimmune thyroiditis (principal) | CPT/HCPCS: 36415; 84439; 84443 ==

== ENCOUNTER → 2024-10-05 | Outpatient (CLI) | payer MEDICARE, OTHER, SELFPAY ==
--- OUTSIDE RECORDS SUMMARY | 2024-10-05 14:32 | XMS RPT_ITS | CCD ---
Author Organization [facility] Care Team Providers Care Caramel Cutter Hand Name Role Phone Petey RN, Victorina Sharpe Unavailable Unavailable Petey RN, Victorina M Unavailable Unavailable Petey RN, Victorina M Unavailable Unavailable Petey RN, Victorina M Unavailable Unavailable Petey RN, Victorina M Unavailable Unavailable CARMELO Angelo, Victorina M Unavailable Unavailable Robe Smith MD Primary Care Provider Dr. Deacon Smith Primary Care Provider [phone] Dr. Billy Denton Attending Provider [phone] Billy Denton Referring Provider [phone] Deacon Smith Referring Provider Kathya MALCOLM, GOLD Sharpe Attending Provider Merna Angelo Attending Provider Unavailable Dr. Deacon Smith Primary Care Provider [phone] Dr. Billy Denton Attending Provider [phone] Yosvany GRID MOLDER, SKYLER Shrestha Attending Provider Robe Smith MD Primary Care Provider Robe Smith MD Primary Care Provider Robe Smith MD Primary Care Provider Dr. Deacon Smith Primary Care Provider [phone] Dr. Deacon Smith Referring Provider Merna Angelo Attending Provider Unavailable Yosvany GRID MOLDER, NATALEE-Manuel Shrestha Attending Provider [phone] Dr. Deacon Smith Primary Care Provider [phone] Dr. Deacon Smith Referring Provider Yosvany GRID MOLDER, GRID MOLDER-C Henrietta Attending Provider Dr. Billy Denton Attending Provider [phone] Greg Harper Attending Provider Unavailable Dr. Deacon Smith Primary Care Provider Dr. Deacon Smith Referring Provider Dr. Billy Denton Attending Provider [phone] Roger GRID MOLDER, GRID MOLDER-C Sara Attending Provider Dr. Cody Kim Attending Provider [phone] Merna Angelo Attending Provider Unavailable Robe Smith MD Primary Care Provider Dr. Deacon Smith Primary Care Provider Dr. Deacon Smith Referring Provider Dr. Billy Denton Attending Provider [phone] Yosvany GRID MOLDER, GRID MOLDER-C Henrietta Attending Provider Merna Angelo Attending Provider Unavailable Robe Smith MD Primary Care Provider Dr. Deacon Smith Primary Care Provider Dr. Deacon Smith Referring Provider Yosvany GRID MOLDER, GRID MOLDER-C Henreitta Attending Provider Dr. Billy Denton Attending Provider [phone] Robe Smith Primary Care Provider [phone] Dr. Robe Smith Referring Provider Yosvany GRID MOLDER, GRID MOLDER-C Henrietta Attending Provider Robe Smith MD Primary Care Provider CATIA PEREZ Referring Unavailable ROBE SMITH Primary Care UnavailCATIA Smith Attending Unavailable ROBE SMITH Primary Care Unavailabl e RUSTY SILVA Attending Unavailable ROBE SMITH Primary Care UnavailCATIA Smith Attending Unavailable ROBE SMITH Primary Care Unavailabl e RACHITSKAYA, ARELY Referring Unavaila ble ROBE SMITH Primary Care Unavailabl e RACHITSKAYA, ARELY Attending Unavaila ble SARAH, TYRONER B Primary Care Unavailabl e RACHITSKAYA, ARELY Attending Unavaila ble SARAH, ROBE Hernandez Primary Care Unavailabl e RACHITSKAYA, ARELY Attending Unavaila ble SARAH, ROBE B Primary Care Unavailabl e Merna Angelo Attending Provider Unavailable Sarah QUICK, Dr. Martinez Primary Care Provider Dr. Robe Smith MD Referring Provider [phone] Jorge QUICK, Dr. Burgos Attending Provider Yosvany GRID MOLDER-C, Henrietta Attending Provider Iroquois GRID MOLDER-C, Henrietta Referring Provider Jeri Riley Attending Provider Merna Angelo Attending Provider Unavailable Corrie QUICK, Dr. Cervantes Attending Provider Dr. Billy Denton MD Referring Provider Dr. Loretta Patel MD Other Provider Dr. Robe Smith MD Attending Provider [phone] Dr. Robe Smith MD Primary Care Provider Dr. Robe Smith MD Referring Provider Dr. Loretta Patel MD Attending Provider Dr. Billy Denton MD Attending Provider Dr. Cody Kim MD Attending Provider Jeri Riley Attending Provider Sarah QUICK, Dr. Martinez Primary Care Provider Dr. Robe Smith MD Referring Provider Corrie QUICK, Dr. Cervantes Attending Provider Dr. Cody Kim MD Referring Provider [phone] Merna Angelo Attending Unavailable Ranney, Christopher Primary Care Unavailable Ranney, Christopher Referring Unavailable Corrie, [place] Attending Unavailable Ranney, Christopher Primary Care Unavailable Ranney, Christopher Referring Unavailable Robotham, Loretta Attending Unavailable Ranney, Christopher Primary Care Unavailable Ranney, Christopher Primary Care Unavailable Corrie, [place] Attending Unavailable Ranney, Christopher Referring Unavailable Robotham, Loretta Attending Unavailable Ranney, Christopher Primary Care Unavailable Ranney, Christopher Primary Care Unavailable Corrie, [place] Referring Unavailable Corrie, [place] Attending Unavailable Iroquois, Henrietta Referring Unavailable Yosvany, Henrietta Attending Unavailable Ranney, Christopher Primary Care Unavailable Ranney, Christopher Primary Care Unavailable Corrie, Billy Referring Unavailable Corrie, Billy Attending Unavailable Ranney, Christopher Referring Unavailable Iroquois, Henrietta Attending Unavailable Ranney, Christopher Primary Care Unavailable Robotham, Loretta Attending Unavailable Robotham, Loretta Consulting Unavailable Ranney, Christopher Primary Care Unavailable Ranney, Christopher Referring Unavailable Robotham, Loretta Attending Unavailable Ranney, Christopher Primary Care Unavailable Ranney, Christopher Referring Unavailable Ranney, Christopher Primary Care Unavailable Ranney, Christopher Referring Unavailable Corrie, Billy Attending Unavailable Ranney, Christopher Primary Care Unavailable Ranney, Christopher Referring Unavailable Corrie, [place] Attending Unavailable Ranney, Christopher Primary Care Unavailable Corrie, [place] Attending Unavailable Ranney, Christopher Referring Unavailable Ranney, Christopher Primary Care Unavailable Cody Kim Attending Unavailable Corrie, [place] Attending Unavailable Ranney, Christopher Primary Care Unavailable Cody Kim Referring Unavailable JulioCody Attending Unavailable Ranney, Christopher Primary Care Unavailable Yosvany, Henrietta Attending Unavailable Ranney, Christopher Primary Care Unavailable Yosvany, Henrietta Referring Unavailable Ranney, Christopher Referring Unavailable Ranney, Christopher Attending Unavailable Ranney, Christopher Primary Care Unavailable Ranney, Christopher Primary Care Unavailable Ranney, Christopher Referring Unavailable Ranney, Christopher Attending Unavailable Ranney, Christopher Referring Unavailable Ranney, Christopher Primary Care Unavailable Ranney, Christopher Attending Unavailable Robe Smith Referring Unavailable Jeri Riley Attending Unavail able Robe Smith Primary Care Unavailable Robe Smith Primary Care Unavailable Robe Smith Referring Unavailable Jeri Riley Attending Unavail able Allergies Allergy Classification Reported Allergen(s) Allergy Type Date of Onset Reaction(s) Facility (6 sources) Sulfonamides (Antibiotic) drug allergy 7 [facility] Work Phone: (20 sources) Sulfonamides (Antibiotic); Translations: [SULFA (SULFONAMIDE ANTIBIOTICS)] Drug Allergy 5 Other: See Comments [facility] (13 sources) Sulfonamides (Antibiotic) Allergy to substance 2 Unknown [facility] (5 sources) Nitrofurantoin Drug Allergy 5 OTHER [facility] Comment on above: COULDN'T STAND, FELT AWFUL (1 source) Nitrofurantoin Drug Allergy 5 [facility] (1 source) Sulfonamides (Antibiotic) Drug allergy (disorder) 5 [facility] Medications Current Medications Medication Drug Class(es) Dates Sig (Normalized) Sig (Original) B.animalis,bifid,infa ntis,long (PROBIOTIC 4X ORAL) (8 sources) take 1 capsule by mo uth once daily B.animalis,bifid,inf antis,long (PROBIOTIC 4X ORAL) Take 1 capsule by mouth once daily. Active take 1 capsule by mo uth once daily B.animalis,bifid,infantis,long (PROBIOTI C 4X ORAL) Take 1 capsule by mouth once daily. 0 Active Comment on above: Take 1 capsule by mo uth once daily. benoxinate hydrochloride 4 mg/ml / fluorescein sodium 2.5 mg/ml ophthalmic solution (2 sources) Diagnostic Dye Start: 04-25-2022 End: 04-25-2022 fluorescein-benoxi ashanti 0.25-0.4 % 1 Drop (FLURESS) Start: 11-15-2021 End: 11-16-2021 fluorescein-benoxinate 0.25- 0.4 % 1 Drop (FLURESS) calcium carbonate 1500 mg / cholecalciferol 200 unt oral capsule (20 sources) Vitamin D Start: 04-16-2018 Calcium Carbon ate-Vitamin D3 (Calcium 600 + D(3)) 600 mg calcium- 200 unit capsule Active 1 NMA PO DAILY 0 April 16, 2018 1:00am Start: 09-22-2014 take 1 tablet by sofía twice daily calcium carbonate 600 mg-cholecalciferol 200 units (CALCIUM 600 + D,3,) 600 mg(1,500mg) -200 unit tab Take 1 tablet by mouth twice daily. 100 tablet 5 09/22/2014 Active Comment on above: Take 1 tablet by sofía twice daily. cholecalciferol 0.01 mg oral tablet (20 sources) Vitamin D Start: 06-04-19 24 take 1 tablet by mouth once daily Cholecalciferol (Vitamin D3) 10 mcg (400 unit) tablet Active 10 ug PO DAILY June 04, 2023 12:00am Start: 04-11-2017 End: 06-04-2023 take 1 capsule by mouth once daily Cholecalciferol (Vitamin D3) 2,000 unit capsule Discontinued 2000 U PO daily April 11, 2017 1:00am June 04, 2023 8:29am Comment on above: Take 1 Each by mouth once daily. clobetasol propionate 0.0005 mg/mg topical ointment (20 sources) Corticosteroid Start: 3 End: 5 Clobetasol 0.05 % ointment Active 1 NMA TOPICAL .COMPLEX 15 2 August 17, 2024 1:08pm 1 applic topical apply bid X 2 weeks, daily X 2 weeks then prn. Small amount and massge in; Comment on above: APPLY TOPICALLY TWIC E A DAY X 2 WEEKS, DAILY X 2 WEEKS THEN NEEDED. SMALL AMOUNT AND MASSGE IN estradiol 0.1 mg/ml vaginal cream (5 sources) Estrogen Start: 4 Estradiol 0.01 % (0.1 mg/gram) cream Active 0 VAGINAL DAILY June 11, 2023 12:00am small amount vaginally 2-3 nights per week. Compounded per [facility] pharmacy L. Acidophilus-L. Rhamnosus (Digestive Health Probiotic) 10 billion cell capsule (5 sources) Start: 4 take 10 capsules by mouth once daily L. Acidophilus-L. Rhamnosus (Digestive Health Probiotic) 10 billion cell capsule Active 1 NMA PO DAILY June 04, 2023 12:00am lisinopril 20 mg oral tablet (20 sources) Angiotensin Converting Enzyme Inhibitor Start: 3 take 1 tablet by mouth once daily Lisinopril 20 mg tablet Active 20 mg PO DAILY April 05, 2022 1:00am Comment on above: Take 20 mg by mouth once daily. uxgrssap-ezg-wgrk-F A-lutein (CENTRUM SILVER WOMEN) 8 mg iron-400 mcg-300 mcg tab (20 sources) Start: 5 take 1 tablet by mouth once daily fgkdepgu-fuz-kdgw- FA-lutein (CENTRUM SILVER WOMEN) 8 mg iron-400 mcg-300 mcg tab Take 1 tablet by mouth once daily. 100 tablet 3 09/22/2014 Active Comment on above: Take 1 tablet by sofía th once daily. multivit-min/ferrou s fumarate (MULTI VITAMIN ORAL) (20 sources) multivit-min/yuni ro us fumarate (MULTI VITAMIN ORAL) Take by mouth. Active multivit-min/yuni jennifer fumarate (MULTI VITAMIN ORAL) Take by mouth. 0 Active Comment on above: Take by mouth. Multivitamin preparation (10 sources) Start: 04-11-2017 take 1 tablet by mouth once daily Multivitamin Active 1 TABLET PO daily April 11, 2017 11:28am Start: 04-11-2017 take 1 tablet by sofía th once daily Multivitamin Active 1 TABLET PO daily April 11, 2017 1:00am Start: 04-11-2017 take 1 tablet by sofía th once daily Multivitamin Active 1 TABLET PO daily April 11, 2017 12:00am Multivitamin tablet (5 sources) Start: 04-11-2017 Multivitamin t ablet Active 1 {tbl} PO daily April 11, 2017 1:00am OMEGA-3 FATTY ACIDS ORAL (20 sources) OMEGA-3 FATTY AC IDS ORAL Take by mouth once daily. Active OMEGA-3 FATTY AC IDS ORAL Take by mouth once daily. 0 Active Comment on above: Take by mouth once d aily. OTC PRODUCT (20 sources) OTC PRODUCT Acti ve OTC PRODUCT phenylephrine hydrochloride 25 mg/ml ophthalmic solution (2 sources) alpha-1 Adrenergic Agonist Start: 04-25-2022 End: 04-25-2022 PHENYLephrine 2.5 % 1 Drop (AK-DILATE) Start: 11-15-2021 End: 11-16-2021 PHENYLephrine 2.5 % 1 Drop ( AK-DILATE, DANIEL-SYNEPHRINE) proparacaine hydrochloride 5 mg/ml ophthalmic solution (2 sources) Local Anesthetic Start: 04-25-2022 End: 04-25-2022 proparacaine 0.5 % 1 Drop (ALCAINE) Start: 11-15-2021 End: 11-16-2021 proparacaine 0.5 % 1 Drop (A LCAINE) tropicamide 10 mg/ml ophthalmic solution (2 sources) Anticholinergic Start: 04-25-2022 End: 04-25-2022 tropicamide 1 % 1 Drop (MYDRIACYL) Start: 11-15-2021 End: 11-16-2021 tropicamide 1 % 1 Drop (MYDR IACYL) Vit C,E-Sg-Hxybi-Lutein-Zeax an (Preservision Areds-2) [phone] ag-nrrv-gg-mg capsule (15 sources) Start: 04-16-2018 take 1 tablet by mouth twice daily Vit C,H-Mx-Xqmhs-Lutein-Zeaxan (Preservision Areds-2) [phone] rf-loaz-cb-mg capsule Active 1 TABLET PO TWICE A DAY April 16, 2018 12:02pm Start: 04-16-2018 take 1 capsule by [facility] twice daily Vit C,V-Rl-Uxfll-Lutein-Zeaxan (Preservision Areds-2) [phone] mg-jyuz-mp-mg capsule Active 1 {tbl} PO TWICE A DAY April 16, 2018 1:00am Start: 04-16-2018 take 1 tablet by [facility] twice daily Vit C,Q-Ls-Bljjp-Lutein-Zeaxan (Preservision Areds-2) [phone] lh-hqob-fd-mg capsule Active 1 TABLET PO TWICE A DAY April 16, 2018 1:00am Start: 04-16-2018 take 1 tablet by [facility] twice daily Vit C,K-Jw-Kkopc-Lutein-Zeaxan (Preservision Areds-2) [phone] rn-hsjl-vj-mg capsule Active 1 TABLET PO TWICE A DAY April 16, 2018 12:00am vit C/E/Zn/coppr/lutein/zeax an (PRESERVISION AREDS-2 ORAL) (20 sources) vit C/E/Zn/coppr /lutein/zeaxan (PRESERVISION AREDS-2 ORAL) Take by mouth twice daily. Active vit C/E/Zn/coppr /lutein/zeaxan (PRESERVISION AREDS-2 ORAL) Take by mouth twice daily. 0 Active Comment on above: Take by mouth twice daily. Completed/Discontinued Medications Medication Drug Class(es) Dates Sig (Normalized) Sig (Original) aspirin 81 mg delayed release oral tablet (20 sources) Platelet Aggregation Inhibitor, Nonsteroidal Anti-inflammatory Drug Start: 02-22-2016 End: 04-03-2017 take 1 tablet by mouth once daily Aspirin 81 MG tablet Discontinued 81 mg PO DAILY@0800 March 02, 2016 1:00am April 03, 2017 9:30am clopidogrel 75 mg oral tablet (12 sources) P2Y12 Platelet Inhibitor Start: 02-22-2016 End: 03-15-2016 take 1 tablet by mouth once daily CLOPIDOGREL BISULFATE 75 MG TABS One tablet by mouth daily CLOPIDOGREL BISULFATE [id number] Billy Denton MD estrogens, conjugated (jail) 0.625 mg/ml vaginal cream (20 sources) Estrogen Start: 04-03-2017 End: 02-25-2023 Conjugated Estrogens 0.625 mg/gram cream Discontinued 1 NMA VAGINAL .COMPLEX 30 February 25, 2023 12:40pm February 25, 2023 1:55pm apply fingertip amount or 1-2g VAGINAL every night x 2 weeks then 1-3x weekly for maintenance Start: 04-03-2017 End: 02-25-2023 Conjugated Estrogens Discont inued 1 APPLIC VAGINAL .COMPLEX July 13, 2021 9:10am February 13, 2022 12:49pm apply fingertip amount or 1-2g VAGINAL every night x 2 weeks then 1-3x weekly for maintenance Start: 06-18-2016 conjugated est rogens (PREMARIN) vaginal cream Use as directed on vagina 1 Tube 3 06/18/2016 Active Comment on above: Use as directed on v agina hydroCHLOROthiazide 12.5 mg oral tablet (20 sources) Thiazide Diuretic Start: 017 take 1 tablet by mouth once daily HYDROCHLOROTHIAZIDE 12.5 MG TABS One tablet by mouth daily HYDROCHLOROTHIAZIDE [id number] Billy Denton MD Start: 01-23-2016 End: 04-05-2022 Hydrochlorothiazide 25 MG ta blet Discontinued 12.5 mg PO DAILY January 23, 2016 1:00am April 05, 2022 4:58pm Start: 01-23-2016 End: 04-05-2022 take 12.5 mg by mouth once daily Hydrochlorothiazide Discontinued 12.5 MG PO DAILY January 23, 2016 1:00am April 05, 2022 4:58pm Start: 03-21-2015 take 1 capsule by [facility] once daily Hydrochlorothiazide 12.5 mg capsule Take 1 capsule by mouth once daily. 90 capsule 3 03/21/2015 Active Comment on above: Take 1 capsule by [facility] once daily. levothyroxine sodium 0.088 mg oral tablet (20 sources) l-Thyroxine Start: End: take 1 capsule by mouth once daily Levothyroxine 88 mcg capsule Discontinued 88 ug PO daily 0 April 11, 2017 1:00am June 27, 2022 9:36pm Start: 03-02-2016 End: 04-11-2017 Levothyroxine 100 MCG tablet Discontinued 88 ug PO DAILY March 02, 2016 1:00am April 11, 2017 11:26am thyroid Start: 03-02-2016 End: 04-11-2017 take 88 ug by mouth once daily Levothyroxine Discontin ued 88 MCG PO DAILY March 02, 2016 1:00am April 11, 2017 11:26am Start: 02-15-2016 take 1 tablet by [facility] once daily LEVOTHYROXINE SODIUM 100 MCG TABS One tablet by mouth daily LEVOTHYROXINE SODIUM [id number] Billy Denton MD Start: 03-21-2015 End: 08-04-2024 take 1 tablet by mouth once daily Levothyroxine 88 mcg tablet Discontinued 88 ug PO DAILY 90 June 27, 2022 12:00am June 04, 2023 8:46am 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 Other specified hypothyroidism Autoimmune thyroiditis Comment on above: one tablet every day , skip dose every other Saturday MULTIPLE VITAMINS-MINERALS (6 sources) take 1 tablet by mouth once daily EQ COMPLETE MULTIVITAMIN-ADULT TABS One tablet by mouth daily MULTIPLE VITAMINS-MINERALS [id number] Carla Bonilla NP nitrofurantoin, macrocrystals 100 mg oral capsule (20 sources) Nitrofuran Antibacterial Start: End: take 1 capsule by mouth twice daily at mealtime Nitrofurantoin Macrocrystal 100 mg capsule Discontinued 100 mg PO TWICE A DAY 14 7 0 June 16, 2021 12:00am June 22, 2021 12:00am June 23, 2021 12:04am administer with food (meal or snack) Start: 01-02-2021 End: 01-09-2021 take 1 capsule by mouth twice daily at mealtime Nitrofurantoin Macrocrystal 100 mg capsule Discontinued 100 mg PO TWICE A DAY 14 7 0 January 02, 2021 1:00am January 08, 2021 1:00am January 09, 2021 1:01am administer with food (meal or snack) nitrofurantoin, macrocrystals 25 mg / nitrofurantoin, monohydrate 75 mg oral capsule (10 sources) Nitrofuran Antibacterial Start: 02-03-2024 End: 02-19-2024 take 1 capsule by mouth twice daily at mealtime Nitrofurantoin Monohyd/M-Cryst 100 mg capsule Discontinued 100 mg PO TWICE A DAY 10 0 February 03, 2024 1:00am February 19, 2024 2:51pm must administer with a meal/food Start: 09-20-2023 End: 09-27-2023 take 1 capsule by mouth every twelve hours at mealtime Nitrofurantoin Monohyd/M-Cryst 100 mg capsule Discontinued 1 NMA PO Q12H 14 7 0 September 20, 2023 12:00am September 26, 2023 12:00am September 27, 2023 12:05am administer with a meal/food; swallow whole; do not open, crush, dissolve , or chew pegcetacoplan (PF) 15 mg injection (SYFOVRE) (2 sources) Start: 10-16-2023 End: 10-16-2023 pegcetacoplan (PF) 15 mg injection (SYFOVRE) Start: 10-16-2023 End: 10-16-2023 15 mg, ONCE, 1 dose, Startin g on Sat10/16/23 at 1501, Until Sat10/16/23 at 1501 Problems Active Problems Problem Classification Problem Date Documented Date Episodic/Chronic Cancer of cervix (15 sources) Atypical squamous cells of undetermined significance on cervical Papanicolaou smear; Translations: [Atypical squamous cells of undetermined significance on cytologic smear of cervix (ASC-US)] 01-02-2021 Episodic Cardiac dysrhythmias (6 sources) Ventricular premature depolarization; Translations: [Ventricular premature depolarization] Onset: 02-22-2016 02-22-2016 Chronic Cataract (10 sources) Nuclear senile cataract; Translations: [Age-related nuclear cataract, bilateral] Chronic Chronic kidney disease (8 sources) Chronic kidney disease stage 3A ; Translations: [Stage 3a chronic kidney disease] 06-04-2023 Chronic Chronic kidney disease (1 source) Chronic kidney disease; Translations: [Chronic kidney disease, stage 3a] Onset: 06-02-2024 Conduction disorders (20 sources) Presence of cardiac pacemaker; Translations: [Mobitz type II atrioventricular block] Onset: 02-01-2016 03-29-2016 Chronic Essential hypertension (20 sources) Benign essential hypertension; Translations: [Essential (primary) hypertension] Onset: 08-29-2007 12-30-2008 Chronic Menopausal disorders (20 sources) Atrophy of vagina; Translations: [Postmenopausal atrophic vaginitis] Chronic Comment on above: estrogen cream Other skin disorders (20 sources) Lichen sclerosus et atrophicus; Translations: [Lichen sclerosus et atrophicus] 01-23-2023 Chronic Comment on above: clobetesol Retinal detachments; defects; vascular occlusion; and retinopathy (20 sources) Nonexudative age-related macular degeneration; Translations: [Nonexudative age-related macular degeneration, bilateral, advanced atrophic with subfoveal involvement] Onset: 11-10-2018 Chronic Syncope (20 sources) Syncope and collapse; Translations: [Syncope and collapse] Onset: 02-01-2016 02-01-2016 Episodic Thyroid disorders (20 sources) Hypothyroidism; Translations: [Hypothyroidism, unspecified] Onset: 02-08-2005 02-16-2016 Chronic Urinary tract infections (20 sources) Recurrent urinary tract infection; Translations: [Urinary tract infection, site not specified] 01-02-2021 Episodic Past or Other Problems Problem Classification Problem Date Documented Da te Episodic/Chronic Complication of device; implant or graft (13 sources) Malfunction of cardiac pacemaker; Translations: [Breakdown (mechanical) of cardiac pulse generator (battery), initial encounter] Onset: 03-02-2024 02-19-2024 Episodic Comment on above: PPM generator change 02/10/24 Nonmalignant breast conditions (10 sources) Breast lump; Translations: [Unspecified lump in the left breast, unspecified quadrant] Onset: 03-05-2024 02-24-2024 Episodic Comment on above: Only dense tissue-- no mass on ultrasound or mammogram Other female genital disorders (20 sources) Disorder of female genital system; Translations: [Unspecified condition associated with female genital organs and menstrual cycle] Onset: 05-31-2011 05-31-2011 Episodic Other screening for suspected conditions (not mental disorders or infectious disease) (20 sources) Abnormal findings on diagnostic imaging of heart and coronary circulation; Translations: [Electrocardiogram abnormal] Onset: 02-01-2016 02-22-2016 Episodic Residual codes; unclassified (20 sources) Abnormal cytology findings; Translations: [ASCUS favor benign] Onset: 03-24-2012 02-06-2021 Episodic Residual codes; unclassified (20 sources) Amnesia; Translations: [Other amnesia] Onset: 11-14-2018 11-14-2018 Episodic Results Test Name Value Interpretation Reference Range Facility T4 Free Directon 09-08-2024 T4 FREE DIRECT 1.70 ng/dL High 0.76-1.46 [facility] Comment on above: Performed By: #### L [id number], [id number] #### [facility] [address] [place], [place] [address], [id number] T4 freeOrdered By: Cody Kim on 09-08-2024 Free T4 [Mass/Vol] 1.70 ng/dL High 0.76-1.46 [facility] TSH DL <= 0.005 mIU/L QnOrde red By: Cody Kim on 09-08-2024 TSH Qn 0.481 uIU/mL 0.300-4.200 [facility] Thyroid Stim Hormone (TSH)on 09-08-2024 TSH 0.481 uIU/mL Normal 0.300-4.200 [facility] Comment on above: Performed By: #### L [id number], [id number] #### [facility] [address] [place], [address] Cardiology Visit Reporton Cardiology Visit Report [facility] [address] [place] [address] OFFICE VISIT Date of Service: 08/04/24 MR#: [id number] Acct: [id number] Name: MARYLOU PIERCE Rep #: [id number] : 1950 Provider: GOLD Adkins Age/Sex: 74/F Location: 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 She underwent a cardiac catheterization with demonstrated normal coronary arteries, and preserved ejection fraction. Due to the high-grade AV block she underwent implantation of a permanent pacemaker in 2016. Her pacemaker generator has an advisory on it and this was replaced in 01/2024. From a cardiac standpoint, patient is doing well. She does not have any chest discomfort/heaviness/t ightness. Her exercise tolerance is stable for her age. She does not have any worsening symptoms of shortness of breath. She does not have any orthopnea. She denies PND. She does not have any symptoms of congestive heart failure. She does not have any palpitations that she is aware of. She does not have any lightheadedness or dizziness. She does not have any near- syncope or syncope. She does not have any lower extremity edema. She does not have any symptoms of claudication. 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 Is patient in pain?: No Allergies Sulfa (Sulfonamide Antibiotics) Allergy (Verified 08/04/24 08:57) Unknown nitrofurantoin Adverse Reaction (Verified 08/04/24 08:57) OTHER Medications ???Medication ???Instructions ???Recorded ???Confirmed ???Type multivitamin 1 tab PO QDAY 04/11/17 08/04/24 Hi story calcium 600 mg (as 1 cap PO DAILY 04/16/18 08/04/24 H istory carbonate)-vitamin D3 5 mcg (200 unit) capsule (Calcium 600 + D(3)) vit C 250 mg-vit E 90 mg-zinc 40 1 tab PO BID 04/16/18 08/04/24 His tory mg-copper 1 [id number]-wcnbil-kdrslf capsule (PreserVision AREDS-2) lisinopril 20 mg tablet 20 mg PO DAILY 04/05/22 08/04/24 H istory Lactobacillus acidophilus and 1 cap PO DAILY 06/04/23 08/04/24 H istory rhamnosus 10 billion cell capsule (Digestive Health Probiotic) cholecalciferol (vitamin D3) 10 10 mcg PO DAILY 06/04/23 08/04/24 History mcg (400 unit) tablet estradiol 0.01% (0.1 mg/gram) See Rx Instructions vaginal DAILY 06/11/23 08/04/24 History vaginal cream clobetasol 0.05 % topical ointment 1 applic topical .COMPLEX #15 gr ams 04/15/24 08/04/24 Rx levothyroxine 88 mcg tablet 88 mcg PO MOTUWETHFRSA 08/04/24 H istory Ejection fraction %: 58 Have you fallen in the past year?: Yes (Trip and fall) [facility] Medical History Wears glasses Depression Anxiety CKD (chronic kidney disease) stage 3, GFR 30-59 ml/min Shortness of breath on exertion Non-smoker Hypertension History of echocardiogram Cardiology follow-up encounter History of pacemaker Pacemaker malfunction Stage 3a chronic kidney disease (CKD) 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 Vaginal atrophy Macular degeneration Second degree AV block, Mobitz type II Right bundle branch block Left anterior fascicular block Mobitz type 2 second degree atrioventricular block Abnormal electrocardiogram Abnormal findings on diagnostic imaging of heart and coronary circulation Ventricular premature depolarization Thyroid disorder Surgical History History of colonoscopy History of left heart catheterization (03/02/16) Presence of cardiac pacemaker (03/21/16) History of tonsillectomy H/O dilation and curettage H/O lumpectomy Family History Mother Cancer lung-smoker Father Diabetes Cancer bladder Other Alcoholism Arthritis Depression Hypertension Mental disorder Osteoporosis and oculocutaneous hypopigmentation syndrome Psychiatric care Respiratory disease Social History current occupational status: retired Smoking Status: Never smoker alcohol intake: never substance use type: does not use caffeine: Yes what type of physical activity do you participate in: walking frequency: daily seatbelt use: al (more content not included)... Normal [facility] Endocrinology Visit Reporton 06-02-2024 Endocrinology Visit Report [facility] [address] [place] [address] OFFICE VISIT Date of Service: 06/02/24 MR#: [id number] Acct: [id number] Name: MARYLOU PIERCE Rep #: [id number] : 1950 Provider: Dell Enriquez Age/Sex: 73/F [place] [facility] [place] Intake Vital Signs 06/04/23 08:32 04/22/24 08:08 06/02/24 08:27 Height 5 ft 3 in 5 ft 3 in 5 ft 3 in Weight: 166 lb BMI 29.4 BP 124/74 H Blood Pressure Location Lt brachial Position Sitting Pulse 64 Pulse Source Monitor Pulse Oximetry (%) 98 Oxygen Delivery Method room air Intake Visit Reasons: 1 Y FU Chief Complaint: Thyroid Is patient in pain?: No Allergies Sulfa (Sulfonamide Antibiotics) Allergy (Verified 06/02/24 08:29) Unknown nitrofurantoin Adverse Reaction (Verified 06/02/24 08:29) OTHER Medications ???Medication ???Instructions ???Recorded ???Confirmed ???Type multivitamin 1 tab PO QDAY 04/11/17 06/02/24 Hi story calcium 600 mg (as 1 cap PO DAILY 04/16/18 06/02/24 H istory carbonate)-vitamin D3 5 mcg (200 unit) capsule (Calcium 600 + D(3)) vit C 250 mg-vit E 90 mg-zinc 40 1 tab PO BID 04/16/18 06/02/24 His tory mg-copper 1 pn-omueyo-ygrcqm capsule (PreserVision AREDS-2) lisinopril 20 mg tablet 20 mg PO DAILY 04/05/22 06/02/24 H istory Lactobacillus acidophilus and 1 cap PO DAILY 06/04/23 06/02/24 H istory rhamnosus 10 billion cell capsule (Digestive Health Probiotic) cholecalciferol (vitamin D3) 10 10 mcg PO DAILY 06/04/23 06/02/24 History mcg (400 unit) tablet estradiol 0.01% (0.1 mg/gram) See Rx Instructions vaginal DAILY 06/11/23 06/02/24 History vaginal cream clobetasol 0.05 % topical ointment 1 applic topical .COMPLEX #15 gr ams 04/15/24 06/02/24 Rx levothyroxine 88 mcg tablet 88 mcg PO .Mon-Sat #90 tabs 06/02/24 Rx Have you fallen in the past year?: Yes PFSH Medical History Wears glasses Depression Anxiety CKD (chronic kidney disease) stage 3, GFR 30-59 ml/min Shortness of breath on exertion Non-smoker Hypertension History of echocardiogram Cardiology follow-up encounter History of pacemaker Pacemaker malfunction Stage 3a chronic kidney disease (CKD) 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 Vaginal atrophy Macular degeneration Second degree AV block, Mobitz type II Right bundle branch block Left anterior fascicular block Mobitz type 2 second degree atrioventricular block Abnormal electrocardiogram Abnormal findings on diagnostic imaging of heart and coronary circulation Ventricular premature depolarization Thyroid disorder Surgical History History of colonoscopy History of left heart catheterization (03/02/16) Presence of cardiac pacemaker (03/21/16) History of tonsillectomy H/O dilation and curettage H/O lumpectomy Family History Mother Cancer lung-smoker Father Diabetes Cancer bladder Other Alcoholism Arthritis Depression Hypertension Mental disorder Osteoporosis and oculocutaneous hypopigmentation syndrome Psychiatric care Respiratory disease Social History current occupational status: retired Smoking Status: Never smoker alcohol intake: never substance use type: does not use caffeine: Yes what type of physical activity do you participate in: walking frequency: daily seatbelt use: always do you feel safe at home: Yes additional social history: Micheal- Retired HPI HPI Chief Complaint: Thyroid Details: MARYLOU PIERCE, is a 73 F who presents to the office today for follow up. She has hypothyroidism and is taking levothyroxine 88 mcg 1/2 tablet on Sundays. TSH is normal at 2.1 She had bone density last year, which was good. She had eGFR of 59 last year. She gave up NSAIDS and this year it is improved to 62. She is feeling well. ROS Const Constitutional: No fatigue, weight change or change in appetite Eyes Eyes: Positive for other (chronic central vision loss); No change in vision ENT ENT: No dizziness/vertigo or difficulty swallowing Cardio Cardiology: No chest pain at rest, chest pain with exertion, shortness of breath or palpitations Musc Musculoskeletal: No abnormal gait, joint pain, numbness or tingling Neuro Neurology: No abnormal gait, memory loss, numbness or tingling Psych Psychiatric: No change in appetite, No memory loss and No Thoughts of harming yourself/Others Resp Respiratory: No cough, chest congestion or shortness of breath Gastro GI: No ab (more content not included)... Normal [facility] Anion gap in Serum or Plasma Ordered By: Robe Smith on 04-24-2024 Anion gap [Moles/Vol] 11 mmol/L - [facility] BUN/creatinine ratioOrdered By: Robe Smith on 04-24-2024 Urea nitrogen/Creatinine [Mass ratio] 23.6 mg/mg High - [facility] Bilirubin, totalOrdered By: Robe Smith on 04-24-2024 Bilirubin [Mass/Vol] 0.48 mg/dL 0.00-1.30 [facility] Carbon dioxide, total [Moles /volume] in Central venous bloodOrdered By: Robe Smith on 04-24-2024 CO2 [Moles/Vol] 24.9 mmol/L 21.0-32.0 [facility] Chloride assayOrdered By: Racquel Smith on 04-24-2024 Chloride [Moles/Vol] 105 mmol/L 98-108 [facility] Comprehensive Metabolic Prof ilon 04-24-2024 Albumin [Mass/Vol] 4.0 g/dL Normal 3.4-4.8 [facility] Comment on above: Order Comment: Order Date: 04/13/24 Order Info: 0786-1 - CMP Order Info: 3016-3 - TSH Performed By: #### L 501.9520, L500.4050 #### [facility] [address] [place], [place], [id number] Albumin/Globulin [Mass ratio] 1.4 {ratio} Normal 0.9-2.4 [facility] Comment on above: Order Comment: Order Date: 04/13/24 Order Info: 0786-1 - CMP Order Info: 3016-3 - TSH Performed By: #### L 501.9520, L500.4050 #### [facility] [address] [place], [address] ALK PHOS 105 U/L High 35-104 [facility] Comment on above: Order Comment: Order Date: 04/13/24 Order Info: 0786-1 - CMP Order Info: 3016-3 - TSH Performed By: #### L 501.9520, [id number] #### [facility] [address] [place], [place], [id number] ALT [Catalytic activity/Vol] 25 U/L Normal <=34 [facility] Comment on above: Order Comment: Order Date: 04/13/24 Order Info: 0786-1 - CMP Order Info: 3016-3 - TSH Performed By: #### L 501.9520, L500.4050 #### [facility] [address] [place], [address] AST [Catalytic activity/Vol] 32 U/L Normal <=31 [facility] Comment on above: Order Comment: Order Date: 04/13/24 Order Info: 0786-1 - CMP Order Info: 3015-3 - TSH Performed By: #### L 501.9520, L500.4050 #### [facility] [address] [place], [address] Bilirubin [Mass/Vol] 0.48 mg/dL Normal 0.00-1.30 [facility] Comment on above: Order Comment: Order Date: 04/13/24 Order Info: 0786-1 - CMP Order Info: 3015-3 - TSH Performed By: #### L 501.9520, L500.4050 #### [facility] [address] [place], [address] BUN/CRE 23.6 RATIO High 10-20 [facility] Comment on above: Order Comment: Order Date: 04/13/24 Order Info: 0786-1 - CMP Order Info: 3015-3 - TSH Performed By: #### L 501.9520, L500.4050 #### [facility] [address] [place], [address] Calcium [Mass/Vol] 9.4 mg/dL Normal 7.6-11.0 [facility] Comment on above: Order Comment: Order Date: 04/13/24 Order Info: 0786-1 - CMP Order Info: 301-3 - TSH Performed By: #### L 501.9520, L500.4050 #### [facility] [address] [place], [address] Chloride [Moles/Vol] 105 mmol/L Normal 98-108 [facility] Comment on above: Order Comment: Order Date: 04/13/24 Order Info: 0786-1 - CMP Order Info: 3015-04 - TSH Performed By: #### L 501.9520, L500.4050 #### [facility] [address] [place], [address] CO2 [Moles/Vol] 24.9 mmol/L Normal 21.0-32.0 [facility] Comment on above: Order Comment: Order Date: 04/13/24 Order Info: 0786- - CMP Order Info: 3015-04 - TSH Performed By: #### L 501.9520, L500.4050 #### [facility] [address] [place], [address] Creatinine [Mass/Vol] 0.98 mg/dL Normal 0.70-1.20 [facility] Comment on above: Order Comment: Order Date: 04/13/24 Order Info: 0786- - [facility] Order Info: 3015-04 - TSH Performed By: #### L 501.9520, L500.4050 #### [facility] [address] [place], [address] GAP 11 Normal 5-15 [facility] Comment on above: Order Comment: Order Date: 04/13/24 Order Info: 0786-1 - CMP Order Info: 3015-04 - TSH Performed By: #### L 501.9520, L500.4050 #### [facility] [address] [place], [address] GFR/1.73 sq M.predicted among non-blacks MDRD (S/P/Bld) [Vol rate/Area] 62 mL/min/{1.73_m2} Normal >60 [facility] Comment on above: Order Comment: Order Date: 04/13/24 Order Info: 0786-1 - CMP Order Info: 3 - TSH Result Comment: mL/m in/1.73m2 CKD-EPI Creatinine Equation (2020) Performed By: #### L 501.9520, L500.4050 #### [facility] [address] [place], [address] Globulin (S) [Mass/Vol] 2.9 g/dL Normal 2.2-4.2 [facility] Comment on above: Order Comment: Order Date: 04/13/24 Order Info: 0786-1 - CMP Order Info: 301-3 - TSH Performed By: #### L 501.9520, L500.4050 #### [facility] [address] [place], [address] Glucose [Mass/Vol] 96 mg/dL Normal 70-99 [facility] Comment on above: Order Comment: Order Date: 04/13/24 Order Info: 0786-1 - CMP Order Info: 301-3 - TSH Performed By: #### L 501.9520, L500.4050 #### [facility] [address] [place], [address] Potassium [Moles/Vol] 4.4 mmol/L Normal 3.3-5.1 [facility] Comment on above: Order Comment: Order Date: 04/13/24 Order Info: 0786-1 - CMP Order Info: 301-3 - TSH Performed By: #### L 501.9520, L500.4050 #### [facility] [address] [place], [address] Sodium [Moles/Vol] 141 mmol/L Normal 133-145 [facility] Comment on above: Order Comment: Order Date: 04/13/24 Order Info: 0786-1 - CMP Order Info: 3016-3 - TSH Performed By: #### L 501.9520, L500.4050 #### [facility] [address] [place], [address] T PROT 6.8 g/dL Normal 5.9-8.4 [facility] Comment on above: Order Comment: Order Date: 04/13/24 Order Info: 0786-1 - CMP Order Info: 3016-3 - TSH Performed By: #### L 501.9520, L500.4050 #### [facility] [address] [place], [address] Urea nitrogen [Mass/Vol] 23 mg/dL High 4-19 [facility] Comment on above: Order Comment: Order Date: 04/13/24 Order Info: 0786-1 - CMP Order Info: 3016-3 - TSH Performed By: #### L 501.9520, L500.4050 #### [facility] [address] [place], [address] GFR/1.73 sq M.predicted lani g non-blacks MDRD (S/P/Bld) [Vol rate/Area]Ordered By: Robe Smith on 04-24-2024 Estimated GFR (MDRD) Non-Af Amer 62 >60 [facility] Comment on above: mL/min/1.73m2 CKD-EP I Creatinine Equation (2020) Glomerular filtration rate ( GFR) estimation/1.73 sq m using serum, plasma, or whole bOrdered By: Robe Smith on 04-24-2024 GFR/1.73 sq M.predicted among non-blacks MDRD (S/P/Bld) [Vol rate/Area] 62 mL/min/{1.73_m2} >60 [facility] Comment on above: mL/min/1.73m2 CKD-EP I Creatinine Equation (2020) L506.1001on 04-24-2024 Vitamin D 25-OH 48.9 ng/mL Normal 30-100 [facility] Comment on above: Order Comment: Order Date: 04/13/24Order Info: 0786-1 - CMPOrder Info: 3016-3 - TSH Result Comment: Sophie min D Status Deficiency: <20 ng/mL (50nmol/L) Insufficiency: 20-30 ng/mL (50-75 nmol/L) Sufficiency: 30-100 ng/mL (75-250 nmol/L) Toxicity: >100 ng/mL (>250 nmol/L) Performed By: #### L 506.1001 ####[facility] [address] [place], [address] Laboratory - Chemistry and C hemistry - challengeOrdered By: Robe Smith on 04-24-2024 AST [Catalytic activity/Vol] 32 U/L <32 [facility] Potassium (Unsp spec) [Mass/ Vol]Ordered By: Robe Smith on 04-24-2024 Potassium [Moles/Vol] 4.4 mmol/L 3.3-5.1 [facility] Potassium measurement (mass/ volume)Ordered By: Robe Smith on 04-24-2024 Potassium (Unsp spec) [Mass/Vol] 4.4 mmol/L 3.3-5.1 [facility] Serum creatinine measurement (mass/volume)Ordered By: Robe Smith on 04-24-2024 Creatinine [Mass/Vol] 0.98 mg/dL 0.70-1.20 [facility] Serum globulin measurementOr dered By: Robe Smith on 04-24-2024 Globulin (S) [Mass/Vol] 2.9 g/dL 2.2-4.2 [facility] Serum glucose measurement (m ass/volume)Ordered By: Robe Smith on 04-24-2024 Glucose [Mass/Vol] 96 mg/dL 70-99 [facility] Serum or plasma alanine lao otransferase (ALT) measurementOrdered By: Robe Smith on 04-24-2024 ALT [Catalytic activity/Vol] 25 U/L <35 [facility] Serum or plasma albumin nina urement (mass/volume)Ordered By: Robe Smith on 04-24-2024 Albumin [Mass/Vol] 4.0 g/dL 3.4-4.8 [facility] Serum or plasma albumin/glob ulin mass ratioOrdered By: Robe Smith on 04-24-2024 Albumin/Globulin [Mass ratio] 1.4 {ratio} 0.9-2.4 [facility] Serum or plasma alkaline hoda sphatase measurementOrdered By: Robe Smith on 04-24-2024 ALP [Catalytic activity/Vol] 105 U/L High 35-104 [facility] Serum or plasma calcium nina urement (mass/volume)Ordered By: Robe Smith on 04-24-2024 Calcium [Mass/Vol] 9.4 mg/dL 7.6-11.0 [facility] Serum or plasma urea nitroge n measurement (mass/volume)Ordered By: Robe Smith on 04-24-2024 Urea nitrogen [Mass/Vol] 23 mg/dL High 4-19 [facility] Sodium levelOrdered By: Teresa Smith on 04-24-2024 Sodium [Moles/Vol] 141 mmol/L 133-145 [facility] TSH DL <= 0.005 mIU/L QnOrde red By: Robe Smith on 04-24-2024 Thyroid Stimulating Hormone (TSH) 2.160 uIU/mL 0.300-4.200 [facility] TSH Qn 2.160 uIU/mL 0.300-4.200 [facility] Thyroid Stim Hormone (TSH)on 04-24-2024 TSH 2.160 uIU/mL Normal 0.300-4.200 [facility] Comment on above: Order Comment: Order Date: 04/13/24 Order Info: 0786-1 - CMP Order Info: 3016-3 - TSH Performed By: #### L 501.9520, L500.4050 #### [facility] [address] [place], [place], [address] Total proteinOrdered By: Toro Smith on 04-24-2024 Protein [Mass/Vol] 6.8 g/dL 5.9-8.4 [facility] Vitamin D, 25-hydroxyOrdered By: Robe Smith on 04-24-2024 Vitamin D 25-Hydroxy 48.9 ng/mL 30-100 [facility] Comment on above: Vitamin D StatusDefi ciency: <20 ng/mL (50nmol/L)Insufficiency: 20-30 ng/mL (50-75 nmol/L)Sufficiency: 30-100 ng/mL (75-250 nmol/L)Toxicity: >100 ng/mL (>250 nmol/L) Colonoscopy Reporton 025 Colonoscopy Report [facility] Medical Records Department [address] [place] [address] Colonoscopy Report MR#: [id number] Acct: [id number] Name: MARYLOU PIERCE Rep #: [id number] : 1950 73 From: Loretta Patel MD PCP: Dr. Robe Smith MD Status:[facility] Patient Name: Marylou Pierce Procedure Date: 04/22/2024 9:10 AM Date of : 1950 Age: 73 Procedure: Colonoscopy Indications: Screening for colorectal malignant neoplasm Providers: Loretta Patel MD Referring MD: Deacon Smith Medicines: Monitored Anesthesia Care Patient Profile: This is a 73 year old female. Last Colonoscopy: 10 years ago. Complications: No immediate complications. Procedure: Pre-Anesthesia Assessment: - Prior to the procedure, a History and Physical was performed, and patient medications and allergies were reviewed. The patient's tolerance of previous anesthesia was also reviewed. The risks and benefits of the procedure and the sedation options and risks were discussed with the patient. All questions were answered, and informed consent was obtained. Prior Anticoagulants: The patient has taken no anticoagulant or antiplatelet agents. ASA Grade Assessment: Per anesthesia. After reviewing the risks and benefits, the patient was deemed in satisfactory condition to undergo the procedure. After I obtained informed consent, the scope was passed under direct vision. Throughout the procedure, the patient's blood pressure, pulse, and oxygen saturations were monitored continuously. The colonoscope was introduced through the anus and advanced to the cecum, identified by the appendiceal orifice, ileocecal valve and palpation. The colonoscopy was performed without difficulty. The patient tolerated the procedure well. The quality of the bowel preparation was good. Scope In: 10:05:26 AM Scope Withdrawal Time 0 hours 8 minutes 58 seconds Scope Out: 10:25:24 AM Total Procedure Duration Time 0 hours 19 minutes 58 seconds Findings: The entire examined colon appeared normal on direct and retroflexion views. Impression: - The entire examined colon is normal on direct and retroflexion views. - No specimens collected. Recommendation: - Discharge patient to home. - Resume previous diet. - Continue present medications. - Await pathology results. - Repeat colonoscopy in 10 years for screening purposes. - depending on overall health at time of possible repeat Procedure Code(s): --- Professional --- G0121, PT, Colorectal cancer screening; colonoscopy on individual not meeting criteria for high risk Diagnosis Code(s): --- Professional --- Z12.11, Encounter for screening for malignant neoplasm of colon CPT copyright 2021 [employer]. All rights reserved. The codes documented in this report are preliminary and upon weir fisherman review may be revised to meet current compliance requirements. MD Loretta Kennedy MD 04/22/2024 10:28:46 AM This report has been signed electronically. Number of Addenda: 0 Note Initiated On: 04/22/2024 9:10 AM 04/22/24 1029 Date Loretta Patel MD Cosigner Signature: Date (if indicated) CC: Dr. Robe Smith MD; Dr. Loretta Patel MD Date Dictated: 04/22/2410 Date Transcribed: Over Short And Damage Clerk: GLADIS Napier [facility] MR/POSTOP.[facility] 04-22-2024 MR/POSTOP.[place] Medical Records Department [address] [place] [address] Anesthesia Postop Eval I 04/22/24 1038 MR#: [id number] Acct: [id number] Name: MARYLOU PIERCE Rep #: [id number] : 1950 73 From: Matty Rowley PCP: Dr. Robe Smith MD Status:REG SDC Y Race: C Location: [place] [address] Anesthesia: Postop Eval I Current Vital Signs Temperature: 98 F Pulse Rate: 16 Blood Pressure: 93/59 Respiratory Rate: 16 Pulse Ox: 99 Oxygen Delivery Method: Room Air Assessment Airway patent: Yes Spontaneous unlabored respirations: Yes Mental status: Awake and Calm nausea: No Vomiting: No Anesthesia Complication: No Fluid Hydration Crystalloid volume administer (ml): 45 Total IV fluid infused: 45 Progress Note Anesthesia document: Postop Eval 1 completed: Yes 04/22/24 1039 Date Matty Fair Signature: Date CC: Signed Normal [facility] MR/[id number] 04-22-2024 MR/POSTOPAN2 [facility] Medical Records Department [address] [place] [address] Anesthesia Postop Eval II 04/22/24 1050 MR#: [id number] Acct: [id number] Name: MARYLOU PIERCE Rep #: [id number] : 1950 73 From: Vasu Mckay MD PCP: Dr. Robe Smith MD Status[place] [facility] [place] C Location: [place] [address] Anesthesia Postop Eval I Sum Postop Eval Completion status Anesthesia document: Postop Eval 1 completed: Yes Anesthesia Postop Eval I Summary Anesthesia Postop Eval I Summary: Anesthesia Postop Eval I: Assessment Summary Airway patent Yes 04/22/24 10:39 [email or web address] Spontaneous unlabored Yes 04/22/24 10:39 [email or web address] respirations Mental status Awake,Calm 04/22/24 10:39 [email or web address] nausea No 04/22/24 10:39 [email or web address] Vomiting No 04/22/24 10:39 [email or web address] Anesthesia Postop Eval I: Fluid Summary Crystalloid volume administer 45 04/22/24 10:39 [email or web address] (ml) Colloids volume administered ( ml) Blood Product volume administered (ml) Total IV fluid infused 45 04/22/24 10:39 [email or web address] Anesthesia Postop Eval I: Summary Notes Anesthesia Complication No 04/22/24 10:39 [email or web address] Anesthesia Complication Comment: Post-operative progress note Anesthesia: Postop Eval II Evaluation Mental status: Awake Pain Level: 0 nausea: No Vomiting: No 04/22/24 1051 Date Vasu Fair Signature: Date CC: Signed Normal [facility] MR/PAT.AMANUELon 04-21-2024 MR/PAT.[place] Medical Records Department [address] [place] [address] PAT - Anesthesia 04/21/24 1611 MR#: [id number] Acct: [id number] Name: MARYLOU PIERCE Rep #: [id number] : 1950 73 From: Balbir Feliz MD PCP: Dr. Robe Smith MD Status[place] [facility] [place]: C Location: EN Pre-Assessment Diagnosis/Proposed Procedure Planned Operative Procedure(s): COLONOSCOPY Anesthesia History Anesthesia History - manufacturer representative: Anesthesia History - manufacturer representative Hx Hospitalization No 04/21/24 13:29 Any Problems With Anesthesia No 04/21/24 13:29 Cholinesterase deficiency No 04/21/24 13:29 You/Your Family Experience No 04/21/24 13:29 fever (hyperthermia) with Relationship Recent Exposure to Contagious Disease Does patient have nerve No 04/21/24 13:29 stimulator Patient instructed to have device shut off --Does patient have Pacemaker or ICD? When Was Last Pacemaker Check QUESTION #4 FULL TEXT: You/Your Family Experience fever (hyperthermia) with Anesthesia Last Oral Intake Last Oral intake: Last Oral Intake NPO since Meds taken in AM with sips of water? Meds patient instructed to take am of surgery PONV PONV - manufacturer representative: PONV - manufacturer representative Female Yes 04/21/24 13:29 HX of Motion Sickness Yes 04/21/24 13:29 HX of N/V After Surgery No 04/21/24 13:29 Non-Smoker Yes 04/21/24 13:29 Duration of Surgery greater No 04/21/24 13:29 than 60 minutes Number of Risk Factors 3 04/21/24 13:29 PONV Score Moderate Risk 04/21/24 13:29 Height Weight Height Weight: Anesthesia: Height Weight Height 5 ft 3 in 02/19/24 13:50 Respiratory Assessment Respiratory Assessment - manufacturer representative: Respiratory Tract Infection Hx - manufacturer representative Hx Respiratory Tract Infection No 04/21/24 13:29 STOP Sleep Apnea STOP Sleep Apnea - manufacturer representative: STOP Sleep Apnea - manufacturer representative Hx Hypertension Yes: PER PT, CONTROLLED 04/21/24 13:29 Hx Sleep Apnea No 04/21/24 13:29 CPAP BIPAP Do you snore loudly (louder No 04/21/24 13:29 than talking or can be heard Do you often feel tired/ No 04/21/24 13:29 fatigued/ sleepy during daytime? Has anyone observed you stop No 04/21/24 13:29 breathing during sleep? STOP Results Negative 04/21/24 13:29 QUESTION #5 FULL TEXT : Do you snore loudly (louder than talking or can be heard through closed doors)? Tobacco Use History Tobacco Use History - manufacturer representative: Tobacco Use History - manufacturer representative Tobacco Use Smoking Status Never smoker 04/21/24 13:29 Hx Tobacco Use No 04/21/24 13:29 Years Smoking Packs Smoked per Day Smoking Cessation Date was within the last 15 years Hx Smoking Cessation Date Hx Smoking Cessation Counseling Hematologic Medial History Hematologic Hx - manufacturer representative: Hematologic Medical Hx - documentation coordinator Hx of Blood Transfusion No 04/21/24 13:29 Hx of Transfusion in last 3 No 04/21/24 13:29 Months Date of Last Transfusion (if within last 3 months) Ever experience any problems No 04/21/24 13:29 with transfusion(s)? Specify any problems Hx of Preganancy in last 3 No 04/21/24 13:29 Months Nurse Filling Out Transfusion MGRIFFITH 04/21/24 13:29 Questions: Date: 04/21/24 04/21/24 13:29 Time: 13:30 04/21/24 13:29 Patient unable to answer at this time (ie. 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 Normal [facility] Pacemaker Checkon 02-19-2024 Pacemaker Check [facility] [place] [address] Pacemaker Check Date of Service: 02/19/24 1310 MR#: [id number] Acct: [id number] Name: KARIMARYLOUKYMBERLY MEJÍA Rep #: [id number] : 1950 From: Merna Angelo Age/Sex: 73/F [place] [facility] [place]: Signed Billing Codes PM Device Codes: 18383 PM Dev Prog Eval, Dual Assessment and Plan Assessment and Plan (1) Presence of cardiac pacemaker: Status: Chronic (2) Second degree AV block, Mobitz type II: Status: Chronic 02/19/24 1311 Date Merna Sandsignfay Signature: Date (if applicable) CC: Normal [facility] Surgery Visit Reporton 02-18 Surgery Visit Report [facility] [address] [place] [address] OFFICE VISIT Date of Service: 02/19/24 MR#: [id number] Acct: [id number] Name: MARYLOU PIERCE Rep #: [id number] : 1950 Provider: Dr. Loretta iverson MD Age/Sex: 73/F Location: [facility] Status: Signed Intake Vital Signs 02/03/24 13:57 02/10/24 11:21 02/19/24 13:50 Height 5 ft 3 in 5 ft 3 in 5 ft 3 in Weight: 165 lb 165 lb BMI 29.2 BP 138/87 H Blood Pressure Location Rt brachial Position Sitting Respiration 16 Intake Visit Reasons: BREAST MASS, SECOND OPINION Chief Complaint: left breast mass palpable Frame Coverer Required: No Is patient in pain?: No Allergies Sulfa (Sulfonamide Antibiotics) Allergy (Verified 02/19/24 13:51) Unknown Medications ???Medication ???Instructions ???Recorded ???Confirmed ???Type multivitamin 1 tab PO QDAY 04/11/17 02/19/24 History calcium 600 mg (as 1 cap PO DAILY 04/16/18 02/19/24 History carbonate)-vitamin D3 5 mcg (200 unit) capsule (Calcium 600 + D(3)) vit C 250 mg-vit E 90 mg-zinc 40 1 tab PO BID 04/16/18 02/19/24 History mg-copper 1 hq-snnkxe-ndpgof capsule (PreserVision AREDS-2) lisinopril 20 mg tablet 20 mg PO DAILY 04/05/22 02/19/24 History clobetasol 0.05 % topical ointment 1 applic topical .COMPLEX #15 grams 02/25/23 02/19/24 Rx Lactobacillus acidophilus and 1 cap PO DAILY 06/04/23 02/19/24 History rhamnosus 10 billion cell capsule (Digestive Health Probiotic) cholecalciferol (vitamin D3) 10 10 mcg PO DAILY 06/04/23 02/19/24 History mcg (400 unit) tablet levothyroxine 88 mcg tablet 88 mcg PO .Mon-Sat #90 tabs 06/04/23 02/19/24 Rx estradiol 0.01% (0.1 mg/gram) See Rx Instructions vaginal DAILY 06/11/23 02/19/24 History vaginal cream mv-mn-folic 200 mcg-vit K 15 1 cap PO DAILY 01/27/24 02/19/24 History mcg-lutein 5 mg-zeaxanthin 1 mg capsule (PreserVision AREDS 2 Plus Multivit) Have you fallen in the past year?: No PFSH Medical History Pacemaker malfunction Stage 3a chronic kidney disease (CKD) 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 Vaginal atrophy Macular degeneration Second degree AV block, Mobitz type II Right bundle branch block Left anterior fascicular block Mobitz type 2 second degree atrioventricular block Abnormal electrocardiogram Abnormal findings on diagnostic imaging of heart and coronary circulation Ventricular premature depolarization Thyroid disorder Surgical History History of left heart catheterization (03/02/16) Presence of cardiac pacemaker (03/21/16) History of tonsillectomy H/O dilation and curettage H/O lumpectomy Family History Mother Cancer lung-smoker Father Diabetes Cancer bladder Other Alcoholism Arthritis Depression Hypertension Mental disorder Osteoporosis and oculocutaneous hypopigmentation syndrome Psychiatric care Respiratory disease Social History current occupational status: retired Smoking Status: Never smoker alcohol intake: never substance use type: does not use caffeine: Yes what type of physical activity do you participate in: walking frequency: daily seatbelt use: always do you feel safe at home: Yes additional social history: Micheal- Retired HPI HPI HPI: 73-year-old female presents due to left breast lump. Patient states that initially this felt at her [employer]SIDE [employer]TENA[employer]CE WORK[employer] appointment. Patient had mammogram and ultrasound which did not show any masses or lesions in this area. Patient states she is able to feel the area after it was pointed out after that appointment otherwise did not notice anything. Patient previously had a breast biopsy about 40 years ago was negative. Patient denies any family history of breast cancer. Patient's age of menses 12. ROS General General: No weight change, appetite, fatigue, colon cancer or breast cancer HEENT HEENT: No difficulty swallowing, eye injury, eye surgery, swollen glands or hoarseness Endo Endocrine: Yes thyroid disease; No diabetes mellitus, thyroid cancer, Hair loss, heat intolerance or cold intolerance Skin Skin: No rash or changing moles Breast Breast: Yes left breast lump; No right breast lump, nipple discharge, breast pain, abnormal mammogram, abnormal US or breast enlargement Musc Musculoskeletal: No back problems, arthritis, rheumatoid arthritis, gout or joint pain Cardio Cardiovascular: Yes pacemaker and high blood pressure; No murmur, heart disease, atrial fibrillation, heart attack, heart stent, palpitations, shortness of (more content not included)... Normal [facility] TXT:Device Implant / Explant on 02-10-2024 TXT:Device Implant / Explant [facility] [address] [place] [address] TXT:Device Implant / Explant MR#: [id number] Acct: [id number] Name: MARYLOU PIERCE Rep #: [id number] : 1950 73 From: Billy Denton MD PCP: Dr. Robe Smith MD Status:[facility] Patient: MARYLOU PIERCE Study Date: 02/10/2024 Performing: Billy Denton MD : 1950 Age: 73 Gender: female PROCEDURES PERFORMED LP07-(46831)BATTERY REMOVAL+REPLACEMENT PACER-DUAL LEAD INDICATIONS Atrioventricular (AV) block PROCEDURE DETAILS The patient was brought to the Catheterization Lab in the postabsorptive nonsedated state. Informed consent was obtained prior to the procedure. Local anesthetic was given subcutaneously to the left upper chest area with Lidocaine 2%. Incision was made to the left upper chest. PPM generator was removed. PPM generator was attached to the lead(s) and inserted into the pocket. Device pocket was irrigated with antibiotic. Subcutaneous closure was completed with 3-0 Vicryl. Skin closure was completed with 4-0 Vicryl. Steri-strips applied to left subclavicular incision. The patient tolerated the procedure well. Estimated Blood Loss: 10 ml's IMPLANTED / EX-PLANTED DEVICES IMPLANTED DEVICE(S): PPM Generator - Applied Behavior Specialist: [employer], Model # [id number] , Serial # [id number] DEVICE PARAMETERS DEVICE PARAMETERS: Mode - DDD lower rate - 60 upper rate - 140 Mode- DDD Lower rate- 60 Upper rate- 140 CONCLUSIONS / RECOMMENDATIONS Device Conclusions: Successful implantation of a dual chamber pacemaker battery change and replacement Device Recommendations: Follow up with Primary Care Physician PROCEDURE MEDICATIONS Fentanyl 50 mcg IV Versed 1 mg IV Oxygen: 2 L/min via nasal cannula Antibiotic given in appropriate timeframe. Ancef 2 Gm IV @ 02/10/2024 11:47:10 Signed By Billy Denton MD On 02/10/2024 12:50:14 Billy Denton MD 02/10/24 1250 Date Billy Fair Signature: Date (if indicated) CC: Dr. Robe Smith MD; Dr. Billy Denton MD Date Dictated: 02/10/24 1211 Date Transcribed: 02/10/24 1250 Over Short And Damage Clerk: CO Signed Normal [facility] Breast Limited Unilateralon 02-06-2024 Breast Limited Unilateral [facility] [address] [place], [place] [id number] Breast Limited Unilateral MR#: [id number] Acct: [id number] Name: MARYLOU PIERCE Rep #: [id number] : 1950 F 73 From: Moises Burger MD PCP: Dr. Robe Smith MD Status: REG CLI Study: Breast Limited Unilateral Date of Exam: Exam# [id number] Ordering Dr: Henrietta Bar NP, [place] [id number] STUDY: ULTRASOUND BREAST - LEFT REASON FOR EXAM: Female, 73 years old. Palpable mass TECHNIQUE: Axial and longitudinal images of the LEFT breast were performed with a high resolution ultrasound transducer. # OF IMAGES: 31 COMPARISON: Screening mammogram 01/27/2024 FINDINGS: LEFT Breast: Heterogeneous background echotexture. Multiple longitudinal and transverse ultrasound images of the lateral left breast do not demonstrate a discrete solid or cystic mass most consistent with normal breast parenchyma.: US/Breast Limited Unilateral IMPRESSION: Normal mammogram and left breast ultrasound. However, biopsy of any palpable abnormality should be performed if clinically indicated. ASSESSMENT CATEGORY: BIRADS Category 1: Negative. A letter regarding these results will be sent to the patient by the facility within 30 days. Electronically Signed: Moises Burger MD at 17:43 EST , CC: SKYLER Bar; Dr. Robe Smith MD Over Short And Damage Clerk: Signed Normal [facility] 12 Lead EKG performed by [facility] on 02-03-2024 12 Lead EKG performed by [facility] [address] [place] [address] 12 Lead EKG performed by [facility] 02/03/24 1413 MR#: [id number] Acct: [id number] Name: MARYLOU PIERCE Rep #: [id number] : 1950 73 From: Jeri Stinson Attending Dr: GOLD Honeycutt Status: DEP AMB Ordering Dr: Jeri Rasheed Date: 01/12 05/04 Location[place] [facility] Sex: F C Admitted: BMS/12 Lead EKG performed by [facility] ECG Report Interpretation ----Electronic ventricular pacemaker Pacemaker ECG, No further analysis Electronically signed on 02/06/2024 at 09:47 by Billy Denton Software Version [id number] 02/06/24 0951 Date Jeri MALCOLM CC: Dr. Robe Smith MD Date Dictated: 02/03/241412 Date Transcribed: 02/03/241412 Over Short And Damage Clerk: DILAN Signed Normal [facility] Bacteria LM.HPF (Urine sed) [#/Area]Ordered By: Billy Denton on 02-03-2024 Urine Bacteria RARE /hpf None Seen [facility] Basic Metabolic Profile (BMP )on 02-03-2024 BUN/CRE 29.3 RATIO High 10-20 [facility] Comment on above: Order Comment: For P PM generator change Performed By: #### L 400.0001, L500.2500, L100.0500 ####[facility] [address] [place], [address] CA,Total 9.0 mg/dL Normal 8.5-10.1 [facility] Comment on above: Order Comment: For P PM generator change Performed By: #### L 400.0001, L500.2500, L100.0500 ####[facility] [address] [place], [address] Chloride [Moles/Vol] 105 mmol/L Normal 98-107 [facility] Comment on above: Order Comment: For P PM generator change Performed By: #### L 400.0001, L500.2500, L100.0500 ####[facility] [address] [place], [address] CO2 [Moles/Vol] 28.0 mmol/L Normal 21.0-32.0 [facility] Comment on above: Order Comment: For P PM generator change Performed By: #### L 400.0001, L500.2500, L100.0500 ####[facility] [address] [place], [address] Creatinine [Mass/Vol] 0.99 mg/dL Normal 0.55-1.02 [facility] Comment on above: Order Comment: For P PM generator change Result Comment: The validity of the calculated GFR GFRAA in patients over 70 years has not been determined. Clinical correlation is essential. Performed By: #### L 400.0001, L500.2500, L100.0500 ####[facility] [address] [place], [address] EST GFR - AA 71 mL/min Normal >60 [facility] Comment on above: Order Comment: For P PM generator change Result Comment: Afri can Palauan GFR Calc Performed By: #### L 400.0001, L500.2500, L100.0500 ####[facility] [address] [place], [address] GAP 5 Normal 5-15 [facility] Comment on above: Order Comment: For P PM generator change Performed By: #### L 400.0001, L500.2500, L100.0500 ####[facility] [address] [place], [address] GFR/1.73 sq M.predicted among non-blacks MDRD (S/P/Bld) [Vol rate/Area] 59 mL/min/{1.73_m2} Low >60 [facility] Comment on above: Order Comment: For P PM generator change Result Comment: Non- GFR Calc Performed By: #### L 400.0001, L500.2500, L100.0500 ####[facility] [address] [place], [address] Glucose [Mass/Vol] 84 mg/dL Normal 74-106 [facility] Comment on above: Order Comment: For P PM generator change Performed By: #### L 400.0001, L500.2500, L100.0500 ####[facility] [address] [place], [address] Potassium [Moles/Vol] 4.1 mmol/L Normal 3.5-5.1 [facility] Comment on above: Order Comment: For P PM generator change Performed By: #### L 400.0001, L500.2500, L100.0500 ####[facility] [address] [place], [address] Sodium [Moles/Vol] 138 mmol/L Normal 136-145 [facility] Comment on above: Order Comment: For P PM generator change Performed By: #### L 400.0001, L500.2500, L100.0500 ####[facility] [address] [place], [address] Urea nitrogen [Mass/Vol] 29 mg/dL High -18 [facility] Comment on above: Order Comment: For P PM generator change Performed By: #### L 400.0001, L500.2500, L100.0500 ####[facility] [address] [place], [address] Bilirubin Test strip Ql (U)O rdered By: Billy Corrie on 02-03-2024 Bilirubin Ql (U) Negative Negative [facility] Blood urea nitrogen (BUN)/cr eatinine ratioOrdered By: Billy Corrie on 02-03-2024 Urea nitrogen/Creatinine [Mass ratio] 29.3 mg/mg High -20 [facility] CBC-Complete Blood Cnt No Di ffon 02-03-2024 Erythrocyte distribution width (RBC) [Ratio] 12.4 % Normal 11.6-14.6 [facility] Comment on above: Order Comment: Comme nts: For PPM generator change Performed By: #### L 400.0001, L500.2500, L100.0500 ####[facility] [address] [place], [address] Hematocrit (Bld) [Volume fraction] 40.3 % Normal 37-47 [facility] Comment on above: Order Comment: Comme nts: For PPM generator change Performed By: #### L 400.0001, L500.2500, L100.0500 ####[facility] [address] [place], [address] Hemoglobin (Bld) [Mass/Vol] 13.5 g/dL Normal 12.0-15.0 [facility] Comment on above: Order Comment: Comme nts: For PPM generator change Performed By: #### L 400.0001, L500.2500, L100.0500 ####[facility] [address] [place], [address] MCH (RBC) [Entitic mass] 30.7 pg Normal 27.0-32.0 [facility] Comment on above: Order Comment: Comme nts: For PPM generator change Performed By: #### L 400.0001, L500.2500, L100.0500 ####[facility] [address] [place], [address] MCHC (RBC) [Mass/Vol] 33.5 g/dL Normal 32-36 [facility] Comment on above: Order Comment: Comme nts: For PPM generator change Performed By: #### L 400.0001, L500.2500, L100.0500 ####[facility] [address] [place], [address] MCV (RBC) [Entitic vol] 91.6 fL Normal 81-99 [facility] Comment on above: Order Comment: Comme nts: For PPM generator change Performed By: #### L 400.0001, L500.2500, L100.0500 ####[facility] [address] [place], [address] Platelet mean volume (Bld) [Entitic vol] 9.2 fL Normal 6.2-12.0 [facility] Comment on above: Order Comment: Comme nts: For PPM generator change Performed By: #### L 400.0001, L500.2500, L100.0500 ####[facility] [address] [place], [address] Platelets (Bld) [#/Vol] 222 10*3/uL Normal 150-450 [facility] Comment on above: Order Comment: Comme nts: For PPM generator change Performed By: #### L 400.0001, L500.2500, L100.0500 ####[facility] [address] [place], [address] RBC (Bld) [#/Vol] 4.40 10*6/uL Normal 4.2-5.4 [facility] Comment on above: Order Comment: Comme nts: For PPM generator change Performed By: #### L 400.0001, L500.2500, L100.0500 ####[facility] [address] [place], [address] RDW SD 41.1 fl Normal 35.1-43.9 [facility] Comment on above: Order Comment: Comme nts: For PPM generator change Performed By: #### L 400.0001, L500.2500, L100.0500 ####[facility] [address] [place], [address] WBC (Bld) [#/Vol] 5.9 10*3/uL Normal 4.4-11.0 [facility] Comment on above: Order Comment: Comme nts: For PPM generator change Performed By: #### L 400.0001, L500.2500, L100.0500 ####[facility] [address] [place], [address] Carbon dioxide measurementOr dered By: Billy Denton on 02-03-2024 CO2 [Moles/Vol] 28.0 mmol/L 21.0-32.0 [facility] Cardiology Visit Reporton Cardiology Visit Report [facility] [address] [place] [address] OFFICE VISIT Date of Service: 02/03/24 MR#: [id number] Acct: [id number] Name: MARYLOU PIERCE Rep #: [id number] : 1950 Provider: GOLD Adkins Age/Sex: 73/F Location: [facility] Status: Signed HPI HPI History of Present Illness Details: MARYLOU PIERCE, is a 73 F is a lady who had presented with a syncopal episode as well as type II second-degree AV block with pauses. She underwent a cardiac catheterization with demonstrated normal coronary arteries, and preserved ejection fraction. Due to the high-grade AV block she underwent implantation of a permanent pacemaker in 2017. Her pacemaker generator has an advisory on it. She is here today for an updated H P to have this generator replaced. From a cardiac standpoint, the patient is doing well. She denies any palpitations, chest pain, pressure or heaviness. She denies SOB, Orthopnea, and PND. She does not have bleeding issues; no blood in urine, stool or nosebleeds. She denies any decrease in energy level, myalgias, or claudication. She does not have edema, or sudden weight gain. She denies dizziness, lightheadedness, syncopal or near syncopal episodes, and headaches. EKG today demonstrates atrial sensed ventricular paced rhythm. Intake Vital Signs 01/27/24 12:52 02/03/24 13:57 Height 5 ft 3 in 5 ft 3 in Weight: 165 lb BMI 29.2 BP 114/69 Blood Pressure Location Lt brachial Position Sitting Respiration 18 Pulse 73 Pulse Source NIBP Intake Visit Reasons: UPDATE H P/VICTORINA @ 2:30/OK PER MMM Frame Coverer Required: No Accompanied by: Self Is patient in pain?: No Allergies Sulfa (Sulfonamide Antibiotics) Allergy (Verified 02/03/24 13:58) Unknown Medications ???Medication ???Instructions ???Recorded ???Confirmed ???Type multivitamin 1 tab PO QDAY 04/11/17 02/03/24 History calcium 600 mg (as cap PO 04/16/18 02/03/24 History carbonate)-vitamin D3 5 mcg (200 unit) capsule (Calcium 600 + D(3)) vit C 250 mg-vit E 90 mg-zinc 40 1 tab PO BID 04/16/18 02/03/24 History mg-copper 1 vl-ehmioh-vkuqbn capsule (PreserVision AREDS-2) lisinopril 20 mg tablet 20 mg PO DAILY 04/05/22 02/03/24 History clobetasol 0.05 % topical ointment 1 applic topical .COMPLEX #15 grams 02/25/23 02/03/24 Rx Lactobacillus acidophilus and 1 cap PO DAILY 06/04/23 02/03/24 History rhamnosus 10 billion cell capsule (Digestive Health Probiotic) cholecalciferol (vitamin D3) 10 10 mcg PO DAILY 06/04/23 02/03/24 History mcg (400 unit) tablet levothyroxine 88 mcg tablet 88 mcg PO .Mon-Sat #90 tabs 06/04/23 02/03/24 Rx estradiol 0.01% (0.1 mg/gram) See Rx Instructions vaginal DAILY 06/11/23 02/03/24 History vaginal cream mv-mn-folic 200 mcg-vit K 15 cap PO 01/27/24 02/03/24 History mcg-lutein 5 mg-zeaxanthin 1 mg capsule (PreserVision AREDS 2 Plus Multivit) Have you fallen in the past year?: Yes (1 year ago, no major injury, fell moving in) [facility] Medical History (Updated 01/28/24 @ 11:21 by Merna Angelo) Pacemaker malfunction Stage 3a chronic kidney disease (CKD) 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 Vaginal atrophy Macular degeneration Second degree AV block, Mobitz type II Right bundle branch block Left anterior fascicular block Mobitz type 2 second degree atrioventricular block Abnormal electrocardiogram Abnormal findings on diagnostic imaging of heart and coronary circulation Ventricular premature depolarization Thyroid disorder Surgical History History of left heart catheterization (03/02/16) Presence of cardiac pacemaker (03/21/16) History of tonsillectomy H/O dilation and curettage H/O lumpectomy Family History Mother Cancer lung-smoker Father Diabetes Cancer bladder Other Alcoholism Arthritis Depression Hypertension Mental disorder Osteoporosis and oculocutaneous hypopigmentation syndrome Psychiatric care Respiratory disease Social History current occupational status: retired Smoking Status: Never smoker alcohol intake: never substance use type: does not use caffeine: Yes what type of physical activity do you participate in: walking frequency: daily seatbelt use: always do you feel safe at home: Yes additional social history: Micheal- Retired ROS Const Const: Negative for fatigue, weakness, headache(s), daytime sleepiness or difficulty sleeping ENT ENT: Negative for headache(s), dizziness or Nosebleed/epistaxis Cardio Chest Pain: No Palpitations: No Edema: None Resp Resp (more content not included)... Normal [facility] Chest PA and Lateralon 02-02 Chest PA and Lateral [facility] Imaging Services [address] [place] [address] Chest PA and Lateral MR#: [id number] Acct: [id number] Name: MARYLOU PIERCE Rep #: [id number] : 1950 F 73 From: Moises Burger MD PCP: Dr. Robe Smith MD Status: REG CLI Study: Chest PA and Lateral Date of Exam: 02/03/24 Exam# [id number] Ordering Dr: Billy Denton MD [id number] STUDY: X-RAY CHEST REASON FOR EXAM: Female, 73 years old. For PPM generator change 02/10/24 TECHNIQUE: PA and lateral views of the chest. COMPARISON: 03/22/2016 FINDINGS: Left subclavian pacemaker which is unchanged. The lungs are clear and expanded. There is no demonstrated pleural abnormality. Normal size heart. Normal mediastinum and susy. Normal visualized pulmonary arteries. Normal visualized aortic arch and descending thoracic aorta. Normal visualized thoracic spine. Normal visualized ribs, clavicles, and shoulders. There is no demonstrated abnormality of the visualized soft tissue structures of the upper abdomen. RAD/Chest PA and Lateral IMPRESSION: No active disease. Electronically Signed: Moises Burger MD at 12:22 EST , CC: Dr. Robe Smith MD; Dr. Billy Denton MD Over Short And Damage Clerk: Signed Normal [facility] Chloride measurementOrdered By: Billy Denton on 02-03-2024 Chloride [Moles/Vol] 105 mmol/L 98-107 [facility] Epithelial cells.squamous LM Ql (Urine sed)Ordered By: Billy Denton on 02-03-2024 Epithelial cells.squamous LM.HPF (Urine sed) [#/Area] 0 /[HPF] 5-10 [facility] Erythrocyte distribution wid th ratioOrdered By: Billy Denton on 02-03-2024 Erythrocyte distribution width (RBC) [Ratio] 12.4 % 11.6-14.6 [facility] Erythrocyte distribution wid th standard deviationOrdered By: Billy Denton on 02-03-2024 Erythrocyte distribution width (RBC) [Entitic vol] 41.1 fL 35.1-43.9 [facility] Estimated glomerular filtrat ion rate (GFR) AmericanOrdered By: Billy Denton on 02-03-2024 Estimated GFR (MDRD) Amer 71 mL/min >60 [facility] Comment on above: GFR Calc Glomerular filtration rate ( GFR) estimationOrdered By: Billy Denton on 02-03-2024 Estimated GFR (MDRD) Non-Af Amer 59 mL/min Low >60 [facility] Comment on above: Non- GFR Calc Glucose Ql (U)Ordered By: Florencio alicia Denton on 02-03-2024 Urine Glucose (UA) Normal mg/dl Normal [facility] Glucose measurementOrdered B y: Billy Corrie on 02-03-2024 Glucose [Mass/Vol] 84 mg/dL 74-106 [facility] Hematocrit Auto (Bld) [Volum e fraction]Ordered By: [place] Corrie on 02-03-2024 Hematocrit (Bld) [Volume fraction] 40.3 % 37-47 [facility] Hemoglobin measurementOrdere d By: [place] Corrie on 02-03-2024 Hemoglobin (Bld) [Mass/Vol] 13.5 g/dL 12.0-15.0 [facility] Ketones Test strip Ql (U)Ord ered By: Billy Corrie on 02-03-2024 Ketones Ql (U) Negative Negative [facility] MCV (mean corpuscular volume ) determinationOrdered By: [place] Corrie on 02-03-2024 MCV (RBC) [Entitic vol] 91.6 fL 81-99 [facility] Mean corpuscular hemoglobin (MCH) determinationOrdered By: [place] Corrie on 02-03-2024 MCH (RBC) [Entitic mass] 30.7 pg 27.0-32.0 [facility] Mean corpuscular hemoglobin concentration (MCHC) determinationOrdered By: Billy Corrie on 02-03-2024 MCHC (RBC) [Mass/Vol] 33.5 g/dL 32-36 [facility] Mean platelet volume determi nationOrdered By: Billy Corrie on 02-03-2024 Platelet mean volume (Bld) [Entitic vol] 9.2 fL 6.2-12.0 [facility] Microscopic analysis of urin e for red blood cells (RBC)Ordered By: Billy Denton on 02-03-2024 Urine RBC 0 SEEN /hpf 0-5 [facility] Mucus LM Ql (Urine sed)Order ed By: Billy Denton on 02-03-2024 Mucus Ql (Urine sed) 0 SEEN /hpf [facility] Nitrite Test strip Ql (U)Ord ered By: Billy Denton on 02-03-2024 Nitrite Ql (U) Negative Negative [facility] Pacemaker Checkon 02-03-2024 Pacemaker Check [facility] [address] [place] [address] Pacemaker Check Date of Service: 02/03/24 142 MR#: [id number] Acct: [id number] Name: MARYLOU PIERCE Rep #: [id number] : 1950 From: Merna Angelo Age/Sex: 73/F Location: [facility] Status: Signed Billing Codes Nurse, Teaching, Wound Ck (no charge): Yes (Teaching for PPM generator change) Assessment and Plan Assessment and Plan (1) Pacemaker malfunction: Status: Acute (2) Presence of cardiac pacemaker: Status: Chronic (3) Second degree AV block, Mobitz type II: Status: Chronic 02/03/241425 Date Merna Sandsignfay Signature: Date (if applicable) CC: Normal [facility] Platelet countOrdered By: Florencio Denton on 02-03-2024 Platelets (Bld) [#/Vol] 222 10*3/uL 150-450 [facility] Potassium measurementOrdered By: Billy Denton on 02-03-2024 Potassium [Moles/Vol] 4.1 mmol/L 3.5-5.1 [facility] Protein Test strip Ql (U)Ord ered By: Billy Denton on 02-03-2024 Protein Ql (U) Negative Negative [facility] RBC Auto (Bld) [#/Vol]Ordere d By: Billy Denton on 02-03-2024 RBC (Bld) [#/Vol] 4.40 10*6/uL 4.2-5.4 [facility] Serum anion gap measurementO rdered By: Billytaz Denton on 02-03-2024 Anion gap [Moles/Vol] 5 mmol/L 5-15 [facility] Serum or plasma calcium nina urement (mass/volume)Ordered By: Billy Corrie on 02-03-2024 Calcium [Mass/Vol] 9.0 mg/dL 8.5-10.1 [facility] Serum or plasma creatinine m easurement (mass/volume)Ordered By: Billy Corrie on 02-03-2024 Creatinine [Mass/Vol] 0.99 mg/dL 0.55-1.02 [facility] Comment on above: The validity of the calculated GFR & GFRAA in patients over 70 years has not been determined. Clinical correlation is essential. Serum or plasma urea nitroge n measurement (mass/volume)Ordered By: [place] Corrie on 02-03-2024 Urea nitrogen [Mass/Vol] 29 mg/dL High 7-18 [facility] Sodium levelOrdered By: Florenciori l Corrie on 02-03-2024 Sodium [Moles/Vol] 138 mmol/L 136-145 [facility] Urinalysis, Completeon 02-02 BACTERIA RARE Normal None Seen [facility] Comment on above: Order Comment: For P PM generator changeCOLLECTOR TO SPECIFY Performed By: #### L 400.0001, L500.2500, L100.0500 ####[facility] [address] [place], [place], [id number] EPI,SQUAMOUS 0-5 SEEN Normal 5-10 [facility] Comment on above: Order Comment: For P PM generator changeCOLLECTOR TO SPECIFY Performed By: #### L 400.0001, L500.2500, L100.0500 ####[facility] [address] [place], [address] WBC 0-5 SEEN Normal 0-5 [facility] Comment on above: Order Comment: For P PM generator changeCOLLECTOR TO SPECIFY Performed By: #### L 400.0001, L500.2500, L100.0500 ####[facility] [address] [place], [address] Mucus Ql (Urine sed) 0 SEEN Normal [facility] Comment on above: Order Comment: For P PM generator changeCOLLECTOR TO SPECIFY Performed By: #### L 400.0001, L500.2500, L100.0500 ####[facility] [address] [place], [address] RBC 0 SEEN Normal 0-5 [facility] Comment on above: Order Comment: For P PM generator changeCOLLECTOR TO SPECIFY Performed By: #### L 400.0001, L500.2500, L100.0500 ####[facility] [address] [place], [address] Urine blood detectionOrdered By: Atlanta Corrie on 02-03-2024 Urine Occult Blood Negative Negative [facility] Urine clarityOrdered By: [place] Corrie on 02-03-2024 Clarity (U) Clear Clear [facility] Urine color determinationOrd ered By: Atlanta Corrie on 02-03-2024 Color (U) Yellow Yellow [facility] Urine leukocyte esterase det ection by dipstickOrdered By: Atlanta Corrie on 02-03-2024 Leukocyte esterase Test strip Ql (U) 500 /ul High Negative [facility] Urine pHOrdered By: Billy Of melissa on 02-03-2024 pH (U) 6.0 [pH] 5.0 - 8.0 [facility] Urine specific gravity measu rementOrdered By: Atlanta Corrie on 02-03-2024 Specific gravity (U) [Rel density] 1.010 1.002-1.030 [facility] Urobilinogen Ql (U)Ordered B y: [place] Corrie on 02-03-2024 Urine Urobilinogen Normal mg/dl Normal [facility] White blood cell (WBC) count Ordered By: Billy Corrie on 02-03-2024 WBC (Bld) [#/Vol] 5.9 10*3/uL 4.4-11.0 [facility] White blood cell countOrdere d By: Billy Denton on 02-03-2024 Urine WBC 0-5 SEEN /hpf 0-5 [facility] Sport Internship Office Visit Reporton 01-27-2024 Sport Internship Office Visit Report [facility] [address], [address] [place] [address] OFFICE VISIT Date of Service: 01/27/24 MR#: [id number] Acct: [id number] Name: MARYLOU PIERCE Rep #: [id number] : 1950 Provider: SKYLER pepper Age/Sex: 73/F Location: [facility] [place] Status: Signed Intake Vital Signs 09/20/23 09:20 01/15/24 08:35 01/27/24 12:47 01/27/24 12:52 Height 5 ft 3 in 5 ft 3 in 5 ft 3 in 5 ft 3 in Weight: 163 lb 4 oz BMI 28.9 BP 114/76 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 Complaint: Annual Frame Coverer Required: No Is patient in pain?: No Allergies Sulfa (Sulfonamide Antibiotics) Allergy (Verified 01/27/24 12:47) Unknown Medications ???Medication ???Instructions ???Recorded ???Confirmed ???Type multivitamin 1 tab PO QDAY 04/11/17 01/27/24 History calcium 600 mg (as cap PO 04/16/18 01/27/24 History carbonate)-vitamin D3 5 mcg (200 unit) capsule (Calcium 600 + D(3)) vit C 250 mg-vit E 90 mg-zinc 40 1 tab PO BID 04/16/18 01/27/24 History mg-copper 1 hh-lidqwg-jvswxs capsule (PreserVision AREDS-2) lisinopril 20 mg tablet 20 mg PO DAILY 04/05/22 01/27/24 History clobetasol 0.05 % topical ointment 1 applic topical .COMPLEX #15 grams 02/25/23 01/27/24 Rx Lactobacillus acidophilus and 1 cap PO DAILY 06/04/23 01/27/24 History rhamnosus 10 billion cell capsule (Digestive Health Probiotic) cholecalciferol (vitamin D3) 10 10 mcg PO DAILY 06/04/23 01/27/24 History mcg (400 unit) tablet levothyroxine 88 mcg tablet 88 mcg PO .Mon-Sat #90 tabs 06/04/23 01/27/24 Rx estradiol 0.01% (0.1 mg/gram) See Rx Instructions vaginal DAILY 06/11/23 01/27/24 History vaginal cream mv-mn-folic 200 mcg-vit K 15 cap PO 01/27/24 01/27/24 History mcg-lutein 5 mg-zeaxanthin 1 mg capsule (PreserVision AREDS 2 Plus Multivit) Is last menstrual period known: No Post menopausal: Yes Patient : No : No [facility] Medical History Stage 3a chronic kidney disease (CKD) 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 Vaginal atrophy Macular degeneration Second degree AV block, Mobitz type II Right bundle branch block Left anterior fascicular block Mobitz type 2 second degree atrioventricular block Abnormal electrocardiogram Abnormal findings on diagnostic imaging of heart and coronary circulation Ventricular premature depolarization Thyroid disorder Surgical History History of left heart catheterization (03/02/16) Presence of cardiac pacemaker (03/21/16) History of tonsillectomy H/O dilation and curettage H/O lumpectomy Family History Mother Cancer lung-smoker Father Diabetes Cancer bladder Other Alcoholism Arthritis Depression Hypertension Mental disorder Osteoporosis and oculocutaneous hypopigmentation syndrome Psychiatric care Respiratory disease Social History current occupational status: retired Smoking Status: Never smoker alcohol intake: never substance use type: does not use caffeine: Yes what type of physical activity do you participate in: walking frequency: daily seatbelt use: always do you feel safe at home: Yes additional social history: Micheal- Retired History 3 Elective abortions Hx Para 2 Spontaneous abortions Hx # Term Pregnancies Ectopic pregnancies Hx # Pregnancies Multiple births # of living children Past Pregnancies Del. Date Name GA/Weeks Outcome Route Bth Weight Infant Gen Labor Lgth Anesthesia Del Locatn Provider FOB Unknown 1975 Charlie Unknown 1978 Ricky [facility] Encounter for routine gynecological examination Details: MARYLOU PIERCE is a 73 year old who presents for annual exam. Denies concerns. Has not been needing clobetesol. Using estradiol cream 3 days a week Last PAP: NA History of abnormal PAP: no Last mammogram: today History of abnormal mammogram: no Colon cancer screening: scheduled 03/2024 Other preventative health care screenings: Sarah Henning Constitutional: Denies fatigue, weight gain or weight loss Cardio Card: Denies chest pain Resp Resp: Denies cough or dyspnea on exertion GI GI: Denies abdominal pain, bloating, change in stool character, constipation or vomiting : Reports as per HPI; Denies difficulty voiding, pelvic pain, urinary frequency, urinary incontinence, urinary urgency, vaginal discharge or vaginal pruritus Exam Const General: cooperative, healthy appearing, no acute distress and well developed Orientation: alert, melissa (more content not included)... Normal [facility] SCRN MAMM (CAD)W/RAFA BILATo n 01-27-2024 SCRN MAMM (CAD)W/RAFA BILAT [facility] Imaging Services [address] [place] [address] SCRN MAMM (CAD)W/RAFA BILAT MR#: [id number] Acct: [id number] Name: MARYLOU PIERCE Rep #: [id number] : 1950 F 73 From: Jose David nuñez MD PCP: Dr. Robe Smith MD Status: [facility] Study: SCRN MAMM (CAD)W/RAFA BILAT Date of Exam: 01/11 08/04 Exam# [id number] Ordering Dr: Henrietta Bar GRID MOLDER GRID MOLDER -C [id number] MAMMOGRAPHY - BILATERAL SCREENING REASON FOR EXAM: Female, 73 years old. Routine annual screening examination. PERTINENT HISTORY: Non-contributory. TECHNIQUE: Digital bilateral breast rafa (3D mammographic acquisition) in the CC and MLO projections. 2-D mediolateral oblique (MLO) and craniocaudad (CC) views of both breasts were obtained. CAD: Full Field Digital Mammography with Computer Added Detection was performed. COMPARISON: Comparison is made with prior study dated January 23, 2023 and January 22, 2022. FINDINGS: Breast Composition: The breasts are almost entirely fatty. There are no dominant masses or suspicious calcifications. A battery pack from a pacemaker device is once again seen in the left axilla. No other significant abnormalities are identified. There has been no significant change since the prior study. BI/SCRN MAMM (CAD)W/RAFA BILAT IMPRESSION: Stable bilateral screening mammogram. Yearly follow-up mammogram recommended. (A) ASSESSMENT CATEGORY: BIRADS Category 2: Benign. A letter regarding these results will be sent to the patient by the facility within 30 days. Approximately 10% of breast cancers are not detected by mammography. A normal mammogram should not delay biopsy of a clinically suspicious abnormality. [id number] Electronically Signed: Jose David Thomas MD at 12:59 EST Reading Location ID and State: [facility] / [place] , Service support , CC: SKYLER Bar; Dr. Robe Smith MD Over Short And Damage Clerk: Signed Normal [facility] Surgery Visit Reporton 01-[address] [facility] [address] [place], [place] [address] OFFICE VISIT Date of Service: 01/15/24 MR#: [id number] Acct: [id number] Name: MARYLOU PIERCE Rep #: [id number] : 1950 Provider: Dr. Loretta iverson MD Age/Sex: 73/F Location: [facility] Status: Signed Intake Vital Signs 09/20/23 09:20 01/15/24 08:35 Height 5 ft 3 in 5 ft 3 in Weight: 164 lb BMI 29.0 BP 111/78 Blood Pressure Location Rt brachial Position Sitting Respiration 17 Pulse 77 Pulse Source Monitor Pulse Oximetry (%) 98 Oxygen Delivery Method room air Intake Visit Reasons: COLONOSCOPY Chief Complaint: Colonoscopy Is patient in pain?: No Allergies Sulfa (Sulfonamide Antibiotics) Allergy (Verified 01/15/24 08:36) Unknown Medications ???Medication ???Instructions ???Recorded ???Confirmed ???Type multivitamin 1 tab PO QDAY 04/11/17 01/15/24 History calcium 600 mg (as cap PO 04/16/18 01/15/24 History carbonate)-vitamin D3 5 mcg (200 unit) capsule (Calcium 600 + D(3)) vit C 250 mg-vit E 90 mg-zinc 40 1 tab PO BID 04/16/18 01/15/24 History mg-copper 1 jp-mpveev-zsmwya capsule (PreserVision AREDS-2) lisinopril 20 mg tablet 20 mg PO DAILY 04/05/22 01/15/24 History clobetasol 0.05 % topical ointment 1 applic topical .COMPLEX #15 grams 02/25/23 01/15/24 Rx Lactobacillus acidophilus and 1 cap PO DAILY 06/04/23 01/15/24 History rhamnosus 10 billion cell capsule (Digestive Health Probiotic) cholecalciferol (vitamin D3) 10 10 mcg PO DAILY 06/04/23 01/15/24 History mcg (400 unit) tablet levothyroxine 88 mcg tablet 88 mcg PO .Mon-Sat #90 tabs 06/04/23 01/15/24 Rx estradiol 0.01% (0.1 mg/gram) See Rx Instructions vaginal DAILY 06/11/23 01/15/24 History vaginal cream Have you fallen in the past year?: No PFSH Medical History Stage 3a chronic kidney disease (CKD) 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 Vaginal atrophy Macular degeneration Second degree AV block, Mobitz type II Right bundle branch block Left anterior fascicular block Mobitz type 2 second degree atrioventricular block Abnormal electrocardiogram Abnormal findings on diagnostic imaging of heart and coronary circulation Ventricular premature depolarization Thyroid disorder Surgical History History of left heart catheterization (03/02/16) Presence of cardiac pacemaker (03/21/16) History of tonsillectomy H/O dilation and curettage H/O lumpectomy Family History Mother Cancer lung-smoker Father Diabetes Cancer bladder Other Alcoholism Arthritis Depression Hypertension Mental disorder Osteoporosis and oculocutaneous hypopigmentation syndrome Psychiatric care Respiratory disease Social History current occupational status: retired Smoking Status: Never smoker alcohol intake: never substance use type: does not use caffeine: Yes what type of physical activity do you participate in: walking frequency: daily seatbelt use: always do you feel safe at home: Yes additional social history: Micheal- Retired HPI HPI HPI: 73-year-old female presents for colonoscopy. Patient had colonoscopy 10 years ago negative per patient. Patient denies any chronic abdominal pain/nausea/vomiting/r eflux. Has bowel movements every other day denies any blood. Denies any family history of colon cancer ROS General General: No weight change, appetite, fatigue, colon cancer or breast cancer HEENT HEENT: No difficulty swallowing, eye injury, eye surgery, swollen glands or hoarseness Endo Endocrine: Yes thyroid disease; No diabetes mellitus, thyroid cancer, Hair loss, heat intolerance or cold intolerance Skin Skin: No rash or changing moles Musc Musculoskeletal: No back problems, arthritis, rheumatoid arthritis, gout or joint pain Cardio Cardiovascular: Yes pacemaker and high blood pressure; No murmur, heart disease, atrial fibrillation, heart attack, heart stent, palpitations, shortness of breat with exertion or chest pain Psych Psychiatric: No depression, anxiety or hearing voices Resp Respiratory: No shortness of breath, No sleep apnea, No cough, No COPD, No asthma, No emphysema and No wheezing Gastro Gastrointestinal: No abdominal pain, No nausea or vomiting, No diarrhea, No constipation, No blood in stool, No acid reflux, Yes hemorrhoids, No ulcers, No gallbladder problem and No black,tarry stools Jaquan Hematologic: No blood thinners, No blood disorders, No bleeding, No anemia and No blood clots Neuro Neurologic: (more content not included)... Normal [facility] Comprehensive Metabolic Prof ilon 12-04-2023 Albumin [Mass/Vol] 3.5 g/dL Normal 3.2-5.0 [facility] Comment on above: Order Comment: Order Date: 11/07/23Order Info: 0786-1 - CMP Performed By: #### L 500.4050 ####[facility] [address] [place], [address] Albumin/Globulin [Mass ratio] 1.0 {ratio} Normal 0.9-2.4 [facility] Comment on above: Order Comment: Order Date: 11/07/23Order Info: 0786-1 - CMP Performed By: #### L 500.4050 ####[facility] [address] [place], [address] ALK P 110 U/L Normal 45-117 [facility] Comment on above: Order Comment: Order Date: 11/07/23Order Info: 0786-1 - CMP Performed By: #### L 500.4050 ####[facility] [address] [place], [address] ALT [Catalytic activity/Vol] 37 U/L Normal 13-56 [facility] Comment on above: Order Comment: Order Date: 11/07/23Order Info: 0786-1 - CMP Performed By: #### L 500.4050 ####[facility] [address] [place], [address] AST [Catalytic activity/Vol] 36 U/L Normal 15-37 [facility] Comment on above: Order Comment: Order Date: 11/07/23Order Info: 0786-1 - CMP Performed By: #### L 500.4050 ####[facility] [address] [place], [address] Bilirubin [Mass/Vol] 0.40 mg/dL Normal 0.20-1.00 [facility] Comment on above: Order Comment: Order Date: 11/07/23Order Info: 0786-1 - CMP Result Comment: For patients on eltrombopag therapy, use of Dimension [place] TBIL is not recommended. Performed By: #### L 500.4050 ####[facility] [address] [place], [address] BUN/CRE 29.2 RATIO High 10-20 [facility] Comment on above: Order Comment: Order Date: 11/07/23Order Info: 86-1 - CMP Performed By: #### L 500.4050 ####[facility] [address] [place], [address] CA,Total 9.4 mg/dL Normal 8.5-10.1 [facility] Comment on above: Order Comment: Order Date: 11/07/23Order Info: 86-1 - CMP Performed By: #### L 500.4050 ####[facility] [address] [place], [address] Chloride [Moles/Vol] 107 mmol/L Normal 98-107 [facility] Comment on above: Order Comment: Order Date: 11/07/23Order Info: 07-1 - CMP Performed By: #### L 500.4050 ####[facility] [address] [place], [address] CO2 [Moles/Vol] 29.0 mmol/L Normal 21.0-32.0 [facility] Comment on above: Order Comment: Order Date: 11/07/23Order Info: 0786-1 - CMP Performed By: #### L 500.4050 ####[facility] [address] [place], [address] Creatinine [Mass/Vol] 0.89 mg/dL Normal 0.55-1.02 [facility] Comment on above: Order Comment: Order Date: 11/07/23Order Info: [id number] - CMP Result Comment: The validity of the calculated GFR GFRAA in patients over 70 years has not been determined. Clinical correlation is essential. Performed By: #### L 500.4050 ####[facility] [address] [place], [address] EST GFR - AA 80 mL/min Normal >60 [facility] Comment on above: Order Comment: Order Date: 11/07/23Order Info: [id number] - CMP Result Comment: Afri can Palauan GFR Calc Performed By: #### L 500.4050 ####[facility] [address] [place], [address] GAP 4 Low 5-15 [facility] Comment on above: Order Comment: Order Date: 11/07/23Order Info: [id number] - CMP Performed By: #### L 500.4050 ####[facility] [address] [place], [address] GFR/1.73 sq M.predicted among non-blacks MDRD (S/P/Bld) [Vol rate/Area] 67 mL/min/{1.73_m2} Normal >60 [facility] Comment on above: Order Comment: Order Date: 11/07/23Order Info: [id number] - CMP Result Comment: Non- GFR Calc Performed By: #### L 500.4050 ####[facility] [address] [place], [address] Globulin (S) [Mass/Vol] 3.6 g/dL Normal 2.2-4.2 [facility] Comment on above: Order Comment: Order Date: 11/07/23Order Info: [id number] - CMP Performed By: #### L 500.4050 ####[facility] [address] [place], [address] Glucose [Mass/Vol] 93 mg/dL Normal 74-106 [facility] Comment on above: Order Comment: Order Date: 11/07/23Order Info: [id number] - CMP Performed By: #### L 500.4050 ####[facility] [address] [place], [address] Potassium [Moles/Vol] 4.1 mmol/L Normal 3.5-5.1 [facility] Comment on above: Order Comment: Order Date: 11/07/23Order Info: [id number] - CMP Performed By: #### L 500.4050 ####[facility] [address] [place], [address] Sodium [Moles/Vol] 140 mmol/L Normal 136-145 [facility] Comment on above: Order Comment: Order Date: 11/07/23Order Info: [id number] - CMP Performed By: #### L 500.4050 ####[facility] [address] [place], [address] T PROT 7.1 g/dL Normal 6.4-8.2 [facility] Comment on above: Order Comment: Order Date: 11/07/23Order Info: [id number] - CMP Performed By: #### L 500.4050 ####[facility] [address] [place], [address] Urea nitrogen [Mass/Vol] 26 mg/dL High 7-18 [facility] Comment on above: Order Comment: Order Date: 11/07/23Order Info: [id number] - CMP Performed By: #### L 500.4050 ####[facility] [address] [place], [address] Pacemaker Checkon 12-04-2023 Pacemaker Check [facility] [address] [place], [place] [address] Pacemaker Check Date of Service: 12/04/23 1438 MR#: [id number] Acct: [id number] Name: MARYLOU PIERCE Rep #: [id number] : 1950 From: Merna Petey Age/Sex: 73/F Location: [facility] Status: Signed Billing Codes PM Device Codes: 51918 PM Dev Prog Eval, Dual Assessment and Plan Assessment and Plan (1) Presence of cardiac pacemaker: Status: Chronic (2) Second degree AV block, Mobitz type II: Status: Chronic (3) Right bundle branch block (RBBB) with left anterior fascicular block: Status: Chronic 12/04/23 1439 Date Mernaivone Sandsramosfay Signature: Date (if applicable) CC: [facility] 11-25-2023 [facility] Telephone (OPHTMN) MARYLOU PIERCE ([id number]) 1950 F Date Time Provider Department 11/25/23 GREGORY MARRERO OPHN During your visit today, we recorded the following information about you: Gregory Marrero, Research Coordinator 11/25/2023 11:27 AM Signed Asked Marylou to call me regarding results from last lab report. Gregory Marrero Research Coordinator Allergies As of Date: 11/25/2023 Noted Allergy Reaction SULFA (SULFONAMIDE ANTIBIOTICS) 11/29/2004 14 - Other: See Comments Comments: Nausea Date Reviewed: 10/16/2023 Reviewed by: Arely Plata V, MD - Fully Assessed Prescriptions as of 11/25/2023 - B.animalis,bifid,infan tis,long (PROBIOTIC 4X ORAL) Take 1 capsule by mouth once daily. - clobetasol (TEMOVATE) 0.05 % ointment APPLY TOPICALLY TWICE A DAY X 2 WEEKS, DAILY X 2 WEEKS THEN NEEDED. SMALL AMOUNT AND MASSGE IN - lisinopril (ZESTRIL) 20 mg tablet Take 20 mg by mouth once daily. - Cholecalciferol, Vitamin D3, 50 mcg (2,000 unit) cap Take 1 Each by mouth once daily. - multivit-min/ferrous fumarate (MULTI VITAMIN ORAL) Take by mouth. - OMEGA-3 FATTY ACIDS ORAL Take by mouth once daily. - vit C/E/Zn/coppr/lutein/ze axan (PRESERVISION AREDS-2 ORAL) Take by mouth twice daily. - OTC PRODUCT - conjugated estrogens (PREMARIN) vaginal cream Use as directed on vagina - Hydrochlorothiazide 12.5 mg capsule Take 1 capsule by mouth once daily. - levothyroxine (SYNTHROID) 88 mcg tablet one tablet every day, skip dose every other Saturday - calcium carbonate 600 mg-cholecalciferol 200 units (CALCIUM 600 + D,3,) 600 mg(1,500mg) -200 unit tab Take 1 tablet by mouth twice daily. - sbgsfcck-cjz-whvz-FA-l utein (CENTRUM SILVER WOMEN) 8 mg iron-400 mcg-300 mcg tab Take 1 tablet by mouth once daily. Problem List As Of Date 11/25/2023 Noted Resolved Unspecified Hypothyroidism [E03.9] 02/08/2005 Essential Hypertension, Benign [I10] 08/29/2007 Routine general medical examination at [facility]*12/30/2008 05/31/2011 Class: Chronic Gynecological examination 12/30/2008 05/31/2011 Class: Chronic Genital atrophy of female [N94.9] 05/31/2011 ASCUS favor benign [DPR3699] 03/24/2012 Advanced nonexudative age-related macular degen*11/10/2018 Memory loss [R41.3] 11/14/2018 Encounter Status:Closed by GREGORY MARRERO on 11/25/23 Normal [facility] Metabolic Prof fredy 10-31-2023 Albumin [Mass/Vol] 3.3 g/dL Normal 3.2-5.0 [facility] Comment on above: Order Comment: Order Date: 10/09/23Order Info: [id number] - CMPOrder Info: [id number] - LIPIDOrder Info: [id number] - TSHOrder Info: [id number] - T4F Performed By: #### L 500.4050, L500.4100, L501.9520, L506.0400 ####[facility] [address] [place], [address] Albumin/Globulin [Mass ratio] 0.9 {ratio} Normal 0.9-2.4 [facility] Comment on above: Order Comment: Order Date: 10/09/23Order Info: [id number] - CMPOrder Info: [id number] - LIPIDOrder Info: [id number] - TSHOrder Info: [id number] - T4F Performed By: #### L 500.4050, L500.4100, L501.9520, L506.0400 ####[facility] [address] [place], [address] ALK P 140 U/L High 45-117 [facility] Comment on above: Order Comment: Order Date: 10/09/23Order Info: [id number] - CMPOrder Info: [id number] - LIPIDOrder Info: [id number] - TSHOrder Info: [id number] - T4F Performed By: #### L 500.4050, L500.4100, L501.9520, L506.0400 ####[facility] [address] [place], [address] ALT [Catalytic activity/Vol] 93 U/L High 13-56 [facility] Comment on above: Order Comment: Order Date: 10/09/23Order Info: [id number] - CMPOrder Info: [id number] - LIPIDOrder Info: [id number] - TSHOrder Info: [id number] - T4F Performed By: #### L 500.4050, L500.4100, L501.9520, L506.0400 ####[facility] [address] [place], [address] AST [Catalytic activity/Vol] 76 U/L High 15-37 [facility] Comment on above: Order Comment: Order Date: 10/09/23Order Info: 86-1 - CMPOrder Info: [id number] - LIPIDOrder Info: 6-3 - TSHOrder Info: [id number] - T4F Performed By: #### L 500.4050, L500.4100, L501.9520, L506.0400 ####[facility] [address] [place], [address] Bilirubin [Mass/Vol] 0.50 mg/dL Normal 0.20-1.00 [facility] Comment on above: Order Comment: Order Date: 10/09/23Order Info: 86-1 - CMPOrder Info: [id number] - LIPIDOrder Info: 3 - TSHOrder Info: [id number] - T4F Result Comment: For patients on eltrombopag therapy, use of Dimension [place] TBIL is not recommended. Performed By: #### L 500.4050, L500.4100, L501.9520, L506.0400 ####[facility] [address] [place], [address] BUN/CRE 22.0 RATIO High 10-20 [facility] Comment on above: Order Comment: Order Date: 10/09/23Order Info: [id number]- - CMPOrder Info: [id number] - LIPIDOrder Info: 63 - TSHOrder Info: [id number] - T4F Performed By: #### L 500.4050, L500.4100, L501.9520, L506.0400 ####[facility] [address] [place], [address] CA,Total 9.6 mg/dL Normal 8.5-10.1 [facility] Comment on above: Order Comment: Order Date: 10/09/23Order Info: 86-1 - CMPOrder Info: [id number] - LIPIDOrder Info: [id number] - TSHOrder Info: [id number] - T4F Performed By: #### L 500.4050, L500.4100, L501.9520, L506.0400 ####[facility] [address] [place], [address] Chloride [Moles/Vol] 104 mmol/L Normal 98-107 [facility] Comment on above: Order Comment: Order Date: 10/09/23Order Info: [id number] - CMPOrder Info: [id number] - LIPIDOrder Info: [id number] - TSHOrder Info: [id number] - T4F Performed By: #### L 500.4050, L500.4100, L501.9520, L506.0400 ####[facility] [address] [place], [address] CO2 [Moles/Vol] 29.0 mmol/L Normal 21.0-32.0 [facility] Comment on above: Order Comment: Order Date: 10/09/23Order Info: 86-1 - CMPOrder Info: [id number] - LIPIDOrder Info: [id number] - TSHOrder Info: [id number] - T4F Performed By: #### L 500.4050, L500.4100, L501.9520, L506.0400 ####[facility] [address] [place], [address] Creatinine [Mass/Vol] 1.00 mg/dL Normal 0.55-1.02 [facility] Comment on above: Order Comment: Order Date: 10/09/23Order Info: 86-1 - CMPOrder Info: [id number] - LIPIDOrder Info: 6-3 - TSHOrder Info: [id number] - T4F Result Comment: The validity of the calculated GFR GFRAA in patients over 70 years has not been determined. Clinical correlation is essential. Performed By: #### L 500.4050, L500.4100, L501.9520, L506.0400 ####[facility] [address] [place], [address] EST GFR - AA 70 mL/min Normal >60 [facility] Comment on above: Order Comment: Order Date: 10/09/23Order Info: 86-1 - CMPOrder Info: [id number] - LIPIDOrder Info: 3 - TSHOrder Info: [id number] - T4F Result Comment: Afri can Palauan GFR Calc Performed By: #### L 500.4050, L500.4100, L501.9520, L506.0400 ####[facility] [address] [place], [address] GAP 6 Normal 5-15 [facility] Comment on above: Order Comment: Order Date: 10/09/23Order Info: [id number]- - CMPOrder Info: - LIPIDOrder Info: 3 - TSHOrder Info: 7 - T4F Performed By: #### L 500.4050, L500.4100, L501.9520, L506.0400 ####[facility] [address] [place], [address] GFR/1.73 sq M.predicted among non-blacks MDRD (S/P/Bld) [Vol rate/Area] 58 mL/min/{1.73_m2} Low >60 [facility] Comment on above: Order Comment: Order Date: 10/09/23Order Info: [id number] - CMPOrder Info: - LIPIDOrder Info: [id number] - TSHOrder Info: [id number] - T4F Result Comment: Non- GFR Calc Performed By: #### L 500.4050, L500.4100, L501.9520, L506.0400 ####[facility] [address] [place], [address] Globulin (S) [Mass/Vol] 3.6 g/dL Normal 2.2-4.2 [facility] Comment on above: Order Comment: Order Date: 10/09/23Order Info: [id number]- - CMPOrder Info: [id number] - LIPIDOrder Info: [id number] - TSHOrder Info: [id number] - T4F Performed By: #### L 500.4050, L500.4100, L501.9520, L506.0400 ####[facility] [address] [place], [address] Glucose [Mass/Vol] 89 mg/dL Normal 74-106 [facility] Comment on above: Order Comment: Order Date: 10/09/23Order Info: 86-1 - CMPOrder Info: [id number] - LIPIDOrder Info: 6-3 - TSHOrder Info: [id number] - T4F Performed By: #### L 500.4050, L500.4100, L501.9520, L506.0400 ####[facility] [address] [place], [address] Potassium [Moles/Vol] 4.2 mmol/L Normal 3.5-5.1 [facility] Comment on above: Order Comment: Order Date: 10/09/23Order Info: 86-1 - CMPOrder Info: [id number] - LIPIDOrder Info: [id number] - TSHOrder Info: [id number] - T4F Performed By: #### L 500.4050, L500.4100, L501.9520, L506.0400 ####[facility] [address] [place], [address] Sodium [Moles/Vol] 139 mmol/L Normal 136-145 [facility] Comment on above: Order Comment: Order Date: 10/09/23Order Info: 86-1 - CMPOrder Info: [id number] - LIPIDOrder Info: 6-3 - TSHOrder Info: [id number] - T4F Performed By: #### L 500.4050, L500.4100, L501.9520, L506.0400 ####[facility] [address] [place], [address] T PROT 6.9 g/dL Normal 6.4-8.2 [facility] Comment on above: Order Comment: Order Date: 10/09/23Order Info: 86-1 - CMPOrder Info: [id number] - LIPIDOrder Info: [id number] - TSHOrder Info: [id number] - T4F Performed By: #### L 500.4050, L500.4100, L501.9520, L506.0400 ####[facility] [address] [place], [address] Urea nitrogen [Mass/Vol] 22 mg/dL High 08-28 [facility] Comment on above: Order Comment: Order Date: 10/09/23Order Info: 86-1 - CMPOrder Info: [id number] - LIPIDOrder Info: 3 - TSHOrder Info: [id number] - T4F Performed By: #### L 500.4050, L500.4100, L501.9520, L506.0400 ####[facility] [address] [place], [address] Lipid Profileon 10-31-2023 Cholesterol [Mass/Vol] 151 mg/dL Normal 200 [facility] Comment on above: Order Comment: Order Date: 10/09/23Order Info: [id number]- - CMPOrder Info: [id number] - LIPIDOrder Info: [id number] - TSHOrder Info: [id number] - T4F Result Comment: <200 mg/dL Desirable 200-240 mg/dL Borderline >240 mg/dL High Risk Performed By: #### L 500.4050, L500.4100, L501.9520, L506.0400 ####[facility] [address] [place], [address] Cholesterol in HDL [Mass/Vol] 65 mg/dL Normal [facility] Comment on above: Order Comment: Order Date: 10/09/23Order Info: [id number] - CMPOrder Info: [id number] - LIPIDOrder Info: [id number] - TSHOrder Info: 7 - T4F Result Comment: The drugs N-Acetylcysteine and Metamizole may falsely depress this assay. Reference Range HDL <40 mg/dL Low HDL Cholesterol HDL >or= 60 mg/dL High HDL Cholesterol Performed By: #### L 500.4050, L500.4100, L501.9520, L506.0400 ####[facility] [address] [place], [address] Cholesterol in LDL [Mass/Vol] 63 mg/dL Normal 0-130 [facility] Comment on above: Order Comment: Order Date: 10/09/23Order Info: [id number] - CMPOrder Info: [id number] - LIPIDOrder Info: [id number] - TSHOrder Info: [id number] - T4F Performed By: #### L 500.4050, L500.4100, L501.9520, L506.0400 ####[facility] [address] [place], [address] Cholesterol in VLDL [Mass/Vol] 23 mg/dL Normal 5-40 [facility] Comment on above: Order Comment: Order Date: 10/09/23Order Info: [id number] - CMPOrder Info: [id number] - LIPIDOrder Info: 3 - TSHOrder Info: [id number] - T4F Performed By: #### L 500.4050, L500.4100, L501.9520, L506.0400 ####[facility] [address] [place], [address] Triglyceride [Mass/Vol] 117 mg/dL Normal [facility] Comment on above: Order Comment: Order Date: 10/09/23Order Info: [id number] - CMPOrder Info: [id number] - LIPIDOrder Info: 3 - TSHOrder Info: [id number] - T4F Result Comment: The drugs N-Acetylcysteine and Metamizole may falsely depress this assay. Serum Triglycerides Reference Interval Normal <150 mg/dL Borderline high 150 - 199 mg/dL High 200 - 499 mg/dL Very High > or = 500 mg/dL Performed By: #### L 500.4050, L500.4100, L501.9520, L506.0400 ####[facility] [address] [place], [address] T4 Free Directon 10-31-2023 T4 FREE DIRECT 1.30 ng/dL Normal 0.76-1.46 [facility] Comment on above: Order Comment: Order Date: 10/09/23Order Info: [id number] - CMPOrder Info: [id number] - LIPIDOrder Info: [id number] - TSHOrder Info: [id number] - T4F Performed By: #### L 500.4050, L500.4100, L501.9520, L506.0400 ####[facility] [address] [place], [place], [address] Thyroid Stim Hormone (TSH)on 10-31-2023 TSH 1.110 uIU/mL Normal 0.358-3.740 [facility] Comment on above: Order Comment: Order Date: 10/09/23Order Info: [id number] - CMPOrder Info: [id number] - LIPIDOrder Info: [id number] - TSHOrder Info: [id number] - T4F Performed By: #### L 500.4050, L500.4100, L501.9520, L506.0400 ####[facility] [address] [place], [place], [address] FLUORESCEIN ANGIOGRAPHY OU ( BOTH EYES), TRANSIT OS (LEFT EYE)on 10-16-[address] [facility] FUNDUS AUTOFLUORESCENCE PHOT O (FAF) OU (BOTH EYES)on 10-16-[address] [facility] FUNDUS PHOTOS OU (BOTH EYES) on 10-16-[address] [facility] No Panel Informationon 10-15 Radiology [facility]narrative[facility]GIOGRAPHY OU (BOTH EYE S)on 10-16-[address] [facility] Radiology Study observation [facility]narrative[facility] OCT MACULA CIRRUS OU (BOTH E YES)on 10-16-[address] [facility] Radiology Study observation (narrative) [facility] SYFOVRE (PEGCETACOPLAN) 15MG INTRAVITREAL INJECTION OS (LEFT EYE)Ordered By: Ronnie Odonnell on 10-16-[address] [facility] Work Phone: OTHER INTRAVITREAL INJECTION OS (LEFT EYE)Ordered By: Bobbi Ye on 09-04-[address] [facility] Work Phone: OTHER INTRAVITREAL INJECTION OS (LEFT EYE)Ordered By: Robyn Addison on 06-28-[address] [facility] Work Phone: Laboratory - Chemistry and C hemistry - challengeOrdered By: Yenifer Gordon on 05-27-2023 Cobalamin (Vitamin B12) [Mass/Vol] 771 pg/mL 211-911 [facility] No Panel InformationOrdered By: Yenifer Gordon on 05-27-2023 Vitamin D 25-Hydroxy 64.4 ng/mL [facility] Comment on above: Vitamin D 25(OH) Sta tus Range Deficiency <20 ng/mL (50nmol/L) Insufficiency 20 - 30 ng/mL (50 - 75 nmol/L) Sufficiency 30 - 100 ng/mL (75 - 250 nmol/L) Toxicity >100 ng/mL (>250 nmol/L) Serum or plasma thyroid stim ulating hormone (TSH) measurement (units/volume)Ordered By: Yenifer Gordon on 05-27-2023 TSH Qn 0.45 uIU/mL 0.358-3.74 [facility] Thin prep Papanicolaou smear with manual screeningOrdered By: Yenifer Gordon on 05-27-2023 Thin prep Papanicolaou smear with manual screening 1.36 ng/dL 0.76-1.46 [facility] Basophil percentageOrdered B y: Deacon Smith on 04-25-2023 Chloride [Moles/Vol] 107 mmol/L 98-107 [facility] Glucose [Mass/Vol] 91 mg/dL 74-106 [facility] Potassium [Moles/Vol] 4.1 mmol/L 3.5-5.1 [facility] Sodium [Moles/Vol] 141 mmol/L 136-145 [facility] Laboratory - Chemistry and C hemistry - challengeOrdered By: Deacon Smith on 04-25-2023 CO2 [Moles/Vol] 30.0 mmol/L 21.0-32.0 [facility] Urea nitrogen/Creatinine [Mass ratio] 23.1 mg/mg 10-20 [facility] No Panel InformationOrdered By: Deacon Smith on 04-25-2023 Estimated GFR (MDRD) Amer 67 mL/min >60 [facility] Comment on above: GFR Calc Estimated GFR (MDRD) Non-Af Amer 56 mL/min >60 [facility] Comment on above: Non- GFR Calc Serum or plasma calcium nina urement (mass/volume)Ordered By: Deacon Smith on 04-25-2023 Calcium [Mass/Vol] 9.2 mg/dL 8.5-10.1 [facility] Serum or plasma creatinine m easurement (mass/volume)Ordered By: Deacon Smith on 04-25-2023 Creatinine [Mass/Vol] 1.04 mg/dL 0.55-1.02 [facility] Comment on above: The validity of the calculated GFR & GFRAA in patients over 70 years has not been determined. Clinical correlation is essential. Serum or plasma thyroid stim ulating hormone (TSH) measurement (units/volume)Ordered By: Deacon Smith on 04-25-2023 TSH Qn 1.20 uIU/mL 0.358-3.74 [facility] Serum or plasma urea nitroge n measurement (mass/volume)Ordered By: Deacon Smith on 04-25-2023 Urea nitrogen [Mass/Vol] 24 mg/dL 7-18 [facility] Thin prep Papanicolaou smear with manual screeningOrdered By: Deacon Smith on 04-25-2023 Thin prep Papanicolaou smear with manual screening 4 5-15 [facility] CNPNon 02-12-2023 CNPN Telephone (OPHTMN) MARYLOU PIERCE ([id number]) 1950 F Date Time Provider Department 02/12/23 GREGORY MARRERO OPHJONAS During your visit today, we recorded the following information about you: Gregory Marrero, Research Coordinator 02/12/2023 11:13 AM Signed Returned patient's call regarding setting up transportation for 03/04/2023 visit. Informed patient transportation has been arranged with [email or web address] transportation. 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 Allergies As of Date: 02/12/2023 Noted Allergy Reaction SULFA (SULFONAMIDE ANTIBIOTICS) 11/29/2004 14 - Other: See Comments Comments: Nausea Date Reviewed: 01/14/2023 Reviewed by: Catia Perez MD - Fully Assessed Prescriptions as of 02/12/2023 - lisinopril (ZESTRIL) 20 mg tablet Take 20 mg by mouth once daily. - Cholecalciferol, Vitamin D3, 50 mcg (2,000 unit) cap Take 1 Each by mouth once daily. - multivit-min/ferrous fumarate (MULTI VITAMIN ORAL) Take by mouth. - OMEGA-3 FATTY ACIDS ORAL Take by mouth once daily. - vit C/E/Zn/coppr/lutein/ze axan (PRESERVISION AREDS-2 ORAL) Take by mouth twice daily. - OTC PRODUCT - conjugated estrogens (PREMARIN) vaginal cream Use as directed on vagina - Hydrochlorothiazide 12.5 mg capsule Take 1 capsule by mouth once daily. - levothyroxine (SYNTHROID) 88 mcg tablet one tablet every day, skip dose every other Saturday - calcium carbonate 600 mg-cholecalciferol 200 units (CALCIUM 600 + D,3,) 600 mg(1,500mg) -200 unit tab Take 1 tablet by mouth twice daily. - cqvgdzpp-kyk-lxes-FA-l utein (CENTRUM SILVER WOMEN) 8 mg iron-400 mcg-300 mcg tab Take 1 tablet by mouth once daily. 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 Chloride [Moles/Vol] 107 mmol/L 98-107 [facility] Cholesterol [Mass/Vol] 186 mg/dL <200 [facility] Comment on above: <200 mg/dL Desirable 200-240 mg/dL Borderline >240 mg/dL High Risk Glucose [Mass/Vol] 92 mg/dL 74-106 [facility] Potassium [Moles/Vol] 4.2 mmol/L 3.5-5.1 [facility] Protein [Mass/Vol] 7.1 g/dL 6.4-8.2 [facility] Sodium [Moles/Vol] 139 mmol/L 136-145 [facility] Triglyceride [Mass/Vol] 103 mg/dL <199 [facility] Comment on above: The drugs N-Acetylcy steine and Metamizole may falsely depress this assay.Serum Triglycerides Reference Interval Normal <150 mg/dL Borderline high 150 - 199 mg/dL High 200 - 499 mg/dL Very High > or = 500 mg/dL Laboratory - Chemistry and C hemistry - challengeOrdered By: Deacon Smith on 09-10-2022 ALP [Catalytic activity/Vol] 102 U/L 45-117 [facility] ALT [Catalytic activity/Vol] 27 U/L 13-56 [facility] CO2 [Moles/Vol] 29.0 mmol/L 21.0-32.0 [facility] [facility] T4 [Mass/Vol] 1.31 ng/dL 0.76-1.46 [facility] Globulin (S) [Mass/Vol] 3.6 g/dL 2.2-4.2 [facility] Urea nitrogen/Creatinine [Mass ratio] 28.0 mg/mg 10-20 [facility] Laboratory - Chemistry and C hemistry - challengeOrdered By: Cody Kim on 09-10-2022 Cobalamin (Vitamin B12) [Mass/Vol] 600 pg/mL 211-911 [facility] No Panel InformationOrdered By: Deacon Smith on 09-10-2022 Estimated GFR (MDRD) Amer 65 mL/min >60 [facility] Comment on above: GFR Calc Estimated GFR (MDRD) Non-Af Amer 54 mL/min >60 [facility] Comment on above: Non- GFR Calc Thyroid Stimulating Hormone (TSH) 0.71 uIU/mL 0.358-3.74 [facility] Vitamin D 25-Hydroxy 69.9 ng/mL [facility] Comment on above: Vitamin D 25(OH) Sta tus Range Deficiency <20 ng/mL (50nmol/L) Insufficiency 20 - 30 ng/mL (50 - 75 nmol/L) Sufficiency 30 - 100 ng/mL (75 - 250 nmol/L) Toxicity >100 ng/mL (>250 nmol/L) Serum or plasma albumin nina urement (mass/volume)Ordered By: Deacon Smith on 09-10-2022 Albumin [Mass/Vol] 3.5 g/dL 3.2-5.0 [facility] Serum or plasma albumin/glob ulin mass ratioOrdered By: Deacon Smith on 09-10-2022 Albumin/Globulin [Mass ratio] 1.0 {ratio} 0.9-2.4 [facility] Serum or plasma calcium nina urement (mass/volume)Ordered By: Deacon Smith on 09-10-2022 Calcium [Mass/Vol] 9.2 mg/dL 8.5-10.1 [facility] Serum or plasma cholesterol in HDL measurement (mass/volume)Ordered By: Deacon Smith on 09-10-2022 Cholesterol in HDL [Mass/Vol] 75 mg/dL >40 [facility] Comment on above: The drugs N-Acetylcy steine and Metamizole may falsely depress this assay. Reference Range HDL <40 mg/dL Low HDL Cholesterol HDL >or= 60 mg/dL High HDL Cholesterol Serum or plasma cholesterol in VLDL measurement (mass/volume)Ordered By: Deacon Smith on 09-10-2022 Cholesterol in VLDL [Mass/Vol] 21 mg/dL 5-40 [facility] Serum or plasma creatinine m easurement (mass/volume)Ordered By: Deacon Smith on 09-10-2022 Creatinine [Mass/Vol] 1.07 mg/dL 0.55-1.02 [facility] Comment on above: The validity of the calculated GFR & GFRAA in patients over 70 years has not been determined. Clinical correlation is essential. Serum or plasma low density lipoprotein (LDL) cholesterol measurement (mass/volume)Ordered By: Deacon Smith on 09-10-2022 Cholesterol in LDL [Mass/Vol] 90 mg/dL 0-130 [facility] Serum or plasma urea nitroge n measurement (mass/volume)Ordered By: Deacon Smith on 09-10-2022 Urea nitrogen [Mass/Vol] 30 mg/dL 7-18 [facility] Thin prep Papanicolaou smear with manual screeningOrdered By: Deacon Smith on 09-10-2022 Thin prep Papanicolaou smear with manual screening 28 U/L 15-37 [facility] Thin prep Papanicolaou smear with manual screening 3 5-15 [facility] Basophil percentageOrdered B y: Dr. Smith on 04-26-2022 Chloride [Moles/Vol] 105 mmol/L 98-107 [facility] Glucose [Mass/Vol] 92 mg/dL 74-106 [facility] Potassium [Moles/Vol] 4.0 mmol/L 3.5-5.1 [facility] Sodium [Moles/Vol] 140 mmol/L 136-145 [facility] Laboratory - Chemistry and C hemistry - challengeOrdered By: Dr. Smith on 04-26-2022 CO2 [Moles/Vol] 28.0 mmol/L 21.0-32.0 [facility] Free T4 [Mass/Vol] 1.30 ng/dL 0.76-1.46 [facility] Urea nitrogen/Creatinine [Mass ratio] 25.5 mg/mg 10-20 [facility] No Panel InformationOrdered By: Dr. Smith on 04-26-2022 Estimated GFR (MDRD) Amer 66 mL/min >60 [facility] Comment on above: GFR Calc Estimated GFR (MDRD) Non-Af Amer 55 mL/min >60 [facility] Comment on above: Non- GFR Calc Thyroid Stimulating Hormone (TSH) 1.35 uIU/mL 0.358-3.74 [facility] Serum or plasma calcium nina urement (mass/volume)Ordered By: Dr. Smith on 04-26-2022 Calcium [Mass/Vol] 9.2 mg/dL 8.5-10.1 [facility] Serum or plasma creatinine m easurement (mass/volume)Ordered By: Dr. Smith on 04-26-2022 Creatinine [Mass/Vol] 1.06 mg/dL 0.55-1.02 [facility] Comment on above: The validity of the calculated GFR & GFRAA in patients over 70 years has not been determined. Clinical correlation is essential. Serum or plasma urea nitroge n measurement (mass/volume)Ordered By: Dr. Smith on 04-26-2022 Urea nitrogen [Mass/Vol] 27 mg/dL 7-18 [facility] Thin prep Papanicolaou smear with manual screeningOrdered By: Dr. Smith on 04-26-2022 Thin prep Papanicolaou smear with manual screening 7 5-15 [facility] Basophil percentageOrdered B y: Dr. Smith on 03-02-2022 Bilirubin [Mass/Vol] 0.60 mg/dL 0.20-1.00 [facility] Comment on above: For patients on eltr ombopag therapy, use of Dimension [place] TBIL is not recommended. Chloride [Moles/Vol] 101 mmol/L 98-107 [facility] Cholesterol [Mass/Vol] 149 mg/dL <200 [facility] Comment on above: <200 mg/dL Desirable 200-240 mg/dL Borderline >240 mg/dL High Risk Glucose [Mass/Vol] 85 mg/dL 74-106 [facility] Potassium [Moles/Vol] 3.8 mmol/L 3.5-5.1 [facility] Protein [Mass/Vol] 6.8 g/dL 6.4-8.2 [facility] Sodium [Moles/Vol] 139 mmol/L 136-145 [facility] Triglyceride [Mass/Vol] 66 mg/dL <199 [facility] Comment on above: The drugs N-Acetylcy steine and Metamizole may falsely depress this assay.Serum Triglycerides Reference Interval Normal <150 mg/dL Borderline high 150 - 199 mg/dL High 200 - 499 mg/dL Very High > or = 500 mg/dL Laboratory - Chemistry and C hemistry - challengeOrdered By: Dr. Smith on 03-02-2022 ALP [Catalytic activity/Vol] 102 U/L 45-117 [facility] ALT [Catalytic activity/Vol] 28 U/L 13-56 [facility] CO2 [Moles/Vol] 29.0 mmol/L 21.0-32.0 [facility] Free T4 [Mass/Vol] 1.52 ng/dL 0.76-1.46 [facility] Globulin (S) [Mass/Vol] 3.4 g/dL 2.2-4.2 [facility] Urea nitrogen/Creatinine [Mass ratio] 25.5 mg/mg 10-20 [facility] No Panel InformationOrdered By: Dr. Smith on 03-02-2022 Estimated GFR (MDRD) Amer 63 mL/min >60 [facility] Comment on above: GFR Calc Estimated GFR (MDRD) Non-Af Amer 52 mL/min >60 [facility] Comment on above: Non- GFR Calc Thyroid Stimulating Hormone (TSH) 0.27 uIU/mL 0.358-3.74 [facility] Vitamin D 25-Hydroxy 65.6 ng/mL [facility] Comment on above: Vitamin D 25(OH) Sta tus Range Deficiency <20 ng/mL (50nmol/L) Insufficiency 20 - 30 ng/mL (50 - 75 nmol/L) Sufficiency 30 - 100 ng/mL (75 - 250 nmol/L) Toxicity >100 ng/mL (>250 nmol/L) Serum or plasma albumin nina urement (mass/volume)Ordered By: Dr. Smith on 03-02-2022 Albumin [Mass/Vol] 3.4 g/dL 3.2-5.0 [facility] Serum or plasma albumin/glob ulin mass ratioOrdered By: Dr. Smith on 03-02-2022 Albumin/Globulin [Mass ratio] 1.0 {ratio} 0.9-2.4 [facility] Serum or plasma calcium nina urement (mass/volume)Ordered By: Dr. Smith on 03-02-2022 Calcium [Mass/Vol] 8.9 mg/dL 8.5-10.1 [facility] Serum or plasma cholesterol in HDL measurement (mass/volume)Ordered By: Dr. Smith on 03-02-2022 Cholesterol in HDL [Mass/Vol] 66 mg/dL >40 [facility] Comment on above: The drugs N-Acetylcy steine and Metamizole may falsely depress this assay. Reference Range HDL <40 mg/dL Low HDL Cholesterol HDL >or= 60 mg/dL High HDL Cholesterol Serum or plasma cholesterol in VLDL measurement (mass/volume)Ordered By: Dr. Smith on 03-02-2022 Cholesterol in VLDL [Mass/Vol] 13 mg/dL 5-40 [facility] Serum or plasma creatinine m easurement (mass/volume)Ordered By: Dr. Smith on 03-02-2022 Creatinine [Mass/Vol] 1.10 mg/dL 0.55-1.02 [facility] Comment on above: The validity of the calculated GFR & GFRAA in patients over 70 years has not been determined. Clinical correlation is essential. Serum or plasma low density lipoprotein (LDL) cholesterol measurement (mass/volume)Ordered By: Dr. Smith on 03-02-2022 Cholesterol in LDL [Mass/Vol] 70 mg/dL 0-130 [facility] Serum or plasma urea nitroge n measurement (mass/volume)Ordered By: Dr. Smith on 03-02-2022 Urea nitrogen [Mass/Vol] 28 mg/dL 7-18 [facility] Thin prep Papanicolaou smear with manual screeningOrdered By: Dr. Smith on 03-02-2022 Thin prep Papanicolaou smear with manual screening 31 U/L 15-37 [facility] Thin prep Papanicolaou smear with manual screening 9 5-15 [facility] Culture, urineon 06-16-2021 Bacteria identified Cx Nom (U) Positive [facility] Work Phone: Laboratory - Chemistry and C hemistry - challengeon 06-16-2021 Bilirubin Ql (U) Negative [facility] Work Phone: Glucose Ql (U) Negative [facility] Work Phone: Ketones Ql (U) Small (15+) [facility] Work Phone: Specific gravity (U) [Rel density] 1.010 [facility] Work Phone: Laboratory - Hematology and Cell countson 06-16-2021 Hemoglobin Ql (U) Negative [facility] Work Phone: Laboratory - Specimen inform ationon 06-16-2021 Clarity (U) Clear [facility] Work Phone: Color (U) STRAW [facility] Work Phone: Laboratory - Urinalysison Nitrite Ql (U) Negative [facility] Work Phone: Protein Ql (U) Negative [facility] Work Phone: No Panel Informationon 06-16 Urine Leukocytes Positive [facility] Work Phone: Urine Non-Hemolyzed Blood Large [facility] Work Phone: Basophil percentageon 2021 Chloride [Moles/Vol] 105 mmol/L 98-107 [facility] Work Phone: Cholesterol [Mass/Vol] 159 mg/dL <200 [facility] Work Phone: Comment on above: <200 mg/dL Desirable 200-240 mg/dL Borderline >240 mg/dL High Risk Glucose [Mass/Vol] 82 mg/dL 74-106 [facility] Work Phone: Potassium [Moles/Vol] 3.7 mmol/L 3.5-5.1 [facility] Work Phone: Sodium [Moles/Vol] 142 mmol/L 136-145 [facility] Work Phone: Triglyceride [Mass/Vol] 94 mg/dL [facility] Work Phone: Comment on above: The drugs N-Acetylcy steine and Metamizole may falsely depress this assay.Serum Triglycerides Reference Interval Normal <150 mg/dL Borderline high 150 - 199 mg/dL High 200 - 499 mg/dL Very High > or = 500 mg/dL Laboratory - Chemistry and C hemistry - challengeon 03-22-2021 CO2 [Moles/Vol] 30.0 mmol/L 21.0-32.0 [facility] Work Phone: Urea nitrogen/Creatinine [Mass ratio] 26.0 mg/mg 10-20 [facility] Work Phone: No Panel Informationon 03-22 Estimated GFR (MDRD) Amer 78 mL/min >60 [facility] Work Phone: Comment on above: GFR Calc Estimated GFR (MDRD) Non-Af Amer 64 mL/min >60 [facility] Work Phone: Comment on above: Non- GFR Calc Vitamin D 25-Hydroxy 65.0 ng/mL [facility] Work Phone: Comment on above: Vitamin D 25(OH) Sta tus Range Deficiency <20 ng/mL (50nmol/L) Insufficiency 20 - 30 ng/mL (50 - 75 nmol/L) Sufficiency 30 - 100 ng/mL (75 - 250 nmol/L) Toxicity >100 ng/mL (>250 nmol/L) Serum or plasma calcium nina urement (mass/volume)on 03-22-2021 Calcium [Mass/Vol] 8.9 mg/dL 8.5-10.1 [facility] Work Phone: Serum or plasma cholesterol in HDL measurement (mass/volume)on 03-22-2021 Cholesterol in HDL [Mass/Vol] 64 mg/dL [facility] Work Phone: Comment on above: The drugs N-Acetylcy steine and Metamizole may falsely depress this assay. Reference Range HDL <40 mg/dL Low HDL Cholesterol HDL >or= 60 mg/dL High HDL Cholesterol Serum or plasma cholesterol in VLDL measurement (mass/volume)on 03-22-2021 Cholesterol in VLDL [Mass/Vol] 19 mg/dL 5-40 [facility] Work Phone: Serum or plasma creatinine m easurement (mass/volume)on 03-22-2021 Creatinine [Mass/Vol] 0.92 mg/dL 0.55-1.02 [facility] Work Phone: Comment on above: The validity of the calculated GFR & GFRAA in patients over 70 years has not been determined. Clinical correlation is essential. Serum or plasma low density lipoprotein (LDL) cholesterol measurement (mass/volume)on 03-22-2021 Cholesterol in LDL [Mass/Vol] 76 mg/dL 0-130 [facility] Work Phone: Serum or plasma urea nitroge n measurement (mass/volume)on 03-22-2021 Urea nitrogen [Mass/Vol] 24 mg/dL 7-18 [facility] Work Phone: Thin prep Papanicolaou smear with manual screeningon 03-22-2021 Thin prep Papanicolaou smear with manual screening 7 5-15 [facility] Work Phone: Office Visiton 03-15-2016 Protein mass conc Done Invalid Interpretation Code [facility] Work Phone: [phone] 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 Left ventricular Ejection fraction 55 % Invalid Interpretation Code [facility] Work Phone: [phone] Lab Report: Basic Metabolic Profile (BMP)on 02-22-2016 Anion gap 4 molar conc 6 Invalid Interpretation Code 5-15 [facility] Work Phone: [phone] Anion gap molar conc 6 mmol/L 5-15 [facility] Work Phone: [phone] Calcium mass conc 8.8 mg/dL Invalid Interpretation Code 8.5-10.1 [facility] Work Phone: [phone] Chloride molar conc 107 mmol/L Invalid Interpretation Code 98-107 [facility] Work Phone: [phone] CO2 ppres (BldV) 29.0 mmol/L Invalid Interpretation Code 21.0-32.0 [facility] Work Phone: [phone] Creatinine mass conc 0.90 mg/dL Invalid Interpretation Code 0.55-1.02 [facility] Work Phone: [phone] EST GFR - AA 82 mL/min Invalid Interpretation Code >60 [facility] Work Phone: GFR/1.73 sq M predicted among non-blacks MDRD vol rate/area (S/P/Bld) 68 mL/min/{1.73_m2} Invalid Interpretation Code >60 [facility] Work Phone: [phone] Glucose mass conc 100 mg/dL Invalid Interpretation Code 70-110 [facility] Work Phone: [phone] Potassium molar conc 3.8 mmol/L Invalid Interpretation Code 3.5-5.1 [facility] Work Phone: [phone] Sodium molar conc 142 mmol/L Invalid Interpretation Code 136-145 [facility] Work Phone: [phone] Urea nitrogen mass conc 22 mg/dL High 7-18 [facility] Work Phone: [phone] Urea nitrogen/Creatinine mass ratio 24.6 RATIO High 10-20 [facility] Work Phone: [phone] Lab Report: CBC-Complete Blo od Cnt No Diffon 02-22-2016 Erythrocyte distribution width Auto Ratio (RBC) 41.3 fL Invalid Interpretation Code 35.1-43.9 [facility] Work Phone: [phone] Erythrocyte distribution width Auto Ratio (RBC) 12.6 % Invalid Interpretation Code 11.6-14.6 [facility] Work Phone: [phone] Erythrocyte distribution width Ratio (RBC) 12.6 % 11.6-14.6 [facility] Work Phone: [phone] Erythrocyte distribution width Ratio (RBC) 41.3 fL 35.1-43.9 [facility] Work Phone: [phone] Hematocrit Auto Volume Fraction (Bld) 41.4 % Invalid Interpretation Code 37-47 [facility] Work Phone: [phone] Hematocrit Volume Fraction (Bld) 41.4 % 37-47 [facility] Work Phone: [phone] Hemoglobin mass conc (Bld) 14.4 g/dL Invalid Interpretation Code 12.0-15.0 [facility] Work Phone: [phone] MCH Auto Entitic mass (RBC) 31.4 pg Invalid Interpretation Code 27.0-32.0 [facility] Work Phone: [phone] MCH Entitic mass (RBC) 31.4 pg 27.0-32.0 [facility] Work Phone: [phone] MCHC Auto mass conc (RBC) 34.8 G/GL Invalid Interpretation Code 32-36 [facility] Work Phone: [phone] MCHC mass conc (RBC) 34.8 G/GL 32-[address] [facility] Work Phone: [phone] MCV Auto Entitic volume (RBC) 90.2 fL Invalid Interpretation Code 81-99 [facility] Work Phone: [phone] MCV Entitic volume (RBC) 90.2 fL 81-99 [facility] Work Phone: [phone] Platelet mean volume Entitic volume (Bld) 9.8 fL 6.2-12.0 [facility] Work Phone: [phone] Platelet mean volume Kalin-Alonso Entitic volume (Bld) 9.8 fL Invalid Interpretation Code 6.2-12.0 [facility] Work Phone: [phone] Platelets #/vol (Bld) 223 10*3/mm3 150-450 [facility] Work Phone: [phone] Platelets Auto #/vol (Bld) 223 10*3/mm3 Invalid Interpretation Code 150-450 [facility] Work Phone: [phone] RBC #/vol (Bld) 4.59 10*6/uL 4.2-5.4 [facility] Work Phone: [phone] RBC Auto #/vol (Bld) 4.59 10*6/uL Invalid Interpretation Code 4.2-5.4 [facility] Work Phone: [phone] WBC #/vol (Bld) 5.5 10*3/uL 4.4-11.0 [facility] Work Phone: [phone] WBC Auto #/vol (Bld) 5.5 10*3/uL Invalid Interpretation Code 4.4-11.0 [facility] Work Phone: [phone] Lab Report: Prothrombin Time w/INRon 02-22-2016 INR Coag RelTime (PPP) 1.0 {INR} Invalid Interpretation Code [facility] Work Phone: [phone] Prothrombin time (PT) Coag time (PPP) 12.6 s Invalid Interpretation Code 11.7-14.9 [facility] Work Phone: [phone] Lab Report: Free T3on 2016 T3 free mass conc 2.2 pg/mL Invalid Interpretation Code 2.18-3.98 [facility] Work Phone: [phone] Lab Report: T4 Free Directon 02-17-2016 T4 free mass conc 1.25 ng/dL Invalid Interpretation Code 0.76-1.46 [facility] Work Phone: [phone] Lab Report: Thyroid Stim Hor catherine (TSH)on 02-17-2016 Thyrotropin Qn 2.10 u[iU]/mL Invalid Interpretation Code 0.358-3.74 [facility] Work Phone: [phone] Office Visit: New patient madelyn carroll 02-16-2016 Adult depression screening assessment Adolescent depression screening assessment Invalid Interpretation Code [facility] Work Phone: [phone] PHQ-9 quick depression assessment panel [Reported.PHQ] Adult depression screening assessment Invalid Interpretation Code [facility] Work Phone: [phone] Tobacco smoking status NHIS Never Invalid Interpretation Code [facility] Work Phone: [phone] Tobacco smoking status NHIS Never smoker Invalid Interpretation Code [facility] Work Phone: [phone] Office Visit: New patient madelyn carroll 05-13-2015 General categories Cyto stain Interp (Cervical or vaginal smear or scraping) Normal Invalid Interpretation Code [facility] Work Phone: [phone] Office Visit: New patient madelyn carroll 05-12-2014 MG Breast screening Normal Bilateral Invalid Interpretation Code [facility] Work Phone: [phone] Office Visit: New patient madelyn carroll 03-15-2014 Protein mass conc Colonoscopy (procedure) Invalid Interpretation Code [facility] Work Phone: [phone] No Panel Information [facility] Vital Signs Date Time Vital Sign Value Performing Clinician Gideon diop 08-04-2024 08:53-0400 Body height 160.[address] Robe Smith MD Work Phone: [facility] 08-04-2024 08:53-0400 Body mass index (BMI) [Ratio] 29.4 kg/m2 Dr. Robe Smith MD Work Phone: [facility] 08-04-2024 08:53-0400 Body weight 75.[address] Robe Smith MD Work Phone: 4(439)671-822549 [place] [address] 08-04-2024 08:53-0400 Diastolic blood pressure 76 mm[Hg] Dr. Robe Smith MD Work Phone: 5(565)381-287149 [place] [address] 08-04-2024 08:53-0400 Heart rate 71 /min Dr. Robe Smith MD Work Phone: 7(985)737-388549 [place] [address] 08-04-2024 08:53-0400 Respiratory rate 16 /min Dr. Robe Smith MD Work Phone: 9(218)174-420049 [place] [address] 08-04-2024 08:53-0400 Systolic blood pressure 112 mm[Hg] Dr. Robe Smith MD Work Phone: 2(815)354-579349 [place] [address] 06-02-2024 08:27-0400 Body mass index (BMI) [Ratio] 29.4 kg/m2 Dr. Robe Smith MD Work Phone: 8(389)056-688549 [place] [address] 06-02-2024 08:27-0400 Body weight 75.[address] Robe Smith MD Work Phone: 5(942)361-048170 [place] [address] 06-02-2024 08:27-0400 Diastolic blood pressure 74 mm[Hg] Dr. Robe Smith MD Work Phone: 1(487)761-606649 [place] [address] 06-02-2024 08:27-0400 Heart rate 64 /min Dr. Robe Smith MD Work Phone: 6(091)463-010749 [place] [address] 06-02-2024 08:27-0400 SaO2% (BldA) [Mass fraction] 98 % Dr. Robe Smith MD Work Phone: 9(001)777-368170 [place] [address] 06-02-2024 08:27-0400 Systolic blood pressure 124 mm[Hg] Dr. Robe Smith MD Work Phone: [facility] 04-22-2024 10:45-0400 Body temperature 97.4 [degF] Dr. Robe Smith MD Work Phone: 5(612)256-442670 [place] [address] 04-22-2024 10:45-0400 Diastolic blood pressure 64 mm[Hg] Dr. Robe Smith MD Work Phone: 1(188)512-034270 [place] [address] 04-22-2024 10:45-0400 Heart rate 60 /min Dr. Robe Smith MD Work Phone: 6(164)974-868449 [place] [address] 04-22-2024 10:45-0400 Respiratory rate 16 /min Dr. Robe Smith MD Work Phone: 4(438)555-462949 [place] [address] 04-22-2024 10:45-0400 SaO2% (BldA) [Mass fraction] 98 % Dr. Robe Smith MD Work Phone: 9(675)387-631749 [place] [address] 04-22-2024 10:45-0400 Systolic blood pressure 103 mm[Hg] Dr. Robe Smith MD Work Phone: 6(787)244-198949 [place] [address] 04-22-2024 08:08-0400 Body height 160.[address] Robe Smith MD Work Phone: 1(242)114-798049 [place] [address] 04-22-2024 08:08-0400 Body mass index (BMI) [Ratio] 28.5 kg/m2 Dr. Robe Smith MD Work Phone: 0(562)318-194770 [place] [address] 04-22-2024 08:08-0400 Body weight [address] Robe Smith MD Work Phone: 1(235)743-092249 [place] [address] 02-19-2024 13:50-0500 Body mass index (BMI) [Ratio] 29.2 kg/m2 Dr. Robe Smith MD Work Phone: 7(827)525-876549 [place] [address] 02-19-2024 13:50-0500 Body weight 74.[address] Robe Smith MD Work Phone: [facility] 02-19-2024 13:50-0500 Diastolic blood pressure 87 mm[Hg] Dr. Robe Smith MD Work Phone: [facility] 02-19-2024 13:50-0500 Respiratory rate 16 /min Dr. Robe Smith MD Work Phone: [facility] 02-19-2024 13:50-0500 Systolic blood pressure 138 mm[Hg] Dr. Robe Smith MD Work Phone: [facility] 02-10-2024 11:21-0500 Body weight 74.[address] Robe Smith MD Work Phone: 5(509)608-006070 [place] [address] 02-10-2024 11:10-0500 Body mass index (BMI) [Ratio] 29.2 kg/m2 Dr. Robe Smith MD Work Phone: [facility] 02-03-2024 13:57-0500 Body mass index (BMI) [Ratio] 29.2 kg/m2 Dr. Robe Smith MD Work Phone: [facility] 02-03-2024 13:57-0500 Body weight 74.[address] Robe Smith MD Work Phone: [facility] 02-03-2024 13:57-0500 Diastolic blood pressure 69 mm[Hg] Dr. Robe Smith MD Work Phone: [facility] 02-03-2024 13:57-0500 Heart rate 73 /min Dr. Robe Smith MD Work Phone: [facility] 02-03-2024 13:57-0500 Respiratory rate 18 /min Dr. Robe Smith MD Work Phone: [facility] 02-03-2024 13:57-0500 Systolic blood pressure 114 mm[Hg] Dr. Robe Smith MD Work Phone: [facility] 01-27-2024 12:47-0500 Body mass index (BMI) [Ratio] 28.9 kg/m2 Dr. Robe Smith MD Work Phone: 3(216)611-107970 [place] [address] 01-27-2024 12:47-0500 Body weight 74.[address] Robe Smith MD Work Phone: 7(524)261-021770 [place] [address] 01-27-2024 12:47-0500 Diastolic blood pressure 76 mm[Hg] Dr. Robe Smith MD Work Phone: 3(600)491-730770 [place] [address] 01-27-2024 12:47-0500 Systolic blood pressure 114 mm[Hg] Dr. Robe Smith MD Work Phone: 8(351)986-624849 [place] [address] 01-15-2024 08:35-0500 Body mass index (BMI) [Ratio] 29 kg/m2 Dr. Robe Smith MD Work Phone: 7(165)182-240849 [place] [address] 01-15-2024 08:35-0500 Body weight 74.[address] Robe Smith MD Work Phone: 6(770)576-593349 [place] [address] 01-15-2024 08:35-0500 Diastolic blood pressure 78 mm[Hg] Dr. Robe Smith MD Work Phone: 5(308)633-866449 [place] [address] 01-15-2024 08:35-0500 Heart rate 77 /min Dr. Robe Smith MD Work Phone: 3(306)116-955149 [place] [address] 01-15-2024 08:35-0500 Respiratory rate 17 /min Dr. Robe Smith MD Work Phone: 0(603)607-937549 [place] [address] 01-15-2024 08:35-0500 SaO2% (BldA) [Mass fraction] 98 % Dr. Robe Smith MD Work Phone: 0(351)440-065149 [place] [address] 01-15-2024 08:35-0500 Systolic blood pressure 111 mm[Hg] Dr. Robe Smith MD Work Phone: [phone] [place] [address] 03-11-2023 10:35-0500 Body height 160.[address] Deacon Smith Work Phone: [phone] [place] [address] 03-11-2023 10:31-0500 Body mass index (BMI) [Ratio] 28.7 kg/m2 Dr. Deacon Smith Work Phone: [facility] 03-11-2023 10:31-0500 Body weight 73.[address] Deacon Smith Work Phone: [facility] 03-11-2023 10:31-0500 Diastolic blood pressure 68 mm[Hg] Dr. Deacon Smith Work Phone: [facility] 03-11-2023 10:31-0500 Systolic blood pressure 114 mm[Hg] Dr. Deacon Smith Work Phone: [phone] [place] [address] 02-19-2023 09:15-0500 Body mass index (BMI) [Ratio] 28.8 kg/m2 Dr. Deacon Smith Work Phone: [phone] [place] [address] 02-19-2023 09:15-0500 Body weight 73.[address] Deacon Smith Work Phone: [facility] 02-19-2023 09:15-0500 Diastolic blood pressure 72 mm[Hg] Dr. Deacon Smith Work Phone: [facility] 02-19-2023 09:15-0500 Systolic blood pressure 112 mm[Hg] Dr. Deacon Smith Work Phone: [facility] 01-23-2023 10:49-0500 Body height 160.[address] Deacon Smith Work Phone: [facility] 01-23-2023 10:49-0500 Body mass index (BMI) [Ratio] 29 kg/m2 Dr. Deacon Smith Work Phone: [facility] 01-23-2023 10:49-0500 Body weight 74.[address] Deacon Smith Work Phone: [facility] 01-23-2023 10:49-0500 Diastolic blood pressure 80 mm[Hg] Dr. Deacon Smith Work Phone: [facility] 01-23-2023 10:49-0500 Systolic blood pressure 126 mm[Hg] Dr. Deacon Smith Work Phone: [facility] 06-07-2022 08:22-0400 Body height 160.[address] Deacon Smith Work Phone: [facility] 06-07-2022 08:22-0400 Body mass index (BMI) [Ratio] 29.5 kg/m2 Dr. Deacon Smith Work Phone: [facility] 06-07-2022 08:22-0400 Body temperature 99.1 [degF] Dr. Deacon Smith Work Phone: [facility] 06-07-2022 08:22-0400 Body weight 75.[address] Deacon Smith Work Phone: [facility] 06-07-2022 08:22-0400 Diastolic blood pressure 82 mm[Hg] Dr. Deacon Smith Work Phone: [facility] 06-07-2022 08:22-0400 Heart rate 63 /min Dr. Deacon Smith Work Phone: [facility] 06-07-2022 08:22-0400 Respiratory rate 16 /min Dr. Deacon Smith Work Phone: [facility] 06-07-2022 08:22-0400 SaO2% (BldA) [Mass fraction] 97 % Dr. Deacon Smith Work Phone: [facility] 06-07-2022 08:22-0400 Systolic blood pressure 131 mm[Hg] Dr. Deacon Smith Work Phone: [facility] 05-31-2022 08:23-0400 Body mass index (BMI) [Ratio] 29.7 kg/m2 Dr. Deacon Smith Work Phone: [facility] 05-31-2022 08:23-0400 Body weight 76.[address] Deacon Smith Work Phone: [facility] 05-31-2022 08:23-0400 Diastolic blood pressure 80 mm[Hg] Dr. Deacon Smith Work Phone: [facility] 05-31-2022 08:23-0400 Heart rate 68 /min Dr. Deacon Smith Work Phone: [facility] 05-31-2022 08:23-0400 Respiratory rate 18 /min Dr. Deacon Smith Work Phone: [facility] 05-31-2022 08:23-0400 SaO2% (BldA) [Mass fraction] 98 % Dr. Deacon Smith Work Phone: [facility] 05-31-2022 08:23-0400 Systolic blood pressure 137 mm[Hg] Dr. Deacon Smith Work Phone: [facility] 04-25-2022 08:56-0400 Body temperature 97.5 [degF] Arely Murry MD Work Phone: [facility] 04-25-2022 08:56-0400 Diastolic blood pressure 81 mm[Hg] Arely Murry MD Work Phone: [facility] 04-25-2022 08:56-0400 Heart rate 69 /min Arely Murry MD Work Phone: [facility] 04-25-2022 08:56-0400 Respiratory rate 10 /min Arely Murry MD Work Phone: [facility] 04-25-2022 08:56-0400 Systolic blood pressure 140 mm[Hg] Arely Murry MD Work Phone: [facility] 01-10-2022 10:55-0500 Body temperature 97.2 [degF] Arely Murry MD Work Phone: [facility] 01-10-2022 10:55-0500 Diastolic blood pressure 85 mm[Hg] Arely Murry MD Work Phone: [facility] 01-10-2022 10:55-0500 Heart rate 62 /min Arely Murry MD Work Phone: [facility] 01-10-2022 10:55-0500 Respiratory rate 13 /min Arely Murry MD Work Phone: [facility] 01-10-2022 10:55-0500 Systolic blood pressure 159 mm[Hg] Arely Murry MD Work Phone: [facility] 01-03-2022 08:38-0500 Body height 160.[address] Deacon Smith Work Phone: [facility] 01-03-2022 08:33-0500 Body mass index (BMI) [Ratio] 29.7 kg/m2 Dr. Deacon Smith Work Phone: [facility] 01-03-2022 08:33-0500 Body weight 76.[address] Deacon Smith Work Phone: [facility] 01-03-2022 08:33-0500 Diastolic blood pressure 82 mm[Hg] Dr. Deacon Smith Work Phone: [facility] 01-03-2022 08:33-0500 Systolic blood pressure 130 mm[Hg] Dr. Deacon Smith Work Phone: [facility] 07-14-2021 09:58-0400 Body temperature 97.5 [degF] Arely Murry MD Work Phone: [facility] 07-14-2021 09:58-0400 Diastolic blood pressure 104 mm[Hg] Arely Murry MD Work Phone: [facility] 07-14-2021 09:58-0400 Heart rate 89 /min Arely Murry MD Work Phone: [facility] 07-14-2021 09:58-0400 Respiratory rate 12 /min Arely Murry MD Work Phone: [facility] 07-14-2021 09:58-0400 Systolic blood pressure 123 mm[Hg] Arely Murry MD Work Phone: [facility] 06-16-2021 13:13-0400 Body height 160.[address] Deacon Smith Work Phone: [facility] Work Phone: 06-16-2021 13:13-0400 Body mass index (BMI) [Ratio] 29.9 kg/m2 Dr. Deacon Smith Work Phone: [facility] Work Phone: 06-16-2021 13:13-0400 Body weight 76.[address] Deacon Smith Work Phone: [facility] Work Phone: 05-17-2021 11:38-0400 Body temperature 97.9 [degF] Arely Murry MD Work Phone: [facility] 05-17-2021 11:38-0400 Diastolic blood pressure 78 mm[Hg] Arely Murry MD Work Phone: [facility] 05-17-2021 11:38-0400 Heart rate 67 /min Arely Murry MD Work Phone: [facility] 05-17-2021 11:38-0400 Respiratory rate 16 /min Arely Murry MD Work Phone: [facility] 05-17-2021 11:38-0400 Systolic blood pressure 132 mm[Hg] Arely Murry MD Work Phone: [facility] 04-27-2021 08:37-0400 Body height 160.[address] Deacon Smith Work Phone: [facility] Work Phone: 04-27-2021 08:37-0400 Body mass index (BMI) [Ratio] 29.7 kg/m2 Dr. Deacon Smith Work Phone: [facility] Work Phone: 04-27-2021 08:37-0400 Body temperature 98.1 [degF] Dr. Deacon Smith Work Phone: [facility] Work Phone: 04-27-2021 08:37-0400 Body weight 76.[address] Deacon Smith Work Phone: [facility] Work Phone: 04-27-2021 08:37-0400 Diastolic blood pressure 69 mm[Hg] Dr. Deacon Smith Work Phone: [facility] Work Phone: 04-27-2021 08:37-0400 Heart rate 61 /min Dr. Deacon Smith Work Phone: [facility] Work Phone: 04-27-2021 08:37-0400 Respiratory rate 18 /min Dr. Deacon Smith Work Phone: [facility] Work Phone: 04-27-2021 08:37-0400 SaO2% (BldA) [Mass fraction] 99 % Dr. Deacon Smith Work Phone: [facility] Work Phone: 04-27-2021 08:37-0400 Systolic blood pressure 122 mm[Hg] Dr. Deacon Smith Work Phone: [facility] Work Phone: 03-15-2016 15:14-0500 BMI (Body Mass Index) 29.59 kg/m2 [facility] Work Phone: 03-15-2016 15:14-0500 BP Diastolic 60 mm[Hg] [facility] Work Phone: 03-15-2016 15:14-0500 BP Systolic 100 mm[Hg] [facility] Work Phone: 03-15-2016 15:14-0500 BSA (Body Surface Area) 1.82 m2 [facility] Work Phone: 03-15-2016 15:14-0500 Pulse (Heart Rate) 72 /min [facility] Work Phone: 03-15-2016 15:14-0500 Respiratory Rate 20 /min [facility] Work Phone: 03-15-2016 15:14-0500 Weight 76.98 kg [facility] Work Phone: 02-16-2016 11:08-0500 Body Temperature 97.59 [degF] [facility] Work Phone: 02-16-2016 11:08-0500 Body Temperature 97.6 [degF] [facility] Work Phone: 02-16-2016 11:08-0500 Height 161.29 cm [facility] Work Phone: 02-16-2016 11:08-0500 Pulse Oximetry 98 % [facility] Work Phone: 02-16-2016 11:08-0500 Weight 74.91 kg [facility] Work Phone: 02-15-2016 16:04-0500 Height 161.29 cm [facility] Work Phone: Encounters Encounter Date Encounter Type Care Provider Facility Start: 09-08-2024 End: 09-08-[address] Robe Smith MD Work Phone: -[facility] Start: 09-08-2024 End: 09-08-[address] Cody Kim MD -[facility] Work Phone: Start: 09-08-2024 End: 09-08-2024 ambulatory Cody Kim Facility:[facility] Start: 08-10-2024 End: 08-10-[address] Robe Smith MD Work Phone: -[facility] Start: 08-10-2024 End: 08-10-[address] Billy Denton MD -[facility] Work Phone: Start: 08-04-2024 End: 08-04-2024 Patient encounter procedure Jeri Rasheed [place] -[facility] Work Phone: Start: 08-04-2024 End: 08-04-[address] Robe Smith MD Work Phone: [facility] Work Phone: Start: 06-02-2024 End: 06-02-[address] Cody Kim MD -[facility] Work Phone: Start: 06-02-2024 End: 06-02-2024 ambulatory Robe Smith Facility:[facility] Start: 05-11-2024 End: 05-11-2024 ambulatory Billy Denton Facility:[facility] Start: 05-11-2024 End: 05-11-[address] Billy Denton MD -[facility] Work Phone: Start: 04-24-2024 End: 04-24-[address] Robe Smith MD Work Phone: [facility] Work Phone: Start: 04-24-2024 End: 04-24-[address] Robe Smith MD -Laboratory Work Phone: Start: 04-24-2024 End: 04-24-[facility] Start: 04-22-2024 Non-patient / Non-visit Dr. Isacc Patel MD -[facility] Start: 04-22-2024 End: 04-22-2024 Admission to same day surgery center Dr. Loretta Patel MD -Endoscopy Work Phone: Start: 04-22-2024 End: 04-22-[address] Robe Smith MD Work Phone: [facility] Work Phone: Start: 02-19-2024 End: 02-19-[address] Loretta Patel MD -[facility] Work Phone: Start: 02-19-2024 End: 02-19-[address] Billy Denton MD -[facility] Work Phone: Start: 02-19-2024 End: 02-19-2024 [facility] Start: 02-10-2024 End: 02-10-2024 Admission to same day surgery center Dr. Billy Denton MD -[employer]Special [facility] Work Phone: Start: 02-10-2024 End: 02-10-2024 ambulatory [facility] Facility:[facility] Start: 02-06-2024 End: 02-06-2024 Patient encounter procedure Henrietta Bar [facility] Work Phone: Start: 02-06-2024 End: 02-06-2024 ambulatory Henrietta Bar Facility:[facility] Start: 02-03-2024 End: 02-03-2024 Patient encounter procedure Merna Angelo -[facility] Work Phone: Start: 02-03-2024 End: 02-03-2024 ambulatory Merna Angelo Facility:[facility] Start: 02-03-2024 End: 02-03-2024 ambulatory Tyronfay Smith Facility:[facility] Start: 01-27-2024 End: 01-27-2024 Patient encounter status Henrietta Bar [facility] Start: 01-27-2024 End: 01-27-2024 ambulatory Robe Smith Facility:[facility] Start: 01-27-2024 End: 01-27-2024 Patient encounter procedure Henrietta Bar GRID MOLDER-C -[facility] Work Phone: Start: 01-27-2024 End: 01-27-2024 ambulatory Henriettamartin Bar Facility:[facility] Start: 01-15-2024 End: 01-15-[address] Loretta Patel MD -[facility] Work Phone: Start: 01-15-2024 End: 01-15-2024 ambulatory Tyronfay Shearermunira Facility:[facility] Start: 12-04-2023 End: 12-04-2023 [facility] Start: 12-04-2023 End: 12-04-2023 [facility] Start: 11-25-2023 End: 11-25-2023 Telephone encounter Gregory Marrero Research Coordinator Ophthalmology Start: 10-31-2023 End: 10-31-2023 [facility] Start: 10-16-2023 End: 10-16-2023 ambulatory ARELY PLATA Facility:[facility] Start: 10-16-2023 End: 10-16-2023 Patient encounter procedure Arely Plata MD Work Phone: Ophthalmology Comment on above: Advanced nonexudativ e age-related macular degeneration of both eyes with subfoveal involvement (Primary Dx); Nuclear senile cataract of both eyes Start: 09-04-2023 End: 09-04-2023 ambulatory ARELY PLATA Facility:[facility] Start: 09-04-2023 End: 09-04-2023 Patient encounter procedure Arely Plata MD Work Phone: Ophthalmology Comment on above: 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 Robe Smith Work Phone: [facility] Work Phone: Start: 05-27-2023 End: 05-27-[address] Robe Smith Work Phone: [facility]-Laboratory Work Phone: Start: 05-06-2023 Orders Only Gregory chacon Research Coordinator Ophthalmology Comment on above: Advanced nonexudativ e age-related macular degeneration of both eyes with subfoveal involvement (Primary Dx) Start: 04-29-2023 End: 04-29-2023 Orders Only Gregory Marrero Research Coordinator Ophthalmology Comment on above: Advanced nonexudativ e age-related macular degeneration of both eyes with subfoveal involvement (Primary Dx) Advanced nonexudativ e age-related macular degeneration of both eyes with subfoveal involvement (Primary Dx); Nuclear senile cataract of both eyes Start: 04-25-2023 End: 04-25-[address] Deacon Smith Work Phone: [facility] Work Phone: Start: 04-25-2023 End: 04-25-[address] Deacon Smith Work Phone: [facility] Work Phone: Start: 03-15-2023 End: 03-15-[address] Deacon Smith Work Phone: [facility] Work Phone: Start: 03-15-2023 End: 03-15-[address] Deacon Smith Work Phone: [facility] Work Phone: Start: 03-11-2023 End: 03-11-[address] Deacon Smith Work Phone: [facility] Work Phone: Start: 03-11-2023 End: 03-11-[address] Deacon Smith Work Phone: [facility] Work Phone: Start: 03-05-2023 Orders Only Gregory chacon Research Coordinator Ophthalmology Comment on above: Advanced nonexudativ e age-related macular degeneration of both eyes with subfoveal involvement (Primary Dx) Start: 03-04-2023 End: 03-04-2023 ambulatory RUSTY DAMONMA Facility:[facility] Start: 02-19-2023 End: 02-19-[address] Deacon Smith Work Phone: [facility] Work Phone: Start: 01-23-2023 End: 01-23-[address] Deacon Smith Work Phone: [facility] Work Phone: Start: 01-23-2023 End: 01-23-[address] Deacon Smith Work Phone: [facility] Work Phone: Start: 01-23-2023 End: 01-23-[address] Deacon Smith Work Phone: [facility]-Outpatient [facility] Work Phone: Start: 01-14-2023 End: 01-14-2023 ambulatory CATIA PEREZ Facility:[facility] Start: 12-10-2022 End: 12-10-[address] Deacon Smith Work Phone: [facility] Work Phone: Start: 11-14-2022 End: 11-14-2022 Patient encounter procedure Arely Plata MD Work Phone: Ophthalmology Comment on above: Advanced nonexudativ e age-related macular degeneration of both eyes with subfoveal involvement (Primary Dx); Nuclear senile cataract of both eyes Start: 09-17-2022 End: 09-17-2022 Patient encounter procedure Catia Perez MD Work Phone: Ophthalmology Comment on above: Advanced nonexudativ e age-related macular degeneration of both eyes with subfoveal involvement (Primary Dx); Nuclear senile cataract of both eyes Start: 09-10-2022 End: 09-10-[address] Deacon Smith Work Phone: [facility] Work Phone: Start: 09-10-2022 End: 09-10-[address] Deacon Smith Work Phone: [facility] Work Phone: Start: 06-07-2022 End: 06-07-[address] Deacon Smith Work Phone: [facility] Work Phone: Start: 05-31-2022 End: 05-31-[address] Deacon Smith Work Phone: [facility] Work Phone: Start: 04-26-2022 End: 04-26-[address] Deacon Smith Work Phone: [facility] Work Phone: Start: 04-26-2022 End: 04-26-[address] Deacon Smith Work Phone: [facility] Start: 04-25-2022 End: 04-25-2022 Patient encounter procedure Arely Plata MD Work Phone: Ophthalmology Comment on above: Advanced nonexudativ e age-related macular degeneration of both eyes with subfoveal involvement Start: 04-05-2022 Non-patient / Non-visit Dr. Racquel Smith Work Phone: [facility] Start: 03-19-2022 Orders Only Gregory chacon Research Coordinator Ophthalmology Comment on above: Advanced nonexudativ e age-related macular degeneration of both eyes with subfoveal involvement (Primary Dx) Start: 03-16-2022 End: 03-16-2022 Patient encounter procedure Arely Plata MD Work Phone: Ophthalmology Comment on above: Advanced nonexudativ e age-related macular degeneration of both eyes with subfoveal involvement (Primary Dx); Nuclear senile cataract of both eyes Start: 03-12-2022 End: 03-12-[address] Deacon Smith Work Phone: [facility] Start: 03-02-2022 End: 03-02-[address] Deacon Smith Work Phone: [facility] Work Phone: Start: 03-02-2022 End: 03-02-[address] Deacon Smith Work Phone: [facility] Start: 01-22-2022 End: 01-22-[address] Deacon Smith Work Phone: [facility] Work Phone: Start: 01-22-2022 End: 01-22-[address] Deacon Smith Work Phone: [facility]Out[facility] Start: 01-11-2022 ambulatory Gregory chacon Research Coordinator Ophthalmology Start: 01-10-2022 End: 01-10-2022 Patient encounter procedure Arely Plata MD Work Phone: Ophthalmology Comment on above: Advanced nonexudativ e age-related macular degeneration of both eyes with subfoveal involvement (Primary Dx); Nuclear senile cataract of both eyes Start: 01-03-2022 End: 01-03-[address] Deacon Smith Work Phone: [facility] Start: 12-04-2021 End: 12-04-[address] Deacon Smith Work Phone: [facility] Start: 11-16-2021 Orders Only Gregory chacon Research Coordinator Ophthalmology Comment on above: Advanced nonexudativ e age-related macular degeneration of both eyes with subfoveal involvement (Primary Dx) Start: 11-15-2021 End: 11-15-2021 Patient encounter procedure Arely Plata MD Work Phone: Ophthalmology Comment on above: Advanced nonexudativ e age-related macular degeneration of both eyes with subfoveal involvement (Primary Dx); Nuclear senile cataract of both eyes Start: 09-20-2021 End: 09-20-2021 Patient encounter procedure Rusty Silva MD Work Phone: Ophthalmology Comment on above: Advanced nonexudativ e age-related macular degeneration of both eyes with subfoveal involvement (Primary Dx); Nuclear senile cataract of both eyes Start: 07-14-2021 End: 07-14-2021 Patient encounter procedure Arely Plata MD Work Phone: Ophthalmology Comment on above: Advanced nonexudativ e age-related macular degeneration of both eyes with subfoveal involvement (Primary Dx); Nuclear senile cataract of both eyes Start: 06-16-2021 End: 06-16-[address] [facility] Start: 06-16-2021 End: 06-16-[address] Deacon Smith Work Phone: [facility] Start: 05-23-2021 Non-patient / Non-visit Dr. Racquel Smith Work Phone: [facility] Start: 05-23-2021 End: 05-23-[address] Deacon [facility] Start: 05-17-2021 End: 05-17-2021 Patient encounter procedure Arely Plata MD Work Phone: Ophthalmology Comment on above: Advanced nonexudativ e age-related macular degeneration of both eyes with subfoveal involvement (Primary Dx) Start: 05-16-2021 End: 05-16-[address] Deacon Smith Work Phone: [facility] Start: 04-27-2021 End: 04-27-[address] Deacon Smith Work Phone: [facility] Start: 03-22-2021 End: 03-22-[address] Deacon Smith Work Phone: [facility] Start: 02-14-2021 End: 02-14-[address] Deacon Smith Work Phone: [facility] Start: 12-30-2008 End: 05-31-2011 Female genitalia finding Arely Murry MD Work Phone: [facility] Start: 12-30-2008 End: 05-31-2011 Patient encounter status Arely Plata V MD Work Phone: [facility] Procedures Date Procedure Procedure Detail Performing Clinician Start: 04-24-2024 Vitamin D, 25-hydrox y measurement Dr. Robe Smith MD Work Phone: Comment on above: Vitamin D StatusDefi ciency: <20 ng/mL (50nmol/L)Insufficiency: 20-30 ng/mL (50-75 nmol/L)Sufficiency: 30-100 ng/mL (75-250 nmol/L)Toxicity: >100 ng/mL (>250 nmol/L) Start: 04-22-[address] Abimael Smith MD Work Phone: Start: 02-06-[address] Robe Smith MD Work Phone: Start: 02-03-2024 X-ray of chest, PA a nd lateral views Dr. Robe Smith MD Work Phone: Start: 02-03-2024 Evaluation of diagno stic study results Dr. Robe Smith MD Work Phone: Start: 01-27-2024 Screening mammography Jenny Smith MD Work Phone: Start: 10-16-2023 Intravitreal njx pharmacologic agt spx Arely Plata MD Work Phone: Start: 10-16-2023 OCT ANGIOGRAPHY OU ( BOTH EYES) Arely Plata MD Work Phone: Start: 10-16-2023 End: 10-16-2023 Computerized ophthalmic imaging retina Gregory Marrero Research Coordinator Start: 09-04-2023 Intravitreal njx pharmacologic agt spx Arely Plata MD Work Phone: Start: 06-28-2023 Intravitreal njx pharmacologic agt spx Arely Plata MD Work Phone: Start: 04-29-2023 Intravitreal njx pharmacologic agt spx Catia Perez MD Work Phone: Start: 04-29-2023 OCT ANGIOGRAPHY OU ( BOTH EYES) Catia Perez MD Work Phone: Start: 04-29-2023 End: 04-29-2023 Computerized ophthalmic imaging retina Gregory Marrero Research Coordinator Start: 03-15-2023 X-ray of both feet Dr. Deacon Smith Work Phone: Start: 01-23-2023 Screening mammography D warren. Deacon Smith Work Phone: Start: 11-14-2022 End: 11-14-2022 Computerized ophthalmic imaging retina Gregory Marrero Research Coordinator Start: 11-14-2022 OCT ANGIOGRAPHY OU ( BOTH EYES) Arely Plata MD Work Phone: Start: 11-14-2022 Intravitreal njx pharmacologic agt spx Arely Plata MD Work Phone: Start: 04-25-2022 Intravitreal njx pharmacologic agt tylerx Arely Plata MD Work Phone: Start: 03-16-2022 Intravitreal njx pharmacologic agt spx Arely Plata MD Work Phone: Start: 01-22-2022 Screening mammography Jenny Smith Work Phone: Start: 01-10-2022 Intravitreal njx pharmacologic agt tylerx Arely Plata MD Work Phone: Start: 11-15-2021 [...] spx Arely Plata MD Work Phone: Start: 06-16-[address] Seng Smith Work Phone: Start: 05-17-2021 Intravitreal njx pharmacologic [...] Platelet poor plasma by Coagulation assay Billy Dneton MD Start: 02-22-2016 End: 03-02-2016 Left Heart [...] [Units/volume] in Serum or Plasma Carla Bonilla GRID MOLDER Work Phone: Start: 02-16-2016 End: 02-17-2016 Thyroxine (T4) free [Mass/volume] in Serum or Plasma Carla Bonilla GRID MOLDER Work Phone: Start: 02-16-2016 End: 02-17-2016 Triiodothyronine (T3) Free [Mass/volume] in Serum or Plasma Carla Bonilla GRID MOLDER Work Phone: Start: 02-16-2016 End: 02-17-2016 Thyrotropin [Units/volume] in Serum or Plasma Carla Bonilla GRID MOLDER Work Phone: Start: 02-16-2016 End: 02-17-2016 Thyroxine (T4) free [Mass/volume] in Serum or Plasma Carla Bonilla GRID MOLDER Work Phone: Start: 02-16-2016 End: 02-17-2016 Triiodothyronine (T3) Free [Mass/volume] in Serum or Plasma Carla Bonilla GRID MOLDER Work Phone: Start: 02-15-2016 End: 02-15-2016 CONGRESSIONAL REPRESENTATIVE Billy Denton MD Start: 02-15-2016 End: 02-22-2016 Echocardiography Billy Denton MD Start: 02-15-2016 End: 02-15-2016 Follow up Appt 3 weeks Billy Denton MD Start: 02-15-2016 End: 02-15-2016 Follow Up Appt Other Billy Denton MD Start: 02-15-2016 End: 02-22-2016 Nuclear stress test -exercise Billy Denton MD Start: 02-15-2016 End: 02-15-2016 CONGRESSIONAL REPRESENTATIVE Billy Denton MD Start: 02-15-2016 End: 02-22-2016 [...] Treatment Date Care Activity Detail Author Start: 06-14-2027 RSV Vaccine (1 - 1-dose 75+ series) RSV Vaccine (1 - 1-dose 75+ series) [facility] Start: 04-09-2027 Urine microalbumin profile DTaP,Tdap,Td Vaccine (3 - Td or Tdap) [facility] Start: 10-30-2024 End: 04-08-2025 OCT MACULA CIRRUS OU (BOTH EYES) OCT MACULA CIRRUS OU (BOTH EYES) [facility] Imaging Routine Advanced nonexudative age-related macular degeneration of both eyes with subfoveal involvement Nuclear senile cataract of both eyes Expected: 10/30/2024, Expires: 04/08/2025 [facility] Work Phone: Comment on above: Expected: 10/30/2024, Expires: Start: 04-22-2024 Patient discharge [facility] Start: 03-22-2024 Colonoscopy COLONOSCOPY [facility] Start: 03-22-2024 COLORECTAL CANCER SCREENING COLORECTAL CANCER SCREENING [facility] Start: 03-22-2024 Screening for malignant neoplasm of colon [facility] Start: 02-10-2024 Patient discharge [facility] Start: 10-16-2023 End: 10-16-2023 Patient encounter procedure 10/16/2023 9:00 AM EDT Office Visit [facility] Ophthalmology [address] [address] Arely Plata V, MD [address] [place] [address] Gale Study please call Gregory Marrero [phone] Ophthalmology Comment on above: Gale Study please call Gregory Marrero [phone] Start: 10-13-2023 Covid-19 Vaccine ( season) Covid-19 Vaccine () [facility] Start: 10-13-2023 Covid-19 Vaccine () Covid-19 Vaccine () [facility] Start: 10-13-2023 Influenza [facility] Start: 09-27-2023 End: 03-06-2025 Camera fundoscopy FUNDUS PHOTOS OU (BOTH EYES) [facility] Imaging Routine Advanced nonexudative age-related macular degeneration of both eyes with subfoveal involvement Expected: 09/27/2023, Expires: 03/06/[address] [facility] Comment on above: Expected: 09/27/2023, Expires: Start: 09-27-2023 End: 03-06-2025 FLUORESCEIN ANGIOGRAPHY OU (BOTH EYES), TRANSIT OS (LEFT EYE) FLUORESCEIN ANGIOGRAPHY OU (BOTH EYES), TRANSIT OS (LEFT EYE) [facility] Imaging Routine Advanced nonexudative age-related macular degeneration of both eyes with subfoveal involvement Expected: 09/27/2023, Expires: 03/06/[address] [facility] Comment on above: Expected: 09/27/2023, Expires: Start: 09-27-2023 End: 03-06-2025 FUNDUS AUTOFLUORESCENCE PHOTO (FAF) OU (BOTH EYES) FUNDUS AUTOFLUORESCENCE PHOTO (FAF) OU (BOTH EYES) [facility] Imaging Routine Advanced nonexudative age-related macular degeneration of both eyes with subfoveal involvement Expected: 09/27/2023, Expires: 03/06/[address] [facility] Comment on above: Expected: 09/27/2023, Expires: Start: 09-27-2023 End: 12-27-2023 MISC SEND OUT TST 1 MISC SEND OUT TST 1 Lab Routine Advanced nonexudative age-related macular degeneration of both eyes with subfoveal involvement Expected: 09/27/2023, Expires: 12/27/2023 [facility] Work Phone: Comment on above: Expected: 09/27/2023, Expires: Start: 09-27-2023 End: 03-06-2025 OCT ANGIOGRAPHY OU (BOTH EYES) OCT ANGIOGRAPHY OU (BOTH EYES) [facility] Imaging Routine Advanced nonexudative age-related macular degeneration of both eyes with subfoveal involvement Expected: 09/27/2023, Expires: 03/06/[address] [facility] Comment on above: Expected: 09/27/2023, Expires: Start: 09-27-2023 End: 03-06-2025 OCT MACULA CIRRUS OU (BOTH EYES) OCT MACULA CIRRUS OU (BOTH EYES) [facility] Imaging Routine Advanced nonexudative age-related macular degeneration of both eyes with subfoveal involvement Expected: 09/27/2023, Expires: 03/06/[address] [facility] Comment on above: Expected: 09/27/2023, Expires: Start: 09-04-2023 End: 09-04-2023 Patient encounter procedure 09/04/2023 9:00 AM EDT Office Visit [facility] Ophthalmology [address] [address] Arely Plata V, MD [address] [place] [address] Gale Study please call Gregory Marrero [phone] Ophthalmology Comment on above: Gale Study please call Gregory Marrero [phone] Start: 08-04-2023 Covid-19 Vaccine () Covid-19 Vaccine () [facility] Start: 04-29-2023 End: 07-29-2023 [facility] [place] 1 [facility] Work Phone: Comment on above: Expected: 04/29/2023, Expires: 4 Start: 02-11-2023 Advance Directive Discussion Advance Directive Discussion [facility] Start: 02-11-2023 Behavioral Health Screening Behavioral Health Screening [facility] Start: 02-11-2023 Depression Assessment Depression Assessment [facility] Start: 11-14-2022 End: 01-14-2023 CLINICAL TRIAL DRAW [facility] Work Phone: Comment on above: Expected: 11/14/2022, Expires: 3 Start: 10-12-2022 Influenza vaccination INFLUENZA (#1) [facility] Start: 03-14-2022 COVID-19 VACCINE (6 - Moderna series) COVID-19 VACCINE (6 - Moderna series) [facility] Start: 02-11-2022 ADVANCE DIRECTIVE DISCUSSION ADVANCE DIRECTIVE DISCUSSION [facility] Start: 02-11-2022 DEPRESSION ASSESSMENT DEPRESSION ASSESSMENT [facility] Start: 10-12-2021 Influenza vaccination INFLUENZA (#1) [facility] Start: 05-17-2021 End: 07-17-2021 CLINICAL TRIAL DRAW [facility] Work Phone: Comment on above: Expected: 05/17/2021, Expires: 2 Start: 02-11-2021 ADVANCE DIRECTIVE DISCUSSION ADVANCE DIRECTIVE DISCUSSION [facility] Start: 02-11-2021 DEPRESSION ASSESSMENT DEPRESSION ASSESSMENT [facility] Start: 11-15-2019 ANNUAL PCP TEAM CHRONIC DISEASE VISIT ANNUAL PCP TEAM CHRONIC DISEASE VISIT [facility] Start: 08-18-2019 Lipid 1996 panel - Serum or Plasma Lipid Screening [facility] Start: 08-18-2019 Lipid panel Lipid Screening [facility] Start: 08-18-2019 LIPID SCREEN LIPID SCREEN [facility] Start: 10-13-2018 DIABETES SCREEN DIABETES SCREEN [facility] Start: 10-13-2018 Diabetes Screening Diabetes Screening [facility] Start: 12-07-2017 Urine microalbumin profile [facility] Start: 06-18-[address] [facility] Start: 06-18-2017 Screening for malignant neoplasm of breast Mammogram Screening [facility] Start: 2017 Pneumococcal Vaccine: 65+ (1 - PCV) Pneumococcal Vaccine: 65+ (1 - PCV) [facility] Start: 2017 PNEUMOCOCCAL: 65+ (1 - PCV) PNEUMOCOCCAL: 65+ (1 - PCV) [facility] Start: 2017 PNEUMOVAX AGE 65 AND OVER WITH 5YR LOOKBACK (#1) PNEUMOVAX AGE 65 AND OVER WITH 5YR LOOKBACK (#1) [facility] Start: 04-04-2017 End: 04-04-2017 Appointment Appointment [facility] Work Phone: Start: 02-22-2017 End: 02-22-2017 Appointment Appointment [facility] Work Phone: Start: 01-25-2017 Adult depression screening assessment DEPRESSION SCREENING [facility] Start: 11-15-2016 End: 11-15-2016 Follow Up Appt 3 months Follow Up Appt 3 months [facility] Work Phone: Start: 11-15-2016 End: 11-15-2016 Pacer Clinic Pacer [facility] Work Phone: Start: 11-15-2016 End: 11-15-2016 Appointment Appointment [facility] Work Phone: Start: 08-02-2016 End: 08-02-2016 Follow Up Appt 3 months Follow Up Appt 3 months [facility] Work Phone: Start: 08-02-2016 End: 08-02-2016 Pacer Clinic Pacer [facility] Work Phone: Start: 08-02-2016 End: 08-02-2016 Appointment Appointment [facility] Work Phone: Start: 08-02-2016 End: 08-02-2016 Follow Up Appt 3 months Follow Up Appt 3 months [facility] Work Phone: Start: 08-02-2016 End: 08-02-2016 Pacer Clinic Pacer Clinic [facility] Work Phone: Start: 04-26-2016 End: 04-26-2016 Follow Up Appt 3 months Follow Up Appt 3 months [facility] Work Phone: Start: 04-26-2016 End: 04-26-2016 Pacer Clinic Pacer Clinic [facility] Work Phone: Start: 04-26-2016 End: 04-26-2016 Follow Up Appt 3 months Follow Up Appt 3 months [facility] Work Phone: Start: 04-26-2016 End: 04-26-2016 Pacer Clinic Pacer Clinic [facility] Work Phone: Start: 04-12-2016 End: 03-15-2016 *BMP *BMP [facility] Work Phone: Start: 04-12-2016 End: 03-15-2016 *UA - Urinalysis w/o Micro *UA - Urinalysis w/o Micro [facility] Work Phone: Start: 04-12-2016 End: 03-15-2016 CBC W Auto Differential panel - Blood *CBC without Diff [facility] Work Phone: Start: 04-12-2016 End: 03-15-2016 INR Coag RelTime (PPP) *PT/INR [facility] Work Phone: Start: 04-12-2016 End: 03-15-2016 Pacemaker Primary Insertion Pacemaker Primary Insertion [facility] Work Phone: Start: 04-12-2016 End: 03-15-2016 *BMP *BMP [facility] Work Phone: Start: 04-12-2016 End: 03-15-2016 *UA - Urinalysis w/o Micro *UA - Urinalysis w/o Micro [facility] Work Phone: Start: 04-12-2016 End: 03-15-2016 CBC W Auto Differential panel - Blood *CBC without Diff [facility] Work Phone: Start: 04-12-2016 End: 03-15-2016 INR Coag RelTime (PPP) *PT/INR [facility] Work Phone: Start: 04-12-2016 End: 03-15-2016 Pacemaker Primary Insertion Pacemaker Primary Insertion [facility] Work Phone: Start: 03-29-2016 End: 03-29-2016 Follow Up Appt 1 month Follow Up Appt 1 month [facility] Work Phone: Start: 03-29-2016 End: 03-29-2016 Pacer Clinic Pacer Clinic [facility] Work Phone: Start: 03-29-2016 End: 03-29-2016 Follow Up Appt 1 month Follow Up Appt 1 month [facility] Work Phone: Start: 03-29-2016 End: 03-29-2016 Pacer Clinic Pacer Clinic [facility] Work Phone: Start: 03-15-2016 End: 03-15-2016 CONGRESSIONAL REPRESENTATIVE CONGRESSIONAL REPRESENTATIVE [facility] Work Phone: Start: 03-15-2016 End: 03-15-2016 Device Interrogation Device Interrogation [facility] Work Phone: Start: 03-15-2016 End: 03-15-2016 Follow Up Appt 3 months Follow Up Appt 3 months [facility] Work Phone: Start: 03-15-2016 End: 03-15-2016 Follow Up Appt Other Follow Up Appt Other [facility] Work Phone: Start: 03-15-2016 End: 03-15-2016 CONGRESSIONAL REPRESENTATIVE CONGRESSIONAL REPRESENTATIVE [facility] Work Phone: Start: 03-15-2016 End: 03-15-2016 Device Interrogation Device Interrogation [facility] Work Phone: Start: 03-15-2016 End: 03-15-2016 Follow Up Appt 3 months Follow Up Appt 3 months [facility] Work Phone: Start: 03-15-2016 End: 03-15-2016 Follow Up Appt Other Follow Up Appt Other [facility] Work Phone: Start: 03-02-2016 End: 03-02-2016 24 hour holter monitor 24 hour holter monitor [facility] Work Phone: Start: 03-02-2016 End: 03-02-2016 24 hour holter monitor 24 hour holter monitor [facility] Work Phone: Start: 02-22-2016 End: 02-22-2016 *BMP *BMP [facility] Work Phone: Start: 02-22-2016 End: 02-22-2016 CBC W Auto Differential panel - Blood *CBC without Diff [facility] Work Phone: Start: 02-22-2016 End: 02-23-2016 Chest x-ray X-Ray, Chest, PA & Lateral [facility] Work Phone: Start: 02-22-2016 End: 02-22-2016 INR Coag RelTime (PPP) *PT/INR [facility] Work Phone: Start: 02-22-2016 End: 02-22-2016 Left Heart Cath Left Heart Cath [facility] Work Phone: Start: 02-22-2016 End: 02-22-2016 *BMP *BMP [facility] Work Phone: Start: 02-22-2016 End: 02-22-2016 CBC W Auto Differential panel - Blood *CBC without Diff [facility] Work Phone: Start: 02-22-2016 End: 02-23-2016 Chest x-ray X-Ray, Chest, PA & Lateral [facility] Work Phone: Start: 02-22-2016 End: 02-22-2016 INR Coag RelTime (PPP) *PT/INR [facility] Work Phone: Start: 02-22-2016 End: 02-22-2016 Left Heart Cath Left Heart Cath [facility] Work Phone: Start: 02-16-2016 End: 02-17-2016 T3 free mass conc *T3-Free [facility] Work Phone: Start: 02-16-2016 End: 02-17-2016 T4 free mass conc *T4 free [facility] Work Phone: Start: 02-16-2016 End: 02-17-2016 Thyrotropin Qn *TSH [facility] Work Phone: Start: 02-16-2016 End: 02-17-2016 T3 free mass conc *T3-Free [facility] Work Phone: Start: 02-16-2016 End: 02-17-2016 T4 free mass conc *T4 free [facility] Work Phone: Start: 02-16-2016 End: 02-17-2016 Thyrotropin Qn *TSH [facility] Work Phone: Start: 02-15-2016 End: 02-15-2016 CONGRESSIONAL REPRESENTATIVE CONGRESSIONAL REPRESENTATIVE [facility] Work Phone: Start: 02-15-2016 End: 02-16-2016 Echocardiography Echocardiogram (complete) [facility] Work Phone: Start: 02-15-2016 End: 02-15-2016 Follow up Appt 3 weeks Follow up Appt 3 weeks [facility] Work Phone: Start: 02-15-2016 End: 02-15-2016 Follow Up Appt Other Follow Up Appt Other [facility] Work Phone: Start: 02-15-2016 End: 02-16-2016 Nuclear stress test -exercise Nuclear stress test -exercise [facility] Work Phone: Start: 02-15-2016 End: 02-15-2016 CONGRESSIONAL REPRESENTATIVE CONGRESSIONAL REPRESENTATIVE [facility] Work Phone: Start: 02-15-2016 End: 02-16-2016 Echocardiography Echocardiogram (complete) [facility] Work Phone: Start: 02-15-2016 End: 02-15-2016 Follow up Appt 3 weeks Follow up Appt 3 weeks [facility] Work Phone: Start: 02-15-2016 End: 02-15-2016 Follow Up Appt Other Follow Up Appt Other [facility] Work Phone: Start: 02-15-2016 End: 02-16-2016 Nuclear stress test -exercise Nuclear stress test -exercise [facility] Work Phone: Start: 08-25-2012 SHINGRIX VACCINE (2 of 3) SHINGRIX VACCINE (2 of 3) [facility] Start: 2012 RSV Vaccine (1 - 1-dose 60+ series) RSV Vaccine (1 - 1-dose 60+ series) [facility] Start: 1997 COLOGUARD (FIT-DNA) COLOGUARD (FIT-DNA) [facility] Start: [address] COLONOGRAPHY [facility] Start: 1997 FECAL OCCULT BLOOD FECAL OCCULT BLOOD [facility] Start: 1997 Screening for malignant neoplasm of colon [facility] Start: 1997 SIGMOIDOSCOPY SIGMOIDOSCOPY [facility] Start: 1970 Annual PCP Team Chronic Disease Visit Annual PCP Team Chronic Disease Visit [facility] Start: 1970 Anxiety Screening Anxiety Screening [facility] Start: 1970 BP CONTROLLED (<130/80) BP CONTROLLED (<130/80) [facility] Start: 1970 Depression Screening Depression Screening [facility] Start: 1970 HEPATITIS C SCREENING HEPATITIS C SCREENING [facility] Start: 1970 Hepatitis C screening Hepatitis C Screening [facility] OTHER INTRAVITREAL INJECTION OS (LEFT EYE) OTHER INTRAVITREAL INJECTION OS (LEFT EYE) Ophthalmology Routine Advanced nonexudative age-related macular degeneration of both eyes with subfoveal involvement Nuclear senile cataract of both eyes Ordered: 09/17/2022 [facility] Work Phone: Comment on above: Ordered: 09/17/2022 Patient referral [facility] Work Phone: [facility] Immunizations Immunization Date Immunization Notes Care Provider Fa ciliradha 11-01-2022 influenza virus vaccine, unspecified formulation Arely Murry MD Work Phone: [facility] 05-04-2020 Covid (Moderna) Dr. Tatianna Smith Work Phone: [facility] 04-06-2020 Covid (Moderna) Dr. Tatianna Smith Work Phone: [facility] 11-04-2015 influenza, injectabl e, quadrivalent, contains preservative Arely Murry MD Work Phone: [facility] Work Phone: 11-09-2014 influenza virus vaccine, unspecified formulation Arely Murry MD Work Phone: [facility] 06-30-2012 zoster vaccine, live Emaniksan dra Maria Del Rosario Murry MD Work Phone: [facility] 12-15-2010 influenza virus vaccine, unspecified formulation Arely Murry MD Work Phone: [facility] Work Phone: 12-06-2009 influenza virus vaccine, unspecified formulation Arely Murry MD Work Phone: [facility] Work Phone: 11-24-2008 influenza virus vaccine, unspecified formulation Arely Murry MD Work Phone: [facility] Work Phone: 12-08-2007 tetanus toxoid, reduced diphtheria toxoid, and acellular pertussis vaccine, adsorbed Arely Murry MD Work Phone: [facility] 12-10-2005 influenza virus vaccine, unspecified formulation Arely Murry MD Work Phone: [facility] 12-12-2004 influenza virus vaccine, unspecified formulation Arely Murry MD Work Phone: [facility] Work Phone: Payers Date Payer Category Payer Self-pay [id number] 2017 Medicare MEDICARE MEDICAR E A AND B [id number] 2017-Present [phone] [place] [address] Medicare [id number] 2017 Medicare MEDICARE MEDICAR E A AND B [id number] 2017-Present [phone] [place] [address] Medicare [id number] 2017 Private Health Insurance [employer] MEDICARE SUPPLEMENT [id number] 2017-Present [phone] [address] [address] [place] [address] Indemnity [id number] 2017 Private Health Insurance [id number] 2017 Medicare [id number] 2017 Private Health Insurance [facility] [id number] Private Health Insurance [id number] Unknown [id number] .462 Unknown [id number] .462 Unknown [id number] 2.16.840.1.051455.3.579.2 .462 Unknown [id number] 2.840.1.992744.3.579.2 .462 Unknown [id number] 2.840.1.507965.3.579.2 .462 Unknown [id number] 2.840.1.580877.3.579.2 .462 Unknown [id number] 2.840.1.273821.3.579.2 .462 Unknown [id number] 2.840.1.950625.3.579.2 .462 Unknown [id number] 2.840.1.693286.3.579.2 .462 Unknown [id number] 2.840.1.641908.3.579.2 .462 Unknown [id number] 2.840.1.521753.3.579.2 .462 Unknown [id number] 2.840.1.149508.3.579.2 .462 Unknown [id number] 2.840.1.689409.3.579.2 .462 Unknown [id number] .840.1.815768.3.579.2 .462 Unknown [id number] .840.1.857502.3.579.2 .462 Unknown [id number] .840.1.024203.3.579.2 .462 Unknown [id number] .840.1.117980.3.579.2 .462 Unknown [id number] .840.1.739756.3.579.2 .462 Unknown [id number] 2.840.1.110769.3.579.2 .462 Unknown [id number] 2.840.1.296439.3.579.2 .462 Unknown [id number] 2.840.1.785542.3.579.2 .462 Unknown [id number] 2.16.840.1.766288.3.579.2 .462 Unknown [id number] 2.16.840.1.795303.3.579.2 .462 Unknown [id number] 2.16.840.1.980032.3.579.2 .462 Unknown [id number] 2.16.840.1.623703.3.579.2 .462 Social History Date Type Detail Facility Start: 04-22-2024 Tobacco smoking stat us NHIS Never smoked tobacco [facility] Work Phone: Start: 05-17-2021 End: 10-16-2023 Alcohol intake Current drinker of alcohol (finding) [facility] Start: 03-17-2014 History SDOH Alcohol Comment Very Rarely [facility] Start: 1950 Sex Assigned At Female [facility] Start: 05-07-2021 End: 01-10-2022 Exposure to SARS-CoV-2 (event) Not sure [facility] Start: 04-27-2021 End: 01-23-2023 Tobacco smoking status NHIS Unknown if ever smoked [facility] Start: 06-26-2022 End: 01-08-2023 History of Social function [facility] Start: 06-26-2022 End: 01-08-2023 Tobacco use panel [facility] National Score (1-100), lower number is lower risk [address] [facility] Start: 02-01-2021 Gender identity Identifies as female gender (finding) [facility] Start: 04-22-2024 End: 05-04-2024 Sex Female (finding) [facility] Medical Equipment Procedure Code Equipment Code Equipment Origin al Text Equipment Identifier Dates Dual-chamber implantable pacemaker, rate-responsive ()[id number] FDA Start: 02-10-2024 Goals Date Patient Goal Desired Activity /State Mental Status Date Assessment Result Facility 04-22-2024 Cognitive function Voice/Name [facility] Work Phone: Clinical Notes 12-30-2008 to 06-02-2024 Note Date & Type Note Facility 06-02-2024 Evaluation note Diagnosis Onset Date Resolution 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 Medical Records Department [address] [place] [address] History & Physical Exam 04/22/24 0738 MR#: [id number] Acct: [id number] Name: MARYLOU PIERCE Rep #:[id number] : 1950 73 From: Loretta Patel MD PCP: Dr. Robe Smith MD Status :[facility] Location: [place] [address] HPI - General General Date of Service: 04/22/24 HPI Narrative MARYLOU PIERCE, is a 73 F who presents for screening colonoscopy. Patient denies any changes since last office visit. Office visit 01/15/2024 HPI HPI: 73-year-old female presents for colonoscopy. Patient had colonoscopy 10 years ago negative per patient. Patient denies any chronic abdominal pain/nausea/vomiting/reflux. Has bowel movements every other day denies any blood. 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 Vaginal atrophy Macular degeneration Second degree AV block, Mobitz type II Right bundle branch block Left anterior fascicular block Mobitz type 2 second degree atrioventricular block Abnormal electrocardiogram Abnormal findings on diagnostic imaging of heart and coronary circulation Ventricular premature depolarization Thyroid disorder Home Medications ?Medication ?Instructions ?Recorded ?Last Taken ?Type multivitamin 1 tab PO QDAY 04/11/1704/21 History calcium 600 mg (as 1 cap PO DAILY 04/16/1804/11 History carbonate)-vitamin D3 5 mcg (200 unit) capsule (Calcium 600 + D(3)) vit C 250 mg-vit E 90 mg-zinc 40 1 tab PO BID 04/16/18 04/21/24 History mg-copper 1 id-ymzlwl-ihqtoc capsule (PreserVision AREDS-2) lisinopril 20 mg tablet 20 mg PO DAILY 04/05/2204/11 History Lactobacillus acidophilus and 1 cap PO DAILY 06/04/23 04/21/24 History rhamnosus 10 billion cell capsule (Digestive Health Probiotic) cholecalciferol (vitamin D3) 10 10 mcg PO DAILY 04/21/24 History mcg (400 unit) tablet levothyroxine 88 mcg tablet 88 mcg PO .Mon-Sat #90 tab s 06/04/23 04/21/24 Rx estradiol 0.01% (0.1 mg/gram) See Rx Instructions vagi nal DAILY 06/11/23 Unknown History vaginal cream clobetasol 0.05 % topical ointment 1 applic topical .C OMPLEX #15 grams 04/15/24 Unknown Rx Allergy/AdvReac Type Severity Reaction Status Date / Time Sulfa (Sulfonamide Allergy Unknown Verified 04/22/24 08:07 Antibiotics) nitrofurantoin AdvReac OTHER Verified 04/22/24 08:07 Family History Mother Cancer lung-smoker Father Diabetes Cancer bladder Other Alcoholism Arthritis Depression Hypertension Mental disorder Osteoporosis and oculocutaneous hypopigmentation syndrome Psychiatric care Respiratory disease Surgical History History of colonoscopy History of left heart catheterization (03/02/16) Presence of cardiac pacemaker (03/21/16) History of tonsillectomy H/O dilation and curettage H/O lumpectomy Social History current occupational status: retired Smoking Status: Never smoker alcohol intake: never substance use type: does not use caffeine: Yes what type of physical activity do you participate in: walking frequency: daily seatbelt use: always do you feel safe at home: Yes additional social history: Micheal- Retired Past Medical/Surgical History Planned Operation Planned Operative Procedure(s): COLONOSCOPY Previous Hospitalizations/Surgeries HX Hospitalizations: No HX of Surgeries: lumpectomy , colonoscopies Any Problems With Anesthesia: No You/Your Family Experience Fever (Hyperthermia) With Anes: No Cholinesterase deficiency: No Cardiovascular Hx Chest Pain within Last 2 months: No Hx of Irregular Heartbeat and/or Afib: No Hx Heart Attack: No Hx Congestive Heart Failure: No Hx Rheumatic Fever: No Hx Hypertension: Yes (PER PT, CONTROLLED) Hx Internal Defibrillator: No Hx Pacemaker: No (scheduled for one) Hx Cardiac Catheterization: Yes Hx Cardiac Surgery/Stents/Etc.: No Hx Stress Test: Yes Respiratory Chronic Cough: No Hx Chronic Obstructive Pulmonary Disease (COPD): No Hx Asthma: No Hx Emphysema: No Hx Sleep Apnea: No Hx Respiratory Tract Infection/Cold (presently): No Do You Snore Loudly (louder than talking or can be heard): No Do You Often Feel Tired/ Fatigued/ Sleepy Dring Daytime?: No Has Anyone Observed You Stop Breathing During Sleep?: No Result (for STOP score): Negative Hx Smoking: No Smoking Status: Never smoker Gastrointestinal Hx Gastrointestinal Bleed: No Hx Ulcer: No Hx Unplanned Weight Loss of 20#: No HX Unplanned Weight Gain of 20#: No Neurological Hx Seizures: No HX Syncope/Blackout Spells/Unconsciousness: Yes Hx Multiple Sclerosis: No Hx Parkinson's Disease: No Does patient have nerve stimulator: No Blood Disorder Hx Deep Vein Thrombosis: No Hx High Cholesterol: No Hx Hepatitis: No Hx Cirrhosis: No Hx Anemia: No Genitourinary Hx Renal Disease: No Hx Dialysis: No Musculoskeletal Hx Arthritis: No Endocrine Hx Diabetes: No Psycho/Social Hx Substance Use: No Hx Alcohol Use: Yes (rare) Hx Anxiety: No Hx Depression: No Hx Dementia: No Miscellaneous Hx Cancer: No Allergies Sulfa (Sulfonamide Antibiotics) Allergy (Verified 04/22/24 08:07) Unknown nitrofurantoin Adverse Reaction (Verified 04/22/24 08:07) OTHER COULDN'T STAND, FELT AWFUL Discharge Is Pt Admitted From a Skilled Nursing, or a Snf: No Who Could Help: After D/C, Where Do you Plan to Go: Return Home From the PAT History Number of Risk Factors: 1 Physical Exam Const alert, oriented x3 and no apparent distress HEENT normocephalic and head/scalp atraumatic Resp normal respiratory effort Cardio regular rate GI soft to palpation and non-tender; Negative for non-distended Palpation: Negative for guarding Extremity no clubbing, cyanosis or edema Skin no rashes or lesions noted Neuro CN's II-XII intact bilaterally Psych mental status grossly normal Assessment & Plan Assessment/Plan (1) Encounter for screening for malignant neoplasm of colon: Surgery Risks - Colonoscopy I discussed with the patient the risks of the procedure: Yes Risks Include but are not Limited To: Risks include but are not limited to: Bleeding, perforation requiring further surgery, inability to complete colonoscopy requiring barium enema. 04/22/24 0909 <Electronically signed by Loretta Patel MD> Cosigner Signature (if applicable): CC: Dr. Robe Smith MD; Dr. Loretta Patel MD~ Signed [facility] Work Phone: 1(249) 966-868503-12-2025 Consult note [facility] Medical Records Department [address] [place] [id number] Anesthesia Postop Eval II 04/22/24 1050 MR#: [id number] Acct: [id number] Name: MARYLOU PIERCE Rep #:[id number] : 1950 73 From: Vasu Mckay MD PCP: Dr. Robe Smith MD [place] [place] Location: [place] [address] Anesthesia Postop Eval I Sum Postop Eval Completion status Anesthesia document: Postop Eval 1 completed: Yes Anesthesia Postop Eval I Summary Anesthesia Postop Eval I Summary: Anesthesia Postop Eval I: Assessment Summary Airway patent Yes 04/22/24 10:39 [email or web address] Spontaneous unlabored Yes 04/22/24 10:39 [email or web address] respirations Mental status Awake,Calm 04/22/24 10:39 [email or web address] nausea No 04/22/24 10:39 [email or web address] Vomiting No 04/22/24 10:39 [email or web address] Anesthesia Postop Eval I: Fluid Summary Crystalloid volume administer 45 04/22/24 10:39 [email or web address] (ml) Colloids volume administered ( ml) Blood Product volume administered (ml) Total IV fluid infused 45 04/22/24 10:39 [email or web address] Anesthesia Postop Eval I: Summary Notes Anesthesia Complication No 04/22/24 10:39 [email or web address] Anesthesia Complication Comment: Post-operative progress note Anesthesia: Postop Eval II Evaluation Mental status: Awake Pain Level: 0 nausea: No Vomiting: No 04/22/24 1051 > Date _ Vasu Fair Signature: Date CC: ~ Signed [facility]03-12-2025 Consult note [facility] Medical Records Department [address] [place] [address] Anesthesia Postop Eval I 04/22/24 1038 MR#: [id number] Acct: [id number] Name: MARYLOU PIERCE Rep #:[id number] : 1950 73 From: Matty Rowley PCP: Dr. Robe Smith MD [place] [place] C Location: [place] [address] Anesthesia: Postop Eval I Current Vital Signs Temperature: 98 F Pulse Rate: 16 Blood Pressure: 93/59 Respiratory Rate: 16 Pulse Ox: 99 Oxygen Delivery Method: Room Air Assessment Airway patent: Yes Spontaneous unlabored respirations: Yes Mental status: Awake and Calm nausea: No Vomiting: No Anesthesia Complication: No Fluid Hydration Crystalloid volume administer (ml): 45 Total IV fluid infused: 45 Progress Note Anesthesia document: Postop Eval 1 completed: Yes 04/22/24 1039 > Date _ Matty Fair Signature: Date CC: ~ Signed [facility]03-12-2025 Consult note Author Vasu Mckay [facility] Note Date/Time April 22, 2024 8:3 8am [facility] Medical Records Department [address] [place] [address] Pre-Anesthesia Evaluation 04/22/24 0838 MR#: [id number] Acct: [id number] Name: MARYLOU PIERCE Rep #:[id number] : 1950 73 From: Vasu Mckay MD PCP: Dr. Robe Smith MD Status :[facility] Y Race: C Location: [place] [address] ASA Classification* ASA Classification ASA Classification: 3 Assessment & Plan Anesthesia* Anesthesia Assessment Anesthesia Assessment: Discussed sedation and/or anesthesia options, risks, benefits, and alternatives with patient/parents/legal guardian/POA. Questions invited. The patient/parents/legal guardian/POA seems to understand and agrees to proceedwith anesthesia plan. Reviewed the physical assessment, medical history, allergy history and patient home medications list prior to surgery/procedure/anesthetic and documented any changes. Performed airway and anesthesia risk assessments. Anesthesia Type Anesthesia Type: General Anesthesia Focused Assessment* Temperature: 96.9 F Pulse Rate: 65 Blood Pressure: 126/63 Respiratory Rate: 12 Pulse Ox: 100 Airway Assessment Mouth opens: >3 cm Mallampati Score: II Focused Labs Anesthesia Preop lab: CBC WBC 5.9 K/mm3 (4.4-11.0) 02/03/24 14:58 02/03/24 RBC 4.40 M/mm3 (4.2-5.4) 02/03/24 14:58 02/03/24 Hgb 13.5 g/dL (12.0-15.0) 02/03/24 14:58 02/03/24 Hct 40.3 % (37-47) 02/03/24 14:58 02/03/24 Plt Count 222 K/mm3 (150-450) 02/03/24 14:58 02/03/24 CHEMISTRY Potassium 4.1 mmol/L (3.5-5.1) 02/03/24 14:58 02/03/24 Sodium 138 mmol/L (136-145) 02/03/24 14:58 02/03/24 BUN 29 mg/dL (7-18) H 02/03/24 14:58 02/03/24 Creatinine 0.99 mg/dL (0.55-1.02) 02/03/24 14:58 02/03/24 Glucose 84 mg/dL (74-106) 02/03/24 14:58 02/03/24 TSH 1.110 uIU/mL (0.358-3.740) 10/31/23 07:57 10/12 11/04 COAG PT 12.6 SECONDS (11.7-14.9) 02/22/16 12:01 Pre-Assessment Diagnosis/Proposed Procedure Planned Operative Procedure(s): COLONOSCOPY Anesthesia History Anesthesia History - manufacturer representative: Anesthesia History - manufacturer representative Hx Hospitalization No 04/22/24 07:39 Any Problems With Anesthesia No 04/22/24 07:39 Cholinesterase deficiency No 04/22/24 07:39 You/Your Family Experience No 04/22/24 07:39 fever (hyperthermia) with Relationship Recent Exposure to Contagious No 04/22/24 08:08 Disease Does patient have nerve No 04/22/24 07:39 stimulator Patient instructed to have device shut off --Does patient have Pacemaker Yes 04/22/24 08:08 or ICD? When Was Last Pacemaker Check QUESTION #4 FULL TEXT: You/Your Family Experience fever (hyperthermia) with Anesthesia Last Oral Intake Last Oral intake: Last Oral Intake NPO since 04:30 04/22/24 08:08 Meds taken in AM with sips of No 04/22/24 08:08 water? Meds patient instructed to take am of surgery PONV PONV - manufacturer representative: PONV - manufacturer representative Female Yes 04/21/24 13:29 HX of Motion Sickness Yes 04/21/24 13:29 HX of N/V After Surgery No 04/21/24 13:29 Non-Smoker Yes 04/21/24 13:29 Duration of Surgery greater No 04/21/24 13:29 than 60 minutes Number of Risk Factors 3 04/21/24 13:29 PONV Score Moderate Risk 04/21/24 13:29 Height & Weight Height & Weight: Anesthesia: Height & Weight Height 5 ft 3 in 04/22/24 08:08 Weight: 73 kg 04/22/24 08:08 Body Mass Index (BMI) 28.5 04/22/24 08:08 Respiratory Assessment Respiratory Assessment - manufacturer representative: Respiratory Tract Infection Hx - manufacturer representative Hx Respiratory Tract Infection No 04/22/24 07:39 STOP Sleep Apnea STOP Sleep Apnea - manufacturer representative: STOP Sleep Apnea - manufacturer representative Hx Hypertension Yes: PER PT, CONTROLLED 04/22/24 07:39 Hx Sleep Apnea No 04/22/24 07:39 CPAP BIPAP Do you snore loudly (louder No 04/22/24 07:39 than talking or can be heard Do you often feel tired/ No 04/22/24 07:39 fatigued/ sleepy during daytime? Has anyone observed you stop No 04/22/24 07:39 breathing during sleep? STOP Results Negative 04/22/24 07:39 QUESTION #5 FULL TEXT : Do you snore loudly (louder than talking or can be heard through closed doors)? Tobacco Use History Tobacco Use History - manufacturer representative: Tobacco Use History - manufacturer representative Tobacco Use Smoking Status Never smoker 04/22/24 07:39 Hx Tobacco Use No 04/21/24 13:29 Years Smoking Packs Smoked per Day Smoking Cessation Date was within the last 15 years Hx Smoking Cessation Date Hx Smoking Cessation Counseling Hematologic Medial History Hematologic Hx - manufacturer representative: Hematologic Medical Hx - documentation coordinator Hx of Blood Transfusion No 04/21/24 13:29 Hx of Transfusion in last 3 No 04/21/24 13:29 Months Date of Last Transfusion (if within last 3 months) Ever experience any problems No 04/21/24 13:29 with transfusion(s)? Specify any problems Hx of Preganancy in last 3 No 04/21/24 13:29 Months Nurse Filling Out Transfusion MGRIFFITH 04/21/24 13:29 & Questions: Date: 04/21/24 04/21/24 13:29 Time: 13:30 04/21/24 13:29 Patient unable to answer at this time (ie. 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 Vaginal atrophy Macular degeneration Second degree AV block, Mobitz type II Right bundle branch block Left anterior fascicular block Mobitz type 2 second degree atrioventricular block Abnormal electrocardiogram Abnormal findings on diagnostic imaging of heart and coronary circulation Ventricular premature depolarization Thyroid disorder Home Medications ?Medication ?Instructions ?Recorded ?Last Taken ?Type multivitamin 1 tab PO QDAY 04/11/1704/21 History calcium 600 mg (as 1 cap PO DAILY 04/16/1804/11 History carbonate)-vitamin D3 5 mcg (200 unit) capsule (Calcium 600 + D(3)) vit C 250 mg-vit E 90 mg-zinc 40 1 tab PO BID 04/16/18 04/21/24 History mg-copper 1 oy-yhlkiz-wwcjnj capsule (PreserVision AREDS-2) lisinopril 20 mg tablet 20 mg PO DAILY 04/05/2204/11 History Lactobacillus acidophilus and 1 cap PO DAILY 06/04/23 04/21/24 History rhamnosus 10 billion cell capsule (Digestive Health Probiotic) cholecalciferol (vitamin D3) 10 10 mcg PO DAILY 04/21/24 History mcg (400 unit) tablet levothyroxine 88 mcg tablet 88 mcg PO .Mon-Sat #90 tab s 06/04/23 04/21/24 Rx estradiol 0.01% (0.1 mg/gram) See Rx Instructions vagi nal DAILY 06/11/23 Unknown History vaginal cream clobetasol 0.05 % topical ointment 1 applic topical .C OMPLEX #15 grams 04/15/24 Unknown Rx Allergy/AdvReac Type Severity Reaction Status Date / Time Sulfa (Sulfonamide Allergy Unknown Verified 04/22/24 08:07 Antibiotics) nitrofurantoin AdvReac OTHER Verified 04/22/24 08:07 Family History Mother Cancer lung-smoker Father Diabetes Cancer bladder Other Alcoholism Arthritis Depression Hypertension Mental disorder Osteoporosis and oculocutaneous hypopigmentation syndrome Psychiatric care Respiratory disease Surgical History History of colonoscopy History of left heart catheterization (03/02/16) Presence of cardiac pacemaker (03/21/16) History of tonsillectomy H/O dilation and curettage H/O lumpectomy Social History current occupational status: retired Smoking Status: Never smoker alcohol intake: never substance use type: does not use caffeine: Yes what type of physical activity do you participate in: walking frequency: daily seatbelt use: always do you feel safe at home: Yes additional social history: Micheal- Retired Review of Systems (Anesthesia) ROS Narrative System reviewed and no additional complaints, except as documented. 04/22/24 0838 <Electronically signed by Vasu Mckay MD > Date _ Vasu Mckay MD Cosign Signature: Date CC: ~ Signed [facility] Work Phone: 1(178) 981-511303-12-2025 Procedure note [facility] Medical Records Department [address] [place] [address] Colonoscopy Report MR#: [id number] Acct: [id number] Name: MARYLOU PIERCE Rep #:[id number] : 1950 73 From: Loretta Patel MD PCP: Dr. Robe Smith MD Status :[facility] Patient Name: Marylou Pierce Procedure Date: 04/22/2024 9:10 AM Date of : 1950 Age: 73 Procedure: Colonoscopy Indications: Screening for colorectal malignant neoplasm Providers: Loretta Patel MD Referring MD: Deacon Smith Medicines: Monitored Anesthesia Care Patient Profile: This is a 73 year old female. Last Colonoscopy: 10 years ago. Complications: No immediate complications. Procedure: Pre-Anesthesia Assessment: - Prior to the procedure, a History and Physical was performed, and patient medications and allergies were reviewed. The patient's tolerance of previous anesthesia was also reviewed. The risks and benefits of the procedure and the sedation options and risks were discussed with the patient. All questions were answered, and informed consent was obtained. Prior Anticoagulants: The patient has taken no anticoagulant or antiplatelet agents. ASA Grade Assessment: Per anesthesia. After reviewing the risks and benefits, the patient was deemed in satisfactory condition to undergo the procedure. After I obtained informed consent, the scope was passed under direct vision. Throughout the procedure, the patient's blood pressure, pulse, and oxygen saturations were monitored continuously. The colonoscope was introduced through the anus and advanced to the cecum, identified by the appendiceal orifice, ileocecal valve and palpation. The colonoscopy was performed without difficulty. The patient tolerated the procedure well. The quality of the bowel preparation was good. Scope In: 10:05:26 AM Scope Withdrawal Time 0 hours 8 minutes 58 seconds Scope Out: 10:25:24 AM Total Procedure Duration Time 0 hours 19 minutes 58 seconds Findings: The entire examined colon appeared normal on direct and retroflexion views. Impression: - The entire examined colon is normal on direct and retroflexion views. - No specimens collected. Recommendation: - Discharge patient to home. - Resume previous diet. - Continue present medications. - Await pathology results. - Repeat colonoscopy in 10 years for screening purposes. - depending on overall health at time of possible repeat Procedure Code(s): --- Professional --- G0121, PT, Colorectal cancer screening; colonoscopy on individual not meeting criteria for high risk Diagnosis Code(s): --- Professional --- Z12.11, Encounter for screening for malignant neoplasm of colon CPT copyright 2021 [employer]. All rights reserved. The codes documented in this report are preliminary and upon weir fisherman review may be revised to meet current compliance requirements. MD Loretta Kennedy MD 04/22/2024 10:28:46 AM This report has been signed electronically. Number of Addenda: 0 Note Initiated On: 04/22/2024 9:10 AM 04/22/24 1029 Date _ Loretta Patel MD Cosigner Signature: Date (if indicated) CC: Dr. Robe Smith MD; Dr. Loretta Patel MD ~ Date Dictated: 04/22/24909 Date Transcribed: Over Short And Damage Clerk: TR Signed [facility]03-12-2025 Procedure note [facility] Medical Records Department [address] [place] [address] Operative Report - CC Letter MR#: [id number] Acct: [id number] Name: MARYLOU PIERCE Rep #:[id number] : 1950 73 From: Loretta Patel MD PCP: Dr. Robe Smith MD [place]/22/2024 Deacon Smith [address] [place] [address] Re : Colonoscopy procedure for Marylou Pierce Dear Dr. Smith This procedure was performed on Monday, April 22, 2024. My impressions and recommendations are as follows: Impressions : - The entire examined colon is normal on direct and retroflexion views. - No specimens collected. Recommendations : - Discharge patient to home. - Resume previous diet. - Continue present medications. - Await pathology results. - Repeat colonoscopy in 10 years for screening purposes. - depending on overall health at time of possible repeat My findings are described in the full procedure note, which is enclosed. If I can be of further assistance, please feel free to contact me at Doctor phone number(s): , Work: . Sincerely, MD Loretta Kennedy MD 04/22/2024 10:28:46 AM This report has been signed electronically. 04/22/24 1029 Date _ Loretta Patel MD Cosigner Signature: Date (if indicated) CC: Dr. Robe Smith MD; Dr. 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 Robe Smith MD Status :[facility] Location: [place] [address] HPI - General General Date of Service: 04/22/24 HPI Narrative MARYLOU PIERCE, is a 73 F who presents for screening colonoscopy. Patient denies any changes since last office visit. Office visit 01/15/2024 HPI HPI: 73-year-old female presents for colonoscopy. Patient had colonoscopy 10 years ago negative per patient. Patient denies any chronic abdominal pain/nausea/vomiting/reflux. Has bowel movements every other day denies any blood. 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 Vaginal atrophy Macular degeneration Second degree AV block, Mobitz type II Right bundle branch block Left anterior fascicular block Mobitz type 2 second degree atrioventricular block Abnormal electrocardiogram Abnormal findings on diagnostic imaging of heart and coronary circulation Ventricular premature depolarization Thyroid disorder Home Medications ?Medication ?Instructions ?Recorded ?Last Taken ?Type multivitamin 1 tab PO QDAY 04/11/1704/21 History calcium 600 mg (as 1 cap PO DAILY 04/16/1804/11 History carbonate)-vitamin D3 5 mcg (200 unit) capsule (Calcium 600 + D(3)) vit C 250 mg-vit E 90 mg-zinc 40 1 tab PO BID 04/16/18 04/21/24 History mg-copper 1 gx-pswuuh-[id number] capsule (PreserVision AREDS-2) lisinopril 20 mg tablet 20 mg PO DAILY 04/05/2204/11 History Lactobacillus acidophilus and 1 cap PO DAILY 06/04/23 04/21/24 History rhamnosus 10 billion cell capsule (Digestive Health Probiotic) cholecalciferol (vitamin D3) 10 10 mcg PO DAILY 04/21/24 History mcg (400 unit) tablet levothyroxine 88 mcg tablet 88 mcg PO .Mon-Sat #90 tab s 06/04/23 04/21/24 Rx estradiol 0.01% (0.1 mg/gram) See Rx Instructions vagi nal DAILY 06/11/23 Unknown History vaginal cream clobetasol 0.05 % topical ointment 1 applic topical .C OMPLEX #15 grams 04/15/24 Unknown Rx Allergy/AdvReac Type Severity Reaction Status Date / Time Sulfa (Sulfonamide Allergy Unknown Verified 04/22/24 08:07 Antibiotics) nitrofurantoin AdvReac OTHER Verified 04/22/24 08:07 Family History Mother Cancer lung-smoker Father Diabetes Cancer bladder Other Alcoholism Arthritis Depression Hypertension Mental disorder Osteoporosis and oculocutaneous hypopigmentation syndrome Psychiatric care Respiratory disease Surgical History History of colonoscopy History of left heart catheterization (03/02/16) Presence of cardiac pacemaker (03/21/16) History of tonsillectomy H/O dilation and curettage H/O lumpectomy Social History current occupational status: retired Smoking Status: Never smoker alcohol intake: never substance use type: does not use caffeine: Yes what type of physical activity do you participate in: walking frequency: daily seatbelt use: always do you feel safe at home: Yes additional social history: Micheal- Retired Past Medical/Surgical History Planned Operation Planned Operative Procedure(s): COLONOSCOPY Previous Hospitalizations/Surgeries HX Hospitalizations: No HX of Surgeries: lumpectomy , colonoscopies Any Problems With Anesthesia: No You/Your Family Experience Fever (Hyperthermia) With Anes: No Cholinesterase deficiency: No Cardiovascular Hx Chest Pain within Last 2 months: No Hx of Irregular Heartbeat and/or Afib: No Hx Heart Attack: No Hx Congestive Heart Failure: No Hx Rheumatic Fever: No Hx Hypertension: Yes (PER PT, CONTROLLED) Hx Internal Defibrillator: No Hx Pacemaker: No (scheduled for one) Hx Cardiac Catheterization: Yes Hx Cardiac Surgery/Stents/Etc.: No Hx Stress Test: Yes Respiratory Chronic Cough: No Hx Chronic Obstructive Pulmonary Disease (COPD): No Hx Asthma: No Hx Emphysema: No Hx Sleep Apnea: No Hx Respiratory Tract Infection/Cold (presently): No Do You Snore Loudly (louder than talking or can be heard): No Do You Often Feel Tired/ Fatigued/ Sleepy Dring Daytime?: No Has Anyone Observed You Stop Breathing During Sleep?: No Result (for STOP score): Negative Hx Smoking: No Smoking Status: Never smoker Gastrointestinal Hx Gastrointestinal Bleed: No Hx Ulcer: No Hx Unplanned Weight Loss of 20#: No HX Unplanned Weight Gain of 20#: No Neurological Hx Seizures: No HX Syncope/Blackout Spells/Unconsciousness: Yes Hx Multiple Sclerosis: No Hx Parkinson's Disease: No Does patient have nerve stimulator: No Blood Disorder Hx Deep Vein Thrombosis: No Hx High Cholesterol: No Hx Hepatitis: No Hx Cirrhosis: No Hx Anemia: No Genitourinary Hx Renal Disease: No Hx Dialysis: No Musculoskeletal Hx Arthritis: No Endocrine Hx Diabetes: No Psycho/Social Hx Substance Use: No Hx Alcohol Use: Yes (rare) Hx Anxiety: No Hx Depression: No Hx Dementia: No Miscellaneous Hx Cancer: No Allergies Sulfa (Sulfonamide Antibiotics) Allergy (Verified 04/22/24 08:07) Unknown nitrofurantoin Adverse Reaction (Verified 04/22/24 08:07) OTHER COULDN'T STAND, FELT AWFUL Discharge Is Pt Admitted From a Skilled Nursing, or a Snf: No Who Could Help: After D/C, Where Do you Plan to Go: Return Home From the [facility] History Number of Risk Factors: 1 Physical Exam Const alert, oriented x3 and no apparent distress HEENT normocephalic and head/scalp atraumatic Resp normal respiratory effort Cardio regular rate GI soft to palpation and non-tender; Negative for non-distended Palpation: Negative for guarding Extremity no clubbing, cyanosis or edema Skin no rashes or lesions noted Neuro CN's II-XII intact bilaterally Psych mental status grossly normal Assessment & Plan Assessment/Plan (1) Encounter for screening for malignant neoplasm of colon: Surgery Risks - Colonoscopy I discussed with the patient the risks of the procedure: Yes Risks Include but are not Limited To: Risks include but are not limited to: Bleeding, perforation requiring further surgery, inability to complete colonoscopy requiring barium enema. 04/22/24 0909 Cosigner Signature (if applicable): CC: Dr. Robe Smith MD; Dr. Loretta Patel MD~ Signed [facility]03-12-2025 Consult note [facility] Medical Records Department [address] [place] [address] Pre-Anesthesia Evaluation 04/22/24 0838 MR#: [id number] Acct: [id number] Name: MARYLOU PIERCE Rep #:[id number] : 1950 73 From: Vasu Mckay MD PCP: Dr. Robe Smith MD Status :REG SDC Y Race: C Location: [place] [address] ASA Classification* ASA Classification ASA Classification: 3 Assessment & Plan Anesthesia* Anesthesia Assessment Anesthesia Assessment: Discussed sedation and/or anesthesia options, risks, benefits, and alternatives with patient/parents/legal guardian/POA. Questions invited. The patient/parents/legal guardian/POA seems to understand and agrees to proceedwith anesthesia plan. Reviewed the physical assessment, medical history, allergy history and patient home medications list prior to surgery/procedure/anesthetic and documented any changes. Performed airway and anesthesia risk assessments. Anesthesia Type Anesthesia Type: General Anesthesia Focused Assessment* Temperature: 96.9 F Pulse Rate: 65 Blood Pressure: 126/63 Respiratory Rate: 12 Pulse Ox: 100 Airway Assessment Mouth opens: >3 cm Mallampati Score: II Focused Labs Anesthesia Preop lab: CBC WBC 5.9 K/mm3 (4.4-11.0) 02/03/24 14:58 02/03/24 RBC 4.40 M/mm3 (4.2-5.4) 02/03/24 14:58 02/03/24 Hgb 13.5 g/dL (12.0-15.0) 02/03/24 14:58 02/03/24 Hct 40.3 % (37-47) 02/03/24 14:58 02/03/24 Plt Count 222 K/mm3 (150-450) 02/03/24 14:58 02/03/24 CHEMISTRY Potassium 4.1 mmol/L (3.5-5.1) 02/03/24 14:58 02/03/24 Sodium 138 mmol/L (136-145) 02/03/24 14:58 02/03/24 BUN 29 mg/dL (7-18) H 02/03/24 14:58 02/03/24 Creatinine 0.99 mg/dL (0.55-1.02) 02/03/24 14:58 02/03/24 Glucose 84 mg/dL (74-106) 02/03/24 14:58 02/03/24 TSH 1.110 uIU/mL (0.358-3.740) 10/31/23 07:57 10/12 11/04 COAG PT 12.6 SECONDS (11.7-14.9) 02/22/16 12:01 Pre-Assessment Diagnosis/Proposed Procedure Planned Operative Procedure(s): COLONOSCOPY Anesthesia History Anesthesia History - manufacturer representative: Anesthesia History - manufacturer representative Hx Hospitalization No 04/22/24 07:39 Any Problems With Anesthesia No 04/22/24 07:39 Cholinesterase deficiency No 04/22/24 07:39 You/Your Family Experience No 04/22/24 07:39 fever (hyperthermia) with Relationship Recent Exposure to Contagious No 04/22/24 08:08 Disease Does patient have nerve No 04/22/24 07:39 stimulator Patient instructed to have device shut off --Does patient have Pacemaker Yes 04/22/24 08:08 or ICD? When Was Last Pacemaker Check QUESTION #4 FULL TEXT: You/Your Family Experience fever (hyperthermia) with Anesthesia Last Oral Intake Last Oral intake: Last Oral Intake NPO since 04:30 04/22/24 08:08 Meds taken in AM with sips of No 04/22/24 08:08 water? Meds patient instructed to take am of surgery PONV PONV - manufacturer representative: PONV - manufacturer representative Female Yes 04/21/24 13:29 HX of Motion Sickness Yes 04/21/24 13:29 HX of N/V After Surgery No 04/21/24 13:29 Non-Smoker Yes 04/21/24 13:29 Duration of Surgery greater No 04/21/24 13:29 than 60 minutes Number of Risk Factors 3 04/21/24 13:29 PONV Score Moderate Risk 04/21/24 13:29 Height & Weight Height & Weight: Anesthesia: Height & Weight Height 5 ft 3 in 04/22/24 08:08 Weight: 73 kg 04/22/24 08:08 Body Mass Index (BMI) 28.5 04/22/24 08:08 Respiratory Assessment Respiratory Assessment - manufacturer representative: Respiratory Tract Infection Hx - manufacturer representative Hx Respiratory Tract Infection No 04/22/24 07:39 STOP Sleep Apnea STOP Sleep Apnea - manufacturer representative: STOP Sleep Apnea - manufacturer representative Hx Hypertension Yes: PER PT, CONTROLLED 04/22/24 07:39 Hx Sleep Apnea No 04/22/24 07:39 CPAP BIPAP Do you snore loudly (louder No 04/22/24 07:39 than talking or can be heard Do you often feel tired/ No 04/22/24 07:39 fatigued/ sleepy during daytime? Has anyone observed you stop No 04/22/24 07:39 breathing during sleep? STOP Results Negative 04/22/24 07:39 QUESTION #5 FULL TEXT : Do you snore loudly (louder than talking or can be heard through closeddoors)? Tobacco Use History Tobacco Use History - manufacturer representative: Tobacco Use History - manufacturer representative Tobacco Use Smoking Status Never smoker 04/22/24 07:39 Hx Tobacco Use No 04/21/24 13:29 Years Smoking Packs Smoked per Day Smoking Cessation Date was within the last 15 years Hx Smoking Cessation Date Hx Smoking Cessation Counseling Hematologic Medial History Hematologic Hx - manufacturer representative: Hematologic Medical Hx - documentation coordinator Hx of Blood Transfusion No 04/21/24 13:29 Hx of Transfusion in last 3 No 04/21/24 13:29 Months Date of Last Transfusion (if within last 3 months) Ever experience any problems No 04/21/24 13:29 with transfusion(s)? Specify any problems Hx of Preganancy in last 3 No 04/21/24 13:29 Months Nurse Filling Out Transfusion MGRIFFITH 04/21/24 13:29 & Questions: Date: 04/21/24 04/21/24 13:29 Time: 13:30 04/21/24 13:29 Patient unable to answer at this time (ie. 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 Vaginal atrophy Macular degeneration Second degree AV block, Mobitz type II Right bundle branch block Left anterior fascicular block Mobitz type 2 second degree atrioventricular block Abnormal electrocardiogram Abnormal findings on diagnostic imaging of heart and coronary circulation Ventricular premature depolarization Thyroid disorder Home Medications ?Medication ?Instructions ?Recorded ?Last Taken ?Type multivitamin 1 tab PO QDAY 04/11/1704/21 History calcium 600 mg (as 1 cap PO DAILY 04/16/1804/11 History carbonate)-vitamin D3 5 mcg (200 unit) capsule (Calcium 600 + D(3)) vit C 250 mg-vit E 90 mg-zinc 40 1 tab PO BID 04/16/18 04/21/24 History mg-copper 1 [id number] capsule (PreserVision AREDS-2) lisinopril 20 mg tablet 20 mg PO DAILY 04/05/2204/11 History Lactobacillus acidophilus and 1 cap PO DAILY 06/04/23 04/21/24 History rhamnosus 10 billion cell capsule (Digestive Health Probiotic) cholecalciferol (vitamin D3) 10 10 mcg PO DAILY 04/21/24 History mcg (400 unit) tablet levothyroxine 88 mcg tablet 88 mcg PO .Mon-Sat #90 tab s 06/04/23 04/21/24 Rx estradiol 0.01% (0.1 mg/gram) See Rx Instructions vagi nal DAILY 06/11/23 Unknown History vaginal cream clobetasol 0.05 % topical ointment 1 applic topical .C OMPLEX #15 grams 04/15/24 Unknown Rx Allergy/AdvReac Type Severity Reaction Status Date / Time Sulfa (Sulfonamide Allergy Unknown Verified 04/22/24 08:07 Antibiotics) nitrofurantoin AdvReac OTHER Verified 04/22/24 08:07 Family History Mother Cancer lung-smoker Father Diabetes Cancer bladder Other Alcoholism Arthritis Depression Hypertension Mental disorder Osteoporosis and oculocutaneous hypopigmentation syndrome Psychiatric care Respiratory disease Surgical History History of colonoscopy History of left heart catheterization (03/02/16) Presence of cardiac pacemaker (03/21/16) History of tonsillectomy H/O dilation and curettage H/O lumpectomy Social History current occupational status: retired Smoking Status: Never smoker alcohol intake: never substance use type: does not use caffeine: Yes what type of physical activity do you participate in: walking frequency: daily seatbelt use: always do you feel safe at home: Yes additional social history: Micheal- Retired Review of Systems (Anesthesia) ROS Narrative System reviewed and no additional complaints, except as documented. 04/22/24 0838 > Date _ Vasu Mckay MD [facility] Signature: Date CC: ~ Signed [facility]03-12-2025 [facility] Medical Records Department [address] [place] [address] History Physical Exam 04/22/24737 MR#: [id number] Acct: [id number] Name: MARYLOU PIERCE Rep #: [id number] : 1950 73 From: Loretta Patel MD PCP: Dr. Robe Smith MD Status:[facility] Location: [place] [address] HPI - General General Date of Service: 04/22/24 HPI Narrative MARYLOU PIERCE, is a 73 F who presents for screening colonoscopy. Patient denies any changes since last office visit. Office visit 01/15/2024 HPI HPI: 73-year-old female presents for colonoscopy. Patient had colonoscopy 10 years ago negative per patient. Patient denies any chronic abdominal pain/nausea/vomiting/reflux. Has bowel movements every other day denies any blood. 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 Vaginal atrophy Macular degeneration Second degree AV block, Mobitz type II Right bundle branch block Left anterior fascicular block Mobitz type 2 second degree atrioventricular block Abnormal electrocardiogram Abnormal findings on diagnostic imaging of heart and coronary circulation Ventricular premature depolarization Thyroid disorder Home Medications ???Medication ???Instructions ???Recorded ???Last Taken ???Type multivitamin 1 tab PO QDAY 04/11/17 04/21/24 Hi story calcium 600 mg (as 1 cap PO DAILY 04/16/18 04/21/24 H istory carbonate)-vitamin D3 5 mcg (200 unit) capsule (Calcium 600 + D(3)) vit C 250 mg-vit E 90 mg-zinc 40 1 tab PO BID 04/16/18 04/21/24 His tory mg-copper 1 [id number] capsule (PreserVision AREDS-2) lisinopril 20 mg tablet 20 mg PO DAILY 04/05/22 04/21/24 H istory Lactobacillus acidophilus and 1 cap PO DAILY 06/04/23 04/21/24 H istory rhamnosus 10 billion cell capsule (Digestive Health Probiotic) cholecalciferol (vitamin D3) 10 10 mcg PO DAILY 06/04/23 04/21/24 History mcg (400 unit) tablet levothyroxine 88 mcg tablet 88 mcg PO .Mon-Sat #90 tabs 04/21/24 Rx estradiol 0.01% (0.1 mg/gram) See Rx Instructions vaginal DAILY 06/11/23 Unknown History vaginal cream clobetasol 0.05 % topical ointment 1 applic topical .COMPLEX #15 gr ams 04/15/24 Unknown Rx Allergy/AdvReac Type Severity Reaction Status Date / Time Sulfa (Sulfonamide Allergy Unknown Verified 04/22/24 08:07 Antibiotics) nitrofurantoin AdvReac OTHER Verified 04/22/24 08:07 Family History Mother Cancer lung-smoker Father Diabetes Cancer bladder Other Alcoholism Arthritis Depression Hypertension Mental disorder Osteoporosis and oculocutaneous hypopigmentation syndrome Psychiatric care Respiratory disease Surgical History History of colonoscopy History of left heart catheterization (03/02/16) Presence of cardiac pacemaker (03/21/16) History of tonsillectomy H/O dilation and curettage H/O lumpectomy Social History current occupational status: retired Smoking Status: Never smoker alcohol intake: never substance use type: does not use caffeine: Yes what type of physical activity do you participate in: walking frequency: daily seatbelt use: always do you feel safe at home: Yes additional social history: Micheal- Retired Past Medical/Surgical History Planned Operation Planned Operative Procedure(s): COLONOSCOPY Previous Hospitalizations/Surgeries HX Hospitalizations: No HX of Surgeries: lumpectomy , colonoscopies Any Problems With Anesthesia: No You/Your Family Experience Fever (Hyperthermia) With Anes: No Cholinesterase deficiency: No Cardiovascular Hx Chest Pain within Last 2 months: No Hx of Irregular Heartbeat and/or Afib: No Hx Heart Attack: No Hx Congestive Heart Failure: No Hx Rheumatic Fever: No Hx Hypertension: Yes (PER PT, CONTROLLED) Hx Internal Defibrillator: No Hx Pacemaker: No (scheduled for one) Hx Cardiac Catheterization: Yes Hx Cardiac Surgery/Stents/Etc.: No Hx Stress Test: Yes Respiratory Chronic Cough: No Hx Chronic Obstructive Pulmonary Disease (COPD): No Hx Asthma: No Hx Emphysema: No Hx Sleep Apnea: No Hx Respiratory Tract Infection/Cold (presently): No Do You Snore Loudly (louder than talking or can be heard): No D (more content not included)...[facility]12-04-2024 Evaluation note* Diagnosis Onset Date Resolution Status Admit Date Encounter for screening for malignant neoplasm of colon acute January 14 8:11am Left breast mass acute January 27, 2024 12:44pm Lichen sclerosus acute January 27, 2024 12:44pm Vaginal atrophy chronic January 27, 2024 12:44pm Encounter for routine gynecological examination noneactive Decemb er 2023 12:44pm Second degree AV block, Mobitz type II chronic February 02, 2 024 1:51pm Pacemaker malfunction resolved Jan 1:51pm Presence of cardiac pacemaker March 21, 2016 chronic January 1:52pm Second degree AV block, Mobitz type II chronic February 02 024 1:52pm Pacemaker malfunction resolved Dec 2023 1:52pm Presence of cardiac pacemaker March 21, 2016 chronic February 19, 2024 8:22am Second degree AV block, Mobitz type II chronic February 18 8:22am Left breast mass acute February 19, 2024 1:47pm Encounter for screening for malignant neoplasm of colon acute April 22, 2024 7:28am [facility] Work Phone: [phone]) 559-643610-14-2024 Telephone encounter Note* Telephone Encounter - Gregory Marrero Research Coordinator - 11/25/2023 11:26 AM EDT Asked Marylou to call me regarding results from last lab report. Gregory Marrero Research Coordinator [facility]10-14-2024 Miscellaneous Notes* Telephone Encounter - Gregory Marrero Research Coordinator - 11/25/2023 11:26 AM EDT Asked Marylou to call me regarding results from last lab report. Gregory Marrero Research Coordinator documented in this encounterMer[facility]24 NoteHNO ID: [id number] Author: RGEGORY MARRERO Research Berenice Service: ? Author Type: Research Type: Progress Notes Filed: 10/16/2023 16:33 Note Text: STUDY: JEMIMA [facility] IRB#: [id number] Subject #: [id number] SE: OS VISIT: 36 Labs: Safety, Urinalysis, ADA IMAGING: OCT,OCTA,FAF,FA,FP Height: 5'4 Weight: 166 lbs Eye Color: Brown ConMeds: none Adverse Events: none Non-study drug:Syfovre Injector: Tayeb Safwan Fellow eye treatment: None Patient is randomized into the every other month treatment group. All procedures completed per protocol. This was the patient's last visit. Will continue care closer to home in [place], [place] with Dr. Krish Buckley of [facility] Note: subject transported by Michaela Marrero Research Coordinator [facility]23[facility]09[facility] History of Present illness Narrative* Gregory Marrero, Research Coordinator - 10/16/2023 4:27 PM EDT STUDY: JEMIMA [facility] IRB#: [id number] Subject #: [id number] SE: OS VISIT: month 36 Labs: Safety, Urinalysis, ADA IMAGING: OCT,OCTA,FAF,FA,FP Height: 5'4 Weight: 166 lbs Eye Color: Brown ConMeds: none Adverse Events: none Non-study drug:Syfovre Injector: Tayeb Safwan Fellow eye treatment: None Patient is randomized into the every other month treatment group. All procedures completed per protocol. This was the patient's last visit. Will continue care closer to home in [place], [place] with Dr. Krish Buckley of [facility] Note: subject transported by Michaela Marrero Research Coordinator 10/16/2023 * Arely Plata V, MD - 10/16/2023 1:56 PM EDT Non-exudative, atrophic, Age related macular degeneration, Both eyes - RIGHT: - OCT dry with atrophy - Plan: observe, amsler/AREDs - LEFT: - OCT dry with atrophy - Plan: observe, amsler/AREDS - Jemima trial - treat with Syfovre Dicussed about occlusive vasculitis patient expressed understanding and would like to continue in the study; 11/14/2022 - patient would like to continue with treatment after study is over, prefers to follow-up locally, note sent Cataracts Both Eyes - VS I have confirmed and edited as necessary the relevant ophthalmic history, ROS, and the neuro exam findings as obtained by others. I have seen and examined Marylou Pierce. I have discussed the case and the management of this patient's care with the Resident/Fellow, if applicable. I also have reviewed and agree with the assessment and plan as stated above and agree withall of its relevant components. Arely Plata MD documented in this encounterMer[facility]-2024 NoteDate of Procedure 10/16/2023 [place] Protocol Safety Checklist Sign In: A moment to CARE completed, Special equipment verified, Appropriate PPE verified, Patient name, date of , allergies and intended procedure verified. Provider Confirms: Intended patient and procedure match the source document, Consent documented and matches the intended procedure, Correct side/site marked visible. Relevant labs, photos, and/or imaging studies have been reviewed. Medications required for procedure verified. No fire risk. No implants. Anesthesia 0.5 mL subconjunctival injection of 2% Lidocaine. Prep 10% Povidone-iodine swabs. Injection Administration Medication: 15 mg pegcetacoplan (PF) 15 mg /0.1 mL Route: INTRAVITREAL, Site: Left Balance Wasted Residual medication less than 1 unit was discarded. Anterior Chamber Paracentesis No. Post Injection Evaluation Patient has at least hand motion vision. Post Procedure Medications None. Home Going Prescription None. Sign Out Sign out discussion completed, All instruments, equipment, and/or possible retained foreign bodies accounted for, Post-procedure follow up management communicated. No specimens.[facility]09-04-2024 Instructions* Patient Instructions* Arely Plata V, MD - 10/16/2023 2:03 PM EDT Post-Injection Patient Information You had an injection into the eye today. Tearing and some redness are common after an eye injection. If the eye feels irritated, try to keepit closed; some patients find that a mild pain medicine such as acetaminophen helps. If tearing or pain persists the next day, please call. The redness may take some [...] vision, please call the office of Dr. Plataat [phone]. Loss of central or peripheral vision should prompt a call to us. Please call if you have any questions or concerns. For Questions or an Appointment, please call: [phone] Visit us online at [email or web address]. documented in this encounterMercy Health St. [facility]09-04-2024 NoteDate of Procedure 10/16/2023. Interpretation Right Eye Findings include Atrophy. Left Eye Findings include Atrophy. Interval Change Right Eye Stable. Left Eye Stable.[id number] NoteDate of Procedure 10/16/2023. Press Clipper Information Repair Department Manager: JARRED. Interpretation Right Eye Findings include Negative for CNV. Left Eye Findings include Negative for CNV.[id number] NoteDate of Procedure 10/16/2023. Press Clipper Information Repair Department Manager: JARRED. Disc Right Eye Normal. Left Eye Normal. Macula Right Eye Geographic atrophy. Left Eye Geographic atrophy. Periphery Right Eye Normal. Left Eye Normal.[id number] NoteDate of Procedure 10/16/2023. [employer] Department Manager: JARRED. Start time: 1:29 PM. A 24 gauge IV catheter was inserted into left medial AC vein. 5 cc's 10% NaFl was injected, per study patient protocol. No complications. IV catheter was removed, intact. Patient tolerated. Daria Kim RN 10/16/2023 1:33 PM . Additional Notes Right Eye Staining. Left Eye Staining.[id number] NoteDate of Procedure 10/16/2023. Press Clipper Information Repair Department Manager: JARRED. Interpretation Right Eye Hypofluorescence. Left Eye Hypofluorescence.[id number] NoteHNO ID: [id number] Author: ARELY PLATA MD Service: ? Author Type: Physician Type: Progress Notes Filed: 10/16/2023 16:33 Note Text: Non-exudative, atrophic, Age related macular degeneration, Both eyes - RIGHT: - OCT dry with atrophy - Plan: observe, amsler/AREDs - LEFT: - OCT dry with atrophy - Plan: observe, amsler/AREDS - Gale trial - treat with Mikhail Casarezed about occlusive vasculitis patient expressed understanding and would like to continue in the study; 11/14/2022 - patient would like to continue with treatment after study is over, prefers to follow-up locally, note sent Cataracts Both Eyes - VS I have confirmed and edited as necessary [...] with all of its relevant components. Arely Plata, [facility]07-24-2024 NoteHNO ID: [id number] Author: GREGORY MARRERO, Research Coordinator Service: ? Author Type: Research Type: Progress Notes Filed: 09/04/2023 14:50 Note Text: STUDY: JEMIMA Medina [facility] IRB#: [id number] Subject #: [id number] SE: OS VISIT: 34 Labs: none IMAGING: none Height: 5'4 Weight: 166 lbs Eye Color: Brown ConMeds: none Adverse Events: none IP injection: kit # [id number] Ancillary kit# [id number] Injector: Bobbi Ye Fellow eye treatment: None Patient is randomized into the every other month treatment group. All procedures completed per protocol. Next Visit is scheduled for 10/16/23 at 9:[address] Plata Note: subject transported by [employer]a and will need transportation next visit as well. Gregory Marrero Research Coordinator 09/04/2023[facility]07-24-2024 History of Present illness Narrative* Gregory Marrero Research Coordinator - 09/04/2023 2:47 PM EDT STUDY: JEMIMA [facility] IRB#: [id number] Subject #: [id number] SE: OS VISIT: 34 Labs: none IMAGING: none Height: 5'4 Weight: 166 lbs Eye Color: Brown ConMeds: none Adverse Events: none IP injection: kit # [id number] Ancillary kit# [id number] Injector: Bobbi Torresmyesha Fellow eye treatment: None Patient is randomized into the every other month treatment group. All procedures completed per protocol. Next Visit is scheduled for 10/16/23 at 9:[address] Plata Note: subject transported by [employer]a and will need transportation next visit as well. Gregory Marrero Research Coordinator 09/04/2023 * Arely Plata V, MD - 09/04/2023 11:18 AM EDT Non-exudative, atrophic, Age related macular degeneration, Both eyes - RIGHT: - OCT dry with atrophy - Plan: observe, amsler/AREDs - LEFT: - OCT dry with atrophy - Plan: observe, amsler/AREDS - Gale trial - treat per protocol Dicussed about occlusive vasculitis patient expressed understanding and would like to continue in the study; 11/14/2022 - patient would like to continue with treatment after study is over Cataracts Both Eyes - ? VS - Observe I have confirmed and edited as necessary the relevant ophthalmic history, ROS, and the neuro exam findings as obtained by others. I have seen and examined Marylou Pierce. I have discussed the case and the management of this patient's care with the Resident/Fellow, if applicable. I also have reviewed and agree with the assessment and plan as stated above and agree withall of its relevant components. Arely Plata MD documented [facility] NoteDate of Procedure 09/04/2023 [place] Protocol Safety Checklist Sign In: Appropriate PPE verified, Special equipment verified, A moment to CARE completed, Patient name, date of , allergies and intended procedure verified. Provider Confirms: Intended patient and procedure match the source document, Correct side/site marked visible, Consent documented and matches the intended procedure. Relevant labs, photos, and/or imaging studies have been reviewed. Medications required for procedure verified. No fire risk. No implants. Anesthesia 0.5 mL subconjunctival injection of 2% Lidocaine. Prep 10% Povidone-iodine swabs. Medication Injected (include dosage) Pegcetacoplan 0.1mL of 150mg/ml. Balance Wasted Residual medication less than 1 unit was discarded. Anterior Chamber Paracentesis No. Post Injection Evaluation Patient has at least hand motion vision. Post Procedure Medications None. Home Going Prescription None. Sign Out Sign out discussion completed, Post-procedure follow up management communicated, All instruments, equipment, and/or possible retained foreign bodies accounted for. No specimens. Notes GALE STUDY 0.1 mL from Pegcetacoplan study vial.[facility]07-24-2024 Instructions* Patient Instructions* Arely Plata V, MD - 09/04/2023 11:22 AM EDT Post-Injection Patient Information You had an injection into the eye today. Tearing and some redness are common after an eye injection. If the eye feels irritated, try to keepit closed; some patients find that a mild [...] vision, please call the office of Dr. Plataat [phone] or for after hours (nights, weekends and holidays) call [phone]. Loss of central or peripheral vision should prompt a call to us. Please call if you have any questions or concerns. documented in this encounterMer[facility]07-24-2024 NoteHNO ID: [id number] Author: ARELY PLATA MD Service: ? Author Type: Physician Type: Progress Notes Filed: 09/04/2023 11:22 Note Text: Non-exudative, atrophic, Age related macular degeneration, Both eyes - RIGHT: - OCT dry with atrophy - Plan: observe, amsler/AREDs - LEFT: - OCT dry with atrophy - Plan: observe, amsler/AREDS - Jemima trial - treat per protocol Dicussed about occlusive vasculitis patient expressed understanding and would like to continue in the study; 11/14/2022 - patient would like to continue with treatment after study is over Cataracts Both Eyes - ? VS - Observe I have confirmed and edited [...] with all of its relevant components. Arely Plata, [facility]05-17-2024 NoteDate of Procedure 06/28/2023 [place] Protocol Safety Checklist Sign In: A moment to CARE completed, Appropriate PPE verified, Patient name, date of , allergies and intended procedure verified, Special equipment verified. Provider Confirms: Intended patient and procedure match the source document, Consent documented and matches the intended procedure, Correct side/site marked visible. Relevant labs, photos, and/or imaging studies have been reviewed. Medications required for procedure verified. Fire risk assessed and interventions discussed. No implants. Anesthesia Topical 4% Lidocaine on cotton swabs, 0.5 mL subconjunctival injection of 2% Lidocaine. Prep 5% Betadine. Medication Injected (include dosage) pegcetacoplan 15 mg/0.1ml. Balance Wasted Residual medication less than 1 unit was discarded. Anterior Chamber Paracentesis No. Post Injection Evaluation Patient has at least hand motion vision. Post Procedure Medications None. Home Going Prescription None. Sign Out Sign out discussion completed, Post-procedure follow up management communicated, All instruments, equipment, and/or possible retained foreign bodies accounted for. Specimen containers correctly labeled.[facility] 06-28-2023 NoteHNO ID: [id number] Author: GREGORY MARRERO, Research Coordinator Service: ? Author Type: Research Type: Progress Notes Filed: 06/28/2023 14:51 Note Text: STUDY: JEMIMA Zaidi IRB#: [id number] Subject #: [id number] SE: OS VISIT: 32 Labs: none IMAGING: none Height: 5'4 Weight: 166 lbs Eye Color: Brown ConMeds: none Adverse Events: none IP injection: kit # [id number] Ancillary kit# [id number] Injector: Hashem Ghoraba Fellow eye treatment: None Patient is randomized into the every other month treatment group. All procedures completed per protocol. Next Visit is scheduled for 09/04/23 at 9:[address] Plata Note: subject transported by [employer]a and will need transportation next visit as well. Gregory Marrero Research Coordinator 06/28/2023[facility]05-17-2024 History of Present illness Narrative* Gregory Marrero Research Coordinator - 06/28/2023 2:04 PM EDT STUDY: [facility] IRB#: [id number] Subject #: [id number] SE: OS VISIT: 32 Labs: none IMAGING: none Height: 5'4 Weight: 166 lbs Eye Color: Brown ConMeds: none Adverse Events: none IP injection: kit # [id number] Ancillary kit# [id number] Injector: Hashem Ghoraba Fellow eye treatment: None Patient is randomized into the every other month treatment group. All procedures completed per protocol. Next Visit is scheduled for 09/04/23 at 9:[address] Plata Note: subject transported by [employer] and will need transportation next visit as well. Gregory Marrero Research Coordinator 06/28/2023 * Arely Plata V, MD - 06/28/2023 11:08 AM EDT Non-exudative, atrophic, Age related macular degeneration, Both eyes - RIGHT: - OCT dry with atrophy - Plan: observe, amsler/AREDs - LEFT: - OCT dry with atrophy - Plan: observe, amsler/AREDS - [facility] trial - treat per protocol Dicussed about occlusive vasculitis patient expressed understanding and would like to continue in the study; 11/14/2022 - patient would like to continue with treatment after study is over Cataracts Both Eyes - ? VS - Observe I have confirmed and edited as necessary the relevant ophthalmic history, ROS, and the neuro exam findings as obtained by others. I have seen and examined Marylou Pierce. I have discussed the case and the management of this patient's care with the Resident/Fellow, if applicable. I also have reviewed and agree with the assessment and plan as stated above and agree withall of its relevant components. Arely Plata MD documented in this encounterMer[facility]05-17-2024 Instructions* Patient Instructions* Arely Plata V, MD - 06/28/2023 11:13 AM EDT Post-Injection Patient Information You had an injection into the eye today. Tearing and some redness are common after an eye injection. If the eye feels irritated, try to keepit closed; some patients find that a mild [...] vision, please call the office of Dr. Plataat [phone] or for after hours (nights, weekends and holidays) call [phone]. Loss of central or peripheral vision should prompt a call to us. Please call if you have any questions or concerns. documented in this encounterMercy Health St. [facility]05-17-2024 NoteHNO ID: [id number] Author: ARELY PLATA MD Service: ? Author Type: Physician Type: Progress Notes Filed: 06/28/2023 11:13 Note Text: Non-exudative, atrophic, Age related macular degeneration, Both eyes - RIGHT: - OCT dry with atrophy - Plan: observe, amsler/AREDs - LEFT: - OCT dry with atrophy - Plan: observe, rajani/CHICA - Jemima trial - treat per protocol Dicussed about occlusive vasculitis patient expressed understanding and would like to continue in the study; 11/14/2022 - patient would like to continue with treatment after study is over Cataracts Both Eyes - ? VS - Observe I have confirmed and edited [...] with all of its relevant components. Arely Plata, [facility]03-18-2024 NoteHNO ID: [id number] Author: GREGORY MARRERO, Research Coordinator Service: ? Author Type: Research Type: Progress Notes Filed: 04/29/2023 15:35 Note Text: STUDY: JEMIMA Medina [facility] IRB#: [id number] Subject #: [id number] SE: OS VISIT: 30 Labs: ADA IMAGING: OCT, OCT-A, FAF (PRISCILLA) Height: 5'4 Weight: 166 lbs Eye Color: Brown ConMeds: Probiotic started 01/11/2023 (preventative) Adverse Events: none IP injection: kit # [id number] Ancillary kit# [id number] Patient is randomized into the every other month treatment group. All procedures completed per protocol. Next Visit is scheduled for 07/03/23 at 10:[address] Plata Note: subject transported by [email or web address] and will need transportation next visit as well. Gregory Marrero Research Coordinator 04/29/2023[facility]03-18-2024 History of Present illness Narrative* Gregory Marrero Research Coordinator - 04/29/2023 3:27 PM EDT STUDY: JEMIMA Medina [facility] IRB#: [id number] Subject #: [id number] SE: OS VISIT: month 30 Labs: ADA IMAGING: OCT, OCT-A, FAF (PRISCILLA) Height: 5'4 Weight: 166 lbs Eye Color: Brown ConMeds: Probiotic started 01/11/2023 (preventative) Adverse Events: none IP injection: kit # [id number] Ancillary kit# [id number] Patient is randomized into the every other month treatment group. All procedures completed per protocol. Next Visit is scheduled for 07/03/23 at 10:[address] Plata Note: subject transported by [email or web address] and will need transportation next visit as well. Gregory Marrero Research Coordinator 04/29/2023 * Catia Perez MD - 04/29/2023 12:51 PM EDT Non-exudative, atrophic, Age related macular degeneration, Both eyes - RIGHT: - Plan: observe, amsler/AREDs - LEFT: - Plan: observe, amsler/AREDS - Gale trial [...] components. Catia Perez MD documented in this encounterMer[facility]03-18-2024 NoteHNO ID: [id number] Author: CATIA PEREZ MD Service: ? Author Type: Physician Type: Progress Notes Filed: 04/29/2023 12:52 Note Text: Non-exudative, atrophic, Age related macular degeneration, Both eyes - RIGHT: - Plan: observe, amsler/AREDs - LEFT: - Plan: observe, amsler/AREDS - Gale trial [...] with all of its relevant components. Catia Perez, [facility]01-22-2024 NoteHNO ID: [id number] Author: GREGORY MARRERO Research Coordinator Service: ? Author Type: Research Type: Progress Notes Filed: 03/04/2023 15:16 Note Text: STUDY: JEMIMA [facility] IRB#: [id number] Subject #: [id number] SE: OS VISIT: 28 Labs: none IMAGING: none Height: 5'4 Weight: 166 lbs Eye Color: Brown ConMeds: Clobetasol ointment (01/23/2023) for Lichen Sclerosus Adverse Events: Genital Lichen Sclerosus (01/23/2023) IP injection: kit # [id number] Ancillary kit# [id number] Patient is randomized into the every other month treatment group. All procedures completed per protocol. Next Visit is scheduled for 04/29/2023 at 9:[address] Perez Note: subject transported by [employer] and will need transportation next visit as well. Gregory Marrero[facility]-2024 NoteHNO ID: [id number] Author: RUSTY SILVA MD Service: ? Author Type: Physician Type: Progress Notes Filed: 03/04/2023 10:52 Note Text: Non-exudative, atrophic, Age related macular degeneration, Both eyes - RIGHT: - discussed treatment for GA and does not want to proceed at this time - Plan: observerajani/LAVERNDs - LEFT: - s/p study treatment 01/14/23 on q8week interval and feels things are stable - Plan: Jemima study - treat per protocol Cataracts Both [...] and agree with all of its relevant components.[facility]12-05-2023 NoteHNO ID: [id number] Author: Gregory Marrero, Research Coordinator Service: ? Author Type: Research Type: Progress Notes Filed: 01/15/2023 12:57 PM Note Text: STUDY: JEMIMA Medina [facility] IRB#: [id number] Subject #: [id number] SE: OS VISIT: 26 Labs: none IMAGING: none Height: 5'4 Weight: 166 lbs Eye Color: Brown ConMeds: none Adverse Events: none Patient is randomized into the every other month treatment group. All procedures completed per protocol. Next Visit is scheduled for 03/04/2023 at 9:[address] Silva Note: subject transported by [email or web address] and may need transportation next visit as well. Gregory aMrrero- Research 01/15/2023[facility]12-04-2023 NoteHNO ID: [id number] Author: Catia Perez MD Service: ? Author Type: Physician Type: Progress Notes Filed: 01/14/2023 10:15 AM Note Text: Non-exudative, atrophic, Age related macular degeneration, Both eyes - RIGHT: - Plan: observe, amsler/AREDs - LEFT: - Plan: observe, amsler/AREDS - Jemima trial - treat per protocol Cataracts Both [...] with all of its relevant components. Catia Perez, [facility]10-04-2023 History of Present illness Narrative* Gregory Marrero, Research Coordinator - 11/14/2022 3:28 PM EDT STUDY: JEMIMA [facility] IRB#: [id number] Subject #: [id number] SE: OS VISIT: 24 Labs: safety,ADA IMAGING: FAF,OCT,OCT-A,FA,FP Height: 5'4 Weight: 166 lbs Eye Color: Brown ConMeds: none Adverse Events: none Patient is randomized into the every other month treatment group. All procedures completed per protocol. Next Visit is scheduled for 01/01/23 at 9:[address] Silva Note: subject transported by [email or web address] and may need transportation next visit as well. Gregory Marrero- Research 11/14/2022 * Arely Plata V, MD - 11/14/2022 2:37 PM EDT Non-exudative, atrophic, Age related macular degeneration, Both [...] and plan as stated above and agree withall of its relevant components. Arely Plata MD * Rod Bernal MD - 11/14/2022 11:23 AM EDT Complete Physical Exam As reported by the [...] MD Medical Retina Fellow documented in this encounterMer[facility]10-04-2023 Instructions* Patient Instructions* Arely Plata V, MD - 11/14/2022 2:47 PM EDT Post-Injection Patient Information You had an injection into the eye today. Tearing and some redness are common after an eye injection. If the eye feels irritated, try to keepit closed; some patients find that a mild [...] vision, please call the office of Dr. Plataat [phone] or for after hours (nights, weekends and holidays) call [phone]. Loss of central or peripheral vision should prompt a call to us. Please call if you have any questions or concerns. documented in this encounterMer[facility]. [facility]08-07-2023 History of Present illness Narrative* Catia Perez MD - 09/17/2022 10:26 AM EDT Non-exudative, atrophic, Age related macular degeneration, Both [...] components. Catia Perez MD documented in this encounterMer[facility]03-15-2023 Instructions* Patient Instructions* Arely Plata V, MD - 04/25/2022 10:34 AM EDT Post-Injection Patient Information You had an injection into the eye today. Tearing and some redness are common after an eye injection. If the eye feels irritated, try to keepit closed; some patients find that a mild [...] vision, please call the office of Dr. Plataat [phone] or for after hours (nights, weekends and holidays) call [phone]. Loss of central or peripheral vision should prompt a call to us. Please call if you have any questions or concerns. documented in this encounterMer[facility]03-15-2023 History of Present illness Narrative* Arely Plata V, MD - 04/25/2022 10:29 AM EDT Problems addressed today: Non-exudative, atrophic, Age related [...] and plan as stated above and agree withall of its relevant components. Arely Plata MD * [facility] - 04/25/2022 9:23 AM EDT STUDY: [facility] IRB#: [id number] Subject #: [id number] SE: OS [...] Research 25 APR 2022 documented in [address] encounterMer[facility]02-03-2023 Instructions* Patient Instructions* Arely Plata V, MD - 03/16/2022 1:37 PM EST Post-Injection Patient Information You had an injection into the eye today. Tearing and some redness are common after an eye injection. If the eye feels irritated, try to keepit closed; some patients find that a mild [...] vision, please call the office of Dr. Plataat [phone] or for after hours (nights, weekends and holidays) call [phone]. Loss of central or peripheral vision should prompt a call to us. Please call if you have any questions or concerns. documented in this encounterMer[facility] St. [facility]02-03-2023 History of Present illness Narrative* Arely Plata V, MD - 03/16/2022 1:35 PM EST Problems addressed today: Non-exudative, atrophic, Age related macular degeneration, Both eyes - RIGHT: - OCT dry with atrophy - Plan: observe, amsler/AREDs - LEFT: - OCT dry with atrophy - Plan: observe, rajani/CHICA - Gale trial - treat per protocol [...] and plan as stated above and agree withall of its relevant components. Arely Plata MD documented in this encounterMer[facility]12-01-2022 History of Present illness Narrative* Gregory Marrero, Research Coordinator - 01/11/2022 1:08 PM EST Adverse Events/Con meds Medical History Eye #: [id number] Initials: RJS Medical History N/A Start Date End Date Cardiac Arrythmia N/A /Un Hypertension N/A 18-Jul-07 Internal Hemmorhoids N/A Un/Unk/Unkn Acquired Hypothyroidism N/A AMD OU /Un/2016 Cataracts OU 28-Aug-18 Dry Eye Syndrome OU 22-Sep-18 Geographic Atrophy OU un/unk/unkn Surgical History Eye Date Pacemaker N/A 03/21/2016 [...] Yes Multi-Vitamin PO QD Supplement 12/15/2009 Yes [place] -3 PO QD Supplement 04/12/2019 No Thera-tears [...] Date End Date Outcome Severity Treatment Relationship Gregory Marrero-Research 01/11/2022 documented in [address] encounterMer[facility]11-30-2022 Instructions* Patient Instructions* Arely Plata V, MD - 01/10/2022 11:17 AM EST Post-Injection Patient Information You had an injection into the eye today. Tearing and some redness are common after an eye injection. If the eye feels irritated, try to keepit closed; some patients find that a mild [...] vision, please call the office of Dr. Plataat [phone] or for after hours (nights, weekends and holidays) call [phone]. Loss of central or peripheral vision should prompt a call to us. Please call if you have any questions or concerns. documented in this encounterMer[facility]. [facility]11-30-2022 History of Present illness Narrative* Arely Plata V, MD - 01/10/2022 11:14 AM EST Problems addressed today: Non-exudative, atrophic, Age related [...] and plan as stated above and agree withall of its relevant components. Arely Plata MD documented in this encounterMer[facility]10-05-2022 Instructions* Patient Instructions* Arely Plata V, MD - 11/15/2021 3:24 PM EDT Post-Injection Patient Information You had an injection into the eye today. Tearing and some redness are common after an eye injection. If the eye feels irritated, try to keepit closed; some patients find that a mild [...] vision, please call the office of Dr. Plataat [phone] or for after hours (nights, weekends and holidays) call [phone]. Loss of central or peripheral vision should prompt a call to us. Please call if you have any questions or concerns. documented in this encounterMer[facility]. [facility]10-05-2022 History of Present illness Narrative* Arely Plata V, MD - 11/15/2021 3:20 PM EDT Problems addressed today: Non-exudative, atrophic, Age related macular degeneration, Both eyes - RIGHT: - OCT dry with atrophy - Plan: observe, amsler/AREDs - LEFT: - OCT dry with atrophy - Plan: observe, netoler/AREDS - Gale trial - treat per protocol [...] and plan as stated above and agree withall of its relevant components. Arely Plata MD documented in this encounterMer[facility]08-10-2022 History of Present illness Narrative* Rusty Silva MD - 09/20/2021 11:55 AM EDT Problems addressed today: Non-exudative, atrophic, Age related macular degeneration, Both eyes - RIGHT: - OCT dry with atrophy - Plan: observerajani/Chica - LEFT: - OCT dry with atrophy - Plan: observerajani/CHICA - Jemima trial - treat per protocol Cataracts Both [...] and plan as stated above and agree withall of its relevant components. Rusty Silva MD documented in this encounterMer[facility]. [facility]06-03-2022 Instructions* Patient Instructions* Arely Plata V, MD - 07/14/2021 11:40 AM EDT Post-Injection Patient Information You had an injection into the eye today. Tearing and some redness are common after an eye injection. If the eye feels irritated, try to keepit closed; some patients find that a mild [...] vision, please call the office of Dr. Judge [phone] or for after hours (nights, weekends and holidays) call [phone]. Loss of central or peripheral vision should prompt a call to us. Please call if you have any questions or concerns. documented [facility] History of Present illness Narrative* Arely Plata V, MD - 07/14/2021 11:37 AM EDT Problems addressed today: Non-exudative, atrophic, Age related [...] and plan as stated above and agree withall of its relevant components. Arely Plata MD documented in [facility]22 Instructions* Patient Instructions* Arely Plata V, MD - 05/17/2021 1:17 PM EDT Post-Injection Patient Information You had an injection into the eye today. Tearing and some redness are common after an eye injection. If the eye feels irritated, try to keepit closed; some patients find that a mild [...] vision, please call the office of Dr. Judge [phone] or for after hours (nights, weekends and holidays) call [phone]. Loss of central or peripheral vision should prompt a call to us. Please call if you have any questions or concerns. documented in this encounterMer[facility]04[facility]22 History of Present illness Narrative* Arely Plata V, MD - 05/17/2021 1:12 PM EDT Problems addressed today: Non-exudative, atrophic, Age related [...] I have seen and examined Marylou José Mayenaf. I have discussed the case and the management of this patient's care with the Resident/Fellow, if applicable. I also have reviewed and agree with the assessment and plan as stated above and agree withall of its relevant components. Arely Plata MD * Elis Lewis [facility] - 05/17/2021 10:28 AM EDT [facility] [id number] Subject #: [id number] SE: OS VISIT: Month 6 Labs: Anti-pegcetacoplan peptide Ab and Anti-PRG Ab assays IMAGING: SD-OCT, FAF, PRISCILLA, OCT-A Height: 5'4 Weight: 166 lbs Eye Color: Brown Patient is randomized into the every other month treatment group. All procedures completed per protocol. Next Visit is scheduled for 07/26/2021 @ 10:00 am with MD Elis Hernandez [facility] 05/17/2021 Medical History Eye #: [id number] Initials: RJS Medical History N/A Start Date End Date Cardiac Arrythmia N/A /Unk/2016 Hypertension N/A 18-Jul-07 Internal Hemmorhoids N/A Un/Unk/Unkn Acquired Hypothyroidism N/A AMD OU Cataracts OU [...] Yes Multi-Vitamin PO QD Supplement 12/15/2009 Yes [place] -3 PO QD Supplement 04/12/2019 No Thera-tears [...] Outcome Severity Treatment Relationship documented in this encounterMer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 Second degree AV block, Mobitz type II chronic Vaginal atrophy chronic Encounter for routine gyneco logical examination noneactive [facility] Work Phone: 1(155) 430-677202-08-2017 Evaluation note* Diagnosis Onset Date Resolution Status Presence of cardiac pacemaker March 21, 2016 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 Second degree AV block, Mobitz type II chronic Vaginal atrophy chronic Encounter for routine gyneco logical examination noneactive Presence of cardiac pacemaker March 21, 2016 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 Second degree AV block, Mobitz type II chronic [facility] Work Phone: 1(677) 514-981102-08-2017 Evaluation note* Diagnosis Onset Date Resolution Status Vaginal atrophy chronic Encounter for routine gyneco logical examination noneactive Presence of cardiac pacemaker March 21, 2016 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 Second degree AV block, Mobitz type II [facility] Work Phone: 1(677) 537-887602-08-2017 Evaluation note* Diagnosis Onset Date Resolution Status Presence of cardiac pacemaker March 21, 2016 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 Second degree AV block, Mobitz type II chronic Presence of cardiac pacemaker March 21, 2016 chronic Second degree AV block, Mobitz type II chronic 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 Presence of cardiac pacemaker March 21, 2016 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 Second degree AV block, Mobitz type II chronic [facility] Work Phone: 1([phone]) 320-337502-08-2017 Evaluation note* Diagnosis Onset Date Resolution Status Presence of cardiac pacemaker March 21, 2016 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 Second degree AV block, Mobitz type II chronic Lichen sclerosus acute Vaginal atrophy chronic Encounter for routine gyneco logical examination noneactive Lichen sclerosus acute Vaginal atrophy chronic Presence of cardiac pacemaker March 21, 2016 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 Second degree AV block, Mobitz type II chronic Lichen sclerosus acute Vaginal atrophy chronic [facility] Work Phone: 1(261) 602-936602-08-2017 Evaluation note* Diagnosis Onset Date Resolution Status Lichen sclerosus acute Vaginal atrophy chronic Presence of cardiac pacemaker March 21, 2016 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 Second degree AV block, Mobitz type II chronic Lichen sclerosus acute Vaginal atrophy chronic [facility] Work Phone: 1(171) 428-298102-08-2017 Evaluation note* Diagnosis Onset Date Resolution Status Presence of cardiac pacemaker March 21, 2016 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 Cohen Gynecological examination 12/30/20082011 Overview: [facility] [place] documented as of this encounter (statuses as of 05/17/2021) [facility] History of Past illness Narrative* Problem Noted Date Resolved Date Routine general medical exam ination at a health care facility 12/30/2008 05/31/2011 Overview: 12/30/2008, from Dr. Cohen Gynecological examination 12/30/20082011 Overview: [facility] [place] documented as of this encounter (statuses as of 07/14/2021) [facility] History of Past illness Narrative* Problem Noted Date Resolved Date Routine general medical exam ination at a health care facility 12/30/2008 05/31/2011 Overview: 12/30/2008, from Dr. Cohen Gynecological examination 12/30/20082011 Overview: [facility] [place] documented as of this encounter (statuses as of 09/20/2021) [facility] History of Past illness Narrative* Problem Noted Date Resolved Date Routine general medical exam ination at a health care facility 12/30/2008 05/31/2011 Overview: 12/30/2008, from Dr. Cohen Gynecological examination 12/30/20082011 Overview: [facility] [place] documented as of this encounter (statuses as of 11/15/2021) [facility] History of Past illness Narrative* Problem Noted Date Resolved Date Routine general medical exam ination at a health care facility 12/30/2008 05/31/2011 Overview: 12/30/2008, from Dr. Cohen Gynecological examination 12/30/20082011 Overview: [facility] [place] documented as of this encounter (statuses as of 01/10/2022) [facility] of Past illness Narrative* Problem Noted Date Resolved Date Routine general medical exam ination at a health care facility 12/30/2008 05/31/2011 Overview: 12/30/2008, from Dr. Cohen Gynecological examination 12/30/20082011 Overview: [facility] [place] documented as of this encounter (statuses as of 01/11/2022) [facility] of [facility] illness Narrative* Problem Noted Date Resolved Date Routine general medical exam ination at a health care facility 12/30/2008 05/31/2011 Overview: 12/30/2008, from Dr. Cohen Gynecological examination 12/30/20082011 Overview: [facility] [place] documented as of this encounter (statuses as of 03/16/2022) [facility] of [facility] illness Narrative* Problem Noted Date Resolved Date Routine general medical exam ination at a health care facility 12/30/2008 05/31/2011 Overview: 12/30/2008, from Dr. Cohen Gynecological examination 12/30/20082011 Overview: [facility] documented as of this encounter (statuses as of 03/19/2022) [facility] of Past illness Narrative* Problem Noted Date Resolved Date Routine general medical exam ination at a health care facility 12/30/2008 05/31/2011 Overview: 12/30/2008, from Dr. Cohen Gynecological examination 12/30/20082011 Overview: [facility] [place] documented as of this encounter (statuses as of 04/25/2022) [facility] of [facility] illness Narrative* Problem Noted Date Diagnosed Date Resolved Date Routine general medical exam ination at a health care facility 12/30/2008 05/31/2011 Overview: 12/30/2008, from Dr. Cohen Gynecological examination 12/30/2008 Overview: [facility] [place] documented as of this encounter (statuses as of 09/17/2022) [facility] of [facility] illness Narrative* Problem Noted Date Diagnosed Date Resolved Date Routine general medical exam ination at a health care facility 12/30/2008 05/31/2011 Overview: 12/30/2008, from Dr. Cohen Gynecological examination 12/30/2008 Overview: [facility] [place] documented as of this encounter (statuses as of 11/16/2022) [facility] of Past illness Narrative* Problem Noted Date Diagnosed Date Resolved Date Routine general medical exam ination at a health care facility 12/30/2008 05/31/2011 Overview: 12/30/2008, from Dr. Cohen Gynecological examination 12/30/2008 Overview: [facility] documented as of this encounter (statuses as of 11/19/2022) [facility] of Past illness Narrative* Problem Noted Date Diagnosed Date Resolved Date Routine general medical exam ination at a health care facility 12/30/2008 05/31/2011 Overview: 12/30/2008, from Dr. Cohen Gynecological examination 12/30/2008 Overview: [facility] [place] documented as of this encounter (statuses as of 04/29/2023) [facility] History of Past illness Narrative* Problem Noted Date Diagnosed Date Resolved Date Routine general medical exam ination at a health care facility 12/30/2008 05/31/2011 Overview: 12/30/2008, from Dr. Cohen Gynecological examination 12/30/2008 Overview: [facility] documented as of this encounter (statuses as of 04/29/2023) [facility] of [facility] illness Narrative* Problem Noted Date Diagnosed Date Resolved Date Routine general medical exam ination at a health care facility 12/30/2008 05/31/2011 Overview: 12/30/2008, from Dr. Cohen Gynecological examination 12/30/2008 Overview: [facility] documented as of this encounter (statuses as of 04/29/2023) [facility] History of Past illness Narrative* Problem Noted Date Diagnosed Date Resolved Date Routine general medical exam ination at a health care facility 12/30/2008 05/31/2011 Overview: 12/30/2008, from Dr. Cohen Gynecological examination 12/30/2008 Overview: [facility] [place] documented as of this encounter (statuses as of 05/06/2023) [facility] note Author Matty Rowley [facility] Note Date/Time April 22, 2024 10: 39am [facility] Medical Records Department [address] [place] [address] Anesthesia Postop Eval I 04/22/24 1038 MR#: [id number] Acct: [id number] Name: MARYLOU PIERCE Rep #:[id number] : 1950 73 From: Matty Rowley PCP: Dr. Robe Smith MD Status :REG SDC Y Race: C Location: [place] [address] Anesthesia: Postop Eval I Current Vital Signs Temperature: 98 F Pulse Rate: 16 Blood Pressure: 93/59 Respiratory Rate: 16 Pulse Ox: 99 Oxygen Delivery Method: Room Air Assessment Airway patent: Yes Spontaneous unlabored respirations: Yes Mental status: Awake and Calm nausea: No Vomiting: No Anesthesia Complication: No Fluid Hydration Crystalloid volume administer (ml): 45 Total IV fluid infused: 45 Progress Note Anesthesia document: Postop Eval 1 completed: Yes 04/22/24 1039 <Electronically signed by Matty Rowley > Date _ Matty Fair Signature: Date CC: ~ Signed [facility] Work Phone: Consult note Author Vasu Mckay [facility] Note Date/Time April 22, 2024 10: 51am [facility] Medical Records Department [address] [place] [address] Anesthesia Postop Eval II 04/22/24 1050 MR#: [id number] Acct: [id number] Name: MARYLOU PIERCE Rep #:[id number] : 1950 73 From: Vasu Mckay MD PCP: Dr. Robe Smith MD Status :REG SDC Y Race: C Location: [place] [address] Anesthesia Postop Eval I Sum Postop Eval Completion status Anesthesia document: Postop Eval 1 completed: Yes Anesthesia Postop Eval I Summary Anesthesia Postop Eval I Summary: Anesthesia Postop Eval I: Assessment Summary Airway patent Yes 04/22/24 10:39 [email or web address] Spontaneous unlabored Yes 04/22/24 10:39 [email or web address] respirations Mental status Awake,Calm 04/22/24 10:39 [email or web address] nausea No 04/22/24 10:39 [email or web address] Vomiting No 04/22/24 10:39 [email or web address] Anesthesia Postop Eval I: Fluid Summary Crystalloid volume administer 45 04/22/24 10:39 [email or web address] (ml) Colloids volume administered ( ml) Blood Product volume administered (ml) Total IV fluid infused 45 04/22/24 10:39 [email or web address] Anesthesia Postop Eval I: Summary Notes Anesthesia Complication No 04/22/24 10:39 [email or web address] Anesthesia Complication Comment: Post-operative progress note Anesthesia: Postop Eval II Evaluation Mental status: Awake Pain Level: 0 nausea: No Vomiting: No 04/22/24 1051 <Electronically signed by Vasu Mckay MD > Date _ Vasu Mckay MD [facility] Signature: Date CC: ~ Signed [facility] Work Phone: Evaluation note* Diagnosis Advanced nonexudative age-related macular degeneration of both eyes with subfoveal involvement- Primary 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 Diagnosis Advanced nonexudative age-related macular degeneration of both eyes with subfoveal involvement- Primary Nuclear senile cataract of both eyes [facility] Diagnosis Advanced nonexudative age-related macular degeneration of both eyes with subfoveal involvement- Primary [facility] Diagnosis Advanced nonexudative age-related macular degeneration of both eyes with subfoveal involvement documented [facility] this [facility]* Diagnosis Advanced nonexudative age-related macular degeneration of both eyes with subfoveal involvement- Primary Nuclear senile cataract of both eyes [facility] Diagnosis Advanced nonexudative age-related macular degeneration of both eyes with subfoveal involvement- Primary Nuclear senile cataract of both eyes [facility] Diagnosis Advanced nonexudative age-related macular degeneration of both eyes with subfoveal involvement- Primary [facility] Diagnosis Advanced nonexudative age-related macular degeneration of both eyes with subfoveal involvement- Primary [facility] Diagnosis Advanced nonexudative age-related macular degeneration of both eyes with subfoveal involvement- Primary Nuclear senile cataract of both eyes [facility] Diagnosis Advanced nonexudative age-related macular degeneration of both eyes with subfoveal involvement- Primary 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 Second degree AV block, Mobitz type II chronic Lichen sclerosus acute Vaginal atrophy chronic [facility] Work Phone: Evaluation note* Diagnosis Advanced nonexudative age-related macular degeneration of both eyes with subfoveal involvement- Primary documented in this encounter [facility] note* Diagnosis Advanced nonexudative age-related macular degeneration of both eyes with subfoveal involvement- Primary [facility] Memory loss Advanced nonexudative age-related macular degeneration of both eyes with subfoveal involvement- Primary Nuclear senile cataract of both eyes documented in this encounter 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 Advance Directive(s) 10/05/2014 11:48 AM Advance Directive Response Recorded Date/ Time Advance Directives Yes March 21, 2016 11:41am Living Will Yes March 21 11:41am Power of Rehab Tech Yes March 21, 2016 11:41am Advance Directive Response Recorded Date/ Time Advance Directives Yes March 21, 2016 10:41am Living Will Yes March 21 10:41am Power of Rehab Tech Yes March 21, 2016 10:41am Advance Directive Response Recorded Date/ Time Living Will Yes March 21 11:41am Power of Rehab Tech Yes March 21, 2016 11:41am Advance Directives on File Yes Decem 2023 12:21pm Living Will Yes February 09 12:21pm Power of Rehab Tech Yes February 10, 2024 12:21pm Name of Medical Power of Rehab Tech Jesus Pierce February 10, 2024 12:21pm Advance Directives Yes January 12:21pm Living Will Yes April 21, 2024 1:29pm Power of Rehab Tech Yes April 21 1:29pm Name of Medical Power of Rehab Tech [facility] April 21, 2024 1:29pm Advance Directive Response Recorded Date/ Time Living Will Yes March 21 11:41am Do you have a Healthcare Pow er of Rehab Tech? Yes March 21, 2016 11:41am Advance Directives on File Yes Decem 2023 12:21pm Living Will Yes February 09 12:21pm Do you have a Healthcare Pow er of Rehab Tech? Yes February 10, 2024 12:21pm Name of Medical Power of Rehab Tech Jesus Pierce February 10, 2024 12:21pm Advance Directives Yes January 12:21pm Living Will Yes April 21, 2024 1:29pm Do you have a Healthcare Pow er of Rehab Tech? Yes April 21, 2024 1:29pm Name of Medical Power of Rehab Tech [facility] April 21, 2024 1:29pm Advance Directive Response Recorded Date/ Time Living Will Yes March 21 11:41am Do you have a Healthcare Pow er of Rehab Tech? Yes March 21, 2016 11:41am Living Will Yes April 21, 2024 1:29pm Do you have a Healthcare Pow er of Rehab Tech? Yes April 21, 2024 1:29pm Name of Medical Power of Rehab Tech [facility] April 21, 2024 1:29pm Advance Directives Yes January 12:21pm Advance Directive Response Recorded Date/ Time Living Will Yes March 21 11:41am Do you have a Healthcare Power of Rehab Tech? Yes March 21, 2016 11:41am Advance Directives Yes January 12:21pm Chief Complaint and Reason for Visit Chief Complaint 3 mos PPM check 1 Y FU 3 mos PPM f/u Atrioventricular block, second degree Reason for Visit Presence of cardiac pacemaker Second degree AV block, Mobitz type II Presence of cardiac pacemaker Right bundle branch block (RBBB) with left anterior fascicular block Second degree AV block, Mobitz type II Chief Complaint 1 Y FU 3 mos PPM f/u Atrioventricular block, second degree Urinary tract infection Reason for Visit Presence of cardiac pacemaker Second degree AV block, Mobitz type II Presence of cardiac pacemaker Right bundle branch block (RBBB) with left anterior fascicular block Second degree AV block, Mobitz type II Chief Complaint 3 mos PPM f/u 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 Reason for Visit Presence of cardiac pacemaker Right bundle branch block (RBBB) with left anterior fascicular block Second degree AV block, Mobitz type II Vaginal atrophy Encounter for routine gynecological examination Chief Complaint 3 mos PPM f/u 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 3 mos PPM f/u Reason for Visit Presence of cardiac pacemaker Right bundle branch block (RBBB) with left anterior fascicular block Second degree AV block, Mobitz type II Vaginal atrophy Encounter for routine gynecological examination Presence of cardiac pacemaker Right bundle branch block (RBBB) with left anterior fascicular block Second degree AV block, Mobitz type II Chief Complaint 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 3 mos PPM f/u Amb Documentation EORDER Reason for Visit Vaginal atrophy Encounter for routine gynecological examination Presence of cardiac pacemaker Right bundle branch block (RBBB) with left anterior fascicular block Second degree AV block, Mobitz type II Chief Complaint 3 mos f/u / KRR 9:30 1 Y FU / VICTORINA 9:00 Thyroid 3 mos PPM f/u Reason for Visit Presence of cardiac pacemaker Right bundle branch block (RBBB) with left anterior fascicular block Second degree AV block, Mobitz type II Presence of cardiac pacemaker Second degree AV block, Mobitz type II 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 Presence of cardiac pacemaker Right bundle branch block (RBBB) with left anterior fascicular block Second degree AV block, Mobitz type II Chief Complaint 3 mos PPM f/u 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) 1 M FU 3 Mos PPM f/u approaching MANUEL Follow up clobetasol Reason for Visit Presence of cardiac pacemaker Right bundle branch block (RBBB) with left anterior fascicular block Second degree AV block, Mobitz type II Lichen sclerosus Vaginal atrophy Encounter for routine gynecological examination Lichen sclerosus Vaginal atrophy Presence of cardiac pacemaker Right bundle branch block (RBBB) with left anterior fascicular block Second degree AV block, Mobitz type II Lichen sclerosus Vaginal atrophy Chief Complaint SCREENING 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) 1 M FU 3 Mos PPM f/u approaching MANUEL Pacer Check Remote Follow up clobetasol EORDER Reason for Visit Lichen sclerosus Vaginal atrophy Encounter for routine gynecological examination Lichen sclerosus Vaginal atrophy Presence of cardiac pacemaker Right bundle branch block (RBBB) with left anterior fascicular block Second degree AV block, Mobitz type II Lichen sclerosus Vaginal atrophy Chief Complaint 1 M FU 3 Mos PPM f/u approaching MANUEL Pacer Check Remote Follow up clobetasol EORDER NEED ORDER Reason for Visit Lichen sclerosus Vaginal atrophy Presence of cardiac pacemaker Right bundle branch block (RBBB) with left anterior fascicular block Second degree AV block, Mobitz type II Lichen sclerosus Vaginal atrophy Chief Complaint 3 mos PPM f/u SCREENING 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) Reason for Visit Presence of cardiac pacemaker Right bundle branch block (RBBB) with left anterior fascicular block Second degree AV block, Mobitz type II Lichen sclerosus Vaginal atrophy Encounter for routine gynecological examination Chief Complaint Admit Date January 4th, 2024 8 :11am SCREENING January 27, 2024 12:15pm 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) January 27, 2024 12:44pm UPDATE H & P/VICTORINA @ 2:30/OK PER MMM Decem 2023 1:51pm TEACHING/MMM @ 2 February 03, 2024 1:52pm LEFT BREAST MASS February 06, 2024 10:51am EARLY BATTERY DEPLETION February 09, 2 024 10:53am 1 wk s/p PPM generator change February 8:22am Pacer Check Remote February 19, 2024 9: 00am BREAST MASS, SECOND OPINION February 19, 2024 1:47pm Reason for Visit Admit Date Encounter for screening for malignant ne oplasm of colon January 15, 2024 8:11am Left breast mass January 27, 2024 12:44pm Lichen sclerosus January 27, 2024 12:44pm Vaginal atrophy January 27, 2024 12:44pm Encounter for routine gynecological exam ination January 27, 2024 12:44pm Second degree AV block, Mobitz type II D ecember 2023 1:51pm Pacemaker malfunction February 02 1:51pm Presence of cardiac pacemaker January 122023 1:52pm Second degree AV block, Mobitz type II D ecember 2023 1:52pm Pacemaker malfunction February 02 1:52pm Presence of cardiac pacemaker February 8:22am Second degree AV block, Mobitz type II J anuary 2024 8:22am Left breast mass February 19, 2024 1: 47pm Encounter for screening for malignant ne oplasm of colon April 22, 2024 7:28am Chief Complaint Admit Date COLONOSCOPY January 15, 2024 8 :11am SCREENING January 27, 2024 12:15pm 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) January 27, 2024 12:44pm UPDATE H & P/VICTORINA @ 2:30/OK PER MMM Decem 2023 1:51pm TEACHING/MMM @ 2 February 03, 2024 1:52pm LEFT BREAST MASS February 06, 2024 10:51am EARLY BATTERY DEPLETION February 09, 2 024 10:53am 1 wk s/p PPM generator change February 8:22am Pacer Check Remote February 19, 2024 9: 00am BREAST MASS, SECOND OPINION February 19, 2024 1:47pm INT LABS April 24, 2024 7:5 7am Chief Complaint Admit Date INT LABS April 24, 2024 7:5 7am Pacer Check Remote May 11, 2024 2:0 2am 1 Y FU June 02, 2024 8:1 9am 1 Y FU August 04, 2024 8:42 am Reason for Visit Admit Date Encounter for screening for malignant ne oplasm of colon April 22, 2024 7:28am Hypothyroidism due to Fernandez's thyroi ditis June 02, 2024 8:19am Stage 3a chronic kidney disease (CKD) [facility] 2024 8:19am Second degree AV block, Mobitz type II J [facility] 2024 8:42am Pacemaker malfunction August 04, 2024 8: 42am Chief Complaint Admit Date INT LABS April 24, 2024 7:5 7am Pacer Check Remote May 11, 2024 2:0 2am 1 Y FU June 02, 2024 8:1 9am 1 Y FU August 04, 2024 8:42 am Pacer Check Remote August 10, 2024 2:01 am Chief Complaint Admit Date 1 Y FU June 02, 2024 8:1 9am 1 Y FU August 04, 2024 8:42 am Pacer Check Remote August 10, 2024 2:01 am EORDERS September 08, 2024 8:35 am Reason for Visit Admit Date Hypothyroidism due to Fernandez's thyroi ditis June 02, 2024 8:19am Stage 3a chronic kidney disease (CKD) [facility] 2024 8:19am Second degree AV block, Mobitz type II J [facility] 2024 8:42am Pacemaker malfunction August 04, 2024 8: 42am Family History No Family History Records Found Relationship Condition Age at Onset Recorded Date/T lisette mother Malignant neoplasm Unknown father Diabetes mellitus Unknown Malignant neoplasm Unknown Relationship Condition Age at Onset Recorded Date/T lisette Not Specified Psychiatric care Unknown Alcoholism Unknown Arthritis Unknown Depression Unknown Mental disorder Unknown Disorder of respiratory system Unknown Hypertension Unknown Osteoporosis and ocu locutaneous hypopigmentation syndrome Unknown mother Malignant neoplasm Unknown father Diabetes mellitus Unknown Malignant neoplasm Unknown Medications Administered Section Active Administered Medications - up to 3 most recent administrations Medication Order MAR Action Action Date Dose Rate Site fluorescein-benoxinate 0.25-0.4 % 1 Drop (FLURESS) 1 Drop, BOTH EYES, DIRECTED, Starting on Sat04/25/22 at 1030, Until Sat04/25/22 at 222, Administer for applanation tonometry. In the event of a Fluress shortage, administer 1 drop of [place]-Fluor into both eyes as directed for applanation tonometry., [facility] MED ORDERS Given 04/25/2022 10:30 AM EDT 1 Drop PHENYLephrine 2.5 % 1 Drop (AK-DILATE) 1 Drop, BOTH EYES, DIRECTED, Starting on Sat04/25/22 at 1030, Until Sat04/25/22 at 222, Administer for dilation PROTECT FROM LIGHT, [facility]IC MED ORDERS Given 04/25/2022 10:30 AM EDT 1 Drop proparacaine 0.5 % 1 Drop (ALCAINE) 1 Drop, BOTH EYES, DIRECTED, Starting on Sat04/25/22 at 1030, Until Sat04/25/22 at 222, Administer for pneumo tonometry, tonopen tonometry, or [...] on Sat04/25/22 at 1030, Until Sat04/25/22 at 222, Administer for dilation, [facility] CLINIC MED ORDERS Given 04/25/2022 10:30 AM EDT 1 Drop Summary Purpose Additional Source Comments Source Comments (unrecognize d section and content) In the event this informatio n is protected by the Federal Confidentiality of Alcohol and Drug Abuse Patient Records regulations: The Federal rules restrict any use of the information to criminally investigate or prosecute any alcohol or drug abuse patient.[facility] Center[facility] the event this information is protected by the Federal Confidentiality of Alcohol and Drug Abuse Patient Records regulations: The Federal rules restrict any use of the information to criminally investigate or prosecute any alcohol or drug abuse patient.[facility] CenterIn the event this information is protected by the Federal Confidentiality of Alcohol and Drug Abuse Patient Records regulations: The Federal rules restrict any use of the information to criminally investigate or prosecute any alcohol or drug abuse patient.[facility] CenterIn the event this information is protected by the Federal Confidentiality of Alcohol and Drug Abuse Patient Records regulations: The Federal rules restrict any use of the information to criminally investigate or prosecute any alcohol or drug abuse patient.[facility] CenterIn the event this information is protected by the Federal Confidentiality of Alcohol and Drug Abuse Patient Records regulations: The Federal rules restrict any use of the information to criminally investigate or prosecute any alcohol or drug abuse patient.[facility] CenterIn the event this information is protected by the Federal Confidentiality of Alcohol and Drug Abuse Patient Records regulations: The Federal rules restrict any use of the information to criminally investigate or prosecute any alcohol or drug abuse patient.[facility] CenterIn the event this information is protected by the Federal Confidentiality of Alcohol and Drug Abuse Patient Records regulations: The Federal rules restrict any use of the information to criminally investigate or prosecute any alcohol or drug abuse patient.[facility] CenterIn the event this information is protected by the Federal Confidentiality of Alcohol and Drug Abuse Patient Records regulations: The Federal rules restrict any use of the information to criminally investigate or prosecute any alcohol or drug abuse patient.[facility] CenterIn the event this information is protected by the Federal Confidentiality of Alcohol and Drug Abuse Patient Records regulations: The Federal rules restrict any use of the information to criminally investigate or prosecute any alcohol or drug abuse patient.[facility] CenterIn the event this information is protected by the Federal Confidentiality of Alcohol and Drug Abuse Patient Records regulations: The Federal rules restrict any use of the information to criminally investigate or prosecute any alcohol or drug abuse patient.[facility] CenterIn the event this information is protected by the Federal Confidentiality of Alcohol and Drug Abuse Patient Records regulations: The Federal rules restrict any use of the information to criminally investigate or prosecute any alcohol or drug abuse patient.[facility] CenterIn the event this information is protected by the Federal Confidentiality of Alcohol and Drug Abuse Patient Records regulations: The Federal rules restrict any use of the information to criminally investigate or prosecute any alcohol or drug abuse patient.[facility] CenterIn the event this information is protected by the Federal Confidentiality of Alcohol and Drug Abuse Patient Records regulations: The Federal rules restrict any use of the information to criminally investigate or prosecute any alcohol or drug abuse patient.[facility] CenterIn the event this information is protected by the Federal Confidentiality of Alcohol and Drug Abuse Patient Records regulations: The Federal rules restrict any use of the information to criminally investigate or prosecute any alcohol or drug abuse patient.[facility] CenterIn the event this information is protected by the Federal Confidentiality of Alcohol and Drug Abuse Patient Records regulations: The Federal rules restrict any use of the information to criminally investigate or prosecute any alcohol or drug abuse patient.[facility] CenterIn the event this information is protected by the Federal Confidentiality of Alcohol and Drug Abuse Patient Records regulations: The Federal rules restrict any use of the information to criminally investigate or prosecute any alcohol or drug abuse patient.[facility] CenterIn the event this information is protected by the Federal Confidentiality of Alcohol and Drug Abuse Patient Records regulations: The Federal rules restrict any use of the information to criminally investigate or prosecute any alcohol or drug abuse patient.[facility] CenterIn the event this information is protected by the Federal Confidentiality of Alcohol and Drug Abuse Patient Records regulations: The Federal rules restrict any use of the information to criminally investigate or prosecute any alcohol or drug abuse patient.[facility] CenterIn the event this information is protected by the Federal Confidentiality of Alcohol and Drug Abuse Patient Records regulations: The Federal rules restrict any use of the information to criminally investigate or prosecute any alcohol or drug abuse patient.[facility] CenterIn the event this information is protected by the Federal Confidentiality of Alcohol and Drug Abuse Patient Records regulations: The Federal rules restrict any use of the information to criminally investigate or prosecute any alcohol or drug abuse patient.[facility] CenterIn the event this information is protected by the Federal Confidentiality of Alcohol and Drug Abuse Patient Records regulations: The Federal rules restrict any use of the information to criminally investigate or prosecute any alcohol or drug abuse patient.[facility] CenterIn the event this information is protected by the Federal Confidentiality of Alcohol and Drug Abuse Patient Records regulations: The Federal rules restrict any use of the information to criminally investigate or prosecute any alcohol or drug abuse patient.[facility] Reason for Visit (unrecogniz ed section and content) Reason Comments Research F/U Gale patient returns for Month 6 Reason Comments Research GALE study week ade h 8 Reason Comments Research F/U Patient returns for GALE Month 10 Reason Comments Research F/U Gale month 12, month 8 Reason Comments Research F/U Reason Comments Follow Up For study Reason Comments Research Gale study- Month 18 , visit 11 Reason Comments Research Care Teams (unrecognized sec tion and content) Caramel Cutter Hand Relationship Specialty Start Date End Date Robe Smith MD [address], [place] [id number] PCP - General Family Practice 05/07/18 Caramel Cutter Hand Relationship Specialty Start Date End Date [facility] Smith [facility] [address] [facility] [place] [place] [id number] PCP - General Family Practice 05/07/18 Caramel Cutter Hand Relationship Specialty Start Date End Date Robe Smith MD [address] [facility] [place], [place] [address] PCP - General Family Practice 05/07/18 Caramel Cutter Hand Relationship Specialty Start Date End Date Rboe Smith MD [address] [facility] [place], [place] [address] PCP - General Family Medicine 05/07/18 Caramel Cutter Hand Relationship Specialty Start Date End Date Robe Smith MD [address] [facility] [place], [place] [address] PCP - General Family Medicine 05/07/18 Caramel Cutter Hand Relationship Specialty Start Date End Date Robe Smith MD [address] [facility] [place], [place] [id number] PCP - General Family Medicine 05/07/18 Team Status: Active Member Role Status Dates Dr. Deacon Smith MD Family Provider Active Dr. Deacon Smith MD Primary Care Provider Activ e Team Status: Inactive Member Role Status Dates Dr. Deacon Smith MD Primary Care Provider, Refe rring Provider Active Henrietta Bar GRID MOLDER, GRID MOLDER-C Attending Provider Active Team Status: Inactive Member Role Status Dates Dr. Deacon Smith MD Primary Care Provider, Refe rring Provider Active Merna Angelo Attending Provider Active Team Status: Inactive Member Role Status Dates Dr. Deacon Smith MD Primary Care Provider Activ e Henrietta Bar GRID MOLDER, GRID MOLDER-C Attending Provider Active Team Status: Inactive Member Role Status Dates Dr. Deacon Smith MD Primary Care Provider, Attending Provider, Referring Provider Active Caramel Cutter Hand Relationship Specialty Start Date End Date Robe Smith MD [address] [facility] [place], [place] [address] PCP - General Family Medicine 05/07/18 Caramel Cutter Hand Relationship Specialty Start Date End Date Robe Smith MD [address] [facility] [place], [place] [id number] PCP - General Family Medicine 05/07/18 Team Status: Inactive Member Role Status Dates Dr. Deacon Smith MD Primary Care Provider, Refe rring Provider Active Merna Angelo Active Dr. Billy Denton MD Attending Provider Active Team Status: Active Member Role Status Dates Dr. Deacon Smith MD Primary Care Provider Activ e Greg Harper Attending Provider Active Team Status: Inactive Member Role Status Dates Dr. Deacon Smith MD Primary Care Provider, Refe rring Provider Active Sara Duran GRID MOLDER, GRID MOLDER-C Attending Provider Active Team Status: Inactive Member Role Status Dates Dr. Deacon Smith MD Primary Care Provider, Refe rring Provider Active Dr. Cody Kim MD Attending Provider Active Team Status: Inactive Member Role Status Dates Dr. Deacon Smith MD Primary Care Provider, Attending Provider, Referring Provider Active Dr. Cody Kim MD Other Provider Active Caramel Cutter Hand Relationship Specialty Start Date End Date Robe Smith MD [address] [place] [address] PCP - General Family Medicine 05/07/18 Caramel Cutter Hand Relationship Specialty Start Date End Date Robe Smith MD [address] [place] [address] PCP - General Family Medicine 05/07/18 Caramel Cutter Hand Relationship Specialty Start Date End Date Robe Smith MD [address] [place] [address] PCP - General Family Medicine 05/07/18 Team Status: Inactive Member Role Status Dates Henrietta Bar GRID MOLDER, GRID MOLDER-C Attending Provider, Referring Provider Active Dr. Deacon Smith MD Primary Care Provider Activ e Team Status: Inactive Member Role Status Dates Dr. Deacon Smith MD Primary Care Provider Activ e Bon Petersen MD Attending Provider, Referring Provide r Active Caramel Cutter Hand Relationship Specialty Start Date End Date Robe Smith MD [address] [facility] [address] PCP - General Family Medicine 05/07/18 Caramel Cutter Hand Relationship Specialty Start Date End Date Robe Smith MD [address] [place] [address] PCP - General Family Medicine 05/07/18 Caramel Cutter Hand Relationship Specialty Start Date End Date Robe Smith MD [address] [place], [place] [phone] PCP - General Family Medicine 05/07/18 Team Status: Inactive Member Role Status Dates Dr. Deacon Smith MD Primary Care Provider Activ e Dr. Billy Denton MD Attending Provider Active Team Status: Active Member Role Status Dates Dr. Robe Smith MD Family Provider Active Dr. Robe Smith MD Primary Care Provider Acti ve Team Status: Inactive Member Role Status Dates Dr. Robe Smith MD Primary Care Provider, Ref erring Provider Active Merna Angelo Active Dr. Billy Denton MD Attending Provider Active Team Status: Inactive Member Role Status Dates Dr. Robe Smith MD Primary Care Provider, Ref erring Provider Active Henrietta Bar GRID MOLDER, GRID MOLDER-C Attending Provider Active Team Status: Inactive Member Role Status Dates Dr. Robe Smith MD Primary Care Provider Acti ve Dr. Billy Denton MD Attending Provider Active Team Status: Inactive Member Role Status Dates Dr. Robe Smith MD Primary Care Provider Acti ve Bon Petersen MD Attending Provider, Referring Provide r Active Team Status: Inactive Member Role Status Dates Dr. Robe Smith MD Primary Care Provider Acti ve Dr. Cody Kim MD Attending Provider, Referring Provi stacey Active Team Status: Inactive Member Role Status Dates Dr. Robe Smith MD Primary Care Provider, Attending Provider, Referring Provider Active Caramel Cutter Hand Relationship Specialty Start Date End Date Robe Smith MD [address] [facility] [address] PCP - General Family Medicine 05/07/18 Caramel Cutter Hand Relationship Specialty Start Date End Date Robe Smith MD [address] [place], [place] [address] PCP - General Family Medicine 05/07/18 Caramel Cutter Hand Relationship Specialty Start Date End Date Robe Smith MD [address] [place], [place] [address] PCP - General Family Medicine 05/07/18 Caramel Cutter Hand Relationship Specialty Start Date End Date Robe Smith MD [address] [place], [place] [id number] PCP - General Family Medicine 05/07/18 Team Status: Active Member Role Status Dates Dr. Robe Smith MD Primary Care Provider Acti ve Team Status: Inactive Member Role Status Dates Dr. Robe Smith MD Primary Care Provider Acti ve Start: January 15, 2024 End: January 15, 2024 Dr. Robe Smith MD Referring Provider Active Start: January 15, 2024 End: January 15, 2024 Dr. Loretta Patel MD Attending Provider Active Start: January 15, 2024 End: January 15, 2024 Team Status: Inactive Member Role Status Dates Dr. Robe Smith MD Primary Care Provider Acti ve Start: January 27, 2024 End: January 27, 2024 Henrietta Bar NP, GRID MOLDER-C Attending Provider Active Start: January 27, 2024 End: January 27, 2024 Henrietta Bar NP GRID MOLDER-C Referring Provider Active Start: January 27, 2024 End: January 27, 2024 Team Status: Inactive Member Role Status Dates Dr. Robe Smith MD Primary Care Provider Acti ve Start: January 27, 2024 End: January 27, 2024 Dr. Robe Smith MD Referring Provider Active Start: January 27, 2024 End: January 27, 2024 Henrietta Bar GRID MOLDER, GRID MOLDER-C Attending Provider Active Start: January 27, 2024 End: January 27, 2024 Team Status: Inactive Member Role Status Dates Dr. Robe Smith MD Primary Care Provider Acti ve Start: February 03, 2024 End: February 03, 2024 Dr. Robe Smith MD Referring Provider Active Start: February 03, 2024 End: February 03, 2024 Jeri Rasheed PA, PA Attending Provider Active Start: February 03, 2024 End: February 03, 2024 Team Status: Inactive Member Role Status Dates Dr. Robe Smith MD Primary Care Provider Acti ve Start: February 03, 2024 End: February 03, 2024 Dr. Robe Smith MD Referring Provider Active Start: February 03, 2024 End: February 03, 2024 Merna Angelo Attending Provider Active Start: [id number] End: February 03, 2024 Team Status: Inactive Member Role Status Dates Dr. Robe Smith MD Primary Care Provider Acti ve Start: February 03, 2024 End: February 03, 2024 Dr. Billy Denton MD Attending Provider Active S tart: February 03, 2024 End: February 03, 2024 Dr. Billy Denton MD Referring Provider Active S tart: February 03, 2024 End: February 03, 2024 Team Status: Inactive Member Role Status Dates Dr. Robe Smith MD Primary Care Provider Acti ve Start: February 06, 2024 End: February 06, 2024 Henrietta Bar GRID MOLDER, GRID MOLDER-C Attending Provider Active Start: February 06, 2024 End: February 06, 2024 Henrietta Bar GRID MOLDER, GRID MOLDER-C Referring Provider Active Start: February 06, 2024 End: February 06, 2024 Team Status: Inactive Member Role Status Dates Dr. Robe Smith MD Primary Care Provider Acti ve Start: February 10, 2024 End: February 10, 2024 Dr. Billy Denton MD Attending Provider Active S tart: February 10, 2024 End: February 10, 2024 Dr. Billy Denton MD Referring Provider Active S tart: February 10, 2024 End: February 10, 2024 Team Status: Inactive Member Role Status Dates Dr. Robe Smith MD Primary Care Provider Acti ve Start: February 19, 2024 End: February 19, 2024 Dr. Robe Smith MD Referring Provider Active Start: February 19, 2024 End: February 19, 2024 Dr. Billy Denton MD Attending Provider Active S tart: February 19, 2024 End: February 19, 2024 Team Status: Inactive Member Role Status Dates Dr. Robe Smith MD Primary Care Provider Acti ve Start: February 19, 2024 End: February 19, 2024 Dr. Billy Denton MD Attending Provider Active S tart: February 19, 2024 End: February 19, 2024 Team Status: Inactive Member Role Status Dates Dr. Robe Smith MD Primary Care Provider Acti ve Start: February 19, 2024 End: February 19, 2024 Dr. Robe Smith MD Referring Provider Active Start: February 19, 2024 End: February 19, 2024 Dr. Loretta Patel MD Attending Provider Active Start: February 19, 2024 End: February 19, 2024 Team Status: Inactive Member Role Status Dates Dr. Robe Smith MD Primary Care Provider Acti ve Start: April 22, 2024 End: April 22, 2024 Dr. Robe Smith MD Referring Provider Active Start: April 22, 2024 End: April 22, 2024 Dr. Loretta Patel MD Attending Provider Active Start: April 22, 2024 End: April 22, 2024 Team Status: Active Member Role Status Dates Dr. Robe Smith MD Primary Care Provider Acti ve Start: April 22, 2024 Dr. Robe Smith MD Referring Provider Active Start: April 22, 2024 Dr. Loretta Patel MD Attending Provider Active Start: April 22, 2024 Dr. Loretta Patel MD Other Provider Active S tart: April 22, 2024 Team Status: Inactive Member Role Status Dates Dr. Robe Smith MD Primary Care Provider Acti ve Start: April 24, 2024 End: April 24, 2024 Dr. Robe Smith MD Attending Provider Active Start: April 24, 2024 End: April 24, 2024 Dr. Robe Smith MD Referring Provider Active Start: April 24, 2024 End: April 24, 2024 Team Status: Inactive Member Role Status Dates Dr. Robe Smith MD Primary Care Provider Acti ve Start: May 11, 2024 End: May 11, 2024 Dr. Billy Denton MD Attending Provider Active S tart: May 11, 2024 End: May 11, 2024 Team Status: Inactive Member Role Status Dates Dr. Robe Smith MD Primary Care Provider Acti ve Start: June 02, 2024 End: June 02, 2024 Dr. Robe Smith MD Referring Provider Active Start: June 02, 2024 End: June 02, 2024 Dr. Cody Kim MD Attending Provider Active Sta rt: June 02, 2024 End: June 02, 2024 Team Status: Inactive Member Role Status Dates Dr. Robe Smith MD Primary Care Provider Acti ve Start: August 04, 2024 End: August 04, 2024 Dr. Robe Smith MD Referring Provider Active Start: August 04, 2024 End: August 04, 2024 Jeri Rasheed PA, PA Attending Provider Active Start: August 04, 2024 End: August 04, 2024 Team Status: Active Member Role/Relationship Status Dates Dr. Robe Smith MD Primary Care Provider Acti ve Team Status: Inactive Member Role/Relationship Status Dates Dr. Robe Smith MD Primary Care Provider Acti ve Start: April 22, 2024 End: April 22, 2024 Dr. Robe Smith MD Referring Provider Active Start: April 22, 2024 End: April 22, 2024 Dr. Loretta Patel MD Attending Provider Active Start: April 22, 2024 End: April 22, 2024 Team Status: Active Member Role/Relationship Status Dates Dr. Robe Smith MD Primary Care Provider Acti ve Start: April 22, 2024 Dr. Robe Smith MD Referring Provider Active Start: April 22, 2024 Dr. Loretta Patel MD Attending Provider Active Start: April 22, 2024 Dr. Loretta Patel MD Other Provider Active S tart: April 22, 2024 Team Status: Inactive Member Role/Relationship Status Dates Dr. Robe Smith MD Primary Care Provider Acti ve Start: April 24, 2024 End: April 24, 2024 Dr. Robe Smith MD Attending Provider Active Start: April 24, 2024 End: April 24, 2024 Dr. Robe Smith MD Referring Provider Active Start: April 24, 2024 End: April 24, 2024 Team Status: Inactive Member Role/Relationship Status Dates Dr. Robe Smith MD Primary Care Provider Acti ve Start: May 11, 2024 End: May 11, 2024 Dr. Billy Denton MD Attending Provider Active S tart: May 11, 2024 End: May 11, 2024 Team Status: Inactive Member Role/Relationship Status Dates Dr. Robe Smith MD Primary Care Provider Acti ve Start: June 02, 2024 End: June 02, 2024 Dr. Robe Smith MD Referring Provider Active Start: June 02, 2024 End: June 02, 2024 Dr. Cody Kim MD Attending Provider Active Sta rt: June 02, 2024 End: June 02, 2024 Team Status: Inactive Member Role/Relationship Status Dates Dr. Robe Smith MD Primary Care Provider Acti ve Start: August 04, 2024 End: August 04, 2024 Dr. Robe Smith MD Referring Provider Active Start: August 04, 2024 End: August 04, 2024 Jeri Rasheed PA, PA Attending Provider Active Start: August 04, 2024 End: August 04, 2024 Team Status: Inactive Member Role/Relationship Status Dates Dr. Robe Smith MD Primary Care Provider Acti ve Start: August 10, 2024 End: August 10, 2024 Dr. Billy Denton MD Attending Provider Active S tart: August 10, 2024 End: August 10, 2024 Team Status: Inactive Member Role/Relationship Status Dates Dr. Robe Smith MD Primary Care Provider Acti ve Start: June 02, 2024 End: June 02, 2024 Dr. Robe Smith MD Referring Provider Active Start: June 02, 2024 End: June 02, 2024 Dr. Cody Kim MD Attending Provider Active Sta rt: June 02, 2024 End: June 02, 2024 Team Status: Inactive Member Role/Relationship Status Dates Dr. Robe Smith MD Primary Care Provider Acti ve Start: August 04, 2024 End: August 04, 2024 Dr. Robe Smith MD Referring Provider Active Start: August 04, 2024 End: August 04, 2024 Jeri Rasheed PA, PA Attending Provider Active Start: August 04, 2024 End: August 04, 2024 Team Status: Inactive Member Role/Relationship Status Dates Dr. Robe Smith MD Primary Care Provider Acti ve Start: August 10, 2024 End: August 10, 2024 Dr. Billy Denton MD Attending Provider Active S tart: August 10, 2024 End: August 10, 2024 Team Status: Inactive Member Role/Relationship Status Dates Dr. Robe Smith MD Primary Care Provider Acti ve Start: September 08, 2024 End: September 08, 2024 Dr. Cody Kim MD Attending Provider Active Sta rt: September 08, 2024 End: September 08, 2024 Dr. Cody Kim MD Referring Provider Active Sta rt: September 08, 2024 End: September 08, 2024 Goals (unrecognized section and content) Goals may be documented in a n alternate sectionGoals may be documented in an alternate sectionGoals may be documented in an alternate sectionGoals may be documented in an alternate sectionGoals may be documented in an alternate sectionGoals may be documented in an alternate sectionGoals may be documented in an alternate sectionGoals may be documented in an alternate sectionGoals may be documented in an alternate sectionGoals may be documented in an alternate sectionGoals may be documented in an alternate section INFORMATION SOURCE (unrecogn ized section and content) DATE CREATED AUTHOR 11/27/2023 [facility] DATE CREATED AUTHOR AUTHOR'S MAIKEL MANN 09/26/2024 [facility] FOR RECORDS PERTAINING TO PATIENTS WHO ARE [...] BE BASED ON THE PRIMARY CLINICAL RECORDS. [facility] [email or web address] [facility]. provides no warranty or guarantee of the accuracy or completeness of information in this document.
== END | disposition home or self-care (01) ==
LOC: LABSPEC 14:10
PROVIDERS: PCP Family Medicine; Visit Provider Physician Assistant
DX: R30.0 Dysuria (principal)
CPT/HCPCS: 87077; 87086; 87088; 87186

== ENCOUNTER → 2024-12-16 | Outpatient (CLI) | payer MEDICARE, OTHER, SELFPAY | END | disposition home or self-care (01) | LOC: LABSPEC 08:15 | PROVIDERS: PCP Family Medicine; Visit Provider Physician Assistant | DX: R30.0 Dysuria (principal) | CPT/HCPCS: 87077; 87086; 87088 ==

== ENCOUNTER → 2024-12-24 | Outpatient (CLI) | payer MEDICARE, OTHER, SELFPAY | END | disposition home or self-care (01) | LOC: LAB 10:10 | PROVIDERS: PCP Family Medicine; Referring Provider Internal Medicine Endocrinology, Diabetes & Metabolism; Visit Provider Internal Medicine Endocrinology, Diabetes & Metabolism | DX: E06.3 Autoimmune thyroiditis (principal) | CPT/HCPCS: 36415; 84443 ==

== ENCOUNTER → 2024-12-30 | Outpatient (CLI) | payer MEDICARE, OTHER, SELFPAY ==
[2024-12-30 10:50] LABS: Anion Gap 8 (5-15); BUN 25 mg/dL (4-19); BUN/Creat Ratio 26.4 RATIO (10-20); Calcium,Total 9.3 mg/dL (7.6-11.0); Carbon Dioxide 27.8 mmol/L (21.0-32.0); Chloride 104 mmol/L (98-108); Glucose 95 mg/dL (70-99); Potassium 4.4 mmol/L (3.3-5.1); Vitamin D,25 Hydroxy 46.9 ng/mL (30-100)
== END | disposition home or self-care (01) ==
LOC: MTLAB 08:18
PROVIDERS: PCP Family Medicine; Referring Provider Family Medicine; Visit Provider Family Medicine
DX: E55.9 Vitamin D deficiency, unspecified (principal)
CPT/HCPCS: 36415; 80048; 82306

== ENCOUNTER → 2025-01-12 | Outpatient (CLI) | payer MEDICARE, OTHER, SELFPAY | END | disposition home or self-care (01) | LOC: LABSPEC 17:02 | PROVIDERS: PCP Family Medicine; Visit Provider Family Medicine | DX: N39.0 Urinary tract infection, site not specified (principal) | CPT/HCPCS: 87086; 87088; 87186 ==

== ENCOUNTER → 2025-01-27 | Outpatient (CLI) | payer MEDICARE, OTHER, SELFPAY ==
--- NOTE | 2025-01-27 10:15 | BI_ITS ---
EXAM: SCRN MAMM (CAD)W/RAFA BILAT DATE: 01/27/2025 CLINICAL HISTORY: F, Age 74 y/o , BREAST CANCER SCREENING TECHNIQUE: Procedure Code: [id number] Modality: MG Procedure: SCRN MAMM (CAD)W/RAFA BILAT COMPARISON: Prior exam(s) were compared FINDINGS: TISSUE DENSITY: There are scattered areas of fibroglandular density. Bilateral Breast Mammographic Findings: No significant masses, calcifications or other abnormalities are identified. BI/SCRN MAMM (CAD)W/RAFA BILAT IMPRESSION: No mammographic evidence of malignancy. OVERALL FINAL ASSESSMENT BI-RADS 1: NEGATIVE. RECOMMENDATION: Routine annual follow-up in 1 Year Additional Recommendation none A letter with findings and recommendations will be mailed to the patient. Reading Location: [id number]
== END | disposition home or self-care (01) ==
LOC: OPBD 09:51 → OPBI 10:48
PROVIDERS: PCP Family Medicine; Referring Provider Nurse Practitioner Women's Health; Visit Provider Nurse Practitioner Women's Health
DX: Z12.31 Encounter for screening mammogram for malignant neoplasm of breast (principal)
CPT/HCPCS: 77063; 77067